=== PATIENT | female | born 1970 | race Caucasian/White ===

== ENCOUNTER 2017-09-30 16:45 | Inpatient (IN) | payer MEDICARE, OTHER ==
[2017-09-30 16:25] VITALS: BP 152/82; PULSE 98; RESP 20; O2SAT 94
[~2017-09-30 16:45] MED LIST: CALC250 PO; DIPH12.5S PO; ENOX120P SQ; FAMO20TA2 PO; FERR300S PO; HYDR25TA5 PO; LEVS0.123 PO; LISI-515 PO; MAGN400T2 PO; PYRI50 PO; THEO PO; THERTAB15 PO; VALT500T PO; VITA10002 PO; VITA500012 PO; oxyCODONE LIQ PO
[2017-09-30] MEDS ORDERED: MORPHINE SULFATE 8 MG/ML INJ IV PUSH ONE ×2 (16:46→17:00)
[2017-09-30 16:55] VITALS: BP 154/79; PULSE 20; RESP 20; O2SAT 94
[2017-09-30] MEDS ORDERED: ceFAZolin 2 GM PREMIX 50 ML IV ONE (17:00)
[2017-09-30] MEDS ORDERED: NALOXONE HCL 0.4 MG/ML AMP IV PUSH PRN (17:45)
[2017-09-30] MEDS ORDERED: ENALAPRILAT 2.5 MG/2 ML VIAL IV PUSH PRN (17:45)
[2017-09-30] MEDS ORDERED: KETOROLAC TROMETHAMINE 60 MG/2 ML (IM) VIAL IM PRN (18:00)
[2017-09-30] MEDS: ENOXAPARIN SODIUM 120 MG/0.8 ML SYRINGE SQ SCH (18:00)
--- NOTE | 2017-09-30 18:07 | HHI.HP ---
HPI Service [facility] Hospitalists Primary Care Physician Unknown Admission Diagnosis Diagnoses: Travel History International Travel<30 Days: No Contact w/Intl Traveler <30 Da: No Traveled to Known Affected Are: No History of Present Illness 46-year-old female with an extensive past medical history including CVAs, recurrent DVTs, PE, MS, neurogenic bladder requiring self catheter, chronic pain , A. fib, diastolic CHF, MANI, GERD, Nunez's esophagus, COPD and obesity who is admitted to the [facility] for Bob-en-Y gastric bypass and G-tube placement on 09/19/17. Postoperatively, the patient complained of bilateral lower extremity paralysis and numbness. MRI lumbar spine was done showing stable bulging disks at L4-L5 and L5-S1 without any foraminal or spinal cord narrowing. The patient was admitted to [facility] for rehabilitation on . While at [place], the patient's PEG tube became clogged. She has severe dysphagia and refuses to take anything by mouth including her medications. The patient went for a G-tube exchange with interventional radiology. During the procedure, the PEG was unable to be replaced in the same location and a new small caliber tube was placed. At this time the patient is to remain nothing by mouth and her PEG tube cannot be used. PEG to remain draining to gravity. The patient complains of severe abdominal pain from the procedure. Review of Systems Denies fever or chills Denies blurry vision, otorrhea, rhinorrhea Denies sore throat and cough No chest pain, palpitations, shortness of breath Positive abdominal pain Denies constipation/diarrhea/nausea/vomiting Bilateral lower extremity weakness No rashes Past Family Social History Past Medical History Dysphagia Schatzki ring Hiatal hernia status post repair Nunez's esophagus MS History of colon cancer status post chemotherapy, radiation and colectomy CVA DVT PE Hypertension Past Surgical History Hiatal hernia repair Bob-en-Y G-tube placement Foot surgery Excisional lipoma Parotidectomy Tonsillectomy Port placement Reported Medications Reported Meds & Active Scripts Active Thera Tablet (Multivitamin with Folic Acid) 400 Mcg Tablet 1 Tab PO DAILY Ergocalciferol 50,000 Unit Cap 50,000 Units PO Q7D Vitamin B-12 (Cyanocobalamin) 1,000 Mcg Tab 1,000 Mcg PO DAILY Vitamin B-6 (Pyridoxine HCl) 50 Mg Tab 100 Mg PO DAILY Theophylline ER 12 HR (Theophylline) 450 Mg Tab 450 Mg PO Q12HR Famotidine 20 Mg Tab 20 Mg PO Q12HR Magnesium Oxide 400 Mg Tab 400 Mg PO DAILY@1200 Hydrochlorothiazide 25 Mg Tab 25 Mg PO BID@18 Oyster Shell 250 mg + Vit D Tb (Calcium/Vitamin D) 250 Mg Calcium (625 Mg)-125 Unit Tablet 250 Mg PO Q12HR [oxyCODONE LIQ] 20 MG/1 ML Conc 10 Mg PO Q4H PRN Lisinopril 20 Mg Tab 20 Mg PO Q12HR Lovenox Inj (Enoxaparin Sodium) 120 Mg/0.8 Ml Syr 120 Mg SQ Q12H Ferrous Sulfate Liq (Ferrous Sulfate) 300 Mg/5 Ml Soln 300 Mg PO DAILY 30 Days Levsin (Hyoscyamine Sulfate) 0.125 Mg Tab 0.125 Mg PO Q4H PRN Valtrex (Valacyclovir HCl) 500 Mg Tab 500 Mg PO Q12HR Diphenhydramine Liq (Diphenhydramine HCl) 12.5 Mg/5 Ml Elix 25 Mg PO Q8H PRN Allergies: Coded Allergies: adhesive (Verified Allergy, Severe, swell, 09/27/17) ALL ADHESIVES EVEN PAPER TAPE.. ONLY CAN use primapore surgical adhesive ONLY azithromycin (Verified Allergy, Severe, swell throat, 09/27/17) fluticasone (Verified Allergy, Severe, swell, 09/27/17) hydrocortisone (Verified Allergy, Severe, thrush, 09/27/17) levofloxacin (Verified Allergy, Severe, rash, 09/27/17) metoprolol (Verified Allergy, Severe, rash, 09/27/17) nalbuphine (Verified Allergy, Severe, swelling throat, 09/27/17) salmeterol (Verified Allergy, Severe, swell, 09/27/17) silver (Verified Allergy, Severe, swell, 09/27/17) sulfamethoxazole (Verified Allergy, Severe, rash, 09/27/17) trimethoprim (Verified Allergy, Severe, rash, 09/27/17) Iodinated Contrast- Oral and IV Dye (Verified Allergy, Intermediate, itching , 09/27/17) aspirin (Unverified Allergy, Unknown, 09/27/17) Uncoded Allergies: dermabond (Allergy, Severe, swelling / redness, 09/27/17) nsaids (Allergy, Severe, swelling, 09/27/17) can take tylenol though not ibuprofen Family History History of CAD and diabetes mellitus in both parents Social History Denies alcohol, tobacco and illicit drugs Physical Exam Vital Signs Vital Signs Date Time Temp Pulse Resp B/P (MAP) Pulse Ox O2 Delivery O2 Flow Rate FiO2 09/30/17 16:55 20 20 154/79 (104) 94 09/30/17 16:25 98 20 152/82 (105) 94 Physical Exam GENERAL: Obese, female lying in bed SKIN: No rashes, ecchymoses or lesions. Cool and dry. HEAD: Atraumatic. Normocephalic. No temporal or scalp tenderness. EYES: Pupils equal round and reactive. Extraocular motions intact. No scleral icterus. No injection or drainage. ENT: Nose without bleeding, purulent drainage or septal hematoma. Throat without erythema, tonsillar hypertrophy or exudate. Uvula midline. Airway patent. Mucous membranes dry. NECK: Trachea midline. No JVD or lymphadenopathy. Supple, nontender, no meningeal signs. CARDIOVASCULAR: Regular rate and rhythm without murmurs, gallops, or rubs. RESPIRATORY: Clear to auscultation. Breath sounds equal bilaterally. No wheezes , rales, or rhonchi. GASTROINTESTINAL: Abdomen soft, nondistended. Exquisitely tender to palpation in all 4 quadrants. Voluntary guarding. No peritoneal signs. MUSCULOSKELETAL: Extremities without clubbing, cyanosis, or edema. No joint tenderness, effusion, or edema noted. NEUROLOGICAL: Awake and alert. Cranial nerves II through XII intact. Motor and sensory grossly within normal limits. Normal speech. Caprini VTE Risk Assessment Caprini VTE Risk Assessment: Mod/High Risk (score >= 2) Caprini Risk Assessment Model Point Value = 1 Point Value = 2 Point Value = 3 Point Value = 5 Age 41-60 Minor surgery BMI > 25 kg/m2 Swollen legs Varicose veins or History of unexplained or recurrent spontaneous Oral contraceptives or hormone replacement Sepsis (< 1 month) Serious lung disease, including pneumonia (< 1 month) Abnormal pulmonary function Acute myocardial infarction Congestive heart failure (< 1 month) History of inflammatory bowel disease Medical patient at bed rest Age 61-74 Arthroscopic surgery Major open surgery (> 45 min) Laparoscopic surgery (> 45 min) Malignancy Confined to bed (> 72 hours) Immobilizing plaster cast Central venous access Age >= 75 History of VTE Family history of VTE Factor V Leiden Prothrombin [id number] Lupus anticoagulant Anticardiolipin antibodies Elevated serum homocysteine Heparin-induced thrombocytopenia Other congenital or acquired thrombophilia Stroke (< 1 month) Elective arthroplasty Hip, pelvis, or leg fracture Acute spinal cord injury (< 1 month) Prophylaxis Regimen Total Risk Factor Score Risk Level Prophylaxis Regimen 0-1 Low Early ambulation 2 Moderate Order ONE of the following: *Sequential Compression Device (SCD) *Heparin 5000 units SQ BID 3-4 Higher Order ONE of the following medications: *Heparin 5000 units SQ TID *Enoxaparin/Lovenox 40 mg SQ daily (WT < 150 kg, CrCl > 30 mL/min) *Enoxaparin/Lovenox 30 mg SQ daily (WT < 150 kg, CrCl > 10-29 mL/min) *Enoxaparin/Lovenox 30 mg SQ BID (WT < 150 kg, CrCl > 30 mL/min) AND/OR *Sequential Compression Device (SCD) 5 or more Highest Order ONE of the following medications: *Heparin 5000 units SQ TID (Preferred with Epidurals) *Enoxaparin/Lovenox 40 mg SQ daily (WT < 150 kg, CrCl > 30 mL/min) *Enoxaparin/Lovenox 30 mg SQ daily (WT < 150 kg, CrCl > 10-29 mL/min) *Enoxaparin/Lovenox 30 mg SQ BID (WT < 150 kg, CrCl > 30 mL/min) AND *Sequential Compression Device (SCD) Assessment and Plan Assessment and Plan 46-year-old female with multiple medical comorbidities presents from rehabilitation after failed G-tube exchange 1. Status post gastric bypass/G-tube placement Patient is status post Bob-en-Y gastric bypass with G-tube placement on 09/19 at [facility] Admitted to rehabilitation for physical deconditioning and bilateral lower extremity paralysis of G-tube clogged, was unable to be replaced in same location. A small G-tube was placed in the stomach, will need to remain to draining to gravity for approximately 2-3 days while previous G-tube site heals. CAN NOT USE G TUBE FOR NUTRITION OR MEDICATION AT THIS TIME. Consult general surgery, Dr. Miles is aware, appreciate recommendations. Interventional radiology following. 2. Paralysis of lower extremities MRI spine showed bulging disc at L4-L5 and L5-S1 without explanation of symptoms Neurology was consulted while the patient was in rehabilitation, recommend EMG Physical therapy 3. History of PE/DVT Continue therapeutic Lovenox Status post IVC filter placement 4. Hypertension Holding home medications as patient cannot take anything by mouth/by tube Vasotec every 6 hours when necessary Monitor and add additional IV medications as needed 5. GERD/Nunez's esophagus IV Protonix 6. Neurogenic bladder Insert Reeves 7. MS/history of CVA Patient has been evaluated by neurology during this visit Neurology has signed off Anticoagulation as above 8. Diastolic heart failure Vasotec until patient can resume home medications 9. Chronic pain/abdominal pain Morphine Toradol 3 days FEN NPO NS at 125 cc/hr Electrolytes: monitor and replete prn Lovenox Physician Certification 2 Midnight Certification Type: Admission for Inpatient Services Order for Inpatient Services The services are ordered in accordance with Medicare regulations or non- Medicare payer requirements, as applicable. In the case of services not specified as inpatient-only, they are appropriately provided as inpatient services in accordance with the 2-midnight benchmark. Estimated LOS (days): 2 2 days is the estimated time the patient will need to remain in the hospital, assuming treatment plan goals are met and no additional complications. Post-Hospital Plan: Not yet determined Alma Verma MD Sep 30, 2017 18:07
[2017-09-30] MEDS: SODIUM CHLOR 0.9% 1000 ML INJ 1,000 ML IV SCH (18:12)
[2017-09-30] MEDS: MORPHINE SULFATE 4 MG/ML INJ IV PUSH PRN ×2 (18:12→21:48)
[2017-09-30] MEDS: ONDANSETRON HCL 4 MG/2 ML VIAL IVP PRN (18:12)
[2017-09-30] MEDS: PANTOPRAZOLE SODIUM 40 MG VIAL IV PUSH SCH (18:49)
[2017-09-30 20:00] VITALS: BP 144/87; PULSE 106; RESP 22; TEMP 101.1; O2SAT 97
[2017-09-30] MEDS: SODIUM CHLORIDE 0.9% FLUSH 10 ML FLUSH IV FLUSH SCH (21:51)
--- NOTE | 2017-09-30 22:07 | MB ---
cc: DILIP JOHNSON MD DATE OF CONSULTATION 09/30/17 REASON FOR CONSULTATION Clogged G tube, history of gastric bypass. HISTORY OF PRESENT ILLNESS The patient is a 46-year-old female who presents with recent surgical intervention including Bob-en-Y gastric bypass. Patient with clogged gastrostomy tube. The patient with significant medical and surgical history. The patient was noted to be admitted at [facility] for a Bob-en-Y gastric bypass, gastrostomy tube placement and hiatal hernia repair robotically on 09/19/2017. Postoperatively, the patient did say she developed paralysis and numbness bilateral lower extremities. She had evaluation with an MRI showed bulging disks without any cord compromise. The patient did have a history of MS. She was also noted to undergo hiatal hernia repair and gastrostomy tube placement at her request due to decreased p.o. intake and esophagitis. However, further discussion with patient who is a questionable historian notes that she did not prefer to get gastric bypass, but this was recommended to her as her BMI is 43 with morbid obesity. She underwent the procedure and states she has not been able to taking p.o. intake since procedure. She has been dependent on her gastrostomy tube. However, this morning is noted to be completely clogged. The patient is also requesting up size of gastrostomy tube and a possible endoscopic evaluation. The patient denies any recent fevers or chills. She does note a history of nausea and vomiting and irregular bowel movements. PAST MEDICAL HISTORY 1. Dysphasia 2. Schatzki's ring 3. Hiatal hernia. 4. Nunez's esophagus 5. Multiple sclerosis 6. History of colon cancer status post chemo radiation and partial colectomy 7. Cerebrovascular accident 8. Deep venous thrombosis and PE, 9. Hypertension, 10. Questionable stomach cancer. PAST SURGICAL HISTORY 1. Hiatal hernia 2. Bob-en-Y gastric bypass, 3. Gastrostomy tube placement 09/19/2017 at [place] 4. Foot surgery 5. Excision of lipoma 6. Parotidectomy 7. Tonsillectomy, 8. 9. Port placement. MEDICATIONS See EMR. ALLERGIES ADHESIVES ERYTHROMYCIN FLUTICASONE. HYDROCORTISONE LEVOFLOXACIN METOPROLOL SOLU-MEDROL SILVER SULFA METHISOL TRIMETHOPRIM CONTRAST ASPIRIN FAMILY HISTORY 1. Coronary artery disease, 2. Diabetes in both parents. SOCIAL HISTORY Denies smoking, ETOH or IVDA. REVIEW OF SYSTEMS GENERAL: Denies fevers, chills HEENT: Denies eye pain, ear pain. NECK: Denies swelling or pain. LUNGS: Denies cough or wheeze. HEART: Denies palpitations or chest pain. ABDOMEN: Complains of nausea, vomiting, abdominal pain : Denies dysuria, hematuria. ENDOCRINE: Denies polyuria, polydipsia. MUSCULOSKELETAL: Positive numbness, paralysis. PHYSICAL EXAMINATION GENERAL: No acute distress. HEENT: Normocephalic, atraumatic. NECK: Supple. Trachea midline. LUNGS: Bilateral expansion. HEART: S1, S2 regular. ABDOMEN: Soft, mild tenderness to palpation epigastric, incisions with Steri-Strips in place. NG tube in place. No signs of infection, clogged G-tube. EXTREMITIES: Moving upper extremities NEUROLOGIC: 5/5 motor upper extremities. Lower extremities: No movement, no sensation. LABORATORY AND DIAGNOSTIC DATA 09/28. White count 8.3, hemoglobin 9, hematocrit 27.8, platelets 351. Sodium 136, potassium 2.6, chloride 102, BUN 10, creatinine 0.5, calcium 8.4, AST 19, ALT 58, albumin 2.7. IMAGING STUDIES X-ray abdomen - Benign abdomen. No obstructive process. ASSESSMENT Patient multiple medical issues morbid obesity 46 years old, recent gastric bypass, gastrostomy and hiatal hernia repair at [facility] now with a clogged G tube. PLAN After full clinical, radiologic and laboratory workup the patient with above-named issues. At this point, discussed with the patient that I do not recommend upsizing gastrostomy tube as gastrostomy tube has only been there for approximately 2 weeks and it would not be advised to remove tube in replace at this time because the stomach us unlikely to be healed against the anterior abdominal wall. Further, we will attempt at declogging with pancreatic enzymes, possible introducer wire. We will discuss with interventional radiology for assistance in declogging tube. Again, the patient is in desire to upsize her gastrostomy tube. I do not recommend this at this time. Further we will hold off on EGD given again the patient's recent anastomosis. I do not recommend EGD evaluation at this time. The patient would be better warranted with an upper GI to evaluate her pouch. However, she is currently refusing this, states that she has too much nausea and would not be able to tolerate. Again, would recommend declogging tube only and we will plan to leave tube in place and we will attempt upper GI if the patient permits. MD ROSE MARIE Cheatham/ /8:12 PM /9:33 PM
[2017-09-30 23:30] VITALS: O2SAT 95
[2017-10-01] VITALS (7 sets, daily range): BP systolic 123–161; BP diastolic 63–80; PULSE 104–108; RESP 16–20; TEMP 96.7–101.6; O2SAT 96–98
[2017-10-01] MEDS: MORPHINE SULFATE 4 MG/ML INJ IV PUSH PRN ×6 (01:56→18:18)
[2017-10-01] MEDS: ceFAZolin 1,000 MG/NS 100 ML IV SCH ×6 (01:56→16:55)
[2017-10-01] MEDS: SODIUM CHLOR 0.9% 1000 ML INJ 1,000 ML IV SCH ×3 (03:39→18:25)
[2017-10-01] MEDS: ENOXAPARIN SODIUM 120 MG/0.8 ML SYRINGE SQ SCH ×2 (05:02→18:21)
[2017-10-01 05:49] LABS: ALBUMIN 2.6 GM/DL (3.4-5.0); ALT (GPT) 47 U/L (10-53); AST (GOT) 9 U/L (15-37); BLOOD UREA NITROGEN 13 MG/DL (7-18); CALCIUM 8.1 MG/DL (8.5-10.1); CHLORIDE 107 MEQ/L (98-107); CREATININE 0.51 MG/DL (0.50-1.00); GLOMERULAR FILTRATION RATE 129 ML/MIN (>89); GLUCOSE,RANDOM 132 MG/DL (74-106); SODIUM (NA) 141 MEQ/L (136-145)
[2017-10-01 05:52] LABS: ALKALINE PHOSPHATASE 37 U/L (45-117); TOTAL BILIRUBIN ADULT 0.3 MG/DL (0.2-1.0); TOTAL PROTEIN 6.6 GM/DL (6.4-8.2)
[2017-10-01] MEDS: SODIUM CHLORIDE 0.9% FLUSH 10 ML FLUSH IV FLUSH SCH ×2 (08:17→20:08)
[2017-10-01] MEDS: ONDANSETRON HCL 4 MG/2 ML VIAL IVP PRN ×3 (08:25→18:23)
[2017-10-01] MEDS: SODIUM CHLORIDE 0.9% FLUSH 10 ML FLUSH IV FLUSH PRN ×3 (08:25→18:18)
[2017-10-01 10:05] LABS: AMORPHOUS SEDIMENT, URINE OCC; BACTERIA, URINE OCC /hpf; BILIRUBIN, URINE NEG (NEG); BLOOD, URINE MOD (NEG); GLUCOSE,URINE NEG (NEG); KETONE, URINE 40 mg/dL (NEG); MUCUS URINE MANY /lpf (OCC); NITRITE,URINE NEG (NEG); PH, URINE 5.5 (5.0-8.5); SQUAMOUS EPITHELIAL CELL URINE <1 /hpf (0-5); URINE COLOR YELLOW (YELLW/STRAW); URINE LEUKOCYTE ESTERASE LARGE (NEG)
[2017-10-01 11:04] LABS: AUTOMATED NEUTROPHIL # 10.5 TH/MM3 (1.8-7.7); BASOPHIL % 0.4 % (0.0-2.0); EOSINOPHIL # 0.2 TH/MM3 (0-0.4); EOSINOPHIL % 1.2 % (0.0-4.0); HEMATOCRIT 27.9 % (35.0-46.0); HEMOGLOBIN 9.3 GM/DL (11.6-15.3); LYMPH % 12.3 % (9.0-44.0); LYMPHOCYTE # 1.6 TH/MM3 (1.0-4.8); MEAN CELL VOLUME 82.6 FL (80.0-100.0); MEAN CORPUSCULAR HEMOGLOBIN 27.7 PG (27.0-34.0); MEAN CORPUSCULAR HGB CONC 33.5 % (32.0-36.0); MEAN PLATELET VOLUME 8.3 FL (7.0-11.0); MONOCYTE # 0.9 TH/MM3 (0-0.9); NEUT % 79.1 % (16.0-70.0); PLATELET COUNT 367 TH/MM3 (150-450); RED BLOOD COUNT 3.37 MIL/MM3 (4.00-5.30); RED CELL DISTRIBUTION WIDTH 15.6 % (11.6-17.2); WHITE BLOOD COUNT 13.3 TH/MM3 (4.0-11.0)
--- NOTE | 2017-10-01 11:42 | RADRPT ---
EXAM DATE/TIME: 10/01/2017 11:24 [place] COMPARISON: No previous studies available for comparison. INDICATIONS : Pain in lower left and shortness of breath. MEDICAL HISTORY : Carcinoma, colon. SURGICAL HISTORY : PEG tube, left. Port placement, left. ENCOUNTER: Initial ACUITY: 3 days PAIN SCORE: 7/10 LOCATION: Left lower chest. FINDINGS: PA and lateral views of the chest demonstrate the lungs to be symmetrically aerated without evidence of mass, infiltrate or effusion. The cardiomediastinal contours are unremarkable. Left sided port ca theter with tip in the right atrium. Osseous structures are intact. Pigtail catheter seen within the left upper abdomen. CONCLUSION: No acute disease. Deshawn Ventura MD on October 01, 2017 at 11:39 Board Certified Radiologist. This report was verified electronically.
--- NOTE | 2017-10-01 13:42 | HHI.PR ---
Subjective Remarks Follow-up visit abdominal pain, status post Bob-en-Y gastric bypass and G-tube placement on 09/19/17 in [facility], Clogged PEG with unsuccessful IR PEG replacement. Patient seen and examined today with Dr. Rivera. Laying in bed. Complaints of pain, sharp, exacerbated by taking deep breaths or movement, /10 , requesting for medication adjustment to manage pain. Patient states that pain started when they replaced the tube in IR, so she was in the same when she came out. She thought that the PEG tube is just going to be replaced. Patient appears upset, states it's very difficult for them since they don't live in this area and feels that there are more complications to her conditions. She is worried about the drain placement and that she reports she previously have drains place that always clogs up and more procedures are being done to her. Reports shortness of breath, requesting for nebulizer treatments. Denies chest pain, palpitations, headaches, dizziness. Denies chills. Objective Vitals Vital Signs Date Time Temp Pulse Resp B/P (MAP) Pulse Ox O2 Delivery O2 Flow Rate FiO2 10/01/17 12:00 99.6 104 16 130/64 (86) 97 10/01/17 08:22 18 10/01/17 08:00 99.6 104 16 130/64 (86) 97 10/01/17 04:00 100.4 106 20 161/80 (107) 97 10/01/17 00:00 101.0 107 20 137/77 (97) 96 09/30/17 23:30 95 Nasal Cannula 2.00 09/30/17 20:00 101.1 106 22 144/87 (106) 97 09/30/17 16:55 20 20 154/79 (104) 94 09/30/17 16:25 98 20 152/82 (105) 94 I/O 09/30/17 09/30/17 09/30/17 10/01/17 10/01/17 10/01/17 07:00 15:00 23:00 07:00 15:00 23:00 Intake Total 0 ml Output Total 350 ml Balance -350 ml Intake Oral 0 ml Output Urine Total 350 ml # Bowel Movements 0 Result Diagram: 10/01/17 1040 10/01/17 0505 Imaging Last Impressions Chest X-Ray 10/01/17 0000 Signed Impressions: Service Date/Time: Sunday, October 01, 2017 11:24 - CONCLUSION: No acute disease. Deshawn Ventura MD Objective Remarks GENERAL: This is an obese, well-developed patient, appears to be in pain. SKIN: Warm and dry. HEENT: Normocephalic. Pupils equal round and reactive. Nose without bleeding. Airway patent. NECK: Trachea midline. No JVD. Supple. CARDIOVASCULAR: Regular rate and rhythm without murmurs, gallops, or rubs. RESPIRATORY: Clear to auscultation. Breath sounds equal bilaterally. No wheezes , rales, or rhonchi. GASTROINTESTINAL: Abdomen soft, obese, nondistended. Hypoactive BS. Right upper quadrant drain scant amount bilious colored. MUSCULOSKELETAL: Extremities without clubbing, cyanosis, or edema. NEUROLOGICAL: Awake and alert. Oriented to time, place, person. No focal neuro deficit. Moves all extremities weakly. Normal speech. A/P Problem List: (1) PEG tube malfunction ICD Code: K94.23 - Gastrostomy malfunction (2) History of recurrent deep vein thrombosis (DVT) ICD Code: Z86.718 - Personal history of other venous thrombosis and embolism Status: Chronic (3) Impaired mobility and activities of daily living ICD Code: Z74.09 - Other reduced mobility Status: Acute (4) History of CVA (cerebrovascular accident) ICD Code: Z86.73 - Personal history of transient ischemic attack (TIA), and cerebral infarction without residual deficits Status: Chronic (5) History of pulmonary embolism ICD Code: Z86.711 - Personal history of pulmonary embolism Status: Chronic (6) Postoperative anemia due to acute blood loss ICD Code: D62 - Acute posthemorrhagic anemia Status: Acute (7) Diastolic heart failure ICD Code: I50.30 - Unspecified diastolic (congestive) heart failure Status: Chronic (8) MANI (obstructive sleep apnea) ICD Code: G47.33 - Obstructive sleep apnea (adult) (pediatric) Status: Chronic (9) S/P gastric bypass ICD Code: Z98.84 - Bariatric surgery status Status: Acute Assessment and Plan Patient is a 46-year-old female with an extensive past medical history including CVAs, recurrent DVTs, PE, MS, neurogenic bladder requiring self catheter, chronic pain, A. fib, diastolic CHF, MANI, GERD, Nunez's esophagus, COPD and obesity who is admitted to the [facility] for Bob-en-Y gastric bypass and G-tube placement on 09/19/17. Postoperatively, the patient complained of bilateral lower extremity paralysis and numbness. MRI lumbar spine was done showing stable bulging disks at L4-L5 and L5-S1 without any foraminal or spinal cord narrowing. The patient was admitted to [facility] for rehabilitation on 09/27/17. While at [place], the patient's PEG tube became clogged. Status post gastric bypass/G-tube placement G- tube malfunction, acute Abdominal pain - Interventional radiology procedure unable to replace in the same location. A small G-tube was placed in the stomach, will need to remain to draining to gravity for approximately 2-3 days while previous G-tube site heals. - CAN NOT USE G TUBE FOR NUTRITION OR MEDICATION AT THIS TIME. - Consult general surgery for further evaluation and recommendation - Interventional radiology so following - Pain management with IV morphine, IV Toradol for breakthrough pain. We'll wait for Gen. surgery recommendation before proceeding with pain medication adjustment. - IV fluids for hydration. Monitor for fluid overload Leukocytosis, acute - Check chest x-ray, UA - Follow-up labs in a.m. Paralysis of lower extremities - MRI spine showed bulging disc at L4-L5 and L5-S1 without explanation of symptoms - Neurology was consulted while the patient was in rehabilitation, recommend EMG. - Physical therapy eval and treat History of PE/DVT - Continue therapeutic Lovenox - Status post IVC filter placement Hypertension - Holding home medications as patient cannot take anything by mouth/by tube - Vasotec every 6 hours when necessary - Monitor BP Trend and add additional IV medications as needed GERD/Nunez's esophagus - IV Protonix Neurogenic bladder - Continue Reeves MS/history of CVA - Patient has been evaluated by neurology during this visit - Neurology has signed off - Anticoagulation as above Diastolic heart failure - Vasotec until patient can resume home medications - Monitor for fluid overload DVT prop Lovenox GI prop pantoprazole IV Discuss condition with patient, nursing, Dr. Rivera Discharge Planning Plan to DC back to [place] for continued rehabilitation once clinically improved and cleared by IR in general surgery. Attending Statement The exam, history, and the medical decision-making described in the above note were completed with the assistance of the mid-level provider. I reviewed and agree with the findings presented. I attest that I had a nspa-ce-alto encounter with the patient on the same day, and personally performed and documented my assessment and findings in the medical record. Patient complaining of abdominal pain after being seen by IR yesterday when drain was placed. Patient's she stated that she feels nauseous but this is her baseline. Gen in NAD CV RRR. no r/m/g Abd soft TTP around PEG site. no peritoneal signs. Resp CTA B/L A/P Status post gastric bypass/G-tube placement G- tube malfunction, acute Abdominal pain, acute on chronic Fever postop Management per IR in general surgeon. In terms of fever chest x-ray and UA obtained. UA suggest possible UTI. Currently on Ancef by IR. Continue with Ancef pending urine cultures. Chest x- ray is negative. Will continue to monitor fevers. Continue to monitor clinically. Nidia Landis Oct 01, 2017 13:41 Lisa Rivera MD Oct 01, 2017 14:12
--- NOTE | 2017-10-01 14:19 | HHI.PR ---
Subjective Subjective Notes Discouraged about the tube; still inquired about upsizing the tube Objective Vitals/I&O Vital Signs Date Time Temp Pulse Resp B/P (MAP) Pulse Ox O2 Delivery O2 Flow Rate FiO2 10/01/17 12:00 99.6 104 16 130/64 (86) 97 09/30/17 23:30 Nasal Cannula 2.00 Labs Laboratory Tests Test 10/01/17 05:05 10/01/17 09:20 10/01/17 10:40 Blood Urea Nitrogen 13 Creatinine 0.51 Random Glucose 132 Total Protein 6.6 Albumin 2.6 Calcium Level 8.1 Alkaline Phosphatase 37 Aspartate Amino Transf (AST/SGOT) 9 Alanine Aminotransferase (ALT/SGPT) 47 Total Bilirubin 0.3 Sodium Level 141 Potassium Level 3.8 Chloride Level 107 Carbon Dioxide Level 23.0 Anion Gap 11 Estimat Glomerular Filtration Rate 129 Urine Color YELLOW Urine Turbidity HAZY Urine pH 5.5 Urine Specific [place] 1.035 Urine Protein 30 Urine Glucose (UA) NEG Urine Ketones 40 Urine Occult Blood MOD Urine Nitrite NEG Urine Bilirubin NEG Urine Urobilinogen LESS THAN 2.0 Urine Leukocyte Esterase LARGE Urine RBC 6 Urine WBC 39 Urine Squamous Epithelial Cells <1 Urine Amorphous Sediment OCC Urine Bacteria OCC Urine Mucus MANY Microscopic Urinalysis Comment CULTURE INDICATED White Blood Count 13.3 Red Blood Count 3.37 Hemoglobin 9.3 Hematocrit 27.9 Mean Corpuscular Volume 82.6 Mean Corpuscular Hemoglobin 27.7 Mean Corpuscular Hemoglobin Concent 33.5 Red Cell Distribution Width 15.6 Platelet Count 367 Mean Platelet Volume 8.3 Neutrophils (%) (Auto) 79.1 Lymphocytes (%) (Auto) 12.3 Monocytes (%) (Auto) 7.0 Eosinophils (%) (Auto) 1.2 Basophils (%) (Auto) 0.4 Neutrophils # (Auto) 10.5 Lymphocytes # (Auto) 1.6 Monocytes # (Auto) 0.9 Eosinophils # (Auto) 0.2 Basophils # (Auto) 0.0 CBC Comment DIFF FINAL Differential Comment Date/Time Source Procedure Growth Status 10/01/17 09:20 Urine Clean Catch Urine Culture Pending Received Abdomen: Non-distended, Post-op tenderness A/P Assessment and Plan Clogged G-tube after bariatric surgery at [facility]; now with IR substituted drain in the site, as they were not able to unclog the G-tube Plan: Per Dr. Miles; may get new G-tube via IR next week to replace drain Loi Purvis MD Oct 01, 2017 14:19
--- NOTE | 2017-10-01 15:07 | PD.RAD ---
Radiology Note Pt resting. C/o moderate LUQ pain at tube site and with deep breaths. AF. VSS. Minimal tube output. Tube site looks OK. Tube flushed and found to be patent. Burney drain changed for accordion. Normal gastric fluids aspirated. A/P: G-tube to accordion drain. Will do contrast study early this week to verify closure of prior gastrostomy defect. Need the opinion of Dr. Miles and GI consultants to determine if replacement of standard G-Tube or conversion to J-tube would be preferable in this complex pt. August Darden MD Oct 01, 2017 15:07
[2017-10-01] MEDS ORDERED: ACETAMINOPHEN 1000 MG/100 ML 50 ML IV PRN (16:00)
[2017-10-01] MEDS: PANTOPRAZOLE SODIUM 40 MG VIAL IV PUSH SCH (18:18)
[2017-10-01] MEDS: RESP: ALBUTEROL 2.5 MG/IPRATROPIUM 0.5 MG NEB (SCH) NEB (21:15)
[2017-10-02] VITALS (7 sets, daily range): BP systolic 98–127; BP diastolic 52–63; PULSE 86–107; RESP 16–18; TEMP 98.3–99.6; O2SAT 95–98
[2017-10-02] MEDS: ceFAZolin 1,000 MG/NS 100 ML IV SCH ×6 (00:40→17:00)
[2017-10-02] MEDS: MORPHINE SULFATE 4 MG/ML INJ IV PUSH PRN ×5 (00:40→15:15)
[2017-10-02] MEDS: ONDANSETRON HCL 4 MG/2 ML VIAL IVP PRN ×3 (00:40→13:22)
[2017-10-02] MEDS: SODIUM CHLOR 0.9% 1000 ML INJ 1,000 ML IV SCH ×3 (06:03→14:41)
[2017-10-02] MEDS: ENOXAPARIN SODIUM 120 MG/0.8 ML SYRINGE SQ SCH ×2 (06:03→19:00)
[2017-10-02 06:23] LABS: HEMATOCRIT 26.3 % (35.0-46.0); HEMOGLOBIN 8.3 GM/DL (11.6-15.3); MEAN CELL VOLUME 83.2 FL (80.0-100.0); MEAN CORPUSCULAR HEMOGLOBIN 26.3 PG (27.0-34.0); MEAN CORPUSCULAR HGB CONC 31.6 % (32.0-36.0); MEAN PLATELET VOLUME 8.2 FL (7.0-11.0); PLATELET COUNT 375 TH/MM3 (150-450); RED BLOOD COUNT 3.16 MIL/MM3 (4.00-5.30); RED CELL DISTRIBUTION WIDTH 15.8 % (11.6-17.2)
[2017-10-02 06:59] LABS: BICARBONATE 23.4 MEQ/L (21.0-32.0); CALCIUM 7.9 MG/DL (8.5-10.1); CREATININE 0.36 MG/DL (0.50-1.00)
[2017-10-02] MEDS: RESP: ALBUTEROL 2.5 MG/IPRATROPIUM 0.5 MG NEB (SCH) NEB ×3 (07:34→19:18)
--- NOTE | 2017-10-02 08:47 | HHI.PR ---
cc: Patrick Miles MD Subjective Subjective Notes no fevers wbc 12, c/o pain at LUQ Objective Vitals/I&O Vital Signs Date Time Temp Pulse Resp B/P (MAP) Pulse Ox O2 Delivery O2 Flow Rate FiO2 10/02/17 08:00 98.8 98 16 107/62 (77) 95 10/02/17 07:36 Nasal Cannula 2.00 Labs Laboratory Tests Test 10/01/17 09:20 10/01/17 10:40 10/02/17 06:11 Urine Color YELLOW Urine Turbidity HAZY Urine pH 5.5 Urine Specific [place] 1.035 Urine Protein 30 Urine Glucose (UA) NEG Urine Ketones 40 Urine Occult Blood MOD Urine Nitrite NEG Urine Bilirubin NEG Urine Urobilinogen LESS THAN 2.0 Urine Leukocyte Esterase LARGE Urine RBC 6 Urine WBC 39 Urine Squamous Epithelial Cells <1 Urine Amorphous Sediment OCC Urine Bacteria OCC Urine Mucus MANY Microscopic Urinalysis Comment CULTURE INDICATED White Blood Count 13.3 12.0 Red Blood Count 3.37 3.16 Hemoglobin 9.3 8.3 Hematocrit 27.9 26.3 Mean Corpuscular Volume 82.6 83.2 Mean Corpuscular Hemoglobin 27.7 26.3 Mean Corpuscular Hemoglobin Concent 33.5 31.6 Red Cell Distribution Width 15.6 15.8 Platelet Count 367 375 Mean Platelet Volume 8.3 8.2 Neutrophils (%) (Auto) 79.1 Lymphocytes (%) (Auto) 12.3 Monocytes (%) (Auto) 7.0 Eosinophils (%) (Auto) 1.2 Basophils (%) (Auto) 0.4 Neutrophils # (Auto) 10.5 Lymphocytes # (Auto) 1.6 Monocytes # (Auto) 0.9 Eosinophils # (Auto) 0.2 Basophils # (Auto) 0.0 CBC Comment DIFF FINAL Differential Comment Blood Urea Nitrogen 9 Creatinine 0.36 Random Glucose 102 Calcium Level 7.9 Sodium Level 142 Potassium Level 3.9 Chloride Level 109 Carbon Dioxide Level 23.4 Anion Gap 10 Estimat Glomerular Filtration Rate 193 Date/Time Source Procedure Growth Status 10/01/17 17:49 Blood Peripheral Aerobic Blood Culture Pending Received 10/01/17 17:49 Blood Peripheral Anaerobic Blood Culture Pending Received 10/01/17 09:20 Urine Clean Catch Urine Culture Pending Received Abdomen: Other (+ttp at drain site, otherwise soft incions well healing) A/P Assessment and Plan hx rygb, hh repair, gastrostomy tube, clogged g tube, now with pigtail PLAN will continue to follow, pigtail to gravity according abx pain control if g tube site not healed may need tpn pending tube exchange Patrick Miles MD Oct 02, 2017 08:47
[2017-10-02] MEDS: SODIUM CHLORIDE 0.9% FLUSH 10 ML FLUSH IV FLUSH SCH (09:11)
[2017-10-02] MEDS: SODIUM CHLORIDE 0.9% FLUSH 10 ML FLUSH IV FLUSH PRN ×3 (12:11→19:01)
--- NOTE | 2017-10-02 13:17 | HHI.PR ---
Subjective Remarks Follow-up visit abdominal pain, status post Bob-en-Y gastric bypass and G-tube placement on 09/19/17 in [facility], Clogged PEG with unsuccessful IR PEG replacement. Patient seen and examined today lying in bed. Reports her pain has improved, from 15/10 to now 9/10, aggravated by movement and deep breathing.. Complaints of nausea, no vomiting. States that she is thankful for everything we're doing for her. States she doesn't want to go back to [facility] as she has a whole lot of complications there to begin with. Reports relief with feeling bloated, stating her abdomen appears to have decreased in size and improved. Denies SOB/ dyspnea. Denies chest pain, palpitations, headaches, dizziness. Denies fevers, chills, vomiting, diarrhea. Denies dysuria. Objective Vitals Vital Signs Date Time Temp Pulse Resp B/P (MAP) Pulse Ox O2 Delivery O2 Flow Rate FiO2 10/02/17 12:16 18 10/02/17 12:00 98.3 101 16 127/63 (84) 95 10/02/17 08:20 95 Nasal Cannula 2.00 10/02/17 08:00 98.8 98 16 107/62 (77) 95 10/02/17 07:36 98 Nasal Cannula 2.00 10/02/17 00:00 99.6 107 18 120/57 (78) 97 10/01/17 21:18 96 Nasal Cannula 2.00 10/01/17 20:03 98 Nasal Cannula 2.00 10/01/17 20:00 96.7 104 18 123/63 (83) 98 10/01/17 16:44 18 10/01/17 16:00 101.6 108 17 136/76 (96) 97 I/O 10/01/17 10/01/17 10/01/17 10/02/17 10/02/17 10/02/17 07:00 15:00 23:00 07:00 15:00 23:00 Intake Total 0 ml 2008 ml 1000 ml Output Total 350 ml 870 ml 450 ml 350 ml Balance -350 ml 1138 ml 550 ml -350 ml Intake Oral 0 ml 0 ml IV Total 2008 ml 1000 ml Output Urine Total 350 ml 800 ml 450 ml Drainage Total 70 ml 350 ml # Bowel Movements 0 0 Result Diagram: 10/02/1711 10/02/1711 Imaging Last Impressions Chest X-Ray 10/01/17 0000 Signed Impressions: Service Date/Time: Sunday, October 01, 2017 11:24 - CONCLUSION: No acute disease. Deshawn Ventura MD Objective Remarks GENERAL: This is an obese, well-developed patient, appears to be in pain. SKIN: Warm and dry. Multiple incision sites with Steri-Strips clean dry and intact HEENT: Normocephalic. Pupils equal round and reactive. Nose without bleeding. Airway patent. NECK: Trachea midline. No JVD. Supple. CARDIOVASCULAR: Regular rate and rhythm without murmurs, gallops, or rubs. RESPIRATORY: Diminished bases. No wheezes, rales, or rhonchi. GASTROINTESTINAL: Abdomen soft, obese, nondistended. Hypoactive BS. Right upper quadrant drain moderate amount bilious colored. MUSCULOSKELETAL: Extremities without clubbing, cyanosis, or edema. NEUROLOGICAL: Awake and alert. Oriented to time, place, person. No focal neuro deficit. Moves all extremities weakly. Normal speech. A/P Problem List: (1) PEG tube malfunction ICD Code: K94.23 - Gastrostomy malfunction (2) History of recurrent deep vein thrombosis (DVT) ICD Code: Z86.718 - Personal history of other venous thrombosis and embolism Status: Chronic (3) Impaired mobility and activities of daily living ICD Code: Z74.09 - Other reduced mobility Status: Acute (4) History of CVA (cerebrovascular accident) ICD Code: Z86.73 - Personal history of transient ischemic attack (TIA), and cerebral infarction without residual deficits Status: Chronic (5) History of pulmonary embolism ICD Code: Z86.711 - Personal history of pulmonary embolism Status: Chronic (6) Postoperative anemia due to acute blood loss ICD Code: D62 - Acute posthemorrhagic anemia Status: Acute (7) Diastolic heart failure ICD Code: I50.30 - Unspecified diastolic (congestive) heart failure Status: Chronic (8) MANI (obstructive sleep apnea) ICD Code: G47.33 - Obstructive sleep apnea (adult) (pediatric) Status: Chronic (9) S/P gastric bypass ICD Code: Z98.84 - Bariatric surgery status Status: Acute Assessment and Plan Patient is a 46-year-old female with an extensive past medical history including CVAs, recurrent DVTs, PE, MS, neurogenic bladder requiring self catheter, chronic pain, A. fib, diastolic CHF, MANI, GERD, Nunez's esophagus, COPD and obesity who is admitted to the [facility] for Bob-en-Y gastric bypass and G-tube placement on 09/19/17. Postoperatively, the patient complained of bilateral lower extremity paralysis and numbness. MRI lumbar spine was done showing stable bulging disks at L4-L5 and L5-S1 without any foraminal or spinal cord narrowing. The patient was admitted to [facility] for rehabilitation on 09/27/17. While at [place], the patient's PEG tube became clogged. Status post gastric bypass/G-tube placement G- tube malfunction, acute Abdominal pain - Interventional radiology procedure unable to replace in the same location. A small G-tube was placed in the stomach, will need to remain to draining to gravity for approximately 2-3 days while previous G-tube site heals. - CAN NOT USE G TUBE FOR NUTRITION OR MEDICATION AT THIS TIME. - Consult general surgery for further evaluation and recommendation. Recommends to continue with the pigtail to gravity for now, if G-tube site doesn 't heal may need TPN pending tube exchange - Interventional radiology following - Pain management with IV morphine. Zofran IVP for nausea, vomiting - IV fluids for hydration. Monitor for fluid overload Leukocytosis, acute - Check chest x-ray, UA - Follow-up labs in a.m. Generalized weakness Paralysis of lower extremities - MRI spine showed bulging disc at L4-L5 and L5-S1 without explanation of symptoms - Neurology was consulted while the patient was in rehabilitation, recommend EMG. - Physical therapy eval and treat - Specialty bed air mattress requested History of PE/DVT - Continue therapeutic Lovenox - Status post IVC filter placement Hypertension - Holding home medications as patient cannot take anything by mouth/by tube - Vasotec every 6 hours when necessary - Monitor BP Trend. Controlled GERD/Nunez's esophagus - IV Protonix Neurogenic bladder - Continue Reeves MS/history of CVA - Patient has been evaluated by neurology during this visit - Neurology has signed off - Anticoagulation as above Diastolic heart failure - Vasotec until patient can resume home medications - Monitor for fluid overload DVT prop Lovenox GI prop pantoprazole IV Discuss condition with patient, nursing, Dr. Rivera Discharge Planning Plan to DC back to [place] for continued rehabilitation once clinically improved and cleared by IR in general surgery. Nidia Landis Oct 02, 2017 13:17
[2017-10-02] MEDS: ACETAMINOPHEN 1000 MG/100 ML 50 ML IV PRN (16:46)
[2017-10-02] MEDS: PANTOPRAZOLE SODIUM 40 MG VIAL IV PUSH SCH (19:00)
[2017-10-02] MEDS ORDERED: LACTATED RINGER'S 1000 ML INJ 1,000 ML IV ONE (21:00)
[2017-10-02] MEDS ORDERED: DEXTROSE 50% IN WATER 50 ML VIAL(D50) IV PUSH PRN (21:00)
[2017-10-02] MEDS ORDERED: GLUCAGON 1 MG/ML VIAL OTHER PRN (21:00)
[2017-10-02] MEDS: DEXT 5%-NACL 0.9% 1000 ML INJ 1,000 ML IV SCH (21:14)
[2017-10-02 21:47] LABS: AUTOMATED NEUTROPHIL # 6.7 TH/MM3 (1.8-7.7); BASOPHIL % 0.3 % (0.0-2.0); EOSINOPHIL # 0.5 TH/MM3 (0-0.4); EOSINOPHIL % 4.8 % (0.0-4.0); HEMATOCRIT 22.2 % (35.0-46.0); HEMOGLOBIN 7.4 GM/DL (11.6-15.3); LYMPH % 17.6 % (9.0-44.0); LYMPHOCYTE # 1.6 TH/MM3 (1.0-4.8); MEAN CELL VOLUME 82.9 FL (80.0-100.0); MEAN CORPUSCULAR HEMOGLOBIN 27.7 PG (27.0-34.0); MEAN CORPUSCULAR HGB CONC 33.4 % (32.0-36.0); MEAN PLATELET VOLUME 8.4 FL (7.0-11.0); MONO % 6.2 % (0.0-8.0); MONOCYTE # 0.6 TH/MM3 (0-0.9); NEUT % 71.1 % (16.0-70.0); PLATELET COUNT 326 TH/MM3 (150-450); RED BLOOD COUNT 2.68 MIL/MM3 (4.00-5.30); RED CELL DISTRIBUTION WIDTH 15.8 % (11.6-17.2); WHITE BLOOD COUNT 9.4 TH/MM3 (4.0-11.0)
[2017-10-02 22:01] LABS: BICARBONATE 22.5 MEQ/L (21.0-32.0); CALCIUM 7.6 MG/DL (8.5-10.1); CREATININE 0.35 MG/DL (0.50-1.00)
[2017-10-03] VITALS (7 sets, daily range): BP systolic 106–142; BP diastolic 55–66; PULSE 62–99; RESP 16–18; TEMP 98.3–100.7; O2SAT 94–99
[2017-10-03] MEDS: SODIUM CHLORIDE 0.9% FLUSH 10 ML FLUSH IV FLUSH SCH ×3 (00:22→22:23)
[2017-10-03] MEDS: SODIUM CHLOR 0.9% 1000 ML INJ 1,000 ML IV SCH ×4 (01:36→22:25)
[2017-10-03] MEDS: ceFAZolin 1,000 MG/NS 100 ML IV SCH ×6 (02:02→17:35)
[2017-10-03] MEDS: DEXT 5%-NACL 0.9% 1000 ML INJ 1,000 ML IV SCH ×3 (05:00→22:25)
[2017-10-03] MEDS: ONDANSETRON HCL 4 MG/2 ML VIAL IVP PRN ×3 (05:21→22:36)
[2017-10-03] MEDS: MORPHINE SULFATE 4 MG/ML INJ IV PUSH PRN ×6 (05:21→22:30)
[2017-10-03] MEDS: ENOXAPARIN SODIUM 120 MG/0.8 ML SYRINGE SQ SCH ×2 (06:00→17:36)
[2017-10-03] MEDS: ACETAMINOPHEN 1000 MG/100 ML 50 ML IV PRN (06:24)
[2017-10-03 06:57] LABS: HEMATOCRIT 29.2 % (35.0-46.0); HEMOGLOBIN 9.5 GM/DL (11.6-15.3); MEAN CELL VOLUME 82.7 FL (80.0-100.0); MEAN CORPUSCULAR HEMOGLOBIN 26.8 PG (27.0-34.0); MEAN CORPUSCULAR HGB CONC 32.4 % (32.0-36.0); MEAN PLATELET VOLUME 8.9 FL (7.0-11.0); PLATELET COUNT 315 TH/MM3 (150-450); RED BLOOD COUNT 3.53 MIL/MM3 (4.00-5.30); RED CELL DISTRIBUTION WIDTH 15.6 % (11.6-17.2); WHITE BLOOD COUNT 7.4 TH/MM3 (4.0-11.0)
[2017-10-03 07:15] LABS: BICARBONATE 24.3 MEQ/L (21.0-32.0); CALCIUM 7.5 MG/DL (8.5-10.1); CREATININE 0.28 MG/DL (0.50-1.00)
[2017-10-03] MEDS: RESP: ALBUTEROL 2.5 MG/IPRATROPIUM 0.5 MG NEB (SCH) NEB ×3 (09:09→20:00)
--- NOTE | 2017-10-03 11:00 | HHI.PR ---
Subjective Remarks Follow-up visit abdominal pain, status post Bob-en-Y gastric bypass and G-tube placement on 09/19/[address] [facility], Clogged PEG with unsuccessful IR PEG replacement. Patient seen and examined today lying in bed. Reports she has some abdominal pain last night and states that she thinks her drain is not draining well. Slight increase in her temperature and states that her blood pressure was on the low side that they have to give her more IV fluids. Otherwise today, she reports she continues to have 9/10 pain but feeling a lot better, pain is continued to be aggravated by breathing and movement, concentrated on the left lateral side next to the incision site of the drain. Drain was manipulated during exam and gave her some relief. Continues to have some nausea no vomiting. Denies shortness of breath or dyspnea. Denies chest pain or palpitations. Denies headaches or dizziness. Objective Vitals Vital Signs Date Time Temp Pulse Resp B/P (MAP) Pulse Ox O2 Delivery O2 Flow Rate FiO2 10/03/17 09:10 97 Nasal Cannula 2.00 10/03/17 08:00 98.4 84 16 106/65 (79) 95 10/03/17 04:00 100.2 97 16 122/66 (84) 98 10/03/17 00:37 98.3 93 16 112/55 (74) 97 10/02/17 20:08 98 Nasal Cannula 2.00 10/02/17 20:00 98.9 86 16 98/52 (67) 98 10/02/17 19:18 97 Nasal Cannula 2.00 10/02/17 17:16 18 10/02/17 16:00 99.4 104 16 122/62 (82) 97 10/02/17 15:20 18 10/02/17 12:00 98.3 101 16 127/63 (84) 95 I/O 10/02/17 10/02/17 10/02/17 10/03/17 10/03/17 10/03/17 07:00 15:00 23:00 07:00 15:00 23:00 Intake Total 1000 ml 0 ml 1500 ml Output Total 450 ml 350 ml 1050 ml 1050 ml Balance 550 ml -350 ml -1050 ml 450 ml Intake Oral 0 ml IV Total 1000 ml 1500 ml Output Urine Total 450 ml 900 ml 1000 ml Drainage Total 350 ml 150 ml 50 ml # Bowel Movements 0 Result Diagram: 10/03/17 0600 10/03/17 0600 Imaging Last Impressions Chest X-Ray 10/01/17 0000 Signed Impressions: Service Date/Time: Sunday, October 01, 2017 11:24 - CONCLUSION: No acute disease. Deshawn Ventura MD Objective Remarks GENERAL: This is an obese, well-developed patient, appears to be in pain. SKIN: Warm and dry. Multiple incision sites with Steri-Strips clean dry and intact HEENT: Normocephalic. Pupils equal round and reactive. Nose without bleeding. Airway patent. NECK: Trachea midline. No JVD. Supple. CARDIOVASCULAR: Regular rate and rhythm without murmurs, gallops, or rubs. RESPIRATORY: Diminished bases. No wheezes, rales, or rhonchi. GASTROINTESTINAL: Abdomen soft, obese, nondistended. Hypoactive BS. Right upper quadrant drain moderate amount bilious colored. MUSCULOSKELETAL: Extremities without clubbing, cyanosis, or edema. NEUROLOGICAL: Awake and alert. Oriented to time, place, person. No focal neuro deficit. Moves all extremities weakly. Normal speech. A/P Problem List: (1) PEG tube malfunction ICD Code: K94.23 - Gastrostomy malfunction (2) History of recurrent deep vein thrombosis (DVT) ICD Code: Z86.718 - Personal history of other venous thrombosis and embolism Status: Chronic (3) Impaired mobility and activities of daily living ICD Code: Z74.09 - Other reduced mobility Status: Acute (4) History of CVA (cerebrovascular accident) ICD Code: Z86.73 - Personal history of transient ischemic attack (TIA), and cerebral infarction without residual deficits Status: Chronic (5) History of pulmonary embolism ICD Code: Z86.711 - Personal history of pulmonary embolism Status: Chronic (6) Postoperative anemia due to acute blood loss ICD Code: D62 - Acute posthemorrhagic anemia Status: Acute (7) Diastolic heart failure ICD Code: I50.30 - Unspecified diastolic (congestive) heart failure Status: Chronic (8) MANI (obstructive sleep apnea) ICD Code: G47.33 - Obstructive sleep apnea (adult) (pediatric) Status: Chronic (9) S/P gastric bypass ICD Code: Z98.84 - Bariatric surgery status Status: Acute Assessment and Plan Patient is a 46-year-old female with an extensive past medical history including CVAs, recurrent DVTs, PE, MS, neurogenic bladder requiring self catheter, chronic pain, A. fib, diastolic CHF, MANI, GERD, Nunez's esophagus, COPD and obesity who is admitted to the [facility] for Bob-en-Y gastric bypass and G-tube placement on 09/19/17. Postoperatively, the patient complained of bilateral lower extremity paralysis and numbness. MRI lumbar spine was done showing stable bulging disks at L4-L5 and L5-S1 without any foraminal or spinal cord narrowing. The patient was admitted to [facility] for rehabilitation on 09/27/17. While at [place], the patient's PEG tube became clogged. Status post gastric bypass/G-tube placement G- tube malfunction, acute Abdominal pain - Interventional radiology procedure unable to replace in the same location. A small G-tube was placed in the stomach, will need to remain to draining to gravity for approximately 2-3 days while previous G-tube site heals. - CAN NOT USE G TUBE FOR NUTRITION OR MEDICATION AT THIS TIME. - Consult general surgery for further evaluation and recommendation. Recommends to continue with the pigtail to gravity for now, if G-tube site doesn 't heal may need TPN pending tube exchange - Interventional radiology following - Pain management with IV morphine. Zofran IVP for nausea, vomiting - IV fluids for hydration. Monitor for fluid overload - Change IV to D5 NS decrease 100ml/hr Leukocytosis, acute - chest x-ray negative, UA negative. - Resolved Generalized weakness Paralysis of lower extremities - MRI spine showed bulging disc at L4-L5 and L5-S1 without explanation of symptoms - Neurology was consulted while the patient was in rehabilitation, recommend EMG. - Physical therapy eval and treat - Specialty bed air mattress requested - Prolonged hospitalization - cyril IS History of PE/DVT - Continue therapeutic Lovenox - Status post IVC filter placement Hypertension, episode hypotension - Holding home medications. IV fluid bolus was given. Monitor BP trend - Vasotec every 6 hours when necessary - Monitor BP Trend. GERD/Nunez's esophagus - IV Protonix Neurogenic bladder - Continue Reeves MS/history of CVA - Patient has been evaluated by neurology during this visit - Neurology has signed off - Anticoagulation as above Diastolic heart failure - Vasotec until patient can resume home medications - Monitor for fluid overload - Decrease IVF DVT prop Lovenox GI prop pantoprazole IV Discuss condition with patient, nursing, Dr. Rivera Discharge Planning Plan to DC back to [place] for continued rehabilitation once clinically improved and cleared by IR in general surgery. Nidia Landis Oct 03, 2017 11:00
--- NOTE | 2017-10-03 12:27 | HHI.PR ---
cc: JdPatrick Subjective Subjective Notes no acute issues, tm 100.2, wbc normal, still with pain unchanged Objective Vitals/I&O Vital Signs Date Time Temp Pulse Resp B/P (MAP) Pulse Ox O2 Delivery O2 Flow Rate FiO2 10/03/17 09:10 97 Nasal Cannula 2.00 10/03/17 08:00 98.4 84 16 106/65 (79) Labs Laboratory Tests Test 10/02/17 20:46 10/02/17 21:10 10/03/17 06:00 White Blood Count 9.4 7.4 Red Blood Count 2.68 3.53 Hemoglobin 7.4 9.5 Hematocrit 22.2 29.2 Mean Corpuscular Volume 82.9 82.7 Mean Corpuscular Hemoglobin 27.7 26.8 Mean Corpuscular Hemoglobin Concent 33.4 32.4 Red Cell Distribution Width 15.8 15.6 Platelet Count 326 315 Mean Platelet Volume 8.4 8.9 Neutrophils (%) (Auto) 71.1 Lymphocytes (%) (Auto) 17.6 Monocytes (%) (Auto) 6.2 Eosinophils (%) (Auto) 4.8 Basophils (%) (Auto) 0.3 Neutrophils # (Auto) 6.7 Lymphocytes # (Auto) 1.6 Monocytes # (Auto) 0.6 Eosinophils # (Auto) 0.5 Basophils # (Auto) 0.0 CBC Comment DIFF FINAL Differential Comment Blood Urea Nitrogen 8 6 Creatinine 0.35 0.28 Random Glucose 83 111 Calcium Level 7.6 7.5 Sodium Level 141 143 Potassium Level 3.6 3.7 Chloride Level 110 111 Carbon Dioxide Level 22.5 24.3 Anion Gap 9 8 Estimat Glomerular Filtration Rate 200 258 Lactic Acid Level 0.3 Date/Time Source Procedure Growth Status 10/01/17 17:49 Blood Peripheral Aerobic Blood Culture - Preliminary NO GROWTH IN 2 DAYS Resulted 10/01/17 17:49 Blood Peripheral Anaerobic Blood Culture - Preliminary NO GROWTH IN 2 DAYS Resulted 10/01/17 09:20 Urine Clean Catch Urine Culture - Final NO GROWTH IN 48 HOURS. Complete Abdomen: Other (soft drain c/d/i) A/P Assessment and Plan hx rygb, hh repair, gastrostomy tube, clogged g tube, now with pigtail PLAN will continue to follow, pigtail to gravity according abx pain control pending g tube exchange consider tpn soon Patrick Miles MD Oct 03, 2017 12:27
[2017-10-03] MEDS: INSULIN ASPART SUPPLEMENTAL SCALE SQ SCH ×2 (17:00→21:00)
[2017-10-03] MEDS: PANTOPRAZOLE SODIUM 40 MG VIAL IV PUSH SCH (17:37)
[2017-10-03] MEDS: CLINIMIX E 4.25/25 2000 mL- >42 mls/hr IV-CENTRAL SCH ×3 (20:00)
[2017-10-03] MEDS: FAT EMULSION 20% INJ 250 ML (Daily over 8 hours) IV-CENTRAL SCH (22:03)
[2017-10-04] VITALS (8 sets, daily range): BP systolic 103–125; BP diastolic 58–77; PULSE 88–102; RESP 17–20; TEMP 98.5–100.5; O2SAT 93–99
[2017-10-04] MEDS: ceFAZolin 1,000 MG/NS 100 ML IV SCH ×6 (02:51→18:00)
[2017-10-04] MEDS: MORPHINE SULFATE 4 MG/ML INJ IV PUSH PRN ×6 (02:51→22:36)
[2017-10-04] MEDS: ENOXAPARIN SODIUM 120 MG/0.8 ML SYRINGE SQ SCH ×2 (06:10→18:01)
[2017-10-04] MEDS: ONDANSETRON HCL 4 MG/2 ML VIAL IVP PRN ×3 (06:11→18:00)
[2017-10-04] MEDS: INSULIN ASPART SUPPLEMENTAL SCALE SQ SCH ×4 (08:00→19:58)
[2017-10-04] MEDS: RESP: ALBUTEROL 2.5 MG/IPRATROPIUM 0.5 MG NEB (SCH) NEB ×3 (09:00→21:40)
[2017-10-04] MEDS: SODIUM CHLORIDE 0.9% FLUSH 10 ML FLUSH IV FLUSH SCH ×2 (09:25→19:33)
[2017-10-04] MEDS: DEXT 5%-NACL 0.9% 1000 ML INJ 1,000 ML IV SCH (09:25)
[2017-10-04] MEDS: SODIUM CHLOR 0.9% 1000 ML INJ 1,000 ML IV SCH (10:00)
--- NOTE | 2017-10-04 10:17 | HHI.PR ---
cc: Patrick Miles MD Subjective Subjective Notes Resting in bed "I feel short of breath." Objective Vitals/I&O Vital Signs Date Time Temp Pulse Resp B/P (MAP) Pulse Ox O2 Delivery O2 Flow Rate FiO2 10/04/17 09:01 94 Nasal Cannula 2.00 10/04/17 08:00 98.6 94 17 113/72 (86) Labs Date/Time Source Procedure Growth Status 10/01/17 17:49 Blood Peripheral Aerobic Blood Culture - Preliminary NO GROWTH IN 2 DAYS Resulted 10/01/17 17:49 Blood Peripheral Anaerobic Blood Culture - Preliminary NO GROWTH IN 2 DAYS Resulted 10/01/17 09:20 Urine Clean Catch Urine Culture - Final NO GROWTH IN 48 HOURS. Complete Cardiovascular: Regular Lungs: Clear Abdomen: Other (prior lap sites with steri strips in place; obese abdomen; minimal tenderness ) Extremities: No edema A/P Assessment and Plan 46 year old female post form OSH for rygb, HH repair, gastrostomy tube, clogged G tube---now with pigtail drain -will continue to follow, pigtail to gravity according -Antibiotics -Pain control -IR to place G tube later in the week vs next week -PICC ad TPN -Labs today Attending Statement patient seen at bedside doing better ir drain to gravity leg bag abx ir to upsize g tube when safe Attestation The exam, history, and the medical decision-making described in the above note were completed with the assistance of the mid-level provider. I reviewed and agree with the findings presented. I attest that I had a [id number] encounter with the patient on the same day, and personally performed and documented my assessment and findings in the medical record. Brigette Irene Oct 04, 2017 10:17 Patrick Miles MD Oct 09, 2017 22:46
--- NOTE | 2017-10-04 13:16 | HHI.PR ---
Subjective Remarks Follow-up visit abdominal pain, status post Bob-en-Y gastric bypass and G-tube placement on 09/19/17 in [facility], Clogged PEG with unsuccessful IR PEG replacement. Patient seen and examined today lying in bed. Reports he continues to have abdominal pain, but it is not worsening, aggravated by movement and taking deep breaths. States that it was the tube that has been bothering her. Patient is asking when the procedures being done. Discussed with patient procedure possibly will not happen today it will be tomorrow. Nurse was also bedside. Continues to have nausea, no vomiting. Denies any shortness of breath or dyspnea. Patient was glad to her bed was changed. Denies any fevers or chills. Objective Vitals Vital Signs Date Time Temp Pulse Resp B/P (MAP) Pulse Ox O2 Delivery O2 Flow Rate FiO2 10/04/17 12:00 99.7 102 18 125/77 (93) 94 10/04/17 09:01 94 Nasal Cannula 2.00 10/04/17 08:00 98.6 94 17 113/72 (86) 93 10/04/17 04:52 98.5 88 20 103/58 (73) 98 10/04/17 04:40 Nasal Cannula 2.00 10/04/17 00:00 99.9 90 20 117/65 (82) 99 10/03/17 20:00 100.7 62 18 121/58 (79) 94 10/03/17 16:00 99.1 99 18 121/64 (83) 97 I/O 10/03/17 10/03/17 10/03/17 10/04/17 10/04/17 10/04/17 07:00 15:00 23:00 07:00 15:00 23:00 Intake Total 1500 ml 537 ml 500 ml 0 ml Output Total 1050 ml 920 ml 1340 ml Balance 450 ml 537 ml -420 ml -1340 ml Intake Oral 0 ml 0 ml IV Total 1500 ml 537 ml 500 ml Output Urine Total 1000 ml 700 ml 1200 ml Drainage Total 50 ml 220 ml 140 ml # Bowel Movements 0 0 Result Diagram: 10/03/17 0600 10/03/17 0600 Imaging Last Impressions Chest X-Ray 10/01/17 0000 Signed Impressions: Service Date/Time: Sunday, October 01, 2017 11:24 - CONCLUSION: No acute disease. Deshawn Ventura MD Objective Remarks GENERAL: This is an obese, well-developed patient, appears to be in pain. SKIN: Warm and dry. Multiple incision sites with Steri-Strips clean dry and intact HEENT: Normocephalic. Pupils equal round and reactive. Nose without bleeding. Airway patent. NECK: Trachea midline. No JVD. Supple. CARDIOVASCULAR: Regular rate and rhythm without murmurs, gallops, or rubs. RESPIRATORY: Diminished bases. No wheezes, rales, or rhonchi. GASTROINTESTINAL: Abdomen soft, obese, nondistended. Hypoactive BS. Right upper quadrant drain moderate amount bilious colored. MUSCULOSKELETAL: Extremities without clubbing, cyanosis, or edema. NEUROLOGICAL: Awake and alert. Oriented to time, place, person. Normal speech. Moves Bilat Upper extremities. A/P Problem List: (1) PEG tube malfunction ICD Code: K94.23 - Gastrostomy malfunction (2) History of recurrent deep vein thrombosis (DVT) ICD Code: Z86.718 - Personal history of other venous thrombosis and embolism Status: Chronic (3) Impaired mobility and activities of daily living ICD Code: Z74.09 - Other reduced mobility Status: Acute (4) History of CVA (cerebrovascular accident) ICD Code: Z86.73 - Personal history of transient ischemic attack (TIA), and cerebral infarction without residual deficits Status: Chronic (5) History of pulmonary embolism ICD Code: Z86.711 - Personal history of pulmonary embolism Status: Chronic (6) Postoperative anemia due to acute blood loss ICD Code: D62 - Acute posthemorrhagic anemia Status: Acute (7) Diastolic heart failure ICD Code: I50.30 - Unspecified diastolic (congestive) heart failure Status: Chronic (8) MANI (obstructive sleep apnea) ICD Code: G47.33 - Obstructive sleep apnea (adult) (pediatric) Status: Chronic (9) S/P gastric bypass ICD Code: Z98.84 - Bariatric surgery status Status: Acute Assessment and Plan Patient is a 46-year-old female with an extensive past medical history including CVAs, recurrent DVTs, PE, MS, neurogenic bladder requiring self catheter, chronic pain, A. fib, diastolic CHF, MANI, GERD, Nunez's esophagus, COPD and obesity who is admitted to the [facility] for Bob-en-Y gastric bypass and G-tube placement on 09/19/17. Postoperatively, the patient complained of bilateral lower extremity paralysis and numbness. MRI lumbar spine was done showing stable bulging disks at L4-L5 and L5-S1 without any foraminal or spinal cord narrowing. The patient was admitted to [facility] for rehabilitation on 09/27/17. While at [place], the patient's PEG tube became clogged. Status post gastric bypass/G-tube placement G- tube malfunction, acute Abdominal pain - Interventional radiology procedure unable to replace in the same location. A small G-tube was placed in the stomach, will need to remain to draining to gravity for approximately 2-3 days while previous G-tube site heals. - CAN NOT USE G TUBE FOR NUTRITION OR MEDICATION AT THIS TIME. - Consult general surgery for further evaluation and recommendation. Recommends to continue with the pigtail to gravity for now, TPN pending tube exchange. Plan is for tube exchange either same site or lower. - Interventional radiology following plan to exchange tube within the week - Pain management with IV morphine. Zofran IVP for nausea, vomiting - IV fluids for hydration. Monitor for fluid overload - On TPN dc IVF - Discuss extensively with patient about tube exchange plan. She has the impression of a tube replacement for a GJ tube and positioned on her right abdominal area. Spoke with Surgical POND WORKER and GJ tube may not be possible due to the anastomosis site and the pouch that she has. The plan is to exchange the tube or lower the position for comfort. Patient is adamant for a GJ tube. Patient reassured that we will speak with surgery for clarification regarding this. Leukocytosis, acute - chest x-ray negative, UA negative. - Resolved Generalized weakness Paralysis of lower extremities - MRI spine showed bulging disc at L4-L5 and L5-S1 without explanation of symptoms - Neurology was consulted while the patient was in rehabilitation, recommend EMG. - Physical therapy eval and treat - Specialty bed air mattress - Prolonged hospitalization - cyril IS History of PE/DVT - Continue therapeutic Lovenox - Status post IVC filter placement Hypertension, episode hypotension - Holding home medications. IV fluid bolus was given. Monitor BP trend - Vasotec every 6 hours when necessary - Monitor BP Trend. Improved, no hypotension today GERD/Nunez's esophagus - IV Protonix Neurogenic bladder - Continue Reeves MS/history of CVA - Patient has been evaluated by neurology - Neurology has signed off - Anticoagulation as above Diastolic heart failure - Vasotec until patient can resume home medications - Monitor for fluid overload - DC IVF as pt is on TPN DVT prop Lovenox GI prop pantoprazole IV Discuss condition with patient, nursing, Dr. Rivera Discharge Planning Plan to DC back to [place] for continued rehabilitation once clinically improved and cleared by IR in general surgery. Nidia Landis Oct 04, 2017 13:16
[2017-10-04 13:52] LABS: AUTOMATED NEUTROPHIL # 4.8 TH/MM3 (1.8-7.7); BASOPHIL % 0.5 % (0.0-2.0); EOSINOPHIL # 0.4 TH/MM3 (0-0.4); EOSINOPHIL % 5.9 % (0.0-4.0); HEMATOCRIT 26.7 % (35.0-46.0); HEMOGLOBIN 8.5 GM/DL (11.6-15.3); LYMPHOCYTE # 1.3 TH/MM3 (1.0-4.8); MEAN CELL VOLUME 82.4 FL (80.0-100.0); MEAN CORPUSCULAR HEMOGLOBIN 26.4 PG (27.0-34.0); MEAN PLATELET VOLUME 8.5 FL (7.0-11.0); MONO % 4.6 % (0.0-8.0); MONOCYTE # 0.3 TH/MM3 (0-0.9); PLATELET COUNT 408 TH/MM3 (150-450); RED BLOOD COUNT 3.24 MIL/MM3 (4.00-5.30); RED CELL DISTRIBUTION WIDTH 15.7 % (11.6-17.2); WHITE BLOOD COUNT 6.9 TH/MM3 (4.0-11.0)
[2017-10-04 14:13] LABS: BICARBONATE 23.7 MEQ/L (21.0-32.0); CALCIUM 8.2 MG/DL (8.5-10.1); CREATININE 0.45 MG/DL (0.50-1.00)
[2017-10-04] MEDS: POTASSIUM CHLOR 20 MEQ PREMIX 100 ML IV SCH ×2 (15:38→22:37)
[2017-10-04] MEDS: RESP: ALBUTEROL 2.5 MG/IPRATROPIUM 0.5 MG NEB (PRN) NEB (16:25)
[2017-10-04] MEDS: PANTOPRAZOLE SODIUM 40 MG VIAL IV PUSH SCH (18:01)
[2017-10-04] MEDS: FAT EMULSION 20% INJ 250 ML (Daily over 8 hours) IV-CENTRAL SCH (19:58)
[2017-10-04] MEDS: CLINIMIX E 4.25/25 2000 mL- >42 mls/hr IV-CENTRAL SCH ×3 (19:58)
[2017-10-05] VITALS (9 sets, daily range): BP systolic 98–133; BP diastolic 53–82; PULSE 89–103; RESP 17–21; TEMP 97.2–100.6; O2SAT 94–99
[2017-10-05] MEDS: ONDANSETRON HCL 4 MG/2 ML VIAL IVP PRN ×3 (00:58→20:41)
[2017-10-05] MEDS: ceFAZolin 1,000 MG/NS 100 ML IV SCH ×6 (00:59→17:41)
[2017-10-05] MEDS: MORPHINE SULFATE 4 MG/ML INJ IV PUSH PRN ×4 (03:47→20:42)
[2017-10-05] MEDS: ENOXAPARIN SODIUM 120 MG/0.8 ML SYRINGE SQ SCH ×2 (04:19→17:18)
[2017-10-05] MEDS: METOCLOPRAMIDE HCL 10 MG/2 ML VIAL IV PUSH PRN (04:20)
[2017-10-05] MEDS: INSULIN ASPART SUPPLEMENTAL SCALE SQ SCH ×4 (07:45→21:00)
[2017-10-05] MEDS: RESP: ALBUTEROL 2.5 MG/IPRATROPIUM 0.5 MG NEB (SCH) NEB ×3 (08:00→14:58)
[2017-10-05] MEDS: SODIUM CHLORIDE 0.9% FLUSH 10 ML FLUSH IV FLUSH SCH ×2 (09:27→20:42)
--- NOTE | 2017-10-05 13:28 | RADRPT ---
EXAM DATE/TIME: 10/05/2017 08:38 [place] COMPARISON: No previous studies available for comparison. INDICATIONS : Abdominal pain ORAL CONTRAST: No oral contrast ingested. RADIATION DOSE: 31.37 CTDIvol (mGy) ; Patient body habitus MEDICAL HISTORY : None SURGICAL HISTORY : None. ENCOUNTER: Initial ACUITY: 1 day PAIN SCALE: 4/10 LOCATION: abdomen TECHNIQUE: Volumetric scanning of the abdomen was performed. Using automated exposure control and adjustment of the mA and/or kV according to patient size, radiation dose was kept as low as reasonably achievable to obtain optimal diagnostic quality images. DICOM format image data is available electronically for review and comparison. FINDINGS: The patient was scanned before and after injection of the gastrostomy tube with approximately 200 mL' s of room air. Following air injection, there is no evidence of pneumoperitoneum to indicate persiste nt leak from prior gastrostomy site. There is atelectasis and pleural fluid in both lung bases, considerably worse on the left than the ri ght. Within the abdomen, staple lines consistent with known history of prior Bob-en-Y gastrojejunostomy a nd gastric body and antrum exclusion. Pigtail gastrostomy tube is in good position with retention loo p in the body of the stomach. At and adjacent to the tube site, there is contiguous soft tissue densi ty extending from the undersurface of the anterior abdominal wall to the anterior gastric wall consis tent with forming tract/fixation point. The liver is focally unremarkable. Gallbladder surgically absent. The spleen, pancreas, adrenals and kidneys are benign in appearance. The aorta is normal in caliber. An IVC filter is present in the infrarenal IVC there is no evidence o f mesenteric mass or collection. CONCLUSION: No signs of persistent peritoneal leak from prior gastrostomy site. New gastrostomy tube in satisfact ory position. August Darden MD on October 05, 2017 at 13:12 Board Certified Radiologist. This report was verified electronically.
--- NOTE | 2017-10-05 14:50 | HHI.PR ---
Subjective Remarks Follow-up visit abdominal pain, status post Bob-en-Y gastric bypass and G-tube placement on 09/19/17 in [facility], Clogged PEG with unsuccessful IR PEG replacement. Patient seen and examined today lying in bed. For a scan and they put some air on her stomach. Patient has several questions pertaining to gastric tube placement. Discussed with patient extensively that the plan is for an exchange most possibly within the same. The location because previous surgery is fairly new. She is adamant that she doesn't want to be on the same location as it hurts her when she takes deep breaths. Explained to her that patient discuss with interventional radiologist and surgeon, that I will keep in touch with him regarding this request. Continues to complain of pain and discomfort left side of her abdomen. Reports continues to have some drainage. Otherwise denies shortness of breath and denies any chest pain, palpitations, headaches, dizziness. Denies any fevers or chills. Denies dysuria. Patient reports that the radiologist told that she has pneumonia. She wanted to find out if her x-ray can be compared to when she had from [place]. Objective Vitals Vital Signs Date Time Temp Pulse Resp B/P (MAP) Pulse Ox O2 Delivery O2 Flow Rate FiO2 10/05/17 12:00 98.9 95 19 123/65 (84) 96 10/05/17 09:31 97 Nasal Cannula 3.00 10/05/17 09:05 Room Air 10/05/17 08:00 97.2 100 21 120/59 (79) 96 10/05/17 05:11 98.8 89 20 133/72 (92) 94 10/05/17 03:52 18 10/05/17 00:02 99.6 95 18 130/69 (89) 96 10/04/17 20:15 100.5 99 18 122/66 (84) 96 10/04/17 20:00 Nasal Cannula 2.00 10/04/17 16:25 94 Nasal Cannula 2.00 10/04/17 16:00 99.3 100 18 115/69 (84) 97 I/O 10/04/17 10/04/17 10/04/17 10/05/17 10/05/17 10/05/17 07:00 15:00 23:00 07:00 15:00 23:00 Intake Total 0 ml 100 ml 1294 ml 450 ml 120 ml Output Total 1340 ml 750 ml 1375 ml Balance -1340 ml 100 ml 544 ml -925 ml 120 ml Intake Oral 0 ml 0 ml 120 ml IV Total 100 ml 1294 ml 450 ml Output Urine Total 1200 ml 750 ml 1200 ml Drainage Total 140 ml 175 ml # Bowel Movements 0 0 Result Diagram: 10/04/17 1300 10/04/17 1300 Imaging Last Impressions Abdomen CT 10/05/17 0000 Signed Impressions: Service Date/Time: Thursday, October 05, 2017 08:38 - CONCLUSION: No signs of persistent peritoneal leak from prior gastrostomy site. New gastrostomy tube in satisfactory position. August Darden MD Chest X-Ray 10/01/17 0000 Signed Impressions: Service Date/Time: Sunday, October 01, 2017 11:24 - CONCLUSION: No acute disease. Deshawn Ventura MD Objective Remarks GENERAL: This is an obese, well-developed patient, appears to be in pain. SKIN: Warm and dry. Multiple incision sites with Steri-Strips clean dry and intact HEENT: Normocephalic. Pupils equal round and reactive. Nose without bleeding. Airway patent. NECK: Trachea midline. No JVD. Supple. CARDIOVASCULAR: Regular rate and rhythm without murmurs, gallops, or rubs. RESPIRATORY: Diminished bases. No wheezes, rales, or rhonchi. GASTROINTESTINAL: Abdomen soft, obese, nondistended. Hypoactive BS. Right upper quadrant drain moderate amount bilious colored. MUSCULOSKELETAL: Extremities without clubbing, cyanosis, or edema. NEUROLOGICAL: Awake and alert. Oriented to time, place, person. Normal speech. Moves Bilat Upper extremities. A/P Problem List: (1) PEG tube malfunction ICD Code: K94.23 - Gastrostomy malfunction (2) History of recurrent deep vein thrombosis (DVT) ICD Code: Z86.718 - Personal history of other venous thrombosis and embolism Status: Chronic (3) Impaired mobility and activities of daily living ICD Code: Z74.09 - Other reduced mobility Status: Acute (4) History of CVA (cerebrovascular accident) ICD Code: Z86.73 - Personal history of transient ischemic attack (TIA), and cerebral infarction without residual deficits Status: Chronic (5) History of pulmonary embolism ICD Code: Z86.711 - Personal history of pulmonary embolism Status: Chronic (6) Postoperative anemia due to acute blood loss ICD Code: D62 - Acute posthemorrhagic anemia Status: Acute (7) Diastolic heart failure ICD Code: I50.30 - Unspecified diastolic (congestive) heart failure Status: Chronic (8) MANI (obstructive sleep apnea) ICD Code: G47.33 - Obstructive sleep apnea (adult) (pediatric) Status: Chronic (9) S/P gastric bypass ICD Code: Z98.84 - Bariatric surgery status Status: Acute Assessment and Plan Patient is a 46-year-old female with an extensive past medical history including CVAs, recurrent DVTs, PE, MS, neurogenic bladder requiring self catheter, chronic pain, A. fib, diastolic CHF, MANI, GERD, Nunez's esophagus, COPD and obesity who is admitted to the [facility] for Bob-en-Y gastric bypass and G-tube placement on 09/19/17. Postoperatively, the patient complained of bilateral lower extremity paralysis and numbness. MRI lumbar spine was done showing stable bulging disks at L4-L5 and L5-S1 without any foraminal or spinal cord narrowing. The patient was admitted to [facility] for rehabilitation on 09/27/17. While at [place], the patient's PEG tube became clogged. Status post gastric bypass/G-tube placement G- tube malfunction, acute Abdominal pain - Interventional radiology procedure unable to replace in the same location. A small G-tube was placed in the stomach, will need to remain to draining to gravity for approximately 2-3 days while previous G-tube site heals. - CAN NOT USE G TUBE FOR NUTRITION OR MEDICATION AT THIS TIME. - Consult general surgery for further evaluation and recommendation. Recommends to continue with the pigtail to gravity for now, TPN pending tube exchange. Plan is for tube exchange either same site or lower. - Interventional radiology following plan to exchange tube within the week - Pain management with IV morphine. Zofran IVP for nausea, vomiting - IV fluids for hydration. Monitor for fluid overload - On TPN dc IVF - Discuss extensively with patient about tube exchange plan. She has the impression of a tube replacement for a GJ tube and positioned on her right abdominal area. Spoke with Surgical VOICER and GJ tube may not be possible due to the anastomosis site and the pouch that she has. The plan is to exchange the tube or lower the position for comfort. Patient is adamant for a GJ tube. Patient reassured that we will speak with surgery for clarification regarding this. - Discussed with patient extensively that the plan is for an exchange most possibly within the same. The location because previous surgery is fairly new. She is adamant that she doesn't want to be on the same location as it hurts her when she takes deep breaths. Explained to her that patient discuss with interventional radiologist and surgeon, that I will keep in touch with him regarding this request. Discuss extensively with patient that the TPN will hopefully be temporary and that with tube exchange she can start to have some tube feeds to increase her nutritional status. - Spoke with Dr. Miles this a.m. and the plan is for tube exchange, possible grade of the size however they're not going to be able to change the location or movement of her right side because of the recent surgery and it might have complications with anastomosis since she is not even 6 weeks out from her original surgical procedure. Plan is to do diagnostic IR procedure with introduction of air to see if there is any leak before even doing any exchange. Patient will continue on TPN for now. She is malnourished as her pre -albumin is 7. - Continue on cefazolin IV antibiotics. Patient states that she has been told she has left-sided pneumonia and she thought it was more of an atelectasis than pneumonia. Requesting to review the images. Continue duo nebs continue incentive spirometer use. Leukocytosis, acute - chest x-ray negative, UA negative. - Resolved Generalized weakness Paralysis of lower extremities - MRI spine showed bulging disc at L4-L5 and L5-S1 without explanation of symptoms - Neurology was consulted while the patient was in rehabilitation, recommend EMG. - Physical therapy eval and treat - Specialty bed air mattress - Prolonged hospitalization - duchelo, IS History of PE/DVT - Continue therapeutic Lovenox - Status post IVC filter placement Hypertension, episode hypotension - Holding home medications. IV fluid bolus was given. Monitor BP trend - Vasotec every 6 hours when necessary - Monitor BP Trend. Improved, no hypotension today GERD/Nunez's esophagus - IV Protonix Neurogenic bladder - Continue Reeves MS/history of CVA - Patient has been evaluated by neurology - Neurology has signed off - Anticoagulation as above Diastolic heart failure - Vasotec until patient can resume home medications - Monitor for fluid overload - DC IVF as pt is on TPN DVT prop Lovenox GI prop pantoprazole IV Discuss condition with patient, nursing, Dr. Rivera Discharge Planning Plan to DC back to [place] for continued rehabilitation once clinically improved and cleared by IR in general surgery. Nidia Landis Oct 05, 2017 14:50
--- NOTE | 2017-10-05 16:55 | PD.WCN.NOT ---
Wound Consult Description: Received consult from Nidia Landis for wound management of abdomen Communicated with: NINI Raymond and RIC Landis Recommendation: Please cleanse buttock with soap and water and pat dry. Apply thick layer of Calazime barrier cream BID and PRN and leave open to air. Leave dry steri strip covered abdominal incisions open to air. Please use ultra sorb pad under patient instead of thick cloth pad for moisture management. Additional Information: Patient seen on 7 for evaluation of abdominal wound around 1600. Patient noted laying on Marcelo bed . Patient assessed with Rach [facility] and keno writer/runner.Abdomen noted with dry intact surgical incisions approximated with steri strips. Wounds are dry and non draining. Patient is complaining of discomfort in buttock area and bed discomfort. Patient was turned to L side to reveal moisture related breakdown on bilateral buttocks, with surrounding denuded skin. Cleansed patient with soap and water and pat dry applied thick layer of Calazime barrier cream and left buttocks open to air. Applied Ultra sorb pad under patient for moisture management.After speaking with patient at length, will ask for different support surface for patient. Tiana Montoya [facility] Oct 05, 2017 16:55
[2017-10-05] MEDS: PANTOPRAZOLE SODIUM 40 MG VIAL IV PUSH SCH (17:18)
[2017-10-05] MEDS: CLINIMIX E 4.25/25 2000 mL- >42 mls/hr IV-CENTRAL SCH ×3 (20:48)
[2017-10-05] MEDS: FAT EMULSION 20% INJ 250 ML (Daily over 8 hours) IV-CENTRAL SCH (20:52)
[2017-10-05] MEDS: RESP: ALBUTEROL 2.5 MG/IPRATROPIUM 0.5 MG NEB (PRN) NEB (20:52)
[2017-10-05] MEDS: ACETAMINOPHEN 1000 MG/100 ML 50 ML IV PRN (20:54)
[2017-10-06] VITALS (8 sets, daily range): BP systolic 105–125; BP diastolic 56–75; PULSE 82–102; RESP 17–20; TEMP 97.1–98.6; O2SAT 95–100
[2017-10-06] MEDS: METOCLOPRAMIDE HCL 10 MG/2 ML VIAL IV PUSH PRN (01:34)
[2017-10-06] MEDS: ceFAZolin 1,000 MG/NS 100 ML IV SCH ×6 (01:34→16:50)
[2017-10-06] MEDS: MORPHINE SULFATE 4 MG/ML INJ IV PUSH PRN ×5 (01:35→20:58)
[2017-10-06] MEDS: ENOXAPARIN SODIUM 120 MG/0.8 ML SYRINGE SQ SCH ×2 (05:37→16:53)
[2017-10-06] MEDS: ONDANSETRON HCL 4 MG/2 ML VIAL IVP PRN ×3 (05:50→20:58)
[2017-10-06 06:10] LABS: MEAN CELL VOLUME 82.2 FL (80.0-100.0); MEAN CORPUSCULAR HEMOGLOBIN 26.4 PG (27.0-34.0); MEAN CORPUSCULAR HGB CONC 32.1 % (32.0-36.0); MEAN PLATELET VOLUME 8.1 FL (7.0-11.0); PLATELET COUNT 424 TH/MM3 (150-450); RED BLOOD COUNT 3.41 MIL/MM3 (4.00-5.30); RED CELL DISTRIBUTION WIDTH 15.7 % (11.6-17.2); WHITE BLOOD COUNT 7.7 TH/MM3 (4.0-11.0)
[2017-10-06] MEDS: RESP: ALBUTEROL 2.5 MG/IPRATROPIUM 0.5 MG NEB (PRN) NEB ×2 (06:13→13:36)
[2017-10-06 06:28] LABS: ALBUMIN 2.2 GM/DL (3.4-5.0); ALT (GPT) 18 U/L (10-53); AST (GOT) 15 U/L (15-37); BLOOD UREA NITROGEN 8 MG/DL (7-18); CALCIUM 7.7 MG/DL (8.5-10.1); CHLORIDE 104 MEQ/L (98-107); CREATININE 0.38 MG/DL (0.50-1.00); GLOMERULAR FILTRATION RATE 182 ML/MIN (>89); GLUCOSE,RANDOM 118 MG/DL (74-106); SODIUM (NA) 139 MEQ/L (136-145)
[2017-10-06 06:31] LABS: ALKALINE PHOSPHATASE 33 U/L (45-117); TOTAL BILIRUBIN ADULT 0.2 MG/DL (0.2-1.0); TOTAL PROTEIN 6.7 GM/DL (6.4-8.2)
[2017-10-06] MEDS: INSULIN ASPART SUPPLEMENTAL SCALE SQ SCH ×4 (08:00→20:48)
[2017-10-06] MEDS: SODIUM CHLORIDE 0.9% FLUSH 10 ML FLUSH IV FLUSH SCH ×2 (08:38→21:08)
[2017-10-06] MEDS ORDERED: POTASSIUM CHLOR 20 MEQ PREMIX 100 ML IV ONE (09:00)
[2017-10-06] MEDS: ACETAMINOPHEN 1000 MG/100 ML 50 ML IV PRN (10:00)
--- NOTE | 2017-10-06 13:22 | HHI.PR ---
cc: Patrick Miles MD Subjective Subjective Notes Resting in bed No issues Objective Vitals/I&O Vital Signs Date Time Temp Pulse Resp B/P (MAP) Pulse Ox O2 Delivery O2 Flow Rate FiO2 10/06/17 08:27 96 Nasal Cannula 2.00 10/06/17 08:00 97.1 93 20 105/57 (73) Labs Laboratory Tests Test 10/06/17 05:45 White Blood Count 7.7 Red Blood Count 3.41 Hemoglobin 9.0 Hematocrit 28.0 Mean Corpuscular Volume 82.2 Mean Corpuscular Hemoglobin 26.4 Mean Corpuscular Hemoglobin Concent 32.1 Red Cell Distribution Width 15.7 Platelet Count 424 Mean Platelet Volume 8.1 Blood Urea Nitrogen 8 Creatinine 0.38 Random Glucose 118 Total Protein 6.7 Albumin 2.2 Calcium Level 7.7 Alkaline Phosphatase 33 Aspartate Amino Transf (AST/SGOT) 15 Alanine Aminotransferase (ALT/SGPT) 18 Total Bilirubin 0.2 Sodium Level 139 Potassium Level 3.4 Chloride Level 104 Carbon Dioxide Level 30.0 Anion Gap 5 Estimat Glomerular Filtration Rate 182 Date/Time Source Procedure Growth Status 10/01/17 17:49 Blood Peripheral Aerobic Blood Culture - Final NO GROWTH IN 5 DAYS Complete 10/01/17 17:49 Blood Peripheral Anaerobic Blood Culture - Final NO GROWTH IN 5 DAYS Complete 10/01/17 09:20 Urine Clean Catch Urine Culture - Final NO GROWTH IN 48 HOURS. Complete Cardiovascular: Regular Lungs: Clear Abdomen: Other (obese abdomen; lap sites from prior surgery intake; prior G tube site with drain to drainage bag ) Extremities: No edema A/P Assessment and Plan 46 year old female post form OSH for rygb, HH repair, gastrostomy tube, clogged G tube---now with pigtail drain -will continue to follow, drain to gravity according -Antibiotics -Pain control -IR to place G tube later in the week vs next week -Continue TPN -Replace K Attending Statement patient seen at bedside still with pain appears better I discussed with Dr. Darden possible upsize g tube likely next week Attestation The exam, history, and the medical decision-making described in the above note were completed with the assistance of the mid-level provider. I reviewed and agree with the findings presented. I attest that I had a [id number] encounter with the patient on the same day, and personally performed and documented my assessment and findings in the medical record. Brigette Irene Oct 06, 2017 13:22 Patrick Miles MD Oct 11, 2017 04:57
--- NOTE | 2017-10-06 13:34 | HHI.PR ---
Subjective Remarks Follow-up visit abdominal pain, status post Bob-en-Y gastric bypass and G-tube placement on 09/19/17 in [facility], Clogged Gtube with unsuccessful IR gtube replacement. Patient seen and examined today. Reports she is doing the same continues to have some pain on the left upper quadrant, aggravated by taking deep breaths and movement. Complaints of shortness of breath on and off. Requesting nebulization treatment to be scheduled. Denies chest pain, palpitations, headaches, dizziness. Denies fevers, chills, n/v/d. Denies hematuria. Objective Vitals Vital Signs Date Time Temp Pulse Resp B/P (MAP) Pulse Ox O2 Delivery O2 Flow Rate FiO2 10/06/17 08:27 96 Nasal Cannula 2.00 10/06/17 08:00 97.1 93 20 105/57 (73) 97 10/06/17 04:00 97.1 82 17 105/56 (72) 100 10/06/17 00:00 98.1 91 17 121/59 (79) 97 10/05/17 21:30 121/63 (82) 10/05/17 20:54 98 Nasal Cannula 2.00 10/05/17 20:00 100.6 103 17 119/82 (94) 99 10/05/17 16:00 98.0 98 20 98/53 (68) 99 I/O 10/05/17 10/05/17 10/05/17 10/06/17 10/06/17 10/06/17 07:00 15:00 23:00 07:00 15:00 23:00 Intake Total 450 ml 120 ml 200 ml 200 ml Output Total 1375 ml 1850 ml 850 ml 110 ml Balance -925 ml 120 ml -1650 ml -850 ml 90 ml Intake Oral 120 ml 0 ml 0 ml IV Total 450 ml 200 ml 200 ml Output Urine Total 1200 ml 1700 ml 850 ml Drainage Total 175 ml 150 ml 110 ml Result Diagram: 10/06/17 0545 10/06/17 0545 Imaging Last Impressions Abdomen CT 10/05/17 0000 Signed Impressions: Service Date/Time: Thursday, October 05, 2017 08:38 - CONCLUSION: No signs of persistent peritoneal leak from prior gastrostomy site. New gastrostomy tube in satisfactory position. August Darden MD Chest X-Ray 10/01/17 0000 Signed Impressions: Service Date/Time: Sunday, October 01, 2017 11:24 - CONCLUSION: No acute disease. Deshawn Ventura MD Objective Remarks GENERAL: This is an obese, well-developed patient, appears to be in pain. SKIN: Warm and dry. Multiple incision sites with Steri-Strips clean dry and intact HEENT: Normocephalic. Pupils equal round and reactive. Nose without bleeding. Airway patent. NECK: Trachea midline. No JVD. Supple. CARDIOVASCULAR: Regular rate and rhythm without murmurs, gallops, or rubs. RESPIRATORY: Diminished bases. No wheezes, rales, or rhonchi. GASTROINTESTINAL: Abdomen soft, obese, nondistended. Hypoactive BS. Right upper quadrant drain moderate amount bilious colored. MUSCULOSKELETAL: Extremities without clubbing, cyanosis, or edema. NEUROLOGICAL: Awake and alert. Oriented to time, place, person. Normal speech. Moves Bilat Upper extremities. A/P Problem List: (1) PEG tube malfunction ICD Code: K94.23 - Gastrostomy malfunction (2) History of recurrent deep vein thrombosis (DVT) ICD Code: Z86.718 - Personal history of other venous thrombosis and embolism Status: Chronic (3) Impaired mobility and activities of daily living ICD Code: Z74.09 - Other reduced mobility Status: Acute (4) History of CVA (cerebrovascular accident) ICD Code: Z86.73 - Personal history of transient ischemic attack (TIA), and cerebral infarction without residual deficits Status: Chronic (5) History of pulmonary embolism ICD Code: Z86.711 - Personal history of pulmonary embolism Status: Chronic (6) Postoperative anemia due to acute blood loss ICD Code: D62 - Acute posthemorrhagic anemia Status: Acute (7) Diastolic heart failure ICD Code: I50.30 - Unspecified diastolic (congestive) heart failure Status: Chronic (8) MANI (obstructive sleep apnea) ICD Code: G47.33 - Obstructive sleep apnea (adult) (pediatric) Status: Chronic (9) S/P gastric bypass ICD Code: Z98.84 - Bariatric surgery status Status: Acute Assessment and Plan Patient is a 46-year-old female with an extensive past medical history including CVAs, recurrent DVTs, PE, MS, neurogenic bladder requiring self catheter, chronic pain, A. fib, diastolic CHF, MANI, GERD, Nunez's esophagus, COPD and obesity who is admitted to the [facility] for Bob-en-Y gastric bypass and G-tube placement on 09/19/17. Postoperatively, the patient complained of bilateral lower extremity paralysis and numbness. MRI lumbar spine was done showing stable bulging disks at L4-L5 and L5-S1 without any foraminal or spinal cord narrowing. The patient was admitted to [facility] for rehabilitation on 09/27/17. While at [place], the patient's PEG tube became clogged. Status post gastric bypass/G-tube placement G- tube malfunction, acute Abdominal pain - Review of rehab notes states that patient is supposedly able to do puree diet as per [place] surgeon but patient was adamant that due to severe dysphagia, she is unable to swallow even puree. - Interventional radiology procedure unable to replace in the same location. A small G-tube was placed in the stomach, will need to remain to draining to gravity for approximately 2-3 days while previous G-tube site heals. - CAN NOT USE G TUBE FOR NUTRITION OR MEDICATION AT THIS TIME. - Consult general surgery for further evaluation and recommendation. Recommends to continue with the pigtail to gravity for now, TPN pending tube exchange. Plan is for tube exchange either same site or lower. - Interventional radiology following plan to exchange tube within the week or early next week. - Pain management with IV morphine. Zofran IVP for nausea, vomiting - IV fluids for hydration. Monitor for fluid overload - On TPN dc IVF - Discuss extensively with patient about tube exchange plan. She has the impression of a tube replacement for a GJ tube and positioned on her right abdominal area. Spoke with Surgical [employer] SUPER[employer]OR and GJ tube may not be possible due to the anastomosis site and the pouch that she has. The plan is to exchange the tube or lower the position for comfort. Patient is adamant for a GJ tube. - Discussed with patient extensively that the plan is for an exchange most possibly within the same. The location because previous surgery is fairly new. She is adamant that she doesn't want to be on the same location as it hurts her when she takes deep breaths. Explained to her that patient discuss with interventional radiologist and surgeon, that I will keep in touch with him regarding this request. Discuss extensively with patient that the TPN will hopefully be temporary and that with tube exchange she can start to have some tube feeds to increase her nutritional status. - Spoke with Dr. Miles this a.m. and the plan is for tube exchange, possible upgrade of the size however they're not going to be able to change the location or movement of her right side because of the recent surgery and it might have complications with anastomosis since she is not even 6 weeks out from her original surgical procedure. Plan is to do diagnostic IR procedure with introduction of air to see if there is any leak before even doing any exchange. Patient will continue on TPN for now. She is malnourished as her pre -albumin is 7. - Extensively discussed tube exchange patient wants to have option of replacing tube in different location, or if possible to go to [facility] with TPN and come back 6 weeks post op, for tube replacement. Will ask CM if [facility] accepts TPN if this option is viable. COPD, chronic MANI - Continue on cefazolin IV antibiotics. Patient states that she has been told she has left-sided pneumonia and she thought it was more of an atelectasis than pneumonia. Requesting to review the images. Continue duo nebs continue incentive spirometer use. - Reports increase SOB, unable to tell if it is caused by pain from taking deep breaths. - Previous CXR showed no acute disease, MRI thoracic showed small effusions previously - Afebrile, no leukocytosis. On TPN fluids - Repeat CXR - DuoNeb's scheduled every 4 hours, and when necessary Leukocytosis, acute - chest x-ray negative, UA negative. - Resolved Generalized weakness ?Paralysis of lower extremities Hx MS not on any medications - MRI spine showed bulging disc at L4-L5 and L5-S1 without explanation of symptoms - Neurology was consulted while the patient was in rehabilitation, recommend EMG. - Physical therapy eval and treat - Specialty bed air mattress - Prolonged hospitalization - duonebs, IS History of PE/DVT - Continue therapeutic Lovenox - Status post IVC filter placement Hypertension, episode hypotension - Holding home medications. IV fluid bolus was given. Monitor BP trend - Vasotec every 6 hours when necessary - Monitor BP Trend. Improved, no hypotension noted GERD/Nunez's esophagus - IV Protonix Neurogenic bladder - Continue Reeves MS/history of CVA - Patient has been evaluated by neurology - Neurology has signed off - Anticoagulation as above Diastolic heart failure - Vasotec until patient can resume home medications - Monitor for fluid overload - DC IVF as pt is on TPN DVT prop Lovenox GI prop pantoprazole IV Discuss condition with patient, nursing, Dr. Rivera Discharge Planning Plan to DC back to [place] for continued rehabilitation once clinically improved and cleared by IR in general surgery. Nidia Landis Oct 06, 2017 13:34
--- NOTE | 2017-10-06 15:29 | RADRPT ---
EXAM DATE/TIME: 10/06/2017 14:54 [place] COMPARISON: CT ABDOMEN W/O CONTRAST, October 05, 2017, 8:38. CHEST PA & LAT, October 01, 2017, 11:24. INDICATIONS : Congestion. MEDICAL HISTORY : Chronic obstructive pulmonary disease. Carcinoma, esophageal. Carcinoma, colon. Cerebrovascular d isease. Hypertension. Diabetes. Asthma. SURGICAL HISTORY : Gastric bypass. Colectomy. Infusa port. Hernia repair. RMY surgery. IVC. ENCOUNTER: Initial ACUITY: 1 day PAIN SCORE: 8/10 LOCATION: Left chest inferior. FINDINGS: Portable AP view of the chest demonstrates a normal-sized cardiac silhouette. Left chest wall Infuse- a-Port remains present. There is a left basilar pleural-parenchymal opacity. No pneumothorax is ident ified. Bones and soft tissues demonstrate no acute finding. CONCLUSION: Moderate left basilar opacity representing pleural effusion with associated volume loss and/or airspa ce consolidation. August Elliott MD on October 06, 2017 at 15:27 Board Certified Radiologist. This report was verified electronically.
[2017-10-06] MEDS: RESP: ALBUTEROL 2.5 MG/IPRATROPIUM 0.5 MG NEB (SCH) NEB ×2 (16:08→19:46)
[2017-10-06] MEDS: PANTOPRAZOLE SODIUM 40 MG VIAL IV PUSH SCH (18:27)
[2017-10-06] MEDS: CLINIMIX E 4.25/25 2000 mL- >42 mls/hr IV-CENTRAL SCH ×3 (20:57)
[2017-10-06] MEDS: FAT EMULSION 20% INJ 250 ML (Daily over 8 hours) IV-CENTRAL SCH (20:57)
[2017-10-07] VITALS (7 sets, daily range): BP systolic 97–130; BP diastolic 53–64; PULSE 98–115; RESP 18–20; TEMP 97.6–99.9; O2SAT 96–100
[2017-10-07] MEDS: METOCLOPRAMIDE HCL 10 MG/2 ML VIAL IV PUSH PRN ×2 (01:15→14:56)
[2017-10-07] MEDS: ceFAZolin 1,000 MG/NS 100 ML IV SCH ×6 (01:15→18:28)
[2017-10-07] MEDS: MORPHINE SULFATE 4 MG/ML INJ IV PUSH PRN ×7 (01:15→21:04)
[2017-10-07] MEDS: ENOXAPARIN SODIUM 120 MG/0.8 ML SYRINGE SQ SCH ×2 (05:36→18:50)
[2017-10-07] MEDS: ONDANSETRON HCL 4 MG/2 ML VIAL IVP PRN ×3 (05:37→18:09)
[2017-10-07] MEDS: INSULIN ASPART SUPPLEMENTAL SCALE SQ SCH ×4 (08:00→21:00)
[2017-10-07] MEDS: RESP: ALBUTEROL 2.5 MG/IPRATROPIUM 0.5 MG NEB (SCH) NEB ×4 (08:31→20:00)
[2017-10-07] MEDS: SODIUM CHLORIDE 0.9% FLUSH 10 ML FLUSH IV FLUSH SCH ×2 (08:54→21:00)
--- NOTE | 2017-10-07 11:32 | HHI.PR ---
Subjective Remarks Follow up G TUBE malfunctioning 10/07/17-patient seen and examined; +abdominal pain. No nausea or emesis.Afebrile Objective Vitals Vital Signs Date Time Temp Pulse Resp B/P (MAP) Pulse Ox O2 Delivery O2 Flow Rate FiO2 10/07/17 08:00 98.5 115 19 127/58 (81) 98 10/07/17 00:00 97.6 98 18 130/64 (86) 96 10/06/17 20:00 98.6 90 18 110/58 (75) 99 10/06/17 19:49 99 Nasal Cannula 2.00 10/06/17 16:00 97.9 102 20 125/75 (92) 100 10/06/17 12:00 98.3 101 20 119/64 (82) 95 I/O 10/06/17 10/06/17 10/06/17 10/07/17 10/07/17 10/07/17 07:00 15:00 23:00 07:00 15:00 23:00 Intake Total 400 ml 300 ml 2110.2 ml 350 ml 0 ml Output Total 850 ml 110 ml 1350 ml 580 ml Balance -450 ml 190 ml 760.2 ml -230 ml 0 ml Intake Oral 0 ml 0 ml 0 ml 0 ml IV Total 400 ml 300 ml 2110.2 ml 350 ml Output Urine Total 850 ml 1200 ml 450 ml Gastric Drainage Total 150 ml Drainage Total 110 ml 130 ml Result Diagram: 10/06/17 0545 10/06/17 0545 Imaging Last Impressions Chest X-Ray 10/06/17 0000 Signed Impressions: Service Date/Time: September 14:54 - CONCLUSION: Moderate left basilar opacity representing pleural effusion with associated volume loss and/or airspace consolidation. August Elliott MD Abdomen CT 10/05/17 0000 Signed Impressions: Service Date/Time: Thursday, October 05, 2017 08:38 - CONCLUSION: No signs of persistent peritoneal leak from prior gastrostomy site. New gastrostomy tube in satisfactory position. August Darden MD Objective Remarks GENERAL: NAD SKIN: Warm and dry. HEAD: Normocephalic. EYES: No scleral icterus. No injection or drainage. NECK: Supple, trachea midline. No JVD or lymphadenopathy. CARDIOVASCULAR: Regular rate and rhythm without murmurs, gallops, or rubs. RESPIRATORY: Breath sounds equal bilaterally. No accessory muscle use. GASTROINTESTINAL: Abdomen soft, non-tender, nondistended. G tube in place MUSCULOSKELETAL: No cyanosis, or edema. BACK: Nontender without obvious deformity. No CVA tenderness. A/P Problem List: (1) PEG tube malfunction ICD Code: K94.23 - Gastrostomy malfunction (2) History of recurrent deep vein thrombosis (DVT) ICD Code: Z86.718 - Personal history of other venous thrombosis and embolism Status: Chronic (3) Impaired mobility and activities of daily living ICD Code: Z74.09 - Other reduced mobility Status: Acute (4) History of CVA (cerebrovascular accident) ICD Code: Z86.73 - Personal history of transient ischemic attack (TIA), and cerebral infarction without residual deficits Status: Chronic (5) History of pulmonary embolism ICD Code: Z86.711 - Personal history of pulmonary embolism Status: Chronic (6) Postoperative anemia due to acute blood loss ICD Code: D62 - Acute posthemorrhagic anemia Status: Acute (7) Diastolic heart failure ICD Code: I50.30 - Unspecified diastolic (congestive) heart failure Status: Chronic (8) MANI (obstructive sleep apnea) ICD Code: G47.33 - Obstructive sleep apnea (adult) (pediatric) Status: Chronic (9) S/P gastric bypass ICD Code: Z98.84 - Bariatric surgery status Status: Acute Assessment and Plan 47 yrs old female with Status post gastric bypass/G-tube placement G- tube malfunction, acute Abdominal pain - CAN NOT USE G TUBE FOR NUTRITION OR MEDICATION AT THIS TIME. -Appreciate input from general surgery for further evaluation and recommendation. Recommends to continue with the pigtail to gravity for now, TPN pending tube exchange. - Pain management with IV morphine. Zofran IVP for nausea, vomiting - IV fluids for hydration. Monitor for fluid overload - On TPN COPD, chronic MANI - Continue on cefazolin IV antibiotics. Continue duo nebs continue incentive spirometer use. - DuoNeb's scheduled every 4 hours, and when necessary Leukocytosis, acute - Resolved Generalized weakness ?Paralysis of lower extremities Hx MS not on any medications - MRI spine showed bulging disc at L4-L5 and L5-S1 without explanation of symptoms - Neurology was consulted while the patient was in rehabilitation, recommend EMG. - Physical therapy eval and treat History of PE/DVT - Continue therapeutic Lovenox - Status post IVC filter placement Hypertension, episode hypotension - Vasotec every 6 hours when necessary - Improved, no hypotension noted GERD/Nunez's esophagus - IV Protonix Neurogenic bladder - Continue Reeves MS/history of CVA - Patient has been evaluated by neurology - Neurology has signed off - Anticoagulation as above Diastolic heart failure - Vasotec until patient can resume home medications - Monitor for fluid overload DVT prop Lovenox GI prop pantoprazole IV Deshawn Stein MD Oct 07, 2017 11:32
--- NOTE | 2017-10-07 11:45 | HHI.PR ---
cc: Patrick Miles MD Subjective Subjective Notes Resting in bed No issues Pain tolerable Objective Vitals/I&O Vital Signs Date Time Temp Pulse Resp B/P (MAP) Pulse Ox O2 Delivery O2 Flow Rate FiO2 10/07/17 08:00 98.5 115 19 127/58 (81) 98 10/06/17 19:49 Nasal Cannula 2.00 Labs Date/Time Source Procedure Growth Status 10/01/17 17:49 Blood Peripheral Aerobic Blood Culture - Final NO GROWTH IN 5 DAYS Complete 10/01/17 17:49 Blood Peripheral Anaerobic Blood Culture - Final NO GROWTH IN 5 DAYS Complete 10/01/17 09:20 Urine Clean Catch Urine Culture - Final NO GROWTH IN 48 HOURS. Complete Cardiovascular: Regular Lungs: Clear Abdomen: Non-distended, Other (prior lap sites from surgery at [place] are c/d/i; drain at prior G tube site with gravity bag ) Extremities: No edema A/P Assessment and Plan 46 year old female post form OSH for rygb, HH repair, gastrostomy tube, clogged G tube---now with pigtail drain -will continue to follow, drain to gravity according -Antibiotics -Pain control -IR to place G tube likely next week -Continue TPN -Replace electrolytes as needed Attending Statement patient seen at bedside I had a long discussion with patient. She would like g tube moved I told her that may be possible pending IR ability but discussed with her there is increased risk moving g tube this early after surgery she understands this. I will re address this with IR. I did discuss putting g tube in same location if unable to move it Attestation The exam, history, and the medical decision-making described in the above note were completed with the assistance of the mid-level provider. I reviewed and agree with the findings presented. I attest that I had a [id number] encounter with the patient on the same day, and personally performed and documented my assessment and findings in the medical record. Brigette Irene Oct 07, 2017 11:45 Patrick Miles MD Oct 11, 2017 05:04
[2017-10-07] MEDS: PANTOPRAZOLE SODIUM 40 MG VIAL IV PUSH SCH (18:50)
[2017-10-07] MEDS: ACETAMINOPHEN 1000 MG/100 ML 50 ML IV PRN (20:49)
[2017-10-07] MEDS: CLINIMIX E 4.25/25 2000 mL- >42 mls/hr IV-CENTRAL SCH ×3 (20:52)
[2017-10-07] MEDS: FAT EMULSION 20% INJ 250 ML (Daily over 8 hours) IV-CENTRAL SCH (20:52)
[2017-10-08] VITALS (7 sets, daily range): BP systolic 101–126; BP diastolic 55–69; PULSE 85–104; RESP 16–20; TEMP 97.6–99.7; O2SAT 98–100
[2017-10-08] MEDS: ONDANSETRON HCL 4 MG/2 ML VIAL IVP PRN ×2 (01:49→17:39)
[2017-10-08] MEDS: MORPHINE SULFATE 4 MG/ML INJ IV PUSH PRN ×5 (01:49→21:30)
[2017-10-08] MEDS: ceFAZolin 1,000 MG/NS 100 ML IV SCH ×6 (01:50→17:23)
[2017-10-08] MEDS: ENOXAPARIN SODIUM 120 MG/0.8 ML SYRINGE SQ SCH ×2 (06:17→18:00)
[2017-10-08] MEDS: INSULIN ASPART SUPPLEMENTAL SCALE SQ SCH ×4 (08:00→21:00)
[2017-10-08] MEDS: RESP: ALBUTEROL 2.5 MG/IPRATROPIUM 0.5 MG NEB (SCH) NEB ×4 (08:47→21:09)
[2017-10-08] MEDS: SODIUM CHLORIDE 0.9% FLUSH 10 ML FLUSH IV FLUSH SCH ×2 (10:42→21:00)
--- NOTE | 2017-10-08 11:24 | HHI.PR ---
Subjective Remarks Follow up G TUBE malfunctioning 10/07/17-patient seen and examined; +abdominal pain. No nausea or emesis.Afebrile 10/08/17-patient seen and examined, no acute event overnight. Afebrile. Objective Vitals Vital Signs Date Time Temp Pulse Resp B/P (MAP) Pulse Ox O2 Delivery O2 Flow Rate FiO2 10/08/17 08:49 99 Nasal Cannula 2.00 10/08/17 08:00 98.2 104 17 108/66 (80) 99 10/08/17 06:36 18 10/08/17 00:00 97.6 85 20 126/58 (80) 98 10/07/17 20:20 98 Nasal Cannula 2.00 10/07/17 20:00 99.5 104 20 128/64 (85) 99 10/07/17 17:49 Room Air 10/07/17 16:00 99.2 99 20 97/53 (68) 100 10/07/17 15:45 99 Nasal Cannula 2.00 10/07/17 12:00 99.9 101 20 101/59 (73) 97 I/O 10/07/17 10/07/17 10/07/17 10/08/17 10/08/17 10/08/17 06:59 14:59 22:59 06:59 14:59 22:59 Intake Total 350 ml 0 ml 100 ml 0 ml Output Total 580 ml 850 ml 540 ml Balance -230 ml 0 ml -750 ml -540 ml Intake Oral 0 ml 0 ml 0 ml IV Total 350 ml 100 ml Output Urine Total 450 ml 800 ml 500 ml Drainage Total 130 ml 50 ml 40 ml Result Diagram: 10/06/17 0545 10/06/17 0545 Objective Remarks GENERAL: NAD SKIN: Warm and dry. HEAD: Normocephalic. EYES: No scleral icterus. No injection or drainage. NECK: Supple, trachea midline. No JVD or lymphadenopathy. CARDIOVASCULAR: Regular rate and rhythm without murmurs, gallops, or rubs. RESPIRATORY: Breath sounds equal bilaterally. No accessory muscle use. GASTROINTESTINAL: Abdomen soft, non-tender, nondistended. G tube in place MUSCULOSKELETAL: No cyanosis, or edema. BACK: Nontender without obvious deformity. No CVA tenderness. A/P Problem List: (1) PEG tube malfunction ICD Code: K94.23 - Gastrostomy malfunction (2) History of recurrent deep vein thrombosis (DVT) ICD Code: Z86.718 - Personal history of other venous thrombosis and embolism Status: Chronic (3) Impaired mobility and activities of daily living ICD Code: Z74.09 - Other reduced mobility Status: Acute (4) History of CVA (cerebrovascular accident) ICD Code: Z86.73 - Personal history of transient ischemic attack (TIA), and cerebral infarction without residual deficits Status: Chronic (5) History of pulmonary embolism ICD Code: Z86.711 - Personal history of pulmonary embolism Status: Chronic (6) Postoperative anemia due to acute blood loss ICD Code: D62 - Acute posthemorrhagic anemia Status: Acute (7) Diastolic heart failure ICD Code: I50.30 - Unspecified diastolic (congestive) heart failure Status: Chronic (8) MANI (obstructive sleep apnea) ICD Code: G47.33 - Obstructive sleep apnea (adult) (pediatric) Status: Chronic (9) S/P gastric bypass ICD Code: Z98.84 - Bariatric surgery status Status: Acute Assessment and Plan 47 yrs old female with Status post gastric bypass/G-tube placement G- tube malfunction, acute Abdominal pain - CAN NOT USE G TUBE FOR NUTRITION OR MEDICATION AT THIS TIME. -Appreciate input from general surgery for further evaluation and recommendation. Recommends to continue with the pigtail to gravity for now, TPN pending tube exchange. - Pain management with IV morphine. Zofran IVP for nausea, vomiting - IV fluids for hydration. Monitor for fluid overload - On TPN -Likely IR to place G-tube next week COPD, chronic MANI - Continue on cefazolin IV antibiotics. Continue duo nebs continue incentive spirometer use. - DuoNeb's scheduled every 4 hours, and when necessary Leukocytosis, acute - Resolved Generalized weakness ?Paralysis of lower extremities Hx MS not on any medications - MRI spine showed bulging disc at L4-L5 and L5-S1 without explanation of symptoms - Neurology was consulted while the patient was in rehabilitation, recommend EMG. - Physical therapy eval and treat History of PE/DVT - Continue therapeutic Lovenox - Status post IVC filter placement Hypertension, episode hypotension - Vasotec every 6 hours when necessary - Improved, no hypotension noted GERD/Nunez's esophagus - IV Protonix Neurogenic bladder - Continue Reeves MS/history of CVA - Patient has been evaluated by neurology - Neurology has signed off - Anticoagulation as above Diastolic heart failure - Vasotec until patient can resume home medications - Monitor for fluid overload DVT prop Lovenox GI prop pantoprazole IV Deshawn Stein MD Oct 08, 2017 11:23
[2017-10-08] MEDS: PANTOPRAZOLE SODIUM 40 MG VIAL IV PUSH SCH (19:00)
[2017-10-08] MEDS: METOCLOPRAMIDE HCL 10 MG/2 ML VIAL IV PUSH PRN (21:32)
[2017-10-08] MEDS: CLINIMIX E 4.25/25 2000 mL- >42 mls/hr IV-CENTRAL SCH ×3 (21:36)
[2017-10-08] MEDS: FAT EMULSION 20% INJ 250 ML (Daily over 8 hours) IV-CENTRAL SCH (21:36)
[2017-10-09] VITALS: BP 99/57; PULSE 88; RESP 17; TEMP 96.8; O2SAT 99
[2017-10-09] MEDS: ceFAZolin 1,000 MG/NS 100 ML IV SCH ×6 (01:36→18:11)
[2017-10-09] MEDS: ONDANSETRON HCL 4 MG/2 ML VIAL IVP PRN ×2 (01:37→22:26)
[2017-10-09] MEDS: MORPHINE SULFATE 4 MG/ML INJ IV PUSH PRN ×6 (01:37→22:26)
[2017-10-09] MEDS: ENOXAPARIN SODIUM 120 MG/0.8 ML SYRINGE SQ SCH ×2 (05:54→18:12)
[2017-10-09] MEDS: RESP: ALBUTEROL 2.5 MG/IPRATROPIUM 0.5 MG NEB (SCH) NEB ×4 (07:56→20:47)
[2017-10-09 07:57] VITALS: O2SAT 98
[2017-10-09 08:00] VITALS: BP 103/66; PULSE 85; RESP 16; TEMP 97.3; O2SAT 100
[2017-10-09] MEDS: INSULIN ASPART SUPPLEMENTAL SCALE SQ SCH ×4 (08:00→21:00)
--- NOTE | 2017-10-09 10:20 | HHI.PR ---
Subjective Remarks Follow up G TUBE malfunctioning 10/07/17-patient seen and examined; +abdominal pain. No nausea or emesis.Afebrile 10/08/17-patient seen and examined, no acute event overnight. Afebrile. 10/09/17-patient seen and examined , complains of bloating and states she's had no bowel movement since 09/30/17 Objective Vitals Vital Signs Date Time Temp Pulse Resp B/P (MAP) Pulse Ox O2 Delivery O2 Flow Rate FiO2 10/09/17 08:00 97.3 85 16 103/66 (78) 100 10/09/17 07:57 98 Nasal Cannula 2.00 10/09/17 06:02 18 10/09/17 00:00 96.8 88 17 99/57 (71) 99 10/08/17 21:11 98 Nasal Cannula 2.00 10/08/17 20:00 99.7 92 16 101/55 (70) 100 10/08/17 19:30 98 Nasal Cannula 2.00 10/08/17 16:00 98.9 93 20 110/57 (74) 100 10/08/17 12:00 97.9 98 17 111/69 (83) 100 I/O 10/08/17 10/08/17 10/08/17 10/09/17 10/09/17 10/09/17 07:00 15:00 23:00 07:00 15:00 23:00 Intake Total 0 ml 100 ml 100 ml 240 ml Output Total 540 ml 1050 ml Balance -540 ml 100 ml 100 ml -810 ml Intake Oral 0 ml 240 ml IV Total 100 ml 100 ml Output Urine Total 500 ml 1050 ml Drainage Total 40 ml Result Diagram: 10/06/17 0545 10/06/17 0545 Imaging Last Impressions Chest X-Ray 10/06/17 0000 Signed Impressions: Service Date/Time: September 14:54 - CONCLUSION: Moderate left basilar opacity representing pleural effusion with associated volume loss and/or airspace consolidation. August Elliott MD Abdomen CT 10/05/17 0000 Signed Impressions: Service Date/Time: Thursday, October 05, 2017 08:38 - CONCLUSION: No signs of persistent peritoneal leak from prior gastrostomy site. New gastrostomy tube in satisfactory position. August Darden MD Objective Remarks GENERAL: NAD SKIN: Warm and dry. HEAD: Normocephalic. EYES: No scleral icterus. No injection or drainage. NECK: Supple, trachea midline. No JVD or lymphadenopathy. CARDIOVASCULAR: Regular rate and rhythm without murmurs, gallops, or rubs. RESPIRATORY: Breath sounds equal bilaterally. No accessory muscle use. GASTROINTESTINAL: Abdomen soft, non-tender, nondistended. G tube in place MUSCULOSKELETAL: No cyanosis, or edema. BACK: Nontender without obvious deformity. No CVA tenderness. A/P Problem List: (1) PEG tube malfunction ICD Code: K94.23 - Gastrostomy malfunction (2) History of recurrent deep vein thrombosis (DVT) ICD Code: Z86.718 - Personal history of other venous thrombosis and embolism Status: Chronic (3) Impaired mobility and activities of daily living ICD Code: Z74.09 - Other reduced mobility Status: Acute (4) History of CVA (cerebrovascular accident) ICD Code: Z86.73 - Personal history of transient ischemic attack (TIA), and cerebral infarction without residual deficits Status: Chronic (5) History of pulmonary embolism ICD Code: Z86.711 - Personal history of pulmonary embolism Status: Chronic (6) Postoperative anemia due to acute blood loss ICD Code: D62 - Acute posthemorrhagic anemia Status: Acute (7) Diastolic heart failure ICD Code: I50.30 - Unspecified diastolic (congestive) heart failure Status: Chronic (8) MANI (obstructive sleep apnea) ICD Code: G47.33 - Obstructive sleep apnea (adult) (pediatric) Status: Chronic (9) S/P gastric bypass ICD Code: Z98.84 - Bariatric surgery status Status: Acute Assessment and Plan 47 yrs old female with Status post gastric bypass/G-tube placement G- tube malfunction, acute Abdominal pain , bloating - CAN NOT USE G TUBE FOR NUTRITION OR MEDICATION AT THIS TIME. -Appreciate input from general surgery for further evaluation and recommendation. Recommends to continue with the pigtail to gravity for now, TPN pending tube exchange, likely next week. - Pain management with IV morphine. Zofran - IV fluids for hydration. Monitor for fluid overload - On TPN -Likely IR to place G-tube next week COPD, chronic MANI - Continue on cefazolin IV antibiotics. Continue duo nebs continue incentive spirometer use. - DuoNeb's scheduled every 4 hours, and when necessary Leukocytosis, acute - Resolved Generalized weakness ?Paralysis of lower extremities Hx MS not on any medications - MRI spine showed bulging disc at L4-L5 and L5-S1 without explanation of symptoms - Neurology was consulted while the patient was in rehabilitation, recommend EMG. - Physical therapy eval and treat History of PE/DVT - Continue therapeutic Lovenox - Status post IVC filter placement Hypertension, episode hypotension - Vasotec every 6 hours when necessary - Improved, no hypotension noted GERD/Nunez's esophagus - IV Protonix Neurogenic bladder - Continue Reeves MS/history of CVA - Patient has been evaluated by neurology - Neurology has signed off - Anticoagulation as above Diastolic heart failure - Vasotec until patient can resume home medications - Monitor for fluid overload DVT prop Lovenox GI prop pantoprazole IV Deshawn Stein MD Oct 09, 2017 10:20
[2017-10-09 16:00] VITALS: BP 98/41; PULSE 88; RESP 18; TEMP 99; O2SAT 99
[2017-10-09] MEDS: PANTOPRAZOLE SODIUM 40 MG VIAL IV PUSH SCH (18:11)
[2017-10-09] MEDS: SODIUM CHLORIDE 0.9% FLUSH 10 ML FLUSH IV FLUSH SCH ×2 (18:12→21:00)
[2017-10-09 20:00] VITALS: BP 112/58; PULSE 98; RESP 16; TEMP 98.5; O2SAT 99
[2017-10-09] MEDS: FAT EMULSION 20% INJ 250 ML (Daily over 8 hours) IV-CENTRAL SCH (20:43)
[2017-10-09] MEDS: CLINIMIX E 4.25/25 2000 mL- >42 mls/hr IV-CENTRAL SCH ×3 (20:46)
[2017-10-09 21:47] VITALS: O2SAT 98
[2017-10-10] VITALS (7 sets, daily range): BP systolic 111–136; BP diastolic 60–68; PULSE 93–105; RESP 16–20; TEMP 95.6–99.4; O2SAT 97–99
[2017-10-10] MEDS: ceFAZolin 1,000 MG/NS 100 ML IV SCH ×4 (01:00→09:29)
[2017-10-10] MEDS: MORPHINE SULFATE 4 MG/ML INJ IV PUSH PRN ×6 (01:14→21:09)
[2017-10-10] MEDS: METOCLOPRAMIDE HCL 10 MG/2 ML VIAL IV PUSH PRN ×2 (01:25→10:12)
[2017-10-10] MEDS: ENOXAPARIN SODIUM 120 MG/0.8 ML SYRINGE SQ SCH ×2 (05:31→17:21)
[2017-10-10] MEDS: ONDANSETRON HCL 4 MG/2 ML VIAL IVP PRN ×3 (05:42→18:24)
[2017-10-10] MEDS: INSULIN ASPART SUPPLEMENTAL SCALE SQ SCH ×4 (08:00→21:00)
[2017-10-10] MEDS: RESP: ALBUTEROL 2.5 MG/IPRATROPIUM 0.5 MG NEB (SCH) NEB ×5 (08:16→20:00)
[2017-10-10] MEDS: SODIUM CHLORIDE 0.9% FLUSH 10 ML FLUSH IV FLUSH SCH ×2 (09:30→21:35)
--- NOTE | 2017-10-10 11:47 | HHI.PR ---
Subjective Remarks Follow up G TUBE malfunctioning 10/07/17-patient seen and examined; +abdominal pain. No nausea or emesis.Afebrile 10/08/17-patient seen and examined, no acute event overnight. Afebrile. 10/09/17-patient seen and examined , complains of bloating and states she's had no bowel movement since 09/30/17 10/10/17-patient seen and examined, still complains of abdominal pain. Objective Vitals Vital Signs Date Time Temp Pulse Resp B/P (MAP) Pulse Ox O2 Delivery O2 Flow Rate FiO2 10/10/17 08:17 99 Nasal Cannula 2.00 10/10/17 08:00 Nasal Cannula 2.00 10/10/17 08:00 95.6 105 16 136/68 (90) 98 10/10/17 03:15 18 10/10/17 00:00 98.0 97 17 111/62 (78) 97 10/09/17 21:47 98 Nasal Cannula 2.00 10/09/17 20:00 2.00 10/09/17 20:00 98.5 98 16 112/58 (76) 99 10/09/17 17:00 2.00 10/09/17 16:00 99.0 88 18 98/41 (60) 99 I/O 10/09/17 10/09/17 10/09/17 10/10/17 10/10/17 10/10/17 06:59 14:59 22:59 06:59 14:59 22:59 Intake Total 240 ml 0 ml 240 ml Output Total 1180 ml 2100 ml 500 ml 110 ml Balance -940 ml -2100 ml -260 ml -110 ml Intake Oral 240 ml 0 ml 240 ml Output Urine Total 1050 ml 2100 ml 500 ml Drainage Total 130 ml 110 ml # Bowel Movements 0 Result Diagram: 10/06/17 0545 10/06/1745 Objective Remarks GENERAL: NAD SKIN: Warm and dry. HEAD: Normocephalic. EYES: No scleral icterus. No injection or drainage. NECK: Supple, trachea midline. No JVD or lymphadenopathy. CARDIOVASCULAR: Regular rate and rhythm without murmurs, gallops, or rubs. RESPIRATORY: Breath sounds equal bilaterally. No accessory muscle use. GASTROINTESTINAL: Abdomen soft, non-tender, nondistended. G tube in place MUSCULOSKELETAL: No cyanosis, or edema. BACK: Nontender without obvious deformity. No CVA tenderness. A/P Problem List: (1) PEG tube malfunction ICD Code: K94.23 - Gastrostomy malfunction (2) History of recurrent deep vein thrombosis (DVT) ICD Code: Z86.718 - Personal history of other venous thrombosis and embolism Status: Chronic (3) Impaired mobility and activities of daily living ICD Code: Z74.09 - Other reduced mobility Status: Acute (4) History of CVA (cerebrovascular accident) ICD Code: Z86.73 - Personal history of transient ischemic attack (TIA), and cerebral infarction without residual deficits Status: Chronic (5) History of pulmonary embolism ICD Code: Z86.711 - Personal history of pulmonary embolism Status: Chronic (6) Postoperative anemia due to acute blood loss ICD Code: D62 - Acute posthemorrhagic anemia Status: Acute (7) Diastolic heart failure ICD Code: I50.30 - Unspecified diastolic (congestive) heart failure Status: Chronic (8) MANI (obstructive sleep apnea) ICD Code: G47.33 - Obstructive sleep apnea (adult) (pediatric) Status: Chronic (9) S/P gastric bypass ICD Code: Z98.84 - Bariatric surgery status Status: Acute Assessment and Plan 47 yrs old female with Status post gastric bypass/G-tube placement G- tube malfunction, acute Abdominal pain , bloating - CAN NOT USE G TUBE FOR NUTRITION OR MEDICATION AT THIS TIME. -Appreciate input from general surgery for further evaluation and recommendation. Recommends to continue with the pigtail to gravity for now, TPN pending tube exchange, likely this week. - Pain management with IV morphine. Zofran - IV fluids for hydration. Monitor for fluid overload - On TPN - Discontinue Ancef -Likely IR to place G-tube this week COPD, chronic MANI - Continue on cefazolin IV antibiotics. Continue duo nebs continue incentive spirometer use. - DuoNeb's scheduled every 4 hours, and when necessary Leukocytosis, acute - Resolved Generalized weakness ?Paralysis of lower extremities Hx MS not on any medications - MRI spine showed bulging disc at L4-L5 and L5-S1 without explanation of symptoms - Neurology was consulted while the patient was in rehabilitation, recommend EMG. - Physical therapy eval and treat History of PE/DVT - Continue therapeutic Lovenox - Status post IVC filter placement Hypertension, episode hypotension - Vasotec every 6 hours when necessary - Improved, no hypotension noted GERD/Nunez's esophagus - IV Protonix Neurogenic bladder - Continue Reeves MS/history of CVA - Patient has been evaluated by neurology - Neurology has signed off - Anticoagulation as above Diastolic heart failure - Vasotec until patient can resume home medications - Monitor for fluid overload DVT prop Lovenox GI prop pantoprazole IV Deshawn Stein MD Oct 10, 2017 11:47
--- NOTE | 2017-10-10 15:36 | HHI.PR ---
Subjective Subjective Notes persistent abd pain, no fevers, on tpn Objective Vitals/I&O Vital Signs Date Time Temp Pulse Resp B/P (MAP) Pulse Ox O2 Delivery O2 Flow Rate FiO2 10/10/17 12:00 98.6 100 16 118/60 (79) 97 10/10/17 08:17 Nasal Cannula 2.00 Labs Date/Time Source Procedure Growth Status 10/01/17 17:49 Blood Peripheral Aerobic Blood Culture - Final NO GROWTH IN 5 DAYS Complete 10/01/17 17:49 Blood Peripheral Anaerobic Blood Culture - Final NO GROWTH IN 5 DAYS Complete 10/01/17 09:20 Urine Clean Catch Urine Culture - Final NO GROWTH IN 48 HOURS. Complete Abdomen: Other (soft incisional tenderness) A/P Assessment and Plan hx rygb, hh repair, gastrostomy tube, clogged g tube, now with pigtail PLAN will continue to follow, pigtail to gravity according abx pain control pending g tube exchange tpn discuss with IR for G tube upsize early/mid week discuss with patient that IR may be able to locate tube distally but would likley need to go in the same spot as the pig tail. The patient is agreeable. Patrick Miles MD Oct 10, 2017 15:36
[2017-10-10] MEDS: PANTOPRAZOLE SODIUM 40 MG VIAL IV PUSH SCH ×2 (18:23→20:45)
[2017-10-10] MEDS: ACETAMINOPHEN 1000 MG/100 ML 50 ML IV PRN (18:28)
[2017-10-10 18:31] LABS: AUTOMATED NEUTROPHIL # 6.7 TH/MM3 (1.8-7.7); BASOPHIL # 0.1 TH/MM3 (0-0.2); BASOPHIL % 0.8 % (0.0-2.0); EOSINOPHIL # 0.6 TH/MM3 (0-0.4); EOSINOPHIL % 6.2 % (0.0-4.0); HEMATOCRIT 26.4 % (35.0-46.0); HEMOGLOBIN 9.1 GM/DL (11.6-15.3); LYMPH % 19.4 % (9.0-44.0); MEAN CELL VOLUME 80.9 FL (80.0-100.0); MEAN CORPUSCULAR HEMOGLOBIN 27.8 PG (27.0-34.0); MEAN CORPUSCULAR HGB CONC 34.4 % (32.0-36.0); MEAN PLATELET VOLUME 9.7 FL (7.0-11.0); MONOCYTE # 0.7 TH/MM3 (0-0.9); NEUT % 66.6 % (16.0-70.0); PLATELET COUNT 314 TH/MM3 (150-450); RED BLOOD COUNT 3.26 MIL/MM3 (4.00-5.30); RED CELL DISTRIBUTION WIDTH 15.9 % (11.6-17.2); WHITE BLOOD COUNT 10.1 TH/MM3 (4.0-11.0)
[2017-10-10 18:49] LABS: BICARBONATE 30.2 MEQ/L (21.0-32.0); CALCIUM 8.4 MG/DL (8.5-10.1); CREATININE 0.52 MG/DL (0.50-1.00)
[2017-10-10] MEDS: FAT EMULSION 20% INJ 250 ML (Daily over 8 hours) IV-CENTRAL SCH (20:45)
[2017-10-10] MEDS: CLINIMIX E 4.25/25 2000 mL- >42 mls/hr IV-CENTRAL SCH ×3 (20:45)
[2017-10-11] VITALS (7 sets, daily range): BP systolic 115–133; BP diastolic 24–83; PULSE 93–105; RESP 16–20; TEMP 97.7–99.1; O2SAT 95–99
[2017-10-11] MEDS: MORPHINE SULFATE 4 MG/ML INJ IV PUSH PRN ×6 (03:16→21:23)
[2017-10-11] MEDS: ONDANSETRON HCL 4 MG/2 ML VIAL IVP PRN ×3 (03:27→17:09)
[2017-10-11] MEDS: ENOXAPARIN SODIUM 120 MG/0.8 ML SYRINGE SQ SCH ×2 (06:20→19:00)
[2017-10-11] MEDS: INSULIN ASPART SUPPLEMENTAL SCALE SQ SCH ×4 (08:00→21:00)
[2017-10-11] MEDS: RESP: ALBUTEROL 2.5 MG/IPRATROPIUM 0.5 MG NEB (SCH) NEB ×4 (08:17→19:46)
[2017-10-11] MEDS: SODIUM CHLORIDE 0.9% FLUSH 10 ML FLUSH IV FLUSH SCH ×2 (09:42→21:00)
--- NOTE | 2017-10-11 10:19 | HHI.PR ---
Subjective Remarks Follow up G TUBE malfunctioning 10/07/17-patient seen and examined; +abdominal pain. No nausea or emesis.Afebrile 10/08/17-patient seen and examined, no acute event overnight. Afebrile. 10/09/17-patient seen and examined , complains of bloating and states she's had no bowel movement since 09/30/17 10/10/17-patient seen and examined, still complains of abdominal pain. 10/11/17-patient seen and examined, states she is passing out gas. Complains of rashes. States she would not go back to [place]. Case discussed with Brigette Irene today Objective Vitals Vital Signs Date Time Temp Pulse Resp B/P (MAP) Pulse Ox O2 Delivery O2 Flow Rate FiO2 10/11/17 08: 99 Nasal Cannula 2.00 10/11/17 08:00 97.7 93 16 123/59 (80) 95 10/11/17 04:00 99.1 105 20 133/83 (100) 99 10/10/17 21:10 99 Nasal Cannula 2.00 10/10/17 20:00 99.4 96 20 112/66 (81) 98 10/10/17 19:00 Nasal Cannula 2.00 10/10/17 16:00 98.3 93 16 126/61 (82) 99 10/10/17 12:00 98.6 100 16 118/60 (79) 97 I/O 10/10/17 10/10/17 10/10/17 10/11/17 10/11/17 10/11/17 06:59 14:59 22:59 06:59 14:59 22:59 Intake Total 240 ml 100 ml 0 ml Output Total 500 ml 110 ml 1000 ml 975 ml Balance -260 ml -10 ml -1000 ml -975 ml Intake Oral 240 ml 0 ml IV Total 100 ml Output Urine Total 500 ml 1000 ml 800 ml Drainage Total 110 ml 175 ml # Bowel Movements 0 Result Diagram: 10/10/17173910/10/171739 Objective Remarks GENERAL: NAD SKIN: Warm and dry. HEAD: Normocephalic. EYES: No scleral icterus. No injection or drainage. NECK: Supple, trachea midline. No JVD or lymphadenopathy. CARDIOVASCULAR: Regular rate and rhythm without murmurs, gallops, or rubs. RESPIRATORY: Breath sounds equal bilaterally. No accessory muscle use. GASTROINTESTINAL: Abdomen soft, non-tender, nondistended. G tube in place MUSCULOSKELETAL: No cyanosis, or edema. BACK: Nontender without obvious deformity. No CVA tenderness. A/P Problem List: (1) PEG tube malfunction ICD Code: K94.23 - Gastrostomy malfunction (2) History of recurrent deep vein thrombosis (DVT) ICD Code: Z86.718 - Personal history of other venous thrombosis and embolism Status: Chronic (3) Impaired mobility and activities of daily living ICD Code: Z74.09 - Other reduced mobility Status: Acute (4) History of CVA (cerebrovascular accident) ICD Code: Z86.73 - Personal history of transient ischemic attack (TIA), and cerebral infarction without residual deficits Status: Chronic (5) History of pulmonary embolism ICD Code: Z86.711 - Personal history of pulmonary embolism Status: Chronic (6) Postoperative anemia due to acute blood loss ICD Code: D62 - Acute posthemorrhagic anemia Status: Acute (7) Diastolic heart failure ICD Code: I50.30 - Unspecified diastolic (congestive) heart failure Status: Chronic (8) MANI (obstructive sleep apnea) ICD Code: G47.33 - Obstructive sleep apnea (adult) (pediatric) Status: Chronic (9) S/P gastric bypass ICD Code: Z98.84 - Bariatric surgery status Status: Acute Assessment and Plan 47 yrs old female with Status post gastric bypass/G-tube placement G- tube malfunction, acute Abdominal pain , bloating - CAN NOT USE G TUBE FOR NUTRITION OR MEDICATION AT THIS TIME. -Appreciate input from general surgery for further evaluation and recommendation. Recommends to continue with the pigtail to gravity for now, TPN pending tube exchange, likely this week. - Pain management with IV morphine. Zofran - IV fluids for hydration. Monitor for fluid overload - On TPN - s/p Ancef -Likely IR vs surgery to place G-tube this week COPD, chronic MAIN - Continue on cefazolin IV antibiotics. Continue duo nebs continue incentive spirometer use. - DuoNeb's scheduled every 4 hours, and when necessary Leukocytosis, acute - Resolved Generalized weakness ?Paralysis of lower extremities Hx MS not on any medications - MRI spine showed bulging disc at L4-L5 and L5-S1 without explanation of symptoms - Neurology was consulted while the patient was in rehabilitation, recommend EMG. - Physical therapy eval and treat History of PE/DVT - Continue therapeutic Lovenox - Status post IVC filter placement Hypertension, episode hypotension - Vasotec every 6 hours when necessary - Improved, no hypotension noted GERD/Nunez's esophagus - IV Protonix Neurogenic bladder - Continue Reeves MS/history of CVA - Patient has been evaluated by neurology - Neurology has signed off - Anticoagulation as above Diastolic heart failure - Vasotec until patient can resume home medications - Monitor for fluid overload Pruritus Benadryl PRN DVT prop Lovenox GI prop pantoprazole IV Deshawn Stein MD Oct 11, 2017 10:19
--- NOTE | 2017-10-11 12:16 | HHI.PR ---
cc: JdPatrick Galloawy Subjective Subjective Notes Resting in bed Voices that she would like to wait the 6-7 weeks for J tube rather than replace G tube Objective Vitals/I&O Vital Signs Date Time Temp Pulse Resp B/P (MAP) Pulse Ox O2 Delivery O2 Flow Rate FiO2 10/11/17 08:17 99 Nasal Cannula 2.00 10/11/17 08:00 97.7 93 16 123/59 (80) Labs Laboratory Tests Test 10/10/17 17:40 White Blood Count 10.1 Red Blood Count 3.26 Hemoglobin 9.1 Hematocrit 26.4 Mean Corpuscular Volume 80.9 Mean Corpuscular Hemoglobin 27.8 Mean Corpuscular Hemoglobin Concent 34.4 Red Cell Distribution Width 15.9 Platelet Count 314 Mean Platelet Volume 9.7 Neutrophils (%) (Auto) 66.6 Lymphocytes (%) (Auto) 19.4 Monocytes (%) (Auto) 7.0 Eosinophils (%) (Auto) 6.2 Basophils (%) (Auto) 0.8 Neutrophils # (Auto) 6.7 Lymphocytes # (Auto) 2.0 Monocytes # (Auto) 0.7 Eosinophils # (Auto) 0.6 Basophils # (Auto) 0.1 CBC Comment DIFF FINAL Differential Comment Blood Urea Nitrogen 13 Creatinine 0.52 Random Glucose 120 Calcium Level 8.4 Sodium Level 136 Potassium Level 3.8 Chloride Level 100 Carbon Dioxide Level 30.2 Anion Gap 6 Estimat Glomerular Filtration Rate 126 Date/Time Source Procedure Growth Status 10/01/17 17:49 Blood Peripheral Aerobic Blood Culture - Final NO GROWTH IN 5 DAYS Complete 10/01/17 17:49 Blood Peripheral Anaerobic Blood Culture - Final NO GROWTH IN 5 DAYS Complete 10/01/17 09:20 Urine Clean Catch Urine Culture - Final NO GROWTH IN 48 HOURS. Complete Cardiovascular: Regular Lungs: Clear Abdomen: Other (drain to gravity drainage bag; abd soft; prior surgery lap sites c/d/i ) Extremities: No edema A/P Assessment and Plan 46 year old female post form OSH for rygb, HH repair, gastrostomy tube, clogged G tube---now with pigtail drain -Patient to discuss options with Dr. Darden -Patient would prefer to have J tube placed in 6-7 weeks; if this is the case -- patient would need to stay on TPN that duration -Explained risks of staying on TPN for that extending period of time (infection , blood clots, liver failure) -Will continue drain to gravity according -Pain control -Continue TPN -Replace electrolytes as needed -Breathing treatments PRN -Spoke with Dr. Stein and Lucie JACINTO---- patient will not be able to return to [place] with the TPN; other options include SNF that takes TPN vs [facility] (if she meets requirements) -If patient decides to have J tube placed and remain on TPN ---patient does not need to remain inpatient if arrangements can be made for rehab Attending Statement patient seen at bedside wanting j tube no g tube discussed the safest course was to replace g tube to allow tract to heal j tube can be considered when safe in 6-8 weeks Attestation The exam, history, and the medical decision-making described in the above note were completed with the assistance of the mid-level provider. I reviewed and agree with the findings presented. I attest that I had a [id number] encounter with the patient on the same day, and personally performed and documented my assessment and findings in the medical record. Brigette Irene Oct 11, 2017 12:16 Patrick Miles MD Oct 21, 2017 22:47
[2017-10-11] MEDS: diphenhydrAMINE HCL 50 MG/ML VIAL IV PUSH PRN ×2 (13:29→21:24)
[2017-10-11] MEDS: METOCLOPRAMIDE HCL 10 MG/2 ML VIAL IV PUSH PRN ×2 (13:38→21:23)
[2017-10-11] MEDS: FAT EMULSION 20% INJ 250 ML (Daily over 8 hours) IV-CENTRAL SCH (21:14)
[2017-10-11] MEDS: CLINIMIX E 4.25/25 2000 mL- >42 mls/hr IV SCH ×3 (21:15)
[2017-10-12] VITALS (7 sets, daily range): BP systolic 103–122; BP diastolic 53–65; PULSE 87–101; RESP 16–20; TEMP 97.6–98.7; O2SAT 96–100
[2017-10-12] MEDS: MORPHINE SULFATE 4 MG/ML INJ IV PUSH PRN (04:44)
[2017-10-12] MEDS: ONDANSETRON HCL 4 MG/2 ML VIAL IVP PRN ×3 (04:44→21:39)
[2017-10-12] MEDS: ENOXAPARIN SODIUM 120 MG/0.8 ML SYRINGE SQ SCH ×2 (06:11→17:29)
[2017-10-12] MEDS: diphenhydrAMINE HCL 50 MG/ML VIAL IV PUSH PRN ×3 (06:22→23:30)
[2017-10-12] MEDS: METOCLOPRAMIDE HCL 10 MG/2 ML VIAL IV PUSH PRN ×2 (06:27→14:30)
[2017-10-12] MEDS: INSULIN ASPART SUPPLEMENTAL SCALE SQ SCH ×4 (08:00→21:00)
[2017-10-12] MEDS ORDERED: IOHEXOL 350 MG/ML 50 ML BTL (for RAD DIAG) G-TUBE ONE (08:00)
--- NOTE | 2017-10-12 08:47 | PD.RAD ---
Radiology Note Saw pt yesterday afternoon and she c/o new onset of increased upper abdominal pain with onset just prior to my visit, possibly attributed to repositioning herself in bed. This morning, she continues to c/o this same increased pain (06/09). She does not appear to be in significant distress. AF, VSS. Abdomen remains soft and mildly tender in the LUQ near G-tube. Dressing clean and intact. I have had multiple discussions with the patient about her nutritional support going forward. She is adamant that she will not eat by mouth because of prior problems with food allergy, dysphagia and aspiration. She would prefer a feeding tube that does not reside in the left upper quadrant because she feels the proximity to her rib cage and diaphragm is causing pain. She is concerned about a jejunal tube because of the smaller caliber and having had her G-tube clogged while she was in rehab. I have offered her an attempt at percutaneous J-tube (which may not be possible depending upon anatomic procedural challenges related to position of the colon, location of the sid anastamoses and body habitus) vs revision and upsize of the gastrostomy. She is far enough out from her prior surgeries that these procedures are safely feasible, however I want to verify that there is no new unexpected pathology in light of her pain exacerbation, and she will need to be on board with the planned intervention. I have ordered a CT abdomen for today and will have labs drawn as well. Hope to proceed later this week barring unexpected setbacks and if Dr. Miles concurs. August Darden MD Oct 12, 2017 08:47
[2017-10-12] MEDS: RESP: ALBUTEROL 2.5 MG/IPRATROPIUM 0.5 MG NEB (SCH) NEB ×4 (08:51→19:09)
[2017-10-12] MEDS: SODIUM CHLORIDE 0.9% FLUSH 10 ML FLUSH IV FLUSH SCH ×2 (09:00→21:40)
--- NOTE | 2017-10-12 10:28 | HHI.PR ---
Subjective Remarks Follow up G TUBE malfunctioning 10/07/17-patient seen and examined; +abdominal pain. No nausea or emesis.Afebrile 10/08/17-patient seen and examined, no acute event overnight. Afebrile. 10/09/17-patient seen and examined , complains of bloating and states she's had no bowel movement since 09/30/17 10/10/17-patient seen and examined, still complains of abdominal pain. 10/11/17-patient seen and examined, states she is passing out gas. Complains of rashes. States she would not go back to [place]. Case discussed with Brigette Irene today 10/12/17-patient seen and examined, she is quite upset of her care. Plan for abdomen CT today. case discussed with Dr Miles. Possible G exchange today by IR Objective Vitals Vital Signs Date Time Temp Pulse Resp B/P (MAP) Pulse Ox O2 Delivery O2 Flow Rate FiO2 10/12/17 08:54 99 Nasal Cannula 2.00 10/12/17 08:00 98.6 100 17 119/56 (77) 97 10/12/17 04:04 96 Nasal Cannula 2.00 10/12/17 00:00 97.6 91 20 120/56 (77) 97 10/11/17 21:45 Nasal Cannula 2.00 10/11/17 20:00 98.2 102 20 115/59 (77) 99 10/11/17 19:48 97 Nasal Cannula 2.00 10/11/17 16:00 97.7 102 16 132/66 (88) 98 10/11/17 12:00 98.8 103 16 124/24 (57) 99 I/O 10/11/17 10/11/17 10/11/17 10/12/17 10/12/17 10/12/17 07:00 15:00 23:00 07:00 15:00 23:00 Intake Total 2260.2 ml 958 ml Output Total 975 ml 1150 ml 990 ml Balance -975 ml 1110.2 ml -32 ml Intake Oral 0 ml IV Total 2260.2 ml 958 ml Output Urine Total 800 ml 900 ml 900 ml Drainage Total 175 ml 250 ml 90 ml # Bowel Movements 0 0 Result Diagram: 10/10/17 17410/10/17 174 Imaging Last Impressions Chest X-Ray 10/06/17 0000 Signed Impressions: Service Date/Time: September 14:54 - CONCLUSION: Moderate left basilar opacity representing pleural effusion with associated volume loss and/or airspace consolidation. August Elliott MD Abdomen CT 10/05/17 0000 Signed Impressions: Service Date/Time: Thursday, October 05, 2017 08:38 - CONCLUSION: No signs of persistent peritoneal leak from prior gastrostomy site. New gastrostomy tube in satisfactory position. August Darden MD Objective Remarks GENERAL: NAD SKIN: Warm and dry. HEAD: Normocephalic. EYES: No scleral icterus. No injection or drainage. NECK: Supple, trachea midline. No JVD or lymphadenopathy. CARDIOVASCULAR: Regular rate and rhythm without murmurs, gallops, or rubs. RESPIRATORY: Breath sounds equal bilaterally. No accessory muscle use. GASTROINTESTINAL: Abdomen soft, non-tender, nondistended. G tube in place and clamped MUSCULOSKELETAL: No cyanosis, or edema. BACK: Nontender without obvious deformity. No CVA tenderness. A/P Problem List: (1) PEG tube malfunction ICD Code: K94.23 - Gastrostomy malfunction (2) History of recurrent deep vein thrombosis (DVT) ICD Code: Z86.718 - Personal history of other venous thrombosis and embolism Status: Chronic (3) Impaired mobility and activities of daily living ICD Code: Z74.09 - Other reduced mobility Status: Acute (4) History of CVA (cerebrovascular accident) ICD Code: Z86.73 - Personal history of transient ischemic attack (TIA), and cerebral infarction without residual deficits Status: Chronic (5) History of pulmonary embolism ICD Code: Z86.711 - Personal history of pulmonary embolism Status: Chronic (6) Postoperative anemia due to acute blood loss ICD Code: D62 - Acute posthemorrhagic anemia Status: Acute (7) Diastolic heart failure ICD Code: I50.30 - Unspecified diastolic (congestive) heart failure Status: Chronic (8) MANI (obstructive sleep apnea) ICD Code: G47.33 - Obstructive sleep apnea (adult) (pediatric) Status: Chronic (9) S/P gastric bypass ICD Code: Z98.84 - Bariatric surgery status Status: Acute Assessment and Plan 47 yrs old female with Status post gastric bypass/G-tube placement G- tube malfunction, acute Abdominal pain , bloating - CAN NOT USE G TUBE FOR NUTRITION OR MEDICATION AT THIS TIME. -Appreciate input from general surgery for further evaluation and recommendation. Recommends to continue with the pigtail to gravity for now, TPN pending tube exchange, likely this week. - Pain management with IV morphine. Zofran - IV fluids for hydration. Monitor for fluid overload - On TPN - s/p Ancef - Plan for possible G exchange this week - CT abdomen/pelvis pending COPD, chronic MANI - C/p cefazolin IV antibiotics. Continue duo nebs continue incentive spirometer use. - DuoNeb's scheduled every 4 hours, and when necessary Leukocytosis, acute - Resolved Generalized weakness ?Paralysis of lower extremities Hx MS not on any medications - MRI spine showed bulging disc at L4-L5 and L5-S1 without explanation of symptoms - Neurology was consulted while the patient was in rehabilitation, recommend EMG. - Physical therapy eval and treat History of PE/DVT - Continue therapeutic Lovenox - Status post IVC filter placement Hypertension, episode hypotension - Vasotec every 6 hours when necessary - Improved, no hypotension noted GERD/Nunez's esophagus - IV Protonix Neurogenic bladder - Continue Reeves MS/history of CVA - Patient has been evaluated by neurology - Neurology has signed off - Anticoagulation as above Diastolic heart failure - Vasotec until patient can resume home medications - Monitor for fluid overload Pruritus Benadryl PRN DVT prop Lovenox GI prop pantoprazole IV Deshawn Stein MD Oct 12, 2017 10:28
[2017-10-12] MEDS: CLINIMIX E 4.25/25 2000 mL- >42 mls/hr IV SCH ×6 (12:05→23:40)
[2017-10-12] MEDS: MORPHINE SULFATE 8 MG/ML INJ IV PUSH PRN ×3 (12:38→21:38)
--- NOTE | 2017-10-12 13:02 | HHI.PR ---
cc: Patrick Miles MD Subjective Subjective Notes Resting in bed C/o pain in LUQ Dr. Darden has been to see her today--- drain currently clamped Objective Vitals/I&O Vital Signs Date Time Temp Pulse Resp B/P (MAP) Pulse Ox O2 Delivery O2 Flow Rate FiO2 10/12/17 12:00 98.7 101 17 122/65 (84) 100 10/12/17 08:54 Nasal Cannula 2.00 Labs Date/Time Source Procedure Growth Status 10/01/17 17:49 Blood Peripheral Aerobic Blood Culture - Final NO GROWTH IN 5 DAYS Complete 10/01/17 17:49 Blood Peripheral Anaerobic Blood Culture - Final NO GROWTH IN 5 DAYS Complete 10/01/17 09:20 Urine Clean Catch Urine Culture - Final NO GROWTH IN 48 HOURS. Complete Cardiovascular: Regular Lungs: Clear Abdomen: Other (prior lap sites c/d/i from surgery at [place]; drain in place --- currently clamped ) Extremities: No edema A/P Assessment and Plan 46 year old female post form OSH for rygb, HH repair, gastrostomy tube, clogged G tube---now with pigtail drain -Drain currently clamped--- CT abd/pelvis planned for this afternoon -Patient would prefer to have J tube placed in 6-7 weeks; if this is the case -- patient would need to stay on TPN that duration -Explained risks of staying on TPN for that extending period of time (infection , blood clots, liver failure) -Pain control -Continue TPN -Replace electrolytes as needed -Breathing treatments PRN Attending Statement patient seen at bedside pig tail clamped await ir for further exchange discussed with patient Collaborating MD Comments The exam, history, and the medical decision-making described in the above note were completed with the assistance of the mid-level provider. I reviewed and agree with the findings presented. I attest that I had a [id number] encounter with the patient on the same day, and personally performed and documented my assessment and findings in the medical record. Brigette Irene Oct 12, 2017 13:02 Patrick Miles MD Oct 15, 2017 21:57
--- NOTE | 2017-10-12 15:44 | RADRPT ---
EXAM DATE/TIME: 10/12/2017 15:04 [facility] COMPARISON: CT ABDOMEN W/O CONTRAST, October 05, 2017, 8:38. INDICATIONS : Abdominal pain ORAL CONTRAST: No oral contrast ingested. RADIATION DOSE: 16.40 CTDIvol (mGy) MEDICAL HISTORY : None SURGICAL HISTORY : None. ENCOUNTER: Subsequent ACUITY: 1 month PAIN SCALE: 5/10 LOCATION: abdomen TECHNIQUE: Volumetric scanning of the abdomen was performed. Using automated exposure control and adjustment of the mA and/or kV according to patient size, radiation dose was kept as low as reasonably achievable to obtain optimal diagnostic quality images. DICOM format image data is available electronically for review and comparison. FINDINGS: LOWER LUNGS: Mild bibasilar airspace disease and small left pleural effusion unchanged from prior exam. LIVER: Homogeneous density without lesion. There is no dilation of the biliary tree. Gallbladder is surgica lly absent. SPLEEN: Normal size without lesion. PANCREAS: Within normal limits. KIDNEYS: Normal in size and shape. There is no mass, stone, or hydronephrosis. ADRENAL GLANDS: Within normal limits. AORTA/RETROPERITONEAL: There is no aneurysm or lymphadenopathy. There is a stable IVC filter in place. BOWEL/MESENTERY: Redemonstration of postsurgical features of prior Bob-en-Y gastrojejunostomy with gastric antrum/bod y exclusion. There is a stable pigtail gastrostomy catheter in the body of the stomach. Contrast inje cted through the gastrostomy catheter opacifies the excluded gastric pouch. There is no extravasation of contrast. Contrast is seen in the colon likely from prior contrast administration. No contrast is noted in the proximal small bowel. MUSCULOSKELETAL: Within normal limits for patient age. CONCLUSION: 1. Stable postsurgical features of Bob-en-Y gastrojejunostomy with exclusion of the gastric antrum/b rusty. Stable pigtail gastrostomy catheter in the excluded portion of the stomach. Injected contrast th rough the catheter is confined to the excluded gastric pouch without evidence for leak. No ascites or drainable fluid collections. 2. Stable mild bibasilar airspace disease and small left pleural effusion. Doug Wells MD on October 12, 2017 at 15:21 Board Certified Radiologist. This report was verified electronically.
[2017-10-12] MEDS: ACETAMINOPHEN 1000 MG/100 ML 50 ML IV PRN (17:25)
[2017-10-12] MEDS: PANTOPRAZOLE SODIUM 40 MG VIAL IV PUSH SCH (17:29)
[2017-10-12] MEDS: FAT EMULSION 20% INJ 250 ML (Daily over 8 hours) IV-CENTRAL SCH (23:40)
[2017-10-13] VITALS (7 sets, daily range): BP systolic 88–121; BP diastolic 52–72; PULSE 85–103; RESP 16–18; TEMP 97.7–98.6; O2SAT 97–100
[2017-10-13] MEDS: MORPHINE SULFATE 8 MG/ML INJ IV PUSH PRN ×5 (00:39→22:02)
[2017-10-13] MEDS: ONDANSETRON HCL 4 MG/2 ML VIAL IVP PRN ×4 (04:22→22:04)
[2017-10-13 05:19] LABS: AUTOMATED NEUTROPHIL # 4.7 TH/MM3 (1.8-7.7); BASOPHIL # 0.1 TH/MM3 (0-0.2); BASOPHIL % 0.7 % (0.0-2.0); EOSINOPHIL # 0.6 TH/MM3 (0-0.4); EOSINOPHIL % 8.4 % (0.0-4.0); LYMPH % 19.7 % (9.0-44.0); LYMPHOCYTE # 1.5 TH/MM3 (1.0-4.8); MEAN CELL VOLUME 83.3 FL (80.0-100.0); MEAN CORPUSCULAR HEMOGLOBIN 26.8 PG (27.0-34.0); MEAN CORPUSCULAR HGB CONC 32.1 % (32.0-36.0); MEAN PLATELET VOLUME 9.5 FL (7.0-11.0); MONOCYTE # 0.7 TH/MM3 (0-0.9); NEUT % 62.2 % (16.0-70.0); PLATELET COUNT 216 TH/MM3 (150-450); RED BLOOD COUNT 2.45 MIL/MM3 (4.00-5.30); RED CELL DISTRIBUTION WIDTH 15.8 % (11.6-17.2); WHITE BLOOD COUNT 7.6 TH/MM3 (4.0-11.0)
[2017-10-13 05:27] LABS: HEMOGLOBIN 6.6 GM/DL (11.6-15.3)
[2017-10-13 05:28] LABS: HEMATOCRIT 20.4 % (35.0-46.0)
[2017-10-13 05:45] LABS: ALBUMIN 1.9 GM/DL (3.4-5.0); BICARBONATE 24.2 MEQ/L (21.0-32.0); CALCIUM 6.7 MG/DL (8.5-10.1); CALCIUM-PROTEIN CORRECTED 7.5 MG/DL (8.5-10.1); CREATININE 0.34 MG/DL (0.50-1.00); TOTAL BILIRUBIN ADULT 0.2 MG/DL (0.2-1.0); TOTAL PROTEIN 5.4 GM/DL (6.4-8.2)
[2017-10-13] MEDS ORDERED: SODIUM CHLOR 0.9% 250 ML INJ 250 ML IV ONE (05:45)
[2017-10-13] MEDS ORDERED: diphenhydrAMINE HCL 25 MG CAP PO PRN (05:45)
[2017-10-13] MEDS ORDERED: ACETAMINOPHEN 325 MG TAB PO PRN (05:45)
[2017-10-13] MEDS: ENOXAPARIN SODIUM 120 MG/0.8 ML SYRINGE SQ SCH ×2 (06:00→17:52)
[2017-10-13] MEDS ORDERED: SODIUM CHLORIDE 0.9% FLUSH 10 ML FLUSH IVF PRN (06:30)
[2017-10-13] MEDS: INSULIN ASPART SUPPLEMENTAL SCALE SQ SCH ×4 (08:00→21:00)
[2017-10-13] MEDS: RESP: ALBUTEROL 2.5 MG/IPRATROPIUM 0.5 MG NEB (SCH) NEB ×4 (08:10→19:13)
[2017-10-13] MEDS: SODIUM CHLORIDE 0.9% FLUSH 10 ML FLUSH IV FLUSH SCH ×2 (09:00→22:11)
--- NOTE | 2017-10-13 11:17 | HHI.PR ---
Subjective Remarks Follow up G TUBE malfunctioning 10/07/17-patient seen and examined; +abdominal pain. No nausea or emesis.Afebrile 10/08/17-patient seen and examined, no acute event overnight. Afebrile. 10/09/17-patient seen and examined , complains of bloating and states she's had no bowel movement since 09/30/17 10/10/17-patient seen and examined, still complains of abdominal pain. 10/11/17-patient seen and examined, states she is passing out gas. Complains of rashes. States she would not go back to [place]. Case discussed with Brigette Irene today 10/12/17-patient seen and examined, she is quite upset of her care. Plan for abdomen CT today. case discussed with Dr Miles. Possible G exchange today by IR Objective Vitals Vital Signs Date Time Temp Pulse Resp B/P (MAP) Pulse Ox O2 Delivery O2 Flow Rate FiO2 10/13/17 08:10 100 Nasal Cannula 2.00 10/13/17 08:00 98.3 101 17 88/56 (67) 98 10/13/17 00:00 98.0 85 16 102/52 (69) 98 10/12/17 20:00 98.6 87 16 103/53 (70) 98 10/12/17 19:00 Nasal Cannula 2.00 10/12/17 15:42 98 Nasal Cannula 2.00 10/12/17 12:05 Nasal Cannula 2.00 10/12/17 12:00 98.7 101 17 122/65 (84) 100 I/O 10/12/17 10/12/17 10/12/17 10/13/17 10/13/17 10/13/17 07:00 15:00 23:00 07:00 15:00 23:00 Intake Total 958 ml Output Total 990 ml 50 ml Balance -32 ml -50 ml IV Total 958 ml Output Urine Total 900 ml Drainage Total 90 ml 50 ml # Bowel Movements 0 Result Diagram: 10/13/17 0450 10/13/17 0450 Imaging Last Impressions Abdomen CT 10/12/17 0000 Signed Impressions: Service Date/Time: Thursday, October 12, 2017 15:04 - CONCLUSION: 1. Stable postsurgical features of Bob-en-Y gastrojejunostomy with exclusion of the gastric antrum/body. Stable pigtail gastrostomy catheter in the excluded portion of the stomach. Injected contrast through the catheter is confined to the excluded gastric pouch without evidence for leak. No ascites or drainable fluid collections. 2. Stable mild bibasilar airspace disease and small left pleural effusion. Doug Wells MD Chest X-Ray 10/06/17 0000 Signed Impressions: Service Date/Time: September 14:54 - CONCLUSION: Moderate left basilar opacity representing pleural effusion with associated volume loss and/or airspace consolidation. August Elliott MD Objective Remarks GENERAL: NAD SKIN: Warm and dry. HEAD: Normocephalic. EYES: No scleral icterus. No injection or drainage. NECK: Supple, trachea midline. No JVD or lymphadenopathy. CARDIOVASCULAR: Regular rate and rhythm without murmurs, gallops, or rubs. RESPIRATORY: Breath sounds equal bilaterally. No accessory muscle use. GASTROINTESTINAL: Abdomen soft, non-tender, nondistended. G tube in place and clamped MUSCULOSKELETAL: No cyanosis, or edema. BACK: Nontender without obvious deformity. No CVA tenderness. A/P Problem List: (1) PEG tube malfunction ICD Code: K94.23 - Gastrostomy malfunction (2) History of recurrent deep vein thrombosis (DVT) ICD Code: Z86.718 - Personal history of other venous thrombosis and embolism Status: Chronic (3) Impaired mobility and activities of daily living ICD Code: Z74.09 - Other reduced mobility Status: Acute (4) History of CVA (cerebrovascular accident) ICD Code: Z86.73 - Personal history of transient ischemic attack (TIA), and cerebral infarction without residual deficits Status: Chronic (5) History of pulmonary embolism ICD Code: Z86.711 - Personal history of pulmonary embolism Status: Chronic (6) Postoperative anemia due to acute blood loss ICD Code: D62 - Acute posthemorrhagic anemia Status: Acute (7) Diastolic heart failure ICD Code: I50.30 - Unspecified diastolic (congestive) heart failure Status: Chronic (8) MANI (obstructive sleep apnea) ICD Code: G47.33 - Obstructive sleep apnea (adult) (pediatric) Status: Chronic (9) S/P gastric bypass ICD Code: Z98.84 - Bariatric surgery status Status: Acute Assessment and Plan 47 yrs old female with Status post gastric bypass/G-tube placement G- tube malfunction, acute Abdominal pain , bloating - CAN NOT USE G TUBE FOR NUTRITION OR MEDICATION AT THIS TIME. -Appreciate input from general surgery for further evaluation and recommendation. Recommends to continue with the pigtail to gravity for now, TPN pending tube exchange, likely this week. - Pain management with IV morphine. Zofran - IV fluids for hydration. Monitor for fluid overload - On TPN - s/p Ancef - Plan for possible G exchange this week - CT abdomen/pelvis pending COPD, chronic MANI - C/p cefazolin IV antibiotics. Continue duo nebs continue incentive spirometer use. - DuoNeb's scheduled every 4 hours, and when necessary Leukocytosis, acute - Resolved Generalized weakness ?Paralysis of lower extremities Hx MS not on any medications - MRI spine showed bulging disc at L4-L5 and L5-S1 without explanation of symptoms - Neurology was consulted while the patient was in rehabilitation, recommend EMG. - Physical therapy eval and treat History of PE/DVT - Continue therapeutic Lovenox - Status post IVC filter placement Hypertension, episode hypotension - Vasotec every 6 hours when necessary - Improved, no hypotension noted GERD/Nunez's esophagus - IV Protonix Neurogenic bladder - Continue Reeves MS/history of CVA - Patient has been evaluated by neurology - Neurology has signed off - Anticoagulation as above Diastolic heart failure - Vasotec until patient can resume home medications - Monitor for fluid overload Pruritus Benadryl PRN DVT prop Lovenox GI prop pantoprazole IV Deshawn Stein MD Oct 13, 2017 11:17
[2017-10-13] MEDS: diphenhydrAMINE HCL 50 MG/ML VIAL IV PUSH PRN ×2 (11:50→22:02)
--- NOTE | 2017-10-13 12:17 | HHI.PR ---
Subjective Remarks Follow up G TUBE malfunctioning 10/07/17-patient seen and examined; +abdominal pain. No nausea or emesis.Afebrile 10/08/17-patient seen and examined, no acute event overnight. Afebrile. 10/09/17-patient seen and examined , complains of bloating and states she's had no bowel movement since 09/30/17 10/10/17-patient seen and examined, still complains of abdominal pain. 10/11/17-patient seen and examined, states she is passing out gas. Complains of rashes. States she would not go back to [place]. Case discussed with Brigette Irene today 10/12/17-patient seen and examined, she is quite upset of her care. Plan for abdomen CT today. case discussed with Dr Miles. Possible G exchange today by IR 10/13/17-patient seen and examined; H/H dropped however patient denies any GI bleeding. TPN currently off and she is currently on D10W. Objective Vitals Vital Signs Date Time Temp Pulse Resp B/P (MAP) Pulse Ox O2 Delivery O2 Flow Rate FiO2 10/13/17 08:10 100 Nasal Cannula 2.00 10/13/17 08:00 98.3 101 17 88/56 (67) 98 10/13/17 00:00 98.0 85 16 102/52 (69) 98 10/12/17 20:00 98.6 87 16 103/53 (70) 98 10/12/17 19:00 Nasal Cannula 2.00 10/12/17 15:42 98 Nasal Cannula 2.00 I/O 10/12/17 10/12/17 10/12/17 10/13/17 10/13/17 10/13/17 07:00 15:00 23:00 07:00 15:00 23:00 Intake Total 958 ml Output Total 990 ml 50 ml Balance -32 ml -50 ml IV Total 958 ml Output Urine Total 900 ml Drainage Total 90 ml 50 ml # Bowel Movements 0 Result Diagram: 10/13/17 0450 10/13/17 0450 Objective Remarks GENERAL: NAD SKIN: Warm and dry. HEAD: Normocephalic. EYES: No scleral icterus. No injection or drainage. NECK: Supple, trachea midline. No JVD or lymphadenopathy. CARDIOVASCULAR: Regular rate and rhythm without murmurs, gallops, or rubs. RESPIRATORY: Breath sounds equal bilaterally. No accessory muscle use. GASTROINTESTINAL: Abdomen soft, non-tender, nondistended. G tube in place and clamped MUSCULOSKELETAL: No cyanosis, or edema. BACK: Nontender without obvious deformity. No CVA tenderness. A/P Problem List: (1) PEG tube malfunction ICD Code: K94.23 - Gastrostomy malfunction (2) History of recurrent deep vein thrombosis (DVT) ICD Code: Z86.718 - Personal history of other venous thrombosis and embolism Status: Chronic (3) Impaired mobility and activities of daily living ICD Code: Z74.09 - Other reduced mobility Status: Acute (4) History of CVA (cerebrovascular accident) ICD Code: Z86.73 - Personal history of transient ischemic attack (TIA), and cerebral infarction without residual deficits Status: Chronic (5) History of pulmonary embolism ICD Code: Z86.711 - Personal history of pulmonary embolism Status: Chronic (6) Postoperative anemia due to acute blood loss ICD Code: D62 - Acute posthemorrhagic anemia Status: Acute (7) Diastolic heart failure ICD Code: I50.30 - Unspecified diastolic (congestive) heart failure Status: Chronic (8) MANI (obstructive sleep apnea) ICD Code: G47.33 - Obstructive sleep apnea (adult) (pediatric) Status: Chronic (9) S/P gastric bypass ICD Code: Z98.84 - Bariatric surgery status Status: Acute Assessment and Plan 47 yrs old female with Status post gastric bypass/G-tube placement G- tube malfunction, acute Abdominal pain , bloating - CAN NOT USE G TUBE FOR NUTRITION OR MEDICATION AT THIS TIME. -Appreciate input from general surgery for further evaluation and recommendation. Recommends to continue with the pigtail to gravity for now, TPN pending tube exchange, likely this week. - Pain management with IV morphine. Zofran - IV fluids for hydration. Monitor for fluid overload - On TPN however currently off - s/p Ancef - Plan for possible G exchange this week - CT abdomen/pelvis pending Anemia of Acute blood loss? Drop in H/H---->rule out lab error Will repeat H/H prior to any blood transfuse COPD, chronic MANI - C/p cefazolin IV antibiotics. Continue duo nebs continue incentive spirometer use. - DuoNeb's scheduled every 4 hours, and when necessary Leukocytosis, acute - Resolved Generalized weakness ?Paralysis of lower extremities Hx MS not on any medications - MRI spine showed bulging disc at L4-L5 and L5-S1 without explanation of symptoms - Neurology was consulted while the patient was in rehabilitation, recommend EMG. - Physical therapy eval and treat History of PE/DVT - Continue therapeutic Lovenox - Status post IVC filter placement Hypertension, episode hypotension - Vasotec every 6 hours when necessary - Improved, no hypotension noted GERD/Nunez's esophagus - IV Protonix Neurogenic bladder - Continue Reeves MS/history of CVA - Patient has been evaluated by neurology - Neurology has signed off - Anticoagulation as above Diastolic heart failure - Vasotec until patient can resume home medications - Monitor for fluid overload Pruritus Benadryl PRN DVT prop Lovenox GI prop pantoprazole IV Deshawn Stein MD Oct 13, 2017 12:17
[2017-10-13] MEDS ORDERED: ALTEPLASE RECOMBINANT 2 MG VIAL INTRACATH ONE (13:00)
[2017-10-13 16:16] LABS: HEMATOCRIT 27.9 % (35.0-46.0); HEMOGLOBIN 8.9 GM/DL (11.6-15.3)
[2017-10-13] MEDS: ACETAMINOPHEN 1000 MG/100 ML 50 ML IV PRN (16:16)
[2017-10-13 17:52] LABS: INTERNATIONAL NORMALIZED RATIO 1.5 RATIO; PROTHROMBIN TIME - PATIENT 15.4 SEC (9.8-11.6)
[2017-10-13] MEDS: PANTOPRAZOLE SODIUM 40 MG VIAL IV PUSH SCH (17:52)
[2017-10-13] MEDS: CLINIMIX E 4.25/25 2000 mL- >42 mls/hr IV SCH ×6 (20:28→21:47)
[2017-10-13] MEDS: FAT EMULSION 20% INJ 250 ML (Daily over 8 hours) IV-CENTRAL SCH (21:47)
[2017-10-14] VITALS: BP 123/72; PULSE 88; RESP 17; TEMP 98.6; O2SAT 97
[2017-10-14] MEDS: MORPHINE SULFATE 8 MG/ML INJ IV PUSH PRN ×4 (04:30→20:50)
[2017-10-14] MEDS: ONDANSETRON HCL 4 MG/2 ML VIAL IVP PRN ×2 (04:30→17:29)
[2017-10-14] MEDS: diphenhydrAMINE HCL 50 MG/ML VIAL IV PUSH PRN ×2 (07:50→17:28)
[2017-10-14] MEDS: INSULIN ASPART SUPPLEMENTAL SCALE SQ SCH ×4 (07:54→21:00)
[2017-10-14 08:00] VITALS: BP 125/68; PULSE 106; RESP 19; TEMP 98.2; O2SAT 98
[2017-10-14] MEDS: CLINIMIX E 4.25/25 2000 mL- >42 mls/hr IV SCH ×6 (08:02→20:57)
[2017-10-14] MEDS: SODIUM CHLORIDE 0.9% FLUSH 10 ML FLUSH IV FLUSH SCH ×2 (09:00→20:51)
[2017-10-14] MEDS: RESP: ALBUTEROL 2.5 MG/IPRATROPIUM 0.5 MG NEB (SCH) NEB (09:00)
[2017-10-14] MEDS ORDERED: ceFAZolin 2 GM PREMIX 50 ML ONE (09:31)
[2017-10-14] MEDS ORDERED: GLUCAGON 1 MG/ML VIAL ONE ×2 (09:44→09:56)
--- NOTE | 2017-10-14 11:22 | PD.RAD ---
Post Procedure Progress Note Pre Procedure Diagnosis: (1) Nunez esophagus (2) GERD (gastroesophageal reflux disease) (3) PEG tube malfunction (4) S/P gastric bypass Post Procedure Diagnosis: (1) PEG tube malfunction (2) Nunez esophagus (3) GERD (gastroesophageal reflux disease) (4) S/P gastric bypass Procedure Date: Oct 14, 2017 Supervising Radiologist: August Darden Proceduralist/Assist: Matthew Marquez RT(R) Estimated blood loss: none Anesthesia: General Plan of Activity Patient to Unit: PACU Patient Condition: Good See PACS Report for procedural detail/treatment Feeding Tube Gastrostomy Placement Tamazight: 20 August Darden MD Oct 14, 2017 11:22
[2017-10-14] MEDS ORDERED: DO NOT ADM ANY ANTICOAGULANT DRUGS PRN (11:29)
[2017-10-14] MEDS ORDERED: IOHEXOL 350 MG/ML 50 ML BTL (for RAD DIAG) G-TUBE ONE (11:33)
--- NOTE | 2017-10-14 11:55 | RADRPT ---
EXAM DATE/TIME: 10/14/2017 09:07 [facility] COMPARISON: No previous studies available for comparison. INDICATIONS : Patient presents with gastroparesis in need of gastrostomy tube placement for nutrition and drainage. MEDICAL HISTORY : Dysphagia Schatzki ring Hiatal hernia status post repair Nunez's esophagus MS History of colon cancer status post chemotherapy, radiation and colectomy CVA DVT PE Hypertension SURGICAL HISTORY : Hiatal hernia repair Bob-en-Y G-tube placement Foot surgery Excisional lipoma Parotidectomy Tonsillectomy Port placement ENCOUNTER: Subsequent ACUITY: 2 weeks PAIN SCORE: 8/10 LOCATION: [facility] FLUORO TIME: 15.2 minutes IMAGE SERIES: 3 CONTRAST: 65 cc Omnipaque (iohexol) 350 MEDICATION(S): 1.) 2 g ANCEF IV 2.) 2 mg glucagon (Gluca-Gen) IV 3.) 50 mg BENADRYL IV DEVICE(S): 1.) 20 Fr gastrostomy tube 2.) 035 9.0MM X 80MM 75CM BALLOON Anesthesia and pain control was provided by the Anesthesia department. Patient was premedicated per protocol for underlying contrast media allergy. PROCEDURE : 1. Fluoroscopically guided gastrostomy tube placement. 2. Conscious sedation with continuous EKG and oximetry monitoring. The risks, benefits and alternatives to the procedure were explained and verbal and written consent w as obtained. The site was prepped in sterile fashion. Full sterile technique was used, including ca p, mask, sterile gloves and gown and a large sterile sheet. Hand hygiene and 2% chlorhexidine and/or betadine/alcohol prep was utilized per protocol for cutaneous antisepsis. The skin and subcutaneous tissues were infiltrated with local anesthetic solution. Fluoroscopy was used to edmundo the position of the liver.. The stomach was insufflated with room air v ia the patient's existing pigtail gastrostomy. Three percutaneous fasteners were placed to secure the anterior gastric wall. A small incision was made between the fasteners. The stomach was accessed with an 18 gauge needle. A n 0.035 wire was advanced into the gastric fundus. The tract was dilated using serial dilators in ad dition to a 9 mm x 8 cm angioplasty balloon. The gastrostomy tube was introduced through a peel-away sheath. The position was confirmed with an injection of contrast. The patient was sent to post anesthesia recovery in stable condition. CONCLUSION: Uncomplicated gastrostomy tube placement as above. August Darden MD on October 14, 2017 at 11:51 Board Certified Radiologist. This report was verified electronically.
[2017-10-14] MEDS ORDERED: *ONDANSETRON 4 MG VIAL PERIprocedural Use ONLY ONE (12:06)
[2017-10-14] MEDS ORDERED: *PROMETHAZINE 25 MG/ML VIAL PERIprocedural use ONLY ONE (12:13)
[2017-10-14] MEDS ORDERED: *morphine SULFATE 8 MG/ML PERIprocedure ONLY ONE (12:29)
[2017-10-14 13:30] VITALS: BP 121/59; PULSE 105; RESP 16; TEMP 98.3; O2SAT 92
[2017-10-14 16:00] VITALS: BP 119/60; PULSE 98; RESP 17; TEMP 99.2; O2SAT 92
--- NOTE | 2017-10-14 16:07 | HHI.PR ---
Subjective Remarks Follow up G TUBE malfunctioning 10/07/17-patient seen and examined; +abdominal pain. No nausea or emesis.Afebrile 10/08/17-patient seen and examined, no acute event overnight. Afebrile. 10/09/17-patient seen and examined , complains of bloating and states she's had no bowel movement since 09/30/17 10/10/17-patient seen and examined, still complains of abdominal pain. 10/11/17-patient seen and examined, states she is passing out gas. Complains of rashes. States she would not go back to [place]. Case discussed with Brigette Irene today 10/12/17-patient seen and examined, she is quite upset of her care. Plan for abdomen CT today. case discussed with Dr Miles. Possible G exchange today by IR 10/13/17-patient seen and examined; H/H dropped however patient denies any GI bleeding. TPN currently off and she is currently on D10W. 10/14/17-patient seen and examined, she is status post G-tube exchange and complains of site pain. Objective Vitals Vital Signs Date Time Temp Pulse Resp B/P (MAP) Pulse Ox O2 Delivery O2 Flow Rate FiO2 10/14/17 13:30 98.3 105 16 121/59 (79) 92 10/14/17 13:00 97.6 92 16 138/76 (96) 98 Nasal Cannula 2 10/14/17 12:45 93 16 140/75 (96) 97 Nasal Cannula 2 10/14/17 12:34 15 10/14/17 12:30 95 15 142/75 (97) 97 Nasal Cannula 2 10/14/17 12:15 96 15 149/77 (101) 96 Nasal Cannula 2 10/14/17 12:00 98 15 152/75 (100) 96 Nasal Cannula 2 10/14/17 11:45 99 15 157/79 (105) 95 Nasal Cannula 2 10/14/17 11:30 101 14 159/85 (109) 100 Nasal Cannula 3 10/14/17 11:25 98.7 103 14 163/86 (111) 99 Nasal Cannula 3 10/14/17 08:00 98.2 106 19 125/68 (87) 98 10/14/17 00:00 98.6 88 17 123/72 (89) 97 10/13/17 20:00 98.6 88 17 121/72 (88) 97 10/13/17 19:00 Nasal Cannula 2.00 I/O 10/13/17 10/13/17 10/13/17 10/14/17 10/14/17 10/14/17 07:00 15:00 23:00 07:00 15:00 23:00 Intake Total 1355.1 ml 50 ml Output Total 1375 ml 850 ml 320 ml Balance -19.9 ml -850 ml -320 ml 50 ml Intake Oral 0 ml IV Total 1355.1 ml 50 ml Output Urine Total 1200 ml 850 ml 250 ml Gastric Drainage Total 70 ml Drainage Total 175 ml # Bowel Movements 0 Result Diagram: 10/13/17 1550 10/13/17 0450 Objective Remarks GENERAL: NAD SKIN: Warm and dry. HEAD: Normocephalic. EYES: No scleral icterus. No injection or drainage. NECK: Supple, trachea midline. No JVD or lymphadenopathy. CARDIOVASCULAR: Regular rate and rhythm without murmurs, gallops, or rubs. RESPIRATORY: Breath sounds equal bilaterally. No accessory muscle use. GASTROINTESTINAL: Abdomen soft, non-tender, nondistended. G tube in place and clamped MUSCULOSKELETAL: No cyanosis, or edema. BACK: Nontender without obvious deformity. No CVA tenderness. A/P Problem List: (1) PEG tube malfunction ICD Code: K94.23 - Gastrostomy malfunction (2) History of recurrent deep vein thrombosis (DVT) ICD Code: Z86.718 - Personal history of other venous thrombosis and embolism Status: Chronic (3) Impaired mobility and activities of daily living ICD Code: Z74.09 - Other reduced mobility Status: Acute (4) History of CVA (cerebrovascular accident) ICD Code: Z86.73 - Personal history of transient ischemic attack (TIA), and cerebral infarction without residual deficits Status: Chronic (5) History of pulmonary embolism ICD Code: Z86.711 - Personal history of pulmonary embolism Status: Chronic (6) Postoperative anemia due to acute blood loss ICD Code: D62 - Acute posthemorrhagic anemia Status: Acute (7) Diastolic heart failure ICD Code: I50.30 - Unspecified diastolic (congestive) heart failure Status: Chronic (8) MANI (obstructive sleep apnea) ICD Code: G47.33 - Obstructive sleep apnea (adult) (pediatric) Status: Chronic (9) S/P gastric bypass ICD Code: Z98.84 - Bariatric surgery status Status: Acute Assessment and Plan 47 yrs old female with Status post gastric bypass/G-tube placement G- tube malfunction, acute Abdominal pain , bloating - CAN NOT USE G TUBE FOR NUTRITION OR MEDICATION AT THIS TIME. -Appreciate input from general surgery for further evaluation and recommendation. Recommends to continue with the pigtail to gravity for now, TPN - Pain management with IV morphine. Zofran - IV fluids for hydration. Monitor for fluid overload - On TPN however currently off - s/p Ancef - s/p G exchange today 10/14/17 - Plan to start Tube feed tomorrow Anemia of Acute blood loss? Drop in H/H---->rule out lab error Will repeat H/H prior to any blood transfuse COPD, chronic MANI - C/p cefazolin IV antibiotics. Continue duo nebs continue incentive spirometer use. - DuoNeb's scheduled every 4 hours, and when necessary Leukocytosis, acute - Resolved Generalized weakness ?Paralysis of lower extremities Hx MS not on any medications - MRI spine showed bulging disc at L4-L5 and L5-S1 without explanation of symptoms - Neurology was consulted while the patient was in rehabilitation, recommend EMG. - Physical therapy eval and treat History of PE/DVT - Continue therapeutic Lovenox - Status post IVC filter placement Hypertension, episode hypotension - Vasotec every 6 hours when necessary - Improved, no hypotension noted GERD/Nunez's esophagus - IV Protonix Neurogenic bladder - Continue Reeves MS/history of CVA - Patient has been evaluated by neurology - Neurology has signed off - Anticoagulation as above Diastolic heart failure - Vasotec until patient can resume home medications - Monitor for fluid overload Pruritus Benadryl PRN DVT prop Lovenox GI prop pantoprazole IV Deshawn Stein MD Oct 14, 2017 16:07
--- NOTE | 2017-10-14 17:15 | HHI.PR ---
Subjective Subjective Notes Resting in bed Had G tube replaced today in IR; c/o pain at site at bedside Objective Vitals/I&O Vital Signs Date Time Temp Pulse Resp B/P (MAP) Pulse Ox O2 Delivery O2 Flow Rate FiO2 10/14/17 13:30 98.3 105 16 121/59 (79) 92 10/14/17 13:00 Nasal Cannula 2 Labs Date/Time Source Procedure Growth Status 10/01/17 17:49 Blood Peripheral Aerobic Blood Culture - Final NO GROWTH IN 5 DAYS Complete 10/01/17 17:49 Blood Peripheral Anaerobic Blood Culture - Final NO GROWTH IN 5 DAYS Complete 10/01/17 09:20 Urine Clean Catch Urine Culture - Final NO GROWTH IN 48 HOURS. Complete Cardiovascular: Regular Lungs: Clear Abdomen: Other (lap sites from prior surgery c/d/i; G tube in place ) Extremities: No edema A/P Assessment and Plan 46 year old female post form OSH for rygb, HH repair, gastrostomy tube, clogged G tube -G tube replaced in IR today -Per GS can start trickle feed and advance as tolerated -GS will sign off Attending Statement patient seen at bedside g tube placed by ir will s/o start TF pain control Attestation The exam, history, and the medical decision-making described in the above note were completed with the assistance of the mid-level provider. I reviewed and agree with the findings presented. I attest that I had a [id number] encounter with the patient on the same day, and personally performed and documented my assessment and findings in the medical record. Brigette Irene Oct 14, 2017 17:15 Patrick Miles MD Oct 23, 2017 22:38
[2017-10-14] MEDS: PANTOPRAZOLE SODIUM 40 MG VIAL IV PUSH SCH (17:28)
[2017-10-14 20:00] VITALS: BP 131/77; PULSE 100; RESP 23; TEMP 100.2; O2SAT 96
[2017-10-14] MEDS: FAT EMULSION 20% INJ 250 ML (Daily over 8 hours) IV-CENTRAL SCH (20:57)
[2017-10-15] VITALS (8 sets, daily range): BP systolic 117–141; BP diastolic 58–70; PULSE 92–102; RESP 16–23; TEMP 97.8–100.7; O2SAT 93–97
[2017-10-15] MEDS: MORPHINE SULFATE 8 MG/ML INJ IV PUSH PRN ×6 (00:03→23:29)
[2017-10-15] MEDS: ONDANSETRON HCL 4 MG/2 ML VIAL IVP PRN ×2 (06:23→20:18)
[2017-10-15 06:33] LABS: AUTOMATED NEUTROPHIL # 11.3 TH/MM3 (1.8-7.7); BASOPHIL % 0.2 % (0.0-2.0); EOSINOPHIL # 0.7 TH/MM3 (0-0.4); EOSINOPHIL % 5.3 % (0.0-4.0); HEMATOCRIT 28.7 % (35.0-46.0); HEMOGLOBIN 9.2 GM/DL (11.6-15.3); LYMPH % 8.5 % (9.0-44.0); LYMPHOCYTE # 1.2 TH/MM3 (1.0-4.8); MEAN CELL VOLUME 80.8 FL (80.0-100.0); MEAN CORPUSCULAR HEMOGLOBIN 25.8 PG (27.0-34.0); MEAN CORPUSCULAR HGB CONC 31.9 % (32.0-36.0); MONO % 6.1 % (0.0-8.0); MONOCYTE # 0.9 TH/MM3 (0-0.9); NEUT % 79.9 % (16.0-70.0); PLATELET COUNT 328 TH/MM3 (150-450); RED BLOOD COUNT 3.55 MIL/MM3 (4.00-5.30); RED CELL DISTRIBUTION WIDTH 16.6 % (11.6-17.2); WHITE BLOOD COUNT 14.2 TH/MM3 (4.0-11.0)
[2017-10-15] MEDS: INSULIN ASPART SUPPLEMENTAL SCALE SQ SCH ×4 (08:00→20:45)
[2017-10-15] MEDS: CLINIMIX E 4.25/25 2000 mL- >42 mls/hr IV SCH ×6 (08:49→20:24)
[2017-10-15] MEDS: SODIUM CHLORIDE 0.9% FLUSH 10 ML FLUSH IV FLUSH SCH ×2 (09:00→20:25)
[2017-10-15] MEDS: diphenhydrAMINE HCL 50 MG/ML VIAL IV PUSH PRN ×2 (09:41→17:38)
[2017-10-15] MEDS: RESP: ALBUTEROL 2.5 MG/IPRATROPIUM 0.5 MG NEB (PRN) NEB ×3 (10:43→20:58)
--- NOTE | 2017-10-15 11:04 | HHI.PR ---
Subjective Remarks Follow up G TUBE malfunctioning 10/07/17-patient seen and examined; +abdominal pain. No nausea or emesis.Afebrile 10/08/17-patient seen and examined, no acute event overnight. Afebrile. 10/09/17-patient seen and examined , complains of bloating and states she's had no bowel movement since 09/30/17 10/10/17-patient seen and examined, still complains of abdominal pain. 10/11/17-patient seen and examined, states she is passing out gas. Complains of rashes. States she would not go back to [place]. Case discussed with Brigette Irene today 10/12/17-patient seen and examined, she is quite upset of her care. Plan for abdomen CT today. case discussed with Dr Miles. Possible G exchange today by IR 10/13/17-patient seen and examined; H/H dropped however patient denies any GI bleeding. TPN currently off and she is currently on D10W. 10/14/17-patient seen and examined, she is status post G-tube exchange and complains of site pain. 10/15/17-patient seen and examined. she complains of abdominal pain and states it is burning from outside in 10/16/17-patient seen and examined, spiking fevers, complains of pain suggests site. States she's been having green sputum. Objective Vitals Vital Signs Date Time Temp Pulse Resp B/P (MAP) Pulse Ox O2 Delivery O2 Flow Rate FiO2 10/15/17 10:16 97 Nasal Cannula 2.00 10/15/17 08:00 97.8 92 16 117/60 (79) 97 10/15/17 04:00 100.2 100 23 136/70 (92) 93 10/15/17 00:00 100.2 102 23 141/65 (90) 95 10/14/17 20:00 100.2 100 23 131/77 (95) 96 10/14/17 16:00 99.2 98 17 119/60 (79) 92 10/14/17 13:30 98.3 105 16 121/59 (79) 92 10/14/17 13:00 97.6 92 16 138/76 (96) 98 Nasal Cannula 2 10/14/17 12:45 93 16 140/75 (96) 97 Nasal Cannula 2 10/14/17 12:34 15 10/14/17 12:30 95 15 142/75 (97) 97 Nasal Cannula 2 10/14/17 12:15 96 15 149/77 (101) 96 Nasal Cannula 2 10/14/17 12:00 98 15 152/75 (100) 96 Nasal Cannula 2 10/14/17 11:45 99 15 157/79 (105) 95 Nasal Cannula 2 10/14/17 11:30 101 14 159/85 (109) 100 Nasal Cannula 3 10/14/17 11:25 98.7 103 14 163/86 (111) 99 Nasal Cannula 3 I/O 10/14/17 10/14/17 10/14/17 10/15/17 10/15/17 10/15/17 07:00 15:00 23:00 07:00 15:00 23:00 Intake Total 330 ml 0 ml Output Total 850 ml 320 ml 1475 ml 425 ml Balance -850 ml -320 ml -1145 ml -425 ml Intake Oral 280 ml 0 ml IV Total 50 ml Output Urine Total 850 ml 250 ml 1425 ml 300 ml Gastric Drainage Total 70 ml Drainage Total 50 ml 125 ml # Bowel Movements 0 Result Diagram: 10/15/17 0600 10/13/17 0450 Objective Remarks GENERAL: NAD SKIN: Warm and dry. HEAD: Normocephalic. EYES: No scleral icterus. No injection or drainage. NECK: Supple, trachea midline. No JVD or lymphadenopathy. CARDIOVASCULAR: Regular rate and rhythm without murmurs, gallops, or rubs. RESPIRATORY: Breath sounds equal bilaterally. No accessory muscle use. GASTROINTESTINAL: Abdomen soft, non-tender, nondistended. G tube in place and clamped MUSCULOSKELETAL: No cyanosis, or edema. BACK: Nontender without obvious deformity. No CVA tenderness. A/P Problem List: (1) PEG tube malfunction ICD Code: K94.23 - Gastrostomy malfunction (2) History of recurrent deep vein thrombosis (DVT) ICD Code: Z86.718 - Personal history of other venous thrombosis and embolism Status: Chronic (3) Impaired mobility and activities of daily living ICD Code: Z74.09 - Other reduced mobility Status: Acute (4) History of CVA (cerebrovascular accident) ICD Code: Z86.73 - Personal history of transient ischemic attack (TIA), and cerebral infarction without residual deficits Status: Chronic (5) History of pulmonary embolism ICD Code: Z86.711 - Personal history of pulmonary embolism Status: Chronic (6) Postoperative anemia due to acute blood loss ICD Code: D62 - Acute posthemorrhagic anemia Status: Acute (7) Diastolic heart failure ICD Code: I50.30 - Unspecified diastolic (congestive) heart failure Status: Chronic (8) MANI (obstructive sleep apnea) ICD Code: G47.33 - Obstructive sleep apnea (adult) (pediatric) Status: Chronic (9) S/P gastric bypass ICD Code: Z98.84 - Bariatric surgery status Status: Acute Assessment and Plan 47 yrs old female with Status post gastric bypass/G-tube placement G- tube malfunction, acute Abdominal pain , bloating - CAN NOT USE G TUBE FOR NUTRITION OR MEDICATION AT THIS TIME. -Appreciate input from general surgery for further evaluation and recommendation. Recommends to continue with the pigtail to gravity for now, TPN - Pain management with IV morphine. Zofran - IV fluids for hydration. Monitor for fluid overload - s/p Ancef - s/p G exchange 10/14/17 - Plan to start Tube feed today Anemia of Acute blood loss? H/H stable COPD, chronic MANI - C/p cefazolin IV antibiotics. Continue duo nebs continue incentive spirometer use. - DuoNeb's scheduled every 4 hours, and when necessary Febrile episode Check CXR, UA today 10/16/17 and treat accordingly Generalized weakness ?Paralysis of lower extremities Hx MS not on any medications - MRI spine showed bulging disc at L4-L5 and L5-S1 without explanation of symptoms - Neurology was consulted while the patient was in rehabilitation, recommend EMG. - Physical therapy eval and treat History of PE/DVT - Continue therapeutic Lovenox - Status post IVC filter placement Hypertension, episode hypotension - Vasotec every 6 hours when necessary - Improved, no hypotension noted GERD/Nunez's esophagus - IV Protonix Neurogenic bladder - Continue Reeves MS/history of CVA - Patient has been evaluated by neurology - Neurology has signed off - Anticoagulation as above Diastolic heart failure - Vasotec until patient can resume home medications - Monitor for fluid overload Pruritus Benadryl PRN DVT prop Lovenox GI prop pantoprazole IV Deshawn Stein MD Oct 15, 2017 11:04
--- NOTE | 2017-10-15 12:15 | PD.RAD ---
Radiology Note Pt. c/o burning abdominal pain and nausea. Tmax 100.2 Laboratory Tests Test 10/13/17 04:50 10/13/17 15:35 10/13/17 15:50 10/15/17 06:00 Red Blood Count 2.45 MIL/MM3 (4.00-5.30) 3.55 MIL/MM3 (4.00-5.30) Hemoglobin 6.6 GM/DL (11.6-15.3) 8.9 GM/DL (11.6-15.3) 9.2 GM/DL (11.6-15.3) Hematocrit 20.4 % (35.0-46.0) 27.9 % (35.0-46.0) 28.7 % (35.0-46.0) Mean Corpuscular Hemoglobin 26.8 PG (27.0-34.0) 25.8 PG (27.0-34.0) Monocytes (%) (Auto) 9.0 % (0.0-8.0) Eosinophils (%) (Auto) 8.4 % (0.0-4.0) 5.3 % (0.0-4.0) Eosinophils # (Auto) 0.6 TH/MM3 (0-0.4) 0.7 TH/MM3 (0-0.4) Creatinine 0.34 MG/DL (0.50-1.00) Total Protein 5.4 GM/DL (6.4-8.2) Albumin 1.9 GM/DL (3.4-5.0) Calcium Level 6.7 MG/DL (8.5-10.1) Alkaline Phosphatase 41 U/L (45-117) Chloride Level 110 MEQ/L (98-107) Protein Corrected Calcium 7.5 MG/DL (8.5-10.1) Prothrombin Time 15.4 SEC (9.8-11.6) Activated Partial Thromboplast Time 34.9 SEC (24.3-30.1) White Blood Count 14.2 TH/MM3 (4.0-11.0) Mean Corpuscular Hemoglobin Concent 31.9 % (32.0-36.0) Neutrophils (%) (Auto) 79.9 % (16.0-70.0) Lymphocytes (%) (Auto) 8.5 % (9.0-44.0) Neutrophils # (Auto) 11.3 TH/MM3 (1.8-7.7) G tube site looks good. prior site is dry. Abd soft with mild tenderness to palpation throughout upper abd.. No rebound. CT abd today to document satisfactory tube position without complication or other acute process. F/U lung base changes. Start tube feedings today if clinically appropriate. August Darden MD Oct 15, 2017 12:15
[2017-10-15] MEDS: ENOXAPARIN SODIUM 120 MG/0.8 ML SYRINGE SQ SCH (17:53)
[2017-10-15] MEDS: PANTOPRAZOLE SODIUM 40 MG VIAL IV PUSH SCH (20:18)
[2017-10-15] MEDS: FAT EMULSION 20% INJ 250 ML (Daily over 8 hours) IV-CENTRAL SCH (20:38)
--- NOTE | 2017-10-15 23:31 | RADRPT ---
EXAM DATE/TIME: 10/15/2017 22:54 This report includes an Addendum and supersedes previous reports for this exam. [facility] COMPARISON: CT ABDOMEN W/O CONTRAST, October 12, 2017, 15:04. INDICATIONS : Abdomen pain. Evaluate G tube placement. ORAL CONTRAST: No oral contrast ingested. RADIATION DOSE: 16.13 CTDIvol (mGy) MEDICAL HISTORY : Cardiovascular disease. Hypertension. Carcinoma, colon.COPD SURGICAL HISTORY : Cholecystectomy. Colon resection.IVC Filter placement. ENCOUNTER: Subsequent ACUITY: 4 - 6 days PAIN SCALE: 8/10 LOCATION: Bilateral abdomen TECHNIQUE: Volumetric scanning of the abdomen was performed. Using automated exposure control and adjustment of the mA and/or kV according to patient size, radiation dose was kept as low as reasonably achievable to obtain optimal diagnostic quality images. DICOM format image data is available electronically for review and comparison. FINDINGS: Gastric bypass changes are again noted. The previously seen pigtail gastrostomy catheter has been rep laced with a gastric feeding tube. I believe the same entry site was utilized. The button and tip of the gastric feeding tube are in the body of the bypassed portion of the stomach. No enteric contrast was administered but some of the contrast from the previous study is in the colon. There is mild shukri a in the fat around the stomach, especially near the gastrojejunostomy, not new but has increased sli ghtly in the interim. A few subcentimeter mesenteric lymph nodes are seen in the same region. No orga nized or drainable fluid demonstrated. Noncontrast appearance of the liver, spleen, pancreas, adrenal glands and kidneys within normal limit s. Tiny right and small left pleural effusions are present with atelectasis, slightly improved in the interim. CONCLUSION: Pigtail gastrostomy catheter replaced in the interim with a PEG tube which has its tip in the bypasse d portion of the body of the stomach. There is mild perigastric edema but no organized or drainable f luid. August Luna MD on October 15, 2017 at 23:20 Board Certified Radiologist. This report was verified electronically. ADDENDUM: The patient's new gastrostomy tube is in good position with entry site approximately 4 cm below the p rior G-tube site. The new position is well below the costal margin. There is no evidence of disruptio n of the previous operative sites. There has been interval decrease in lung base fluid and atelectasi s. August Darden MD on October 15, 2017 at 23:51 Board Certified Radiologist. This report was verified electronically.
[2017-10-16] VITALS (7 sets, daily range): BP systolic 110–123; BP diastolic 56–62; PULSE 89–107; RESP 16–22; TEMP 96.3–100.3; O2SAT 93–99
--- NOTE | 2017-10-16 00:02 | PD.RAD ---
Radiology Note CT reveals good position and appearance of new G-Tube and no unexpected findings in abdomen. Mild perigastric induration is consistent with procedural trauma. Would only consider antibiotics if leukocytosis persists. Tube feeding can commence. Tube should not be manipulated other than routine care and use for a minimum of 4 weeks. Please notify me promptly if malfunction occurs. August Darden MD Oct 16, 2017 00:02
[2017-10-16] MEDS: ONDANSETRON HCL 4 MG/2 ML VIAL IVP PRN ×2 (05:01→20:03)
[2017-10-16] MEDS: diphenhydrAMINE HCL 50 MG/ML VIAL IV PUSH PRN ×3 (05:01→20:03)
[2017-10-16] MEDS: MORPHINE SULFATE 8 MG/ML INJ IV PUSH PRN ×5 (05:03→20:04)
[2017-10-16] MEDS: ENOXAPARIN SODIUM 120 MG/0.8 ML SYRINGE SQ SCH ×2 (06:15→18:04)
[2017-10-16 06:48] LABS: AUTOMATED NEUTROPHIL # 8.5 TH/MM3 (1.8-7.7); BASOPHIL # 0.1 TH/MM3 (0-0.2); BASOPHIL % 0.7 % (0.0-2.0); EOSINOPHIL # 1.3 TH/MM3 (0-0.4); EOSINOPHIL % 10.3 % (0.0-4.0); HEMATOCRIT 27.3 % (35.0-46.0); HEMOGLOBIN 8.6 GM/DL (11.6-15.3); LYMPH % 15.1 % (9.0-44.0); MEAN CELL VOLUME 81.2 FL (80.0-100.0); MEAN CORPUSCULAR HEMOGLOBIN 25.5 PG (27.0-34.0); MEAN CORPUSCULAR HGB CONC 31.4 % (32.0-36.0); MEAN PLATELET VOLUME 9.1 FL (7.0-11.0); MONO % 7.7 % (0.0-8.0); NEUT % 66.2 % (16.0-70.0); PLATELET COUNT 332 TH/MM3 (150-450); RED BLOOD COUNT 3.37 MIL/MM3 (4.00-5.30); RED CELL DISTRIBUTION WIDTH 16.3 % (11.6-17.2); WHITE BLOOD COUNT 12.9 TH/MM3 (4.0-11.0)
[2017-10-16] MEDS: INSULIN ASPART SUPPLEMENTAL SCALE SQ SCH ×4 (08:00→21:00)
[2017-10-16] MEDS: RESP: ALBUTEROL 2.5 MG/IPRATROPIUM 0.5 MG NEB (PRN) NEB ×4 (08:54→21:21)
[2017-10-16] MEDS: SODIUM CHLORIDE 0.9% FLUSH 10 ML FLUSH IV FLUSH SCH ×2 (09:00→20:22)
[2017-10-16] MEDS: CLINIMIX E 4.25/25 2000 mL- >42 mls/hr IV SCH ×3 (09:03)
[2017-10-16] MEDS: METOCLOPRAMIDE HCL 10 MG/2 ML VIAL IV PUSH PRN (12:46)
--- NOTE | 2017-10-16 13:12 | RADRPT ---
EXAM DATE/TIME: 10/16/2017 12:44 [facility] COMPARISON: CHEST SINGLE AP, October 06, 2017, 14:54. INDICATIONS : Fever. Shortness of breath for 2 days. MEDICAL HISTORY : Cardiovascular disease. Hypertension Carcinoma, colon. COPD. SURGICAL HISTORY : Cholecystectomy. Colon resection. IVC Filter placement. Port. ENCOUNTER: Subsequent ACUITY: 4 - 6 days PAIN SCORE: 10/10 LOCATION: Bilateral chest FINDINGS: A single view of the chest demonstrates the lungs to be symmetrically aerated without evidence of mas s, infiltrate or effusion. The cardiomediastinal contours are unremarkable. Osseous structures are intact. CONCLUSION: Normal examination. Left subclavian [id number] catheter in good position Gagan Rose MD on October 16, 2017 at 13:09 Board Certified Radiologist. This report was verified electronically.
[2017-10-16] MEDS: FAT EMULSION 20% INJ 250 ML (Daily over 8 hours) IV-CENTRAL SCH (20:00)
[2017-10-16] MEDS: PANTOPRAZOLE SODIUM 40 MG VIAL IV PUSH SCH (20:03)
[2017-10-17] VITALS (9 sets, daily range): BP systolic 88–118; BP diastolic 47–57; PULSE 89–113; RESP 16–19; TEMP 97.8–100.5; O2SAT 92–96
[2017-10-17 01:11] LABS: BACTERIA, URINE MANY /hpf; BILIRUBIN, URINE NEG (NEG); BLOOD, URINE LARGE (NEG); GLUCOSE,URINE NEG (NEG); KETONE, URINE NEG (NEG); MUCUS URINE MANY /lpf (OCC); NITRITE,URINE POS (NEG); PH, URINE 5.5 (5.0-8.5); SQUAMOUS EPITHELIAL CELL URINE 1 /hpf (0-5); URINE COLOR YELLOW (YELLW/STRAW); URINE LEUKOCYTE ESTERASE LARGE (NEG)
[2017-10-17] MEDS: METOCLOPRAMIDE HCL 10 MG/2 ML VIAL IV PUSH PRN ×3 (01:20→21:43)
[2017-10-17] MEDS: MORPHINE SULFATE 8 MG/ML INJ IV PUSH PRN ×7 (01:21→21:44)
[2017-10-17] MEDS: ONDANSETRON HCL 4 MG/2 ML VIAL IVP PRN ×3 (05:05→18:10)
[2017-10-17] MEDS: diphenhydrAMINE HCL 50 MG/ML VIAL IV PUSH PRN ×2 (05:05→15:21)
[2017-10-17 06:30] LABS: AUTOMATED NEUTROPHIL # 7.2 TH/MM3 (1.8-7.7); BASOPHIL # 0.1 TH/MM3 (0-0.2); BASOPHIL % 0.7 % (0.0-2.0); EOSINOPHIL # 1.5 TH/MM3 (0-0.4); EOSINOPHIL % 13.4 % (0.0-4.0); HEMATOCRIT 27.5 % (35.0-46.0); HEMOGLOBIN 8.8 GM/DL (11.6-15.3); LYMPH % 17.6 % (9.0-44.0); MEAN CELL VOLUME 80.4 FL (80.0-100.0); MEAN CORPUSCULAR HEMOGLOBIN 25.6 PG (27.0-34.0); MEAN CORPUSCULAR HGB CONC 31.8 % (32.0-36.0); MEAN PLATELET VOLUME 8.8 FL (7.0-11.0); MONO % 5.9 % (0.0-8.0); MONOCYTE # 0.7 TH/MM3 (0-0.9); NEUT % 62.4 % (16.0-70.0); PLATELET COUNT 323 TH/MM3 (150-450); RED BLOOD COUNT 3.42 MIL/MM3 (4.00-5.30); RED CELL DISTRIBUTION WIDTH 16.6 % (11.6-17.2); WHITE BLOOD COUNT 11.5 TH/MM3 (4.0-11.0)
[2017-10-17] MEDS: ENOXAPARIN SODIUM 120 MG/0.8 ML SYRINGE SQ SCH ×2 (06:44→18:10)
[2017-10-17 06:50] LABS: BICARBONATE 29.8 MEQ/L (21.0-32.0); CALCIUM 8.7 MG/DL (8.5-10.1); CREATININE 0.58 MG/DL (0.50-1.00)
[2017-10-17] MEDS: INSULIN ASPART SUPPLEMENTAL SCALE SQ SCH ×2 (08:00→12:00)
[2017-10-17] MEDS: SODIUM CHLORIDE 0.9% FLUSH 10 ML FLUSH IV FLUSH SCH ×2 (09:05→21:00)
[2017-10-17] MEDS: RESP: ALBUTEROL 2.5 MG/IPRATROPIUM 0.5 MG NEB (PRN) NEB (10:16)
[2017-10-17] MEDS ORDERED: SODIUM CHLORID 0.9% 500 ML INJ 500 ML IV ONE (11:15)
--- NOTE | 2017-10-17 13:15 | HHI.PR ---
Subjective Remarks The patient says that her blood pressure has been low and her temperature has been high and that is unusual for her. The patient also mentions she hasn't been out of bed in a while. She says she has not had a bowel movement since September 30. She says that she is tolerating tube feeds. Discussed with nursing at the bedside. Objective Vitals Vital Signs Date Time Temp Pulse Resp B/P (MAP) Pulse Ox O2 Delivery O2 Flow Rate FiO2 10/17/17 11:18 97.8 101 17 93/47 (62) 96 10/17/17 10:19 93 Nasal Cannula 2.00 10/17/17 09:23 Nasal Cannula 3.00 10/17/17 08:00 98.4 92 17 88/50 (63) 95 10/17/17 04:50 91 18 106/55 (72) 94 10/17/17 04:31 89 93/57 (69) 10/17/17 00:00 99.8 100 16 110/52 (71) 92 10/16/17 21:47 100.1 97 20 112/62 (79) 95 10/16/17 21:23 93 Nasal Cannula 2.00 10/16/17 20:05 Nasal Cannula 2.00 10/16/17 18:54 2.00 10/16/17 16:00 98.3 107 16 122/59 (80) 98 I/O 10/16/17 10/16/17 10/16/17 10/17/17 10/17/17 10/17/17 07:00 15:00 23:00 07:00 15:00 23:00 Intake Total 250 ml 0 ml 141 ml 500 ml Output Total 880 ml 700 ml 1130 ml 75.0 ml Balance -630 ml -700 ml -989 ml 425.0 ml Intake Oral 0 ml 0 ml IV Total 250 ml 500 ml Tube Feeding 141 ml Output Urine Total 700 ml 700 ml 850 ml Gastric Drainage Total 180 ml Tube Feeding Residual Discard 75.0 ml Drainage Total 280 ml # Bowel Movements 0 0 Result Diagram: 10/17/1751610/17/17516 Imaging Last Impressions Chest X-Ray 10/16/17 0000 Signed Impressions: Service Date/Time: Monday, October 16, 2017 12:44 - CONCLUSION: Normal examination. Left subclavian Hsuykg-c-Mzjp catheter in good position Gagan Rose MD Abdomen CT 10/15/17 0000 Signed Impressions: Service Date/Time: Sunday, October 15, 2017 22:54 - CONCLUSION: Pigtail gastrostomy catheter replaced in the interim with a PEG tube which has its tip in the bypassed portion of the body of the stomach. There is mild perigastric edema but no organized or drainable fluid. August Luna MD ADDENDUM: The patient's new gastrostomy tube is in good position with entry site approximately 4 cm below the prior G-tube site. The new position is well below the costal margin. There is no evidence of disruption of the previous operative sites. There has been interval decrease in lung base fluid and atelectasis. August Darden MD Gastrostomy Tube Placement 10/14/17 0000 Signed Impressions: Service Date/Time: Saturday, October 14, 2017 09:07 - CONCLUSION: Uncomplicated gastrostomy tube placement as above. August Darden MD Objective Remarks GENERAL: NAD SKIN: Warm and dry. HEAD: Normocephalic. EYES: No scleral icterus. No injection or drainage. NECK: Supple, trachea midline. No JVD or lymphadenopathy. CARDIOVASCULAR: Regular rate and rhythm without murmurs, gallops, or rubs. RESPIRATORY: Breath sounds equal bilaterally. No accessory muscle use. GASTROINTESTINAL: Abdomen soft, general tenderness to palpation, nondistended. G tube in place. MUSCULOSKELETAL: No cyanosis, or edema. BACK: Nontender without obvious deformity. No CVA tenderness. Medications and IVs Current Medications Medications (Trade) Dose Ordered Sig/Ricco Route Start Time Stop Time Status Last Admin (NS Flush) 2 ml UNSCH PRN IV FLUSH 09/30/17 17:45 10/02/17 19:01 (NS Flush) 2 ml BID IV FLUSH 09/30/17 21:00 10/17/17 09:05 (Zofran Inj) 4 mg Q6H PRN IVP 09/30/17 17:45 10/17/17 12:04 (Narcan Inj) 0.4 mg UNSCH PRN IV PUSH 09/30/17 17:45 (Lovenox Inj) 120 mg Q12H SQ 09/30/17 18:00 Future hold 10/17/17 06:44 (Duoneb Neb) 1 ampule Q4HR NEB PRN NEB 09/30/17 17:45 10/17/17 10:16 (Vasotec Inj) 2.5 mg Q6H PRN IV PUSH 09/30/17 17:45 (Protonix Inj) 40 mg Q24H IV PUSH 09/30/17 19:00 10/16/17 20:03 Acetaminophen 50 ml @ 400 mls/hr Q6H PRN IV 10/02/17 16:45 10/13/17 16:16 (D50w (Vial) Inj) 50 ml UNSCH PRN IV PUSH 10/02/17 21:00 (Glucagon Inj) 1 mg UNSCH PRN OTHER 10/02/17 21:00 Fat Emulsion Intravenous 250 ml @ 31.25 mls/ hr Q24H IV-CENTRAL 10/03/17 20:00 10/15/17 20:38 (NovoLOG SUPPLEMENTAL SCALE) 1 ACHS SLIDING SCALE SQ 10/03/17 17:00 10/14/17 12:21 (Reglan Inj) 10 mg Q8H PRN IV PUSH 10/05/17 04:15 10/17/17 09:09 (Benadryl Inj) 25 mg Q8H PRN IV PUSH 10/11/17 10:30 10/17/17 05:05 Multivitamins 5 ml/Folic Acid 0.5 mg/Amino Acids/ Electrolytes/ Dextrose 1,005.1 ml @ 83 mls/hr Q12H7M IV 10/11/17 20:00 Future Hold 10/16/17 09:03 (Morphine Inj) 4 mg Q3H PRN IV PUSH 10/12/17 09:00 10/17/17 12:04 (Tylenol) 650 mg Q4H PRN PO 10/13/17 05:45 (Benadryl) 25 mg Q4H PRN PO 10/13/17 05:45 (Heparin Central Flush) 500 units UNSCH IV FLUSH 10/13/17 06:30 (NS Flush) 5 ml UNSCH PRN IVF 10/13/17 06:30 (Heparin Central Flush) 250 units UNSCH PRN IV FLUSH 10/13/17 06:30 (Duoneb Neb) 1 ampule Q6HR WHILE AWAKE NEB NEB 10/17/17 14:00 A/P Problem List: (1) PEG tube malfunction ICD Code: K94.23 - Gastrostomy malfunction (2) History of recurrent deep vein thrombosis (DVT) ICD Code: Z86.718 - Personal history of other venous thrombosis and embolism Status: Chronic (3) Impaired mobility and activities of daily living ICD Code: Z74.09 - Other reduced mobility Status: Acute (4) History of CVA (cerebrovascular accident) ICD Code: Z86.73 - Personal history of transient ischemic attack (TIA), and cerebral infarction without residual deficits Status: Chronic (5) History of pulmonary embolism ICD Code: Z86.711 - Personal history of pulmonary embolism Status: Chronic (6) Postoperative anemia due to acute blood loss ICD Code: D62 - Acute posthemorrhagic anemia Status: Acute (7) Diastolic heart failure ICD Code: I50.30 - Unspecified diastolic (congestive) heart failure Status: Chronic (8) MANI (obstructive sleep apnea) ICD Code: G47.33 - Obstructive sleep apnea (adult) (pediatric) Status: Chronic (9) S/P gastric bypass ICD Code: Z98.84 - Bariatric surgery status Status: Acute Assessment and Plan Status post gastric bypass/G-tube placement G- tube malfunction, acute Abdominal pain , bloating. -Appreciate input from general surgery for further evaluation and recommendation. Recommends to continue with the pigtail to gravity for now, TPN - Pain management with IV morphine. Zofran - IV fluids for hydration. Monitor for fluid overload. - s/p Ancef. - s/p G exchange 10/14/17 - continue tube feeds. - surgery signed off. Reconsult as needed. Anemia H/H stable - follow CBC and transfuse as needed. COPD, chronic MANI - C/p cefazolin IV antibiotics. Continue duo nebs continue incentive spirometer use. - DuoNeb's scheduled every 4 hours, and when necessary Febrile episode/ hypotension CXR unremarkable. UA indicative of infection. - ceftriaxone IV started. - IVFs. Generalized weakness ?Paralysis of lower extremities Hx MS not on any medications - MRI spine showed bulging disc at L4-L5 and L5-S1 without explanation of symptoms - Neurology was consulted while the patient was in rehabilitation, recommend EMG. - Physical therapy eval and treat. Add OT. History of PE/DVT - Continue therapeutic Lovenox - Status post IVC filter placement GERD/Nunez's esophagus - IV Protonix Neurogenic bladder - Continue Reeves MS/history of CVA - Patient has been evaluated by neurology - Neurology has signed off - Anticoagulation as above Diastolic heart failure - Vasotec until patient can resume home medications - Monitor for fluid overload DVT prop Lovenox GI prop pantoprazole IV Loi Bucio DO Oct 17, 2017 13:15
[2017-10-17] MEDS: RESP: ALBUTEROL 2.5 MG/IPRATROPIUM 0.5 MG NEB (SCH) NEB ×2 (14:06→19:15)
[2017-10-17] MEDS: cefTRIAXone INJ 1,000 MG in SODIUM CHLORIDE 0.9% INJ 100 ML IV SCH (15:08)
[2017-10-17] MEDS: PANTOPRAZOLE SODIUM 40 MG VIAL IV PUSH SCH (18:10)
[2017-10-17] MEDS: FAT EMULSION 20% INJ 250 ML (Daily over 8 hours) IV-CENTRAL SCH (20:00)
[2017-10-18] VITALS (7 sets, daily range): BP systolic 10–195; BP diastolic 56–85; PULSE 78–104; RESP 17–19; TEMP 96.4–99.5; O2SAT 92–99
[2017-10-18] MEDS: MORPHINE SULFATE 8 MG/ML INJ IV PUSH PRN ×7 (01:08→22:33)
[2017-10-18] MEDS: diphenhydrAMINE HCL 50 MG/ML VIAL IV PUSH PRN ×3 (01:09→16:41)
[2017-10-18] MEDS: ONDANSETRON HCL 4 MG/2 ML VIAL IVP PRN ×3 (01:09→18:34)
[2017-10-18] MEDS: ENOXAPARIN SODIUM 120 MG/0.8 ML SYRINGE SQ SCH ×2 (06:06→18:38)
[2017-10-18] MEDS: METOCLOPRAMIDE HCL 10 MG/2 ML VIAL IV PUSH PRN ×2 (06:09→15:20)
[2017-10-18 07:08] LABS: AUTOMATED NEUTROPHIL # 6.6 TH/MM3 (1.8-7.7); BASOPHIL % 0.5 % (0.0-2.0); EOSINOPHIL # 1.4 TH/MM3 (0-0.4); EOSINOPHIL % 14.2 % (0.0-4.0); HEMATOCRIT 27.2 % (35.0-46.0); HEMOGLOBIN 8.9 GM/DL (11.6-15.3); LYMPH % 11.9 % (9.0-44.0); LYMPHOCYTE # 1.2 TH/MM3 (1.0-4.8); MEAN CELL VOLUME 80.3 FL (80.0-100.0); MEAN CORPUSCULAR HEMOGLOBIN 26.2 PG (27.0-34.0); MEAN CORPUSCULAR HGB CONC 32.6 % (32.0-36.0); MONO % 7.1 % (0.0-8.0); MONOCYTE # 0.7 TH/MM3 (0-0.9); NEUT % 66.3 % (16.0-70.0); PLATELET COUNT 352 TH/MM3 (150-450); RED BLOOD COUNT 3.39 MIL/MM3 (4.00-5.30); RED CELL DISTRIBUTION WIDTH 16.2 % (11.6-17.2); WHITE BLOOD COUNT 9.9 TH/MM3 (4.0-11.0)
[2017-10-18] MEDS: RESP: ALBUTEROL 2.5 MG/IPRATROPIUM 0.5 MG NEB (SCH) NEB ×3 (07:56→20:18)
[2017-10-18] MEDS: SODIUM CHLORIDE 0.9% FLUSH 10 ML FLUSH IV FLUSH SCH ×2 (09:12→22:32)
[2017-10-18] MEDS ORDERED: SODIUM CHLOR 0.9% 1000 ML INJ 1,000 ML IV SCH (14:30)
[2017-10-18] MEDS ORDERED: BISACODYL 10 MG SUPP RECTAL ONE (14:30)
--- NOTE | 2017-10-18 14:33 | HHI.PR ---
Subjective Remarks The patient said she vomited 3 times today. She said she feels her abdomen is distended. She would like IV fluids. She was working with occupational therapy. Discussed with nursing. Objective Vitals Vital Signs Date Time Temp Pulse Resp B/P (MAP) Pulse Ox O2 Delivery O2 Flow Rate FiO2 10/18/17 12:00 99.4 88 17 110/56 (74) 99 10/18/17 08:00 99.5 104 17 106/57 (73) 97 10/18/17 07:58 92 Nasal Cannula 3.00 10/18/17 00:00 96.6 103 19 10/57 (41) 93 10/17/17 21:30 Nasal Cannula 2.00 10/17/17 20:00 100.5 104 19 118/55 (76) 93 10/17/17 19:15 93 Nasal Cannula 2.00 10/17/17 16:00 98.8 113 17 94/51 (65) 93 I/O 10/17/17 10/17/17 10/17/17 10/18/17 10/18/17 10/18/17 07:00 15:00 23:00 07:00 15:00 23:00 Intake Total 141 ml 500 ml 540 ml 240 ml Output Total 1130 ml 175.0 ml 1225.0 ml 725 ml Balance -989 ml 325.0 ml -685.0 ml -485 ml Intake Oral 0 ml 240 ml IV Total 500 ml Tube Feeding 141 ml 480 ml Tube Irrigant 60 ml Output Urine Total 850 ml 1125 ml 725 ml Tube Feeding Residual Discard 175.0 ml 100.0 ml Drainage Total 280 ml # Bowel Movements 0 0 Result Diagram: 10/18/17 0545 10/17/17 0517 Imaging Last Impressions Chest X-Ray 10/16/17 0000 Signed Impressions: Service Date/Time: Monday, October 16, 2017 12:44 - CONCLUSION: Normal examination. Left subclavian Ygstht-h-Tfrd catheter in good position Gagan Rose MD Abdomen CT 10/15/17 0000 Signed Impressions: Service Date/Time: Sunday, October 15, 2017 22:54 - CONCLUSION: Pigtail gastrostomy catheter replaced in the interim with a PEG tube which has its tip in the bypassed portion of the body of the stomach. There is mild perigastric edema but no organized or drainable fluid. August Luna MD ADDENDUM: The patient's new gastrostomy tube is in good position with entry site approximately 4 cm below the prior G-tube site. The new position is well below the costal margin. There is no evidence of disruption of the previous operative sites. There has been interval decrease in lung base fluid and atelectasis. August Darden MD Gastrostomy Tube Placement 10/14/17 0000 Signed Impressions: Service Date/Time: Saturday, October 14, 2017 09:07 - CONCLUSION: Uncomplicated gastrostomy tube placement as above. August Darden MD Objective Remarks GENERAL: NAD SKIN: Warm and dry. HEAD: Normocephalic. EYES: No scleral icterus. No injection or drainage. NECK: Supple, trachea midline. No JVD or lymphadenopathy. CARDIOVASCULAR: Regular rate and rhythm without murmurs, gallops, or rubs. RESPIRATORY: Breath sounds equal bilaterally. No accessory muscle use. GASTROINTESTINAL: Abdomen soft, general tenderness to palpation, distended. G tube in place. MUSCULOSKELETAL: No cyanosis, or edema. BACK: Nontender without obvious deformity. No CVA tenderness. PSYCH: Slightly flattened affect. Medications and IVs Current Medications Medications (Trade) Dose Ordered Sig/Ricco Route Start Time Stop Time Status Last Admin (NS Flush) 2 ml UNSCH PRN IV FLUSH 09/30/17 17:45 10/02/17 19:01 (NS Flush) 2 ml BID IV FLUSH 09/30/17 21:00 10/18/17 09:12 (Zofran Inj) 4 mg Q6H PRN IVP 09/30/17 17:45 10/18/17 09:09 (Narcan Inj) 0.4 mg UNSCH PRN IV PUSH 09/30/17 17:45 (Lovenox Inj) 120 mg Q12H SQ 09/30/17 18:00 Future hold 10/18/17 06:06 (Duoneb Neb) 1 ampule Q4HR NEB PRN NEB 09/30/17 17:45 10/17/17 10:16 (Vasotec Inj) 2.5 mg Q6H PRN IV PUSH 09/30/17 17:45 (Protonix Inj) 40 mg Q24H IV PUSH 09/30/17 19:00 10/17/17 18:10 Acetaminophen 50 ml @ 400 mls/hr Q6H PRN IV 10/02/17 16:45 10/13/17 16:16 (D50w (Vial) Inj) 50 ml UNSCH PRN IV PUSH 10/02/17 21:00 (Glucagon Inj) 1 mg UNSCH PRN OTHER 10/02/17 21:00 Fat Emulsion Intravenous 250 ml @ 31.25 mls/ hr Q24H IV-CENTRAL 10/03/17 20:00 10/15/17 20:38 (Reglan Inj) 10 mg Q8H PRN IV PUSH 10/05/17 04:15 10/18/17 06:09 (Benadryl Inj) 25 mg Q8H PRN IV PUSH 10/11/17 10:30 10/18/17 09:10 Multivitamins 5 ml/Folic Acid 0.5 mg/Amino Acids/ Electrolytes/ Dextrose 1,005.1 ml @ 83 mls/hr Q12H7M IV 10/11/17 20:00 Future Hold 10/16/17 09:03 (Morphine Inj) 4 mg Q3H PRN IV PUSH 10/12/17 09:00 10/18/17 12:29 (Tylenol) 650 mg Q4H PRN PO 10/13/17 05:45 (Benadryl) 25 mg Q4H PRN PO 10/13/17 05:45 (Heparin Central Flush) 500 units UNSCH IV FLUSH 10/13/17 06:30 (NS Flush) 5 ml UNSCH PRN IVF 10/13/17 06:30 (Heparin Central Flush) 250 units UNSCH PRN IV FLUSH 10/13/17 06:30 (Duoneb Neb) 1 ampule Q6HR WHILE AWAKE NEB NEB 10/17/17 14:00 10/18/17 13:06 Ceftriaxone Sodium 1000 mg/ Sodium Chloride 100 ml @ 200 mls/hr Q24H IV 10/17/17 15:00 10/17/17 15:08 A/P Problem List: (1) PEG tube malfunction ICD Code: K94.23 - Gastrostomy malfunction (2) History of recurrent deep vein thrombosis (DVT) ICD Code: Z86.718 - Personal history of other venous thrombosis and embolism Status: Chronic (3) Impaired mobility and activities of daily living ICD Code: Z74.09 - Other reduced mobility Status: Acute (4) History of CVA (cerebrovascular accident) ICD Code: Z86.73 - Personal history of transient ischemic attack (TIA), and cerebral infarction without residual deficits Status: Chronic (5) History of pulmonary embolism ICD Code: Z86.711 - Personal history of pulmonary embolism Status: Chronic (6) Postoperative anemia due to acute blood loss ICD Code: D62 - Acute posthemorrhagic anemia Status: Acute (7) Diastolic heart failure ICD Code: I50.30 - Unspecified diastolic (congestive) heart failure Status: Chronic (8) MANI (obstructive sleep apnea) ICD Code: G47.33 - Obstructive sleep apnea (adult) (pediatric) Status: Chronic (9) S/P gastric bypass ICD Code: Z98.84 - Bariatric surgery status Status: Acute Assessment and Plan Status post gastric bypass/G-tube placement/ G- tube malfunction/ Abdominal pain / Constipation -Appreciate input from general surgery for further evaluation and recommendation. Recommends to continue with the pigtail to gravity for now, TPN - Pain management with IV morphine. Zofran - IV fluids for hydration. Monitor for fluid overload. - s/p Ancef. - s/p G exchange 10/14/17 - continue tube feeds. - surgery signed off. Reconsult as needed. - KUB pending. - Dulcolax supp ordered. - NG tube placement if nausea continues. Anemia H/H stable - follow CBC and transfuse as needed. COPD, chronic MANI - Continue duo nebs continue incentive spirometer use. - DuoNeb's scheduled every 4 hours, and when necessary Febrile episode/ hypotension/ UTI CXR unremarkable. UA indicative of infection. - ceftriaxone IV started. Follow urine culture. - IVFs. Generalized weakness ?Paralysis of lower extremities Hx MS not on any medications - MRI spine showed bulging disc at L4-L5 and L5-S1 without explanation of symptoms - Neurology was consulted while the patient was in rehabilitation, recommend EMG. - Physical therapy eval and treat. Add OT. History of PE/DVT - Continue therapeutic Lovenox - Status post IVC filter placement GERD/Nunez's esophagus - IV Protonix Neurogenic bladder - Continue Reeves MS/history of CVA - Patient has been evaluated by neurology - Neurology has signed off - Anticoagulation as above Diastolic heart failure - Vasotec until patient can resume home medications - Monitor for fluid overload DVT prop Lovenox GI prop pantoprazole IV Discharge Planning Awaiting improvement in GI symptoms Loi Bucio DO Oct 18, 2017 14:33
[2017-10-18] MEDS: cefTRIAXone INJ 1,000 MG in SODIUM CHLORIDE 0.9% INJ 100 ML IV SCH (15:20)
--- NOTE | 2017-10-18 16:09 | RADRPT ---
EXAM DATE/TIME: 10/18/2017 15:01 [facility] COMPARISON: CT ABDOMEN W/O CONTRAST, October 15, 2017, 22:54. ABDOMEN KUB ONLY, September 28, 2017, 18:32. INDICATIONS : Distention. MEDICAL HISTORY : Cardiovascular disease. Hypertension Carcinoma, colon. COPD SURGICAL HISTORY : Cholecystectomy. colon resection, IVC filter placement.., gastric bypass ENCOUNTER: Initial ACUITY: 2 weeks PAIN SCORE: 10/10 LOCATION: Bilateral abdomen FINDINGS: 2 supine frontal views of the abdomen show oral contrast within the ascending colon. Mild gaseous dis tention of the remaining portion of the colon. Gas and stool seen to the level of the rectal vault. N o focal transition point. No dilatation of small bowel. Gastrostomy tube is seen involving the left u pper quadrant. Lung bases are clear. No organomegaly observed. CONCLUSION: 1. Mild gaseous distention of the colon. Hong Yarbrough Jr., MD on October 18, 2017 at 16:03 Board Certified Radiologist. This report was verified electronically.
[2017-10-18] MEDS: PANTOPRAZOLE SODIUM 40 MG VIAL IV PUSH SCH (18:35)
[2017-10-18] MEDS: SODIUM CHLORIDE 0.9% FLUSH 10 ML FLUSH IV FLUSH PRN (18:36)
[2017-10-18] MEDS: FAT EMULSION 20% INJ 250 ML (Daily over 8 hours) IV-CENTRAL SCH (20:00)
[2017-10-19] VITALS (7 sets, daily range): BP systolic 104–143; BP diastolic 58–72; PULSE 88–105; RESP 17–20; TEMP 97.8–98.9; O2SAT 96–100
[2017-10-19] MEDS: MORPHINE SULFATE 8 MG/ML INJ IV PUSH PRN ×5 (01:04→15:54)
[2017-10-19] MEDS: diphenhydrAMINE HCL 50 MG/ML VIAL IV PUSH PRN ×3 (01:04→17:33)
[2017-10-19] MEDS: METOCLOPRAMIDE HCL 10 MG/2 ML VIAL IV PUSH PRN ×3 (01:05→17:32)
[2017-10-19] MEDS: ONDANSETRON HCL 4 MG/2 ML VIAL IVP PRN ×3 (05:50→18:47)
[2017-10-19] MEDS: ENOXAPARIN SODIUM 120 MG/0.8 ML SYRINGE SQ SCH ×2 (06:02→17:37)
[2017-10-19 06:48] LABS: ALBUMIN 2.4 GM/DL (3.4-5.0); ALT (GPT) 94 U/L (10-53); AST (GOT) 39 U/L (15-37); BICARBONATE 30.1 MEQ/L (21.0-32.0); BLOOD UREA NITROGEN 16 MG/DL (7-18); CALCIUM 8.2 MG/DL (8.5-10.1); CHLORIDE 103 MEQ/L (98-107); CREATININE 0.57 MG/DL (0.50-1.00); GLOMERULAR FILTRATION RATE 113 ML/MIN (>89); GLUCOSE,RANDOM 110 MG/DL (74-106); LIPASE 296 U/L (73-393); SODIUM (NA) 138 MEQ/L (136-145)
[2017-10-19 06:50] LABS: ALKALINE PHOSPHATASE 104 U/L (45-117); TOTAL BILIRUBIN ADULT 0.5 MG/DL (0.2-1.0); TOTAL PROTEIN 6.9 GM/DL (6.4-8.2)
[2017-10-19] MEDS: SODIUM CHLORIDE 0.9% FLUSH 10 ML FLUSH IV FLUSH SCH ×2 (09:09→20:18)
[2017-10-19] MEDS: RESP: ALBUTEROL 2.5 MG/IPRATROPIUM 0.5 MG NEB (SCH) NEB ×3 (09:20→20:33)
--- NOTE | 2017-10-19 11:56 | HHI.PR ---
Subjective Remarks The patient was resting comfortably in bed. She continued to complain of abdominal distention and nausea and vomiting. Family at the bedside. Discussed with nursing. Objective Vitals Vital Signs Date Time Temp Pulse Resp B/P (MAP) Pulse Ox O2 Delivery O2 Flow Rate FiO2 10/19/17 09:23 99 Nasal Cannula 3.00 10/19/17 08:00 Nasal Cannula 2.00 10/19/17 07:54 98.3 88 20 113/59 (77) 100 10/19/17 00:00 98.7 99 18 104/72 (83) 96 10/18/17 20:30 Nasal Cannula 2.00 10/18/17 20:20 99 Nasal Cannula 3.00 10/18/17 20:00 96.4 100 18 127/60 (82) 95 10/18/17 18:39 18 10/18/17 16:00 99.2 104 17 113/57 (75) 99 10/18/17 12:00 99.4 88 17 110/56 (74) 99 I/O 10/18/17 10/18/17 10/18/17 10/19/17 10/19/17 10/19/17 06:59 14:59 22:59 06:59 14:59 22:59 Intake Total 240 ml 0 ml 0 ml 0 ml Output Total 725 ml 55.0 ml 400 ml 760.0 ml Balance -485 ml -55.0 ml -400 ml -760.0 ml 0 ml Intake Oral 240 ml 0 ml 0 ml 0 ml Output Urine Total 725 ml 400 ml 650 ml Tube Feeding Residual Discard 55.0 ml 110.0 ml # Bowel Movements 0 0 Result Diagram: 10/18/17 0545 10/19/17 0545 Imaging Last Impressions Abdomen X-Ray 10/18/17 0000 Signed Impressions: Service Date/Time: Wednesday, October 18, 2017 15:01 - CONCLUSION: 1. Mild gaseous distention of the colon. Hong Yarbrough Jr., MD Chest X-Ray 10/16/17 0000 Signed Impressions: Service Date/Time: Monday, October 16, 2017 12:44 - CONCLUSION: Normal examination. Left subclavian Iqolum-w-Yekz catheter in good position Gagan Rose MD Abdomen CT 10/15/17 0000 Signed Impressions: Service Date/Time: Sunday, October 15, 2017 22:54 - CONCLUSION: Pigtail gastrostomy catheter replaced in the interim with a PEG tube which has its tip in the bypassed portion of the body of the stomach. There is mild perigastric edema but no organized or drainable fluid. August Luna MD ADDENDUM: The patient's new gastrostomy tube is in good position with entry site approximately 4 cm below the prior G-tube site. The new position is well below the costal margin. There is no evidence of disruption of the previous operative sites. There has been interval decrease in lung base fluid and atelectasis. August Darden MD Gastrostomy Tube Placement 10/14/17 0000 Signed Impressions: Service Date/Time: Saturday, October 14, 2017 09:07 - CONCLUSION: Uncomplicated gastrostomy tube placement as above. August Darden MD Objective Remarks GENERAL: NAD SKIN: Warm and dry. HEAD: Normocephalic. EYES: No scleral icterus. No injection or drainage. NECK: Supple, trachea midline. No JVD or lymphadenopathy. CARDIOVASCULAR: Regular rate and rhythm without murmurs, gallops, or rubs. RESPIRATORY: Breath sounds equal bilaterally. No accessory muscle use. GASTROINTESTINAL: Abdomen soft, general tenderness to palpation, distended. G tube in place. MUSCULOSKELETAL: No cyanosis, or edema. BACK: Nontender without obvious deformity. No CVA tenderness. PSYCH: Slightly flattened affect. Medications and IVs Current Medications Medications (Trade) Dose Ordered Sig/Ricco Route Start Time Stop Time Status Last Admin (NS Flush) 2 ml UNSCH PRN IV FLUSH 09/30/17 17:45 10/18/17 18:36 (NS Flush) 2 ml BID IV FLUSH 09/30/17 21:00 10/19/17 09:09 (Zofran Inj) 4 mg Q6H PRN IVP 09/30/17 17:45 10/19/17 05:50 (Narcan Inj) 0.4 mg UNSCH PRN IV PUSH 09/30/17 17:45 (Lovenox Inj) 120 mg Q12H SQ 09/30/17 18:00 Future hold 10/19/17 06:02 (Duoneb Neb) 1 ampule Q4HR NEB PRN NEB 09/30/17 17:45 10/17/17 10:16 (Vasotec Inj) 2.5 mg Q6H PRN IV PUSH 09/30/17 17:45 (Protonix Inj) 40 mg Q24H IV PUSH 09/30/17 19:00 10/18/17 18:35 Acetaminophen 50 ml @ 400 mls/hr Q6H PRN IV 10/02/17 16:45 10/13/17 16:16 (D50w (Vial) Inj) 50 ml UNSCH PRN IV PUSH 10/02/17 21:00 (Glucagon Inj) 1 mg UNSCH PRN OTHER 10/02/17 21:00 Fat Emulsion Intravenous 250 ml @ 31.25 mls/ hr Q24H IV-CENTRAL 10/03/17 20:00 10/15/17 20:38 (Reglan Inj) 10 mg Q8H PRN IV PUSH 10/05/17 04:15 10/19/17 09:12 (Benadryl Inj) 25 mg Q8H PRN IV PUSH 10/11/17 10:30 10/19/17 09:11 Multivitamins 5 ml/Folic Acid 0.5 mg/Amino Acids/ Electrolytes/ Dextrose 1,005.1 ml @ 83 mls/hr Q12H7M IV 10/11/17 20:00 Future Hold 10/16/17 09:03 (Morphine Inj) 4 mg Q3H PRN IV PUSH 10/12/17 09:00 10/19/17 09:12 (Tylenol) 650 mg Q4H PRN PO 10/13/17 05:45 (Benadryl) 25 mg Q4H PRN PO 10/13/17 05:45 (Heparin Central Flush) 500 units UNSCH IV FLUSH 10/13/17 06:30 (NS Flush) 5 ml UNSCH PRN IVF 10/13/17 06:30 (Heparin Central Flush) 250 units UNSCH PRN IV FLUSH 10/13/17 06:30 (Duoneb Neb) 1 ampule Q6HR WHILE AWAKE NEB NEB 10/17/17 14:00 10/19/17 09:20 Ceftriaxone Sodium 1000 mg/ Sodium Chloride 100 ml @ 200 mls/hr Q24H IV 10/17/17 15:00 10/18/17 15:20 (Fleet Mineral Oil Enema) 118 ml ONCE ONCE RECTAL 10/19/17 11:45 10/19/17 11:46 UNV A/P Problem List: (1) PEG tube malfunction ICD Code: K94.23 - Gastrostomy malfunction (2) History of recurrent deep vein thrombosis (DVT) ICD Code: Z86.718 - Personal history of other venous thrombosis and embolism Status: Chronic (3) Impaired mobility and activities of daily living ICD Code: Z74.09 - Other reduced mobility Status: Acute (4) History of CVA (cerebrovascular accident) ICD Code: Z86.73 - Personal history of transient ischemic attack (TIA), and cerebral infarction without residual deficits Status: Chronic (5) History of pulmonary embolism ICD Code: Z86.711 - Personal history of pulmonary embolism Status: Chronic (6) Postoperative anemia due to acute blood loss ICD Code: D62 - Acute posthemorrhagic anemia Status: Acute (7) Diastolic heart failure ICD Code: I50.30 - Unspecified diastolic (congestive) heart failure Status: Chronic (8) MANI (obstructive sleep apnea) ICD Code: G47.33 - Obstructive sleep apnea (adult) (pediatric) Status: Chronic (9) S/P gastric bypass ICD Code: Z98.84 - Bariatric surgery status Status: Acute Assessment and Plan Status post gastric bypass/G-tube placement/ G- tube malfunction/ Abdominal pain / Constipation - Appreciate input from general surgery for further evaluation and recommendation. Recommends to continue with the pigtail to gravity for now, TPN - Pain management with IV morphine. Zofran - IV fluids for hydration. Monitor for fluid overload. - s/p Ancef. - s/p G exchange 10/14/17 - continue tube feeds. - surgery signed off. Reconsult as needed. - KUB with mild abdominal distention. - Enema ordered. - GI consult requested. Anemia H/H stable - follow CBC and transfuse as needed. COPD, chronic MANI - Continue duo nebs continue incentive spirometer use. - DuoNeb's scheduled every 4 hours, and when necessary Febrile episode/ hypotension/ UTI CXR unremarkable. UA indicative of infection. - ceftriaxone IV started. Follow urine culture. - IVFs. Generalized weakness ?Paralysis of lower extremities Hx MS not on any medications - MRI spine showed bulging disc at L4-L5 and L5-S1 without explanation of symptoms - Neurology was consulted while the patient was in rehabilitation, recommend EMG. - Physical therapy eval and treat. Add OT. - rehab medicine consult. History of PE/DVT - Continue therapeutic Lovenox - Status post IVC filter placement GERD/Nunez's esophagus - IV Protonix Neurogenic bladder - Continue Reeves MS/history of CVA - Patient has been evaluated by neurology - Neurology has signed off - Anticoagulation as above Diastolic heart failure - Vasotec until patient can resume home medications - Monitor for fluid overload DVT prop Lovenox GI prop pantoprazole IV Discharge Planning Awaiting improvement in GI symptoms,GI Loi Pelletier DO Oct 19, 2017 11:56
[2017-10-19] MEDS ORDERED: MINERAL OIL ENEMA 118 ML BTL RECTAL ONE (12:30)
--- NOTE | 2017-10-19 14:22 | PD.CONS ---
HPI History of Present Illness This is a 47 year old yo female with hx colon ca s/p colectomy and radiation, diverticulitis, CVA, TIA, PE, DVT, MS, Finch's who presented with PEG tube site pain after having a tube exchange by IR and experienced abd pain after procedure. Subsequently a 20 fr g tube was placed by IR on 10/14/17 and TF started. GI consulted for bloating, abd distention, n/v. She has been having n /v for the last 2-3 weeks that is worse since TF started. Today she is also c/ o diffuse abd pain that is new and abd distention. She denies having BM since 09/30/17. She is recently s/p repair hiatal hernia, sid en y bypass, and placement G tube 09/19/17 at [facility]. She has not taken food PO in a year. She had endoscopy during surgery when tube was placed, 09/19/17 at [facility]. She previously had EGD and unremarkable colonoscopy by Dr Al at [facility] in 2016. On EGD findings were schatzki's ring, hiatal hernia, finch's. (Veena Castro) PFSH Past Medical History Dysphagia Schatzki ring Hiatal hernia status post repair Finch's esophagus MS History of colon cancer status post chemotherapy, radiation and colectomy CVA DVT PE Hypertension Past Surgical History Hiatal hernia repair Sid-en-Y G-tube placement Foot surgery Excisional lipoma Parotidectomy Tonsillectomy Port placement (Veena Castro) Coded Allergies: adhesive (Verified Allergy, Severe, swell, 09/27/17) ALL ADHESIVES EVEN PAPER TAPE.. ONLY CAN use primapore surgical adhesive ONLY azithromycin (Verified Allergy, Severe, swell throat, 09/27/17) fluticasone (Verified Allergy, Severe, swell, 09/27/17) hydrocortisone (Verified Allergy, Severe, thrush, 09/27/17) levofloxacin (Verified Allergy, Severe, rash, 09/27/17) metoprolol (Verified Allergy, Severe, rash, 09/27/17) nalbuphine (Verified Allergy, Severe, swelling throat, 09/27/17) salmeterol (Verified Allergy, Severe, swell, 09/27/17) silver (Verified Allergy, Severe, swell, 09/27/17) sulfamethoxazole (Verified Allergy, Severe, rash, 09/27/17) trimethoprim (Verified Allergy, Severe, rash, 09/27/17) Iodinated Contrast- Oral and IV Dye (Verified Allergy, Intermediate, itching , 09/27/17) aspirin (Unverified Allergy, Unknown, 09/27/17) Uncoded Allergies: dermabond (Allergy, Severe, swelling / redness, 09/27/17) nsaids (Allergy, Severe, swelling, 09/27/17) can take tylenol though not ibuprofen Family History History of CAD and diabetes mellitus in both parents Social History Denies alcohol, tobacco and illicit drugs (Veena Castro) Review of Systems Constitutional: COMPLAINS OF: Fatigue Eyes: DENIES: Blurred vision Ears, nose, mouth, throat: DENIES: Hearing loss Cardiovascular: DENIES: Chest pain Gastrointestinal: COMPLAINS OF: Abdominal pain, Nausea, Vomiting, DENIES: Black stools, Bloody stools, Hematemesis Genitourinary: DENIES: Hematuria Musculoskeletal: DENIES: Joint Swelling Hematologic/lymphatic: DENIES: Lymphadenopathy Immunologic/allergic: DENIES: Eczema Neurologic: COMPLAINS OF: Abnormal gait Psychiatric: DENIES: Confusion (Veena Castro) GI Exam Vitals I&O Vital Signs Date Time Temp Pulse Resp B/P (MAP) Pulse Ox O2 Delivery O2 Flow Rate FiO2 10/19/17 12:00 98.3 105 19 123/70 (87) 100 10/19/17 09:23 99 Nasal Cannula 3.00 10/19/17 08:00 Nasal Cannula 2.00 10/19/17 07:54 98.3 88 20 113/59 (77) 100 10/19/17 00:00 98.7 99 18 104/72 (83) 96 10/18/17 20:30 Nasal Cannula 2.00 10/18/17 20:20 99 Nasal Cannula 3.00 10/18/17 20:00 96.4 100 18 127/60 (82) 95 10/18/17 18:39 18 10/18/17 16:00 99.2 104 17 113/57 (75) 99 I/O 10/18/17 10/18/17 10/18/17 10/19/17 10/19/17 10/19/17 07:00 15:00 23:00 07:00 15:00 23:00 Intake Total 240 ml 0 ml 0 ml 0 ml Output Total 725 ml 55.0 ml 400 ml 760.0 ml Balance -485 ml -55.0 ml -400 ml -760.0 ml 0 ml Intake Oral 240 ml 0 ml 0 ml 0 ml Output Urine Total 725 ml 400 ml 650 ml Tube Feeding Residual Discard 55.0 ml 110.0 ml # Bowel Movements 0 0 Imaging Last Impressions Abdomen X-Ray 10/18/17 0000 Signed Impressions: Service Date/Time: Wednesday, October 18, 2017 15:01 - CONCLUSION: 1. Mild gaseous distention of the colon. Hong Yarbrough Jr., MD Chest X-Ray 10/16/17 0000 Signed Impressions: Service Date/Time: Monday, October 16, 2017 12:44 - CONCLUSION: Normal examination. Left subclavian Vlyrjr-x-Ctrf catheter in good position Gagan Rose MD Abdomen CT 10/15/17 0000 Signed Impressions: Service Date/Time: Sunday, October 15, 2017 22:54 - CONCLUSION: Pigtail gastrostomy catheter replaced in the interim with a PEG tube which has its tip in the bypassed portion of the body of the stomach. There is mild perigastric edema but no organized or drainable fluid. August Luna MD ADDENDUM: The patient's new gastrostomy tube is in good position with entry site approximately 4 cm below the prior G-tube site. The new position is well below the costal margin. There is no evidence of disruption of the previous operative sites. There has been interval decrease in lung base fluid and atelectasis. August Darden MD Gastrostomy Tube Placement 10/14/17 0000 Signed Impressions: Service Date/Time: Saturday, October 14, 2017 09:07 - CONCLUSION: Uncomplicated gastrostomy tube placement as above. August Darden MD Laboratory Test 10/19/17 05:45 Blood Urea Nitrogen 16 MG/DL Creatinine 0.57 MG/DL Random Glucose 110 MG/DL Total Protein 6.9 GM/DL Albumin 2.4 GM/DL Calcium Level 8.2 MG/DL Alkaline Phosphatase 104 U/L Aspartate Amino Transf (AST/SGOT) 39 U/L Alanine Aminotransferase (ALT/SGPT) 94 U/L Total Bilirubin 0.5 MG/DL Sodium Level 138 MEQ/L Potassium Level 3.8 MEQ/L Chloride Level 103 MEQ/L Carbon Dioxide Level 30.1 MEQ/L Anion Gap 5 MEQ/L Estimat Glomerular Filtration Rate 113 ML/MIN Lipase 296 U/L Date/Time Source Procedure Growth Status 10/01/17 17:49 Blood Peripheral Aerobic Blood Culture - Final NO GROWTH IN 5 DAYS Complete 10/01/17 17:49 Blood Peripheral Anaerobic Blood Culture - Final NO GROWTH IN 5 DAYS Complete 10/17/17 00:35 Urine Clean Catch Urine Culture - Final Enterobacter Cloacae Complete Physical Examination HEENT: PERRL; normocephalic; atraumatic; no jaundice. CHEST: diminished CARDIAC: RRR + murmur ABDOMEN: Soft, obese, nontender; no hepatosplenomegaly; bowel sounds are present in all four quadrants. EXTREMITIES: No clubbing, cyanosis, or edema. SKIN: Normal; no rash; no jaundice. TERRAZZO HELPER: No focal deficits; alert and oriented times three. (Veena Castro) Assessment and Plan Plan ASSESSMENT - abd pain, distention, n/v - could be d/t constipation. no BM in nearly 3 weeks. was on TPN, now has G tube. worsening n/v and onset diffuse pain and distention after TF started few days ago. enema pending - dysphagia - MS, no PO intake in 1yr. G tube placed 10/14/17 by IR - MS, S/P sid en y 09/19/17 PLAN - await mineral oil enema - consider trickle feeds - no EGD unless emergent - f/u with [facility] after d/c - supportive care This pt seen by myself and Dr Parada and this note is written on his behalf (Veena Castro) Physician Comments Seen and examined, plan as above, will follow up with you . (Estrada Parada MD) Veena Castro Oct 19, 2017 14:22 Estrada Parada MD Oct 20, 2017 06:18
[2017-10-19] MEDS: cefTRIAXone INJ 1,000 MG in SODIUM CHLORIDE 0.9% INJ 100 ML IV SCH (15:07)
[2017-10-19] MEDS: PANTOPRAZOLE SODIUM 40 MG VIAL IV PUSH SCH (17:59)
[2017-10-19] MEDS: FAT EMULSION 20% INJ 250 ML (Daily over 8 hours) IV-CENTRAL SCH (20:00)
[2017-10-19] MEDS: MORPHINE SULFATE 2 MG/ML INJ IV PUSH PRN ×2 (20:13→23:52)
[2017-10-20] VITALS (7 sets, daily range): BP systolic 105–125; BP diastolic 53–59; PULSE 89–94; RESP 18–21; TEMP 97.5–98.5; O2SAT 97–100
[2017-10-20] MEDS: ENOXAPARIN SODIUM 120 MG/0.8 ML SYRINGE SQ SCH ×2 (05:49→17:57)
[2017-10-20] MEDS: MORPHINE SULFATE 2 MG/ML INJ IV PUSH PRN ×6 (05:49→21:03)
[2017-10-20] MEDS: ONDANSETRON HCL 4 MG/2 ML VIAL IVP PRN ×3 (05:54→21:03)
[2017-10-20] MEDS: diphenhydrAMINE HCL 50 MG/ML VIAL IV PUSH PRN ×2 (05:55→14:53)
--- NOTE | 2017-10-20 06:34 | RADRPT ---
EXAM DATE/TIME: 10/20/2017 05:36 [facility] COMPARISON: CT ABDOMEN W/O CONTRAST, October 15, 2017, 22:54. ABDOMEN KUB ONLY, October 18, 2017, 15:01. INDICATIONS : Abdominal distension MEDICAL HISTORY : Cardiovascular disease. Hypertension Carcinoma, colon. COPD SURGICAL HISTORY : Cholecystectomy. colon resection, IVC filter placement.., gastric bypass ENCOUNTER: Subsequent ACUITY: 2 weeks PAIN SCORE: 5/10 LOCATION: Bilateral abdomen FINDINGS: Supine view of the abdomen was performed. Contrast is seen within the colon. Significantly dilated b owel is not seen. 3 is not seen. There is a G-tube in the left upper quadrant. The abdominal bowel ga s pattern is normal. No abnormal masses, calcifications, or organomegaly is seen. The osseous struc tures are unremarkable. CONCLUSION: No acute disease. August Arnold MD on October 20, 2017 at 6:31 Board Certified Radiologist. This report was verified electronically.
[2017-10-20] MEDS: RESP: ALBUTEROL 2.5 MG/IPRATROPIUM 0.5 MG NEB (SCH) NEB ×3 (07:13→19:24)
[2017-10-20 07:26] LABS: ALBUMIN 2.4 GM/DL (3.4-5.0); AST (GOT) 14 U/L (15-37); BICARBONATE 26.7 MEQ/L (21.0-32.0); BLOOD UREA NITROGEN 15 MG/DL (7-18); CALCIUM 8.4 MG/DL (8.5-10.1); CHLORIDE 104 MEQ/L (98-107); CREATININE 0.55 MG/DL (0.50-1.00); GLOMERULAR FILTRATION RATE 118 ML/MIN (>89); GLUCOSE,RANDOM 90 MG/DL (74-106); SODIUM (NA) 139 MEQ/L (136-145)
[2017-10-20 07:29] LABS: ALKALINE PHOSPHATASE 82 U/L (45-117); ALT (GPT) 71 U/L (10-53); TOTAL BILIRUBIN ADULT 0.4 MG/DL (0.2-1.0); TOTAL PROTEIN 6.8 GM/DL (6.4-8.2)
[2017-10-20] MEDS: SODIUM CHLORIDE 0.9% FLUSH 10 ML FLUSH IV FLUSH SCH ×2 (08:45→21:00)
[2017-10-20] MEDS: METOCLOPRAMIDE HCL 10 MG/2 ML VIAL IV PUSH PRN ×2 (08:46→17:53)
--- NOTE | 2017-10-20 14:18 | HHI.PR ---
Subjective Remarks The patient was working with occupational therapy. She said that the enema didn 't work. She wanted IV fluids so she wouldn't get dehydrated. She says she is still nauseous. She says she still can't move her lower extremities. Discussed with nursing. Objective Vitals Vital Signs Date Time Temp Pulse Resp B/P (MAP) Pulse Ox O2 Delivery O2 Flow Rate FiO2 10/20/17 12:00 97.7 94 19 125/58 (80) 100 10/20/17 08:00 Nasal Cannula 2.00 10/20/17 08:00 98.0 91 21 105/53 (70) 99 10/20/17 07:13 99 Nasal Cannula 3.00 10/20/17 00:00 98.5 89 20 123/59 (80) 97 10/19/17 20:33 98 Nasal Cannula 3.00 10/19/17 20:00 97.8 101 17 143/64 (90) 98 10/19/17 19:30 Nasal Cannula 2.00 10/19/17 16:56 98.9 104 19 128/58 (81) 96 I/O 10/19/17 10/19/17 10/19/17 10/20/17 10/20/17 10/20/17 07:00 15:00 23:00 07:00 15:00 23:00 Intake Total 0 ml 0 ml 100 ml 0 ml 0 ml Output Total 760.0 ml 1250 ml 225 ml 600 ml Balance -760.0 ml 0 ml -1150 ml -225 ml -600 ml Intake Oral 0 ml 0 ml 0 ml 0 ml 0 ml IV Total 100 ml Output Urine Total 650 ml 1125 ml 100 ml 600 ml Tube Feeding Residual Discard 110.0 ml Drainage Total 125 ml 125 ml # Bowel Movements 0 0 Result Diagram: 10/18/17 0545 10/20/17 0545 Imaging Last Impressions Abdomen X-Ray 10/20/17 0600 Signed Impressions: Service Date/Time: September 05:36 - CONCLUSION: No acute disease. August Arnold MD Chest X-Ray 10/16/17 0000 Signed Impressions: Service Date/Time: Monday, October 16, 2017 12:44 - CONCLUSION: Normal examination. Left subclavian Jzdncp-a-Lqdt catheter in good position Gagan Rose MD Abdomen CT 10/15/17 0000 Signed Impressions: Service Date/Time: Sunday, October 15, 2017 22:54 - CONCLUSION: Pigtail gastrostomy catheter replaced in the interim with a PEG tube which has its tip in the bypassed portion of the body of the stomach. There is mild perigastric edema but no organized or drainable fluid. August Luna MD ADDENDUM: The patient's new gastrostomy tube is in good position with entry site approximately 4 cm below the prior G-tube site. The new position is well below the costal margin. There is no evidence of disruption of the previous operative sites. There has been interval decrease in lung base fluid and atelectasis. August Darden MD Gastrostomy Tube Placement 10/14/17 0000 Signed Impressions: Service Date/Time: Saturday, October 14, 2017 09:07 - CONCLUSION: Uncomplicated gastrostomy tube placement as above. August Darden MD Objective Remarks GENERAL: NAD SKIN: Warm and dry. HEAD: Normocephalic. EYES: No scleral icterus. No injection or drainage. NECK: Supple, trachea midline. No JVD or lymphadenopathy. CARDIOVASCULAR: Regular rate and rhythm without murmurs, gallops, or rubs. RESPIRATORY: Breath sounds equal bilaterally. No accessory muscle use. GASTROINTESTINAL: Abdomen soft, general tenderness to palpation, distended. G tube in place. Hyperactive bowel sounds. MUSCULOSKELETAL: No cyanosis, or edema. BACK: Nontender without obvious deformity. No CVA tenderness. NEURO: Unable to move lower extremities. She has no sensation in the lower extremities. PSYCH: Slightly flattened affect. Medications and IVs Current Medications Medications (Trade) Dose Ordered Sig/Ricco Route Start Time Stop Time Status Last Admin (NS Flush) 2 ml UNSCH PRN IV FLUSH 09/30/17 17:45 10/18/17 18:36 (NS Flush) 2 ml BID IV FLUSH 09/30/17 21:00 10/20/17 08:45 (Zofran Inj) 4 mg Q6H PRN IVP 09/30/17 17:45 10/20/17 11:31 (Narcan Inj) 0.4 mg UNSCH PRN IV PUSH 09/30/17 17:45 (Lovenox Inj) 120 mg Q12H SQ 09/30/17 18:00 Future hold 10/20/17 05:49 (Duoneb Neb) 1 ampule Q4HR NEB PRN NEB 09/30/17 17:45 10/17/17 10:16 (Vasotec Inj) 2.5 mg Q6H PRN IV PUSH 09/30/17 17:45 (Protonix Inj) 40 mg Q24H IV PUSH 09/30/17 19:00 10/19/17 17:59 Acetaminophen 50 ml @ 400 mls/hr Q6H PRN IV 10/02/17 16:45 10/13/17 16:16 (D50w (Vial) Inj) 50 ml UNSCH PRN IV PUSH 10/02/17 21:00 (Glucagon Inj) 1 mg UNSCH PRN OTHER 10/02/17 21:00 Fat Emulsion Intravenous 250 ml @ 31.25 mls/ hr Q24H IV-CENTRAL 10/03/17 20:00 10/15/17 20:38 (Reglan Inj) 10 mg Q8H PRN IV PUSH 10/05/17 04:15 10/20/17 08:46 (Benadryl Inj) 25 mg Q8H PRN IV PUSH 10/11/17 10:30 10/20/17 05:55 Multivitamins 5 ml/Folic Acid 0.5 mg/Amino Acids/ Electrolytes/ Dextrose 1,005.1 ml @ 83 mls/hr Q12H7M IV 10/11/17 20:00 Future Hold 10/16/17 09:03 (Tylenol) 650 mg Q4H PRN PO 10/13/17 05:45 (Benadryl) 25 mg Q4H PRN PO 10/13/17 05:45 (Heparin Central Flush) 500 units UNSCH IV FLUSH 10/13/17 06:30 (NS Flush) 5 ml UNSCH PRN IVF 10/13/17 06:30 (Heparin Central Flush) 250 units UNSCH PRN IV FLUSH 10/13/17 06:30 (Duoneb Neb) 1 ampule Q6HR WHILE AWAKE NEB NEB 10/17/17 14:00 10/20/17 11:46 Ceftriaxone Sodium 1000 mg/ Sodium Chloride 100 ml @ 200 mls/hr Q24H IV 10/17/17 15:00 10/19/17 15:07 (Morphine Inj) 4 mg Q3H PRN IV PUSH 10/19/17 19:00 10/20/17 11:31 A/P Problem List: (1) PEG tube malfunction ICD Code: K94.23 - Gastrostomy malfunction (2) History of recurrent deep vein thrombosis (DVT) ICD Code: Z86.718 - Personal history of other venous thrombosis and embolism Status: Chronic (3) Impaired mobility and activities of daily living ICD Code: Z74.09 - Other reduced mobility Status: Acute (4) History of CVA (cerebrovascular accident) ICD Code: Z86.73 - Personal history of transient ischemic attack (TIA), and cerebral infarction without residual deficits Status: Chronic (5) History of pulmonary embolism ICD Code: Z86.711 - Personal history of pulmonary embolism Status: Chronic (6) Postoperative anemia due to acute blood loss ICD Code: D62 - Acute posthemorrhagic anemia Status: Acute (7) Diastolic heart failure ICD Code: I50.30 - Unspecified diastolic (congestive) heart failure Status: Chronic (8) MANI (obstructive sleep apnea) ICD Code: G47.33 - Obstructive sleep apnea (adult) (pediatric) Status: Chronic (9) S/P gastric bypass ICD Code: Z98.84 - Bariatric surgery status Status: Acute Assessment and Plan Status post gastric bypass/G-tube placement/ G- tube malfunction/ Abdominal pain / Constipation - Appreciate input from general surgery for further evaluation and recommendation. Recommends to continue with the pigtail to gravity for now, TPN - Pain management with IV morphine. Zofran - IV fluids for hydration. Monitor for fluid overload. - s/p Ancef. - s/p G exchange 10/14/17 - continue tube feeds. - surgery signed off. Reconsult as needed. - KUB with mild abdominal distention. - Enema did not work. - GI consult noted. Follow recommendations. Anemia H/H stable - follow CBC and transfuse as needed. COPD, chronic MANI - Continue duo nebs continue incentive spirometer use. - DuoNeb's scheduled every 4 hours, and when necessary Febrile episode/ hypotension/ UTI CXR unremarkable. UA indicative of infection. - ceftriaxone IV started. Follow urine culture. Growing Enterobacter cloacae. Change antibiotics to doxycycline per sensitivities. - IVFs. Generalized weakness ?Paralysis of lower extremities Hx MS not on any medications - MRI spine showed bulging disc at L4-L5 and L5-S1 without explanation of symptoms - Neurology was consulted while the patient was in rehabilitation, recommend EMG. - Physical therapy eval and treat. Add OT. - rehab medicine consult. - EMG ordered. Consult neurology. History of PE/DVT - Continue therapeutic Lovenox - Status post IVC filter placement GERD/Nunez's esophagus - IV Protonix Neurogenic bladder - Continue Reeves MS/history of CVA - Patient has been evaluated by neurology - Neurology has signed off - Anticoagulation as above Diastolic heart failure - Vasotec until patient can resume home medications - Monitor for fluid overload DVT prop Lovenox GI prop pantoprazole IV Discharge Planning Awaiting improvement in GI symptoms, neuro Loi Pelletier DO Oct 20, 2017 14:18
--- NOTE | 2017-10-20 15:16 | HHI.GIFU ---
Subjective Remarks Pt says enema didn't work, still no BM (> 21 days per pt.) c/o n/v this morning. (Veena Castro) Objective Vitals I&O Vital Signs Date Time Temp Pulse Resp B/P (MAP) Pulse Ox O2 Delivery O2 Flow Rate FiO2 10/20/17 12:00 97.7 94 19 125/58 (80) 100 10/20/17 08:00 Nasal Cannula 2.00 10/20/17 08:00 98.0 91 21 105/53 (70) 99 10/20/17 07:13 99 Nasal Cannula 3.00 10/20/17 00:00 98.5 89 20 123/59 (80) 97 10/19/17 20:33 98 Nasal Cannula 3.00 10/19/17 20:00 97.8 101 17 143/64 (90) 98 10/19/17 19:30 Nasal Cannula 2.00 10/19/17 16:56 98.9 104 19 128/58 (81) 96 I/O 10/19/17 10/19/17 10/19/17 10/20/17 10/20/17 10/20/17 07:00 15:00 23:00 07:00 15:00 23:00 Intake Total 0 ml 0 ml 100 ml 0 ml 0 ml Output Total 760.0 ml 1250 ml 225 ml 600 ml Balance -760.0 ml 0 ml -1150 ml -225 ml -600 ml Intake Oral 0 ml 0 ml 0 ml 0 ml 0 ml IV Total 100 ml Output Urine Total 650 ml 1125 ml 100 ml 600 ml Tube Feeding Residual Discard 110.0 ml Drainage Total 125 ml 125 ml # Bowel Movements 0 0 Laboratory Laboratory Tests Test 10/20/17 05:45 Blood Urea Nitrogen 15 Creatinine 0.55 Random Glucose 90 Total Protein 6.8 Albumin 2.4 Calcium Level 8.4 Alkaline Phosphatase 82 Aspartate Amino Transf (AST/SGOT) 14 Alanine Aminotransferase (ALT/SGPT) 71 Total Bilirubin 0.4 Sodium Level 139 Potassium Level 3.7 Chloride Level 104 Carbon Dioxide Level 26.7 Anion Gap 8 Estimat Glomerular Filtration Rate 118 Date/Time Source Procedure Growth Status 10/01/17 17:49 Blood Peripheral Aerobic Blood Culture - Final NO GROWTH IN 5 DAYS Complete 10/01/17 17:49 Blood Peripheral Anaerobic Blood Culture - Final NO GROWTH IN 5 DAYS Complete 10/17/17 00:35 Urine Clean Catch Urine Culture - Final Enterobacter Cloacae Complete Imaging Last Impressions Abdomen X-Ray 10/20/17 0600 Signed Impressions: Service Date/Time: September 05:36 - CONCLUSION: No acute disease. August Arnold MD Chest X-Ray 10/16/17 0000 Signed Impressions: Service Date/Time: Monday, October 16, 2017 12:44 - CONCLUSION: Normal examination. Left subclavian Ixquwh-u-Royj catheter in good position Gagan Rose MD Abdomen CT 10/15/17 0000 Signed Impressions: Service Date/Time: Sunday, October 15, 2017 22:54 - CONCLUSION: Pigtail gastrostomy catheter replaced in the interim with a PEG tube which has its tip in the bypassed portion of the body of the stomach. There is mild perigastric edema but no organized or drainable fluid. August Luna MD ADDENDUM: The patient's new gastrostomy tube is in good position with entry site approximately 4 cm below the prior G-tube site. The new position is well below the costal margin. There is no evidence of disruption of the previous operative sites. There has been interval decrease in lung base fluid and atelectasis. August Darden MD Gastrostomy Tube Placement 10/14/17 0000 Signed Impressions: Service Date/Time: Saturday, October 14, 2017 09:07 - CONCLUSION: Uncomplicated gastrostomy tube placement as above. August Darden MD Physical Exam HEENT: PERRL normocephalic; atraumatic; no jaundice. CHEST: diminished CARDIAC: RRR ABDOMEN: Soft, mildly distended, nontender; no hepatosplenomegaly; BS present x 4 EXTREMITIES: No clubbing, cyanosis, or edema. SKIN: Normal; no rash; no jaundice. RECTIFIER OPERATOR: No focal deficits; alert and oriented times three. (Veena Castro AGRICULTURAL EQUIPMENT SALES MANAGER) Assessment and Plan Plan ASSESSMENT - abd pain, distention, n/v - could be d/t constipation. no BM in nearly 3 weeks per pt, but abd soft and BS active. was on TPN, now has G tube. worsening n/v and onset diffuse pain and distention after TF started few days ago. enema yielded no stool. c/o n/v, continued bloating, denies flatus. KUB neg. GS has signed off - dysphagia - MS, no PO intake in 1yr. G tube placed 10/14/17 by IR - MS, S/P sid en y 09/19/17 PLAN - consider psych consult - consider low dose reglan - consider starting trickle feeds - no EGD unless emergent - recommend f/u with [facility] after d/c - supportive care This pt seen by myself and Dr Parada and this note is written on his behalf (Veena Castro) Physician Comments Seen and examined with silvina Benitez above, non specific symptoms at the current time, will need medical records from previous admissions. (Estrada Parada MD) Veena Castro Oct 20, 2017 15:16 Estrada Parada MD Oct 20, 2017 15:46
[2017-10-20] MEDS ORDERED: DOXYCYCLINE HYCLATE 100 MG TAB PO SCH (16:00)
[2017-10-20] MEDS: ACETAMINOPHEN 1000 MG/100 ML 50 ML IV PRN (17:48)
[2017-10-20] MEDS: PANTOPRAZOLE SODIUM 40 MG VIAL IV PUSH SCH (17:54)
[2017-10-20] MEDS: DOXYCYCLINE INJ 100 MG in SODIUM CHLORIDE 0.9% INJ 100 ML IV SCH (17:57)
[2017-10-20] MEDS: FAT EMULSION 20% INJ 250 ML (Daily over 8 hours) IV-CENTRAL SCH (19:57)
[2017-10-21] VITALS (7 sets, daily range): BP systolic 97–113; BP diastolic 54–62; PULSE 82–95; RESP 18–21; TEMP 96.9–98.6; O2SAT 97–100
[2017-10-21] MEDS: diphenhydrAMINE HCL 50 MG/ML VIAL IV PUSH PRN ×2 (00:12→09:39)
[2017-10-21] MEDS: MORPHINE SULFATE 2 MG/ML INJ IV PUSH PRN ×7 (00:13→22:30)
[2017-10-21] MEDS: DOXYCYCLINE INJ 100 MG in SODIUM CHLORIDE 0.9% INJ 100 ML IV SCH ×2 (04:55→17:00)
[2017-10-21] MEDS: ONDANSETRON HCL 4 MG/2 ML VIAL IVP PRN ×2 (04:56→22:41)
[2017-10-21] MEDS: ENOXAPARIN SODIUM 120 MG/0.8 ML SYRINGE SQ SCH ×2 (06:08→17:39)
[2017-10-21] MEDS: RESP: ALBUTEROL 2.5 MG/IPRATROPIUM 0.5 MG NEB (SCH) NEB ×3 (07:42→21:06)
[2017-10-21] MEDS: SODIUM CHLORIDE 0.9% FLUSH 10 ML FLUSH IV FLUSH SCH ×2 (09:00→20:44)
[2017-10-21] MEDS: METOCLOPRAMIDE HCL 10 MG/2 ML VIAL IV PUSH PRN ×2 (09:52→17:40)
[2017-10-21] MEDS ORDERED: MINERAL OIL ENEMA 118 ML BTL RECTAL ONE (10:30)
[2017-10-21] MEDS: POLYETHYLENE GLYCOL 17 GM PKG PO SCH (10:30)
--- NOTE | 2017-10-21 10:32 | HHI.GIFU ---
Subjective Remarks Patient states no BM since 12-3, Abdomen taut left mid and lower quadrants, bowel sounds active predominantly on right side and umbilicus area, epigastric Still has nausea and vomiting last vomiting episode was this a.m., tube feeds trickle placed on hold for now. Afebrile (Julita Verde) Objective Vitals I&O Vital Signs Date Time Temp Pulse Resp B/P (MAP) Pulse Ox O2 Delivery O2 Flow Rate FiO2 10/21/17 08:00 96.9 83 21 97/58 (71) 97 10/21/17 07:44 99 Nasal Cannula 3.00 10/21/17 00:00 98.1 84 18 104/62 (76) 100 10/20/17 20:00 97.5 90 18 121/59 (79) 100 10/20/17 19:26 97 Nasal Cannula 3.00 10/20/17 19:00 Nasal Cannula 2.00 10/20/17 16:00 98.1 91 20 118/59 (78) 100 10/20/17 12:00 97.7 94 19 125/58 (80) 100 I/O 10/20/17 10/20/17 10/20/17 10/21/17 10/21/17 10/21/17 07:00 15:00 23:00 07:00 15:00 23:00 Intake Total 0 ml 0 ml 200 ml 0 ml Output Total 225 ml 600 ml 900 ml 850 ml Balance -225 ml -600 ml -700 ml -850 ml 0 ml Intake Oral 0 ml 0 ml 0 ml 0 ml IV Total 200 ml Output Urine Total 100 ml 600 ml 900 ml 850 ml Drainage Total 125 ml # Bowel Movements 0 Laboratory Date/Time Source Procedure Growth Status 10/01/17 17:49 Blood Peripheral Aerobic Blood Culture - Final NO GROWTH IN 5 DAYS Complete 10/01/17 17:49 Blood Peripheral Anaerobic Blood Culture - Final NO GROWTH IN 5 DAYS Complete 10/17/17 00:35 Urine Clean Catch Urine Culture - Final Enterobacter Cloacae Complete Imaging Last Impressions Abdomen X-Ray 10/20/17 0600 Signed Impressions: Service Date/Time: September 05:36 - CONCLUSION: No acute disease. August Arnold MD Chest X-Ray 10/16/17 0000 Signed Impressions: Service Date/Time: Monday, October 16, 2017 12:44 - CONCLUSION: Normal examination. Left subclavian Dtoxhw-n-Bmds catheter in good position Gagan Rose MD Abdomen CT 10/15/17 0000 Signed Impressions: Service Date/Time: Sunday, October 15, 2017 22:54 - CONCLUSION: Pigtail gastrostomy catheter replaced in the interim with a PEG tube which has its tip in the bypassed portion of the body of the stomach. There is mild perigastric edema but no organized or drainable fluid. August Luna MD ADDENDUM: The patient's new gastrostomy tube is in good position with entry site approximately 4 cm below the prior G-tube site. The new position is well below the costal margin. There is no evidence of disruption of the previous operative sites. There has been interval decrease in lung base fluid and atelectasis. August Darden MD Gastrostomy Tube Placement 10/14/17 0000 Signed Impressions: Service Date/Time: Saturday, October 14, 2017 09:07 - CONCLUSION: Uncomplicated gastrostomy tube placement as above. August Darden MD Physical Exam HEENT: PERRL normocephalic; atraumatic; no jaundice. CHEST: diminished CARDIAC: RRR ABDOMEN: Soft, mildly distended especially on the left mid and lower quadrant, tender; BS present x 2 EXTREMITIES: No clubbing, cyanosis, or edema. Morbidly obese, specialty bed SKIN: Normal; no rash; no jaundice. 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 (Julita Verde) Assessment and Plan Plan ASSESSMENT - abd pain, distention, n/v - could be d/t constipation. no BM in nearly 3 weeks per pt, 10/02??? and BS active. now has G tube with tube feeds now. nausea/vomiting continues. diffuse pain and distention after TF started few days ago. enema yielded no stool. c/o n/v, continued bloating, denies flatus. KUB picture showed large full colon on Left mid to lower colon. Nausea and vomiting -dysphagia - MS, no PO intake in 1yr. G tube placed 10/14/17 by IR - MS, S/P sid en y 09/19/17 PLAN -Mag Citrate, may repeat X 1 check for impaction. Oil retention enema today - consider low dose reglan - TF hold for now - no EGD unless emergent - recommend f/u with [facility] after d/c - supportive care This pt seen by myself and Dr Parada and this note is written on his behalf (Julita Verde) Physician Comments Constipation/ Fecal impaction, will start bowel cleansing and discharge afterward. (Estrada Parada MD) Julita Verde Oct 21, 2017 10:32 Estrada Parada MD Oct 21, 2017 15:18
[2017-10-21] MEDS ORDERED: MAGNESIUM CITRATE SOLN 300 ML BTL PO SCH (10:45)
--- NOTE | 2017-10-21 10:45 | HHI.PR ---
Subjective Remarks The patient said that she was very uncomfortable. She said she has been nauseous and vomiting. Discussed with nursing and GI. Objective Vitals Vital Signs Date Time Temp Pulse Resp B/P (MAP) Pulse Ox O2 Delivery O2 Flow Rate FiO2 10/21/17 08:00 Nasal Cannula 2.00 10/21/17 08:00 96.9 83 21 97/58 (71) 97 10/21/17 07:44 99 Nasal Cannula 3.00 10/21/17 00:00 98.1 84 18 104/62 (76) 100 10/20/17 20:00 97.5 90 18 121/59 (79) 100 10/20/17 19:26 97 Nasal Cannula 3.00 10/20/17 19:00 Nasal Cannula 2.00 10/20/17 16:00 98.1 91 20 118/59 (78) 100 10/20/17 12:00 97.7 94 19 125/58 (80) 100 I/O 10/20/17 10/20/17 10/20/17 10/21/17 10/21/17 10/21/17 07:00 15:00 23:00 07:00 15:00 23:00 Intake Total 0 ml 0 ml 200 ml 0 ml Output Total 225 ml 600 ml 900 ml 850 ml Balance -225 ml -600 ml -700 ml -850 ml 0 ml Intake Oral 0 ml 0 ml 0 ml 0 ml IV Total 200 ml Output Urine Total 100 ml 600 ml 900 ml 850 ml Drainage Total 125 ml # Bowel Movements 0 Result Diagram: 10/18/17 0545 10/20/17 0545 Imaging Last Impressions Abdomen X-Ray 10/20/17 0600 Signed Impressions: Service Date/Time: September 05:36 - CONCLUSION: No acute disease. August Arnold MD Chest X-Ray 10/16/17 0000 Signed Impressions: Service Date/Time: Monday, October 16, 2017 12:44 - CONCLUSION: Normal examination. Left subclavian Pyftkt-h-Glvp catheter in good position Gagan Rose MD Abdomen CT 10/15/17 0000 Signed Impressions: Service Date/Time: Sunday, October 15, 2017 22:54 - CONCLUSION: Pigtail gastrostomy catheter replaced in the interim with a PEG tube which has its tip in the bypassed portion of the body of the stomach. There is mild perigastric edema but no organized or drainable fluid. August Luna MD ADDENDUM: The patient's new gastrostomy tube is in good position with entry site approximately 4 cm below the prior G-tube site. The new position is well below the costal margin. There is no evidence of disruption of the previous operative sites. There has been interval decrease in lung base fluid and atelectasis. August Darden MD Gastrostomy Tube Placement 10/14/17 0000 Signed Impressions: Service Date/Time: Saturday, October 14, 2017 09:07 - CONCLUSION: Uncomplicated gastrostomy tube placement as above. August Darden MD Objective Remarks GENERAL: NAD SKIN: Warm and dry. HEAD: Normocephalic. EYES: No scleral icterus. No injection or drainage. NECK: Supple, trachea midline. No JVD or lymphadenopathy. CARDIOVASCULAR: Regular rate and rhythm without murmurs, gallops, or rubs. RESPIRATORY: Breath sounds equal bilaterally. No accessory muscle use. GASTROINTESTINAL: Abdomen soft, general tenderness to palpation, distended. G tube in place. Hyperactive bowel sounds. MUSCULOSKELETAL: No cyanosis, or edema. BACK: Nontender without obvious deformity. No CVA tenderness. NEURO: Unable to move lower extremities. She has no sensation in the lower extremities. PSYCH: Slightly flattened affect. Medications and IVs Current Medications Medications (Trade) Dose Ordered Sig/Ricco Route Start Time Stop Time Status Last Admin (NS Flush) 2 ml UNSCH PRN IV FLUSH 09/30/17 17:45 10/18/17 18:36 (NS Flush) 2 ml BID IV FLUSH 09/30/17 21:00 10/20/17 08:45 (Zofran Inj) 4 mg Q6H PRN IVP 09/30/17 17:45 10/21/17 04:56 (Narcan Inj) 0.4 mg UNSCH PRN IV PUSH 09/30/17 17:45 (Lovenox Inj) 120 mg Q12H SQ 09/30/17 18:00 Future hold 10/21/17 06:08 (Duoneb Neb) 1 ampule Q4HR NEB PRN NEB 09/30/17 17:45 10/17/17 10:16 (Vasotec Inj) 2.5 mg Q6H PRN IV PUSH 09/30/17 17:45 (Protonix Inj) 40 mg Q24H IV PUSH 09/30/17 19:00 10/20/17 17:54 Acetaminophen 50 ml @ 400 mls/hr Q6H PRN IV 10/02/17 16:45 10/20/17 17:48 (D50w (Vial) Inj) 50 ml UNSCH PRN IV PUSH 10/02/17 21:00 (Glucagon Inj) 1 mg UNSCH PRN OTHER 10/02/17 21:00 Fat Emulsion Intravenous 250 ml @ 31.25 mls/ hr Q24H IV-CENTRAL 10/03/17 20:00 Future Hold 10/15/17 20:38 (Reglan Inj) 10 mg Q8H PRN IV PUSH 10/05/17 04:15 10/21/17 09:52 (Benadryl Inj) 25 mg Q8H PRN IV PUSH 10/11/17 10:30 10/21/17 09:39 Multivitamins 5 ml/Folic Acid 0.5 mg/Amino Acids/ Electrolytes/ Dextrose 1,005.1 ml @ 83 mls/hr Q12H7M IV 10/11/17 20:00 Future Hold 10/16/17 09:03 (Tylenol) 650 mg Q4H PRN PO 10/13/17 05:45 (Benadryl) 25 mg Q4H PRN PO 10/13/17 05:45 (Heparin Central Flush) 500 units UNSCH IV FLUSH 10/13/17 06:30 (NS Flush) 5 ml UNSCH PRN IVF 10/13/17 06:30 (Heparin Central Flush) 250 units UNSCH PRN IV FLUSH 10/13/17 06:30 (Duoneb Neb) 1 ampule Q6HR WHILE AWAKE NEB NEB 10/17/17 14:00 10/21/17 07:42 (Morphine Inj) 4 mg Q3H PRN IV PUSH 10/19/17 19:00 10/21/17 09:36 Doxycycline Hyclate 100 mg/ Sodium Chloride 100 ml @ 100 mls/hr Q12H IV 10/20/17 17:00 10/21/17 04:55 (Miralax) 17 gm DAILY PO 10/21/17 10:30 (Citroma Liq) 300 ml ONCE PO 10/21/17 10:45 10/21/17 16:00 A/P Problem List: (1) PEG tube malfunction ICD Code: K94.23 - Gastrostomy malfunction (2) History of recurrent deep vein thrombosis (DVT) ICD Code: Z86.718 - Personal history of other venous thrombosis and embolism Status: Chronic (3) Impaired mobility and activities of daily living ICD Code: Z74.09 - Other reduced mobility Status: Acute (4) History of CVA (cerebrovascular accident) ICD Code: Z86.73 - Personal history of transient ischemic attack (TIA), and cerebral infarction without residual deficits Status: Chronic (5) History of pulmonary embolism ICD Code: Z86.711 - Personal history of pulmonary embolism Status: Chronic (6) Postoperative anemia due to acute blood loss ICD Code: D62 - Acute posthemorrhagic anemia Status: Acute (7) Diastolic heart failure ICD Code: I50.30 - Unspecified diastolic (congestive) heart failure Status: Chronic (8) MANI (obstructive sleep apnea) ICD Code: G47.33 - Obstructive sleep apnea (adult) (pediatric) Status: Chronic (9) S/P gastric bypass ICD Code: Z98.84 - Bariatric surgery status Status: Acute Assessment and Plan Status post gastric bypass/G-tube placement/ G- tube malfunction/ Abdominal pain / Constipation - Appreciate input from general surgery for further evaluation and recommendation. Recommends to continue with the pigtail to gravity for now, TPN - Pain management with IV morphine. Zofran - IV fluids for hydration. Monitor for fluid overload. - s/p Ancef. - s/p G exchange 10/14/17 - continue tube feeds. - surgery signed off. Reconsult as needed. - Enema did not work. - GI consult noted, appreciate recommendations. - consider repeat CT scan abdomen. Anemia H/H stable - follow CBC and transfuse as needed. COPD, chronic MANI - Continue duo nebs continue incentive spirometer use. - DuoNeb's scheduled every 4 hours, and when necessary Febrile episode/ hypotension/ UTI CXR unremarkable. UA indicative of infection. - ceftriaxone IV started. Follow urine culture. Growing Enterobacter cloacae. Change antibiotics to doxycycline per sensitivities. - IVFs. Generalized weakness ?Paralysis of lower extremities Hx MS not on any medications - MRI spine showed bulging disc at L4-L5 and L5-S1 without explanation of symptoms - Neurology was consulted while the patient was in rehabilitation, recommend EMG. - Physical therapy eval and treat. Add OT. - rehab medicine consult. - EMG ordered. Consult neurology. History of PE/DVT - Continue therapeutic Lovenox - Status post IVC filter placement GERD/Nunez's esophagus - IV Protonix Neurogenic bladder - Continue Reeves MS/history of CVA - Patient has been evaluated by neurology - Neurology has signed off - Anticoagulation as above Diastolic heart failure - Vasotec until patient can resume home medications - Monitor for fluid overload DVT prop Lovenox GI prop pantoprazole IV Discharge Planning Awaiting improvement in GI symptoms, neuro Loi Pelletier DO Oct 21, 2017 10:45
[2017-10-21] MEDS: DEXT 5%-NACL 0.9% 1000 ML INJ 1,000 ML IV SCH ×2 (11:00→20:44)
[2017-10-21] MEDS ORDERED: PEG (High)/E-LYTE SOLN 4000 ML BTL PO ONE (12:00)
[2017-10-21] MEDS: PANTOPRAZOLE SODIUM 40 MG VIAL IV PUSH SCH (20:43)
[2017-10-22] VITALS (7 sets, daily range): BP systolic 91–130; BP diastolic 49–91; PULSE 78–94; RESP 16–19; TEMP 97.8–99.4; O2SAT 95–100
[2017-10-22] MEDS: MORPHINE SULFATE 2 MG/ML INJ IV PUSH PRN ×5 (03:10→20:03)
[2017-10-22] MEDS: METOCLOPRAMIDE HCL 10 MG/2 ML VIAL IV PUSH PRN ×2 (03:22→14:10)
[2017-10-22] MEDS: diphenhydrAMINE HCL 50 MG/ML VIAL IV PUSH PRN ×3 (03:24→19:58)
[2017-10-22] MEDS: DOXYCYCLINE INJ 100 MG in SODIUM CHLORIDE 0.9% INJ 100 ML IV SCH ×2 (03:34→16:59)
[2017-10-22] MEDS: DEXT 5%-NACL 0.9% 1000 ML INJ 1,000 ML IV SCH ×3 (03:35→21:31)
[2017-10-22] MEDS: ENOXAPARIN SODIUM 120 MG/0.8 ML SYRINGE SQ SCH ×2 (05:57→18:15)
[2017-10-22 06:55] LABS: ALBUMIN 2.3 GM/DL (3.4-5.0); BICARBONATE 25.2 MEQ/L (21.0-32.0); CALCIUM 7.8 MG/DL (8.5-10.1); CREATININE 0.42 MG/DL (0.50-1.00); DIRECT BILIRUBIN ADULT 0.1 MG/DL (0.0-0.2); INDIRECT BILIRUBIN 0.2 MG/DL (0.0-0.8); MAGNESIUM 1.7 MG/DL (1.5-2.5); TOTAL BILIRUBIN ADULT 0.3 MG/DL (0.2-1.0)
[2017-10-22] MEDS: RESP: ALBUTEROL 2.5 MG/IPRATROPIUM 0.5 MG NEB (SCH) NEB ×3 (08:28→20:33)
[2017-10-22 08:35] LABS: HEMATOCRIT 28.7 % (35.0-46.0); HEMOGLOBIN 9.3 GM/DL (11.6-15.3); MEAN CELL VOLUME 80.4 FL (80.0-100.0); MEAN CORPUSCULAR HGB CONC 32.4 % (32.0-36.0); MEAN PLATELET VOLUME 9.1 FL (7.0-11.0); PLATELET COUNT 333 TH/MM3 (150-450); RED BLOOD COUNT 3.57 MIL/MM3 (4.00-5.30); RED CELL DISTRIBUTION WIDTH 16.2 % (11.6-17.2); WHITE BLOOD COUNT 7.4 TH/MM3 (4.0-11.0)
[2017-10-22] MEDS: SODIUM CHLORIDE 0.9% FLUSH 10 ML FLUSH IV FLUSH SCH ×2 (09:00→19:59)
[2017-10-22] MEDS: POLYETHYLENE GLYCOL 17 GM PKG PO SCH ×2 (09:00→19:59)
--- NOTE | 2017-10-22 09:43 | PD.PSY.CON ---
Provisional Diagnosis Admission Date Sep 30, 2017 at 17:50 Clifford I. Adjustment disorderfr 43.20 History of Present Illness Service Psychiatry Consult Requested By Attending MOly. Reason for Consult Assessment Primary Care Physician Unknown HPI Patient is a 39-year-old obese white female asked to see because of behaviors related to the longevity, complications of, and confusion with various medical/ surgical procedures that were initially started at another facility, transferred locally to percussion rehabilitation and then transferred to the inpatient [facility] floor. Patient seen in her room with RN present throughout session along with the present throughout session. 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 She is alert oriented calm and cooperative. She does denies suicidality homicidality voices or visions. She denies any prior psychiatric contact hospitalizations his psychotropic medications. She is somewhat confused over the sequence of events leading to her being in the situation she isn't. Being a registered nurse she does have questions related to her treatment and diagnostic impressions. She denies any significant depression with this. We did discuss possible medication management. She declined at this time. In any event at this time I feel the patient does have capacity to make issues concerning her care. I did pastoral counselor her to ask appropriate questions concerning her treatment. At this time I will sign off on this lady please reconsult psychiatry as needed Review of Systems ROS Limitations: Other (please see [facility] assessment) Past Family Social History Coded Allergies: adhesive (Verified Allergy, Severe, swell, 09/27/17) ALL ADHESIVES EVEN PAPER TAPE.. ONLY CAN use primapore surgical adhesive ONLY azithromycin (Verified Allergy, Severe, swell throat, 09/27/17) fluticasone (Verified Allergy, Severe, swell, 09/27/17) hydrocortisone (Verified Allergy, Severe, thrush, 09/27/17) levofloxacin (Verified Allergy, Severe, rash, 09/27/17) metoprolol (Verified Allergy, Severe, rash, 09/27/17) nalbuphine (Verified Allergy, Severe, swelling throat, 09/27/17) salmeterol (Verified Allergy, Severe, swell, 09/27/17) silver (Verified Allergy, Severe, swell, 09/27/17) sulfamethoxazole (Verified Allergy, Severe, rash, 09/27/17) trimethoprim (Verified Allergy, Severe, rash, 09/27/17) Iodinated Contrast- Oral and IV Dye (Verified Allergy, Intermediate, itching , 09/27/17) aspirin (Unverified Allergy, Unknown, 09/27/17) Uncoded Allergies: dermabond (Allergy, Severe, swelling / redness, 09/27/17) nsaids (Allergy, Severe, swelling, 09/27/17) can take tylenol though not ibuprofen Active Scripts Multivitamin with Folic Acid (Thera Tablet) 400 Mcg Tablet, 1 TAB PO DAILY, #30 Prov:Paramjit Elizabeth MD 09/30/17 Ergocalciferol (Ergocalciferol) 50,000 Unit Cap, 27935 UNITS PO Q7D, #10 CAP Prov:Paramjit Elizabeth MD 09/30/17 Cyanocobalamin (Vitamin B-12) 1,000 Mcg Tab, 1000 MCG PO DAILY, #30 TAB Prov:Paramjit Elizabeth MD 09/30/17 Pyridoxine (Vitamin B-6) 50 Mg Tab, 100 MG PO DAILY, #30 TAB Prov:Paramjit Elizabeth MD 09/30/17 Theophylline ER 12 HR (Theophylline ER 12 HR) 450 Mg Tab, 450 MG PO Q12HR, #60 TAB Prov:Paramjit Elizabeth MD 09/30/17 Famotidine (Famotidine) 20 Mg Tab, 20 MG PO Q12HR, #30 TAB Prov:Paramjit Elizabeth MD 09/30/17 Magnesium Oxide (Magnesium Oxide) 400 Mg Tab, 400 MG PO DAILY@1200, #30 TAB Prov:Paramjit Elizabeth MD 09/30/17 Hydrochlorothiazide (Hydrochlorothiazide) 25 Mg Tab, 25 MG PO BID@09,18, #60 TAB Prov:Paramjit Elizabeth MD 09/30/17 Calcium/Vitamin D (Oyster Shell 250 mg + Vit D Tb) 250 Mg Calcium (625 Mg)-125 Unit Tablet, 250 MG PO Q12HR, #60 Prov:Paramjit Elizabeth MD 09/30/17 [oxyCODONE LIQ] 20 MG/1 ML CONC No Conflict Check, 10 MG PO Q4H Y for Pain 4-10 , #30 Prov:Paramjit Elizabeth MD 09/30/17 Lisinopril (Lisinopril) 20 Mg Tab, 20 MG PO Q12HR, #60 TAB Prov:Paramjit Elizabeth MD 09/30/17 Enoxaparin Inj (Lovenox Inj) 120 Mg/0.8 Ml Syr, 120 MG SQ Q12H, #30 INJECTION Prov:Paramjit Elizabeth MD 09/30/17 Ferrous Sulfate Liq (Ferrous Sulfate Liq) 300 Mg/5 Ml Soln, 300 MG PO DAILY for 30 Days Prov:Paramjit Elizabeth MD 09/30/17 Hyoscyamine (Levsin) 0.125 Mg Tab, 0.125 MG PO Q4H Y for SECRETIONS, #10 TAB Prov:Paramjit Elizabeth MD 09/30/17 Valacyclovir (Valtrex) 500 Mg Tab, 500 MG PO Q12HR, #60 TAB Prov:Paramjit Elizabeth MD 09/30/17 Diphenhydramine Liq (Diphenhydramine Liq) 12.5 Mg/5 Ml Elix, 25 MG PO Q8H Y for itching, #30 Prov:Paramjit Elizabeth MD 09/30/17 Current Medications Medications (Trade) Dose Ordered Sig/Ricco Route Start Time Stop Time Status Last Admin (NS Flush) 2 ml UNSCH PRN IV FLUSH 09/30/17 17:45 10/18/17 18:36 (NS Flush) 2 ml BID IV FLUSH 09/30/17 21:00 10/20/17 08:45 (Zofran Inj) 4 mg Q6H PRN IVP 09/30/17 17:45 10/21/17 22:41 (Narcan Inj) 0.4 mg UNSCH PRN IV PUSH 09/30/17 17:45 (Lovenox Inj) 120 mg Q12H SQ 09/30/17 18:00 Future hold 10/22/17 05:57 (Duoneb Neb) 1 ampule Q4HR NEB PRN NEB 09/30/17 17:45 10/17/17 10:16 (Vasotec Inj) 2.5 mg Q6H PRN IV PUSH 09/30/17 17:45 (Protonix Inj) 40 mg Q24H IV PUSH 09/30/17 19:00 10/21/17 20:43 Acetaminophen 50 ml @ 400 mls/hr Q6H PRN IV 10/02/17 16:45 10/20/17 17:48 (D50w (Vial) Inj) 50 ml UNSCH PRN IV PUSH 10/02/17 21:00 (Glucagon Inj) 1 mg UNSCH PRN OTHER 10/02/17 21:00 Fat Emulsion Intravenous 250 ml @ 31.25 mls/ hr Q24H IV-CENTRAL 10/03/17 20:00 Future Hold 10/15/17 20:38 (Reglan Inj) 10 mg Q8H PRN IV PUSH 10/05/17 04:15 10/22/17 03:22 (Benadryl Inj) 25 mg Q8H PRN IV PUSH 10/11/17 10:30 10/22/17 03:24 Multivitamins 5 ml/Folic Acid 0.5 mg/Amino Acids/ Electrolytes/ Dextrose 1,005.1 ml @ 83 mls/hr Q12H7M IV 10/11/17 20:00 Future Hold 10/16/17 09:03 (Tylenol) 650 mg Q4H PRN PO 10/13/17 05:45 (Benadryl) 25 mg Q4H PRN PO 10/13/17 05:45 (Heparin Central Flush) 500 units UNSCH IV FLUSH 10/13/17 06:30 (NS Flush) 5 ml UNSCH PRN IVF 10/13/17 06:30 (Heparin Central Flush) 250 units UNSCH PRN IV FLUSH 10/13/17 06:30 Doxycycline Hyclate 100 mg/ Sodium Chloride 100 ml @ 100 mls/hr Q12H IV 10/20/17 17:00 10/22/17 03:34 (Miralax) 17 gm DAILY PO 10/21/17 10:30 10/21/17 10:30 (Duoneb Neb) 1 ampule Q6HR WHILE AWAKE NEB NEB 10/21/17 14:00 10/22/17 08:28 Dextrose/Sodium Chloride 1,000 ml @ 100 mls/hr Q10H IV 10/21/17 11:00 10/22/17 03:35 (Morphine Inj) 4 mg Q4H PRN IV PUSH 10/21/17 12:30 10/22/17 07:12 Family Psych History Patient denies Social History Patient lived with of 2 years Patient's Strengths (min. 2) Patient verbal label access healthcare cooperative Physical Exam Please see [facility] Vital Signs Vital Signs Date Time Temp Pulse Resp B/P (MAP) Pulse Ox O2 Delivery O2 Flow Rate FiO2 10/22/17 08:29 99 Nasal Cannula 3.00 10/22/17 08:00 97.8 90 19 130/91 (104) I/O 10/22/17 10/22/17 10/23/17 08:00 16:00 00:00 Output Total 200 ml Balance -200 ml Lab Results Test 10/22/17 06:11 10/22/17 07:00 Blood Urea Nitrogen 11 MG/DL Creatinine 0.42 MG/DL Random Glucose 120 MG/DL Total Protein 6.0 GM/DL Albumin 2.3 GM/DL Calcium Level 7.8 MG/DL Magnesium Level 1.7 MG/DL Alkaline Phosphatase 66 U/L Aspartate Amino Transf (AST/SGOT) 29 U/L Alanine Aminotransferase (ALT/SGPT) 61 U/L Total Bilirubin 0.3 MG/DL Direct Bilirubin 0.1 MG/DL Sodium Level 139 MEQ/L Potassium Level 3.4 MEQ/L Chloride Level 105 MEQ/L Carbon Dioxide Level 25.2 MEQ/L Anion Gap 9 MEQ/L Estimat Glomerular Filtration Rate 161 ML/MIN Indirect Bilirubin 0.2 MG/DL White Blood Count 7.4 TH/MM3 Red Blood Count 3.57 MIL/MM3 Hemoglobin 9.3 GM/DL Hematocrit 28.7 % Mean Corpuscular Volume 80.4 FL Mean Corpuscular Hemoglobin 26.0 PG Mean Corpuscular Hemoglobin Concent 32.4 % Red Cell Distribution Width 16.2 % Platelet Count 333 TH/MM3 Mean Platelet Volume 9.1 FL Date/Time Source Procedure Growth Status 10/01/17 17:49 Blood Peripheral Aerobic Blood Culture - Final NO GROWTH IN 5 DAYS Complete 10/01/17 17:49 Blood Peripheral Anaerobic Blood Culture - Final NO GROWTH IN 5 DAYS Complete 10/17/17 00:35 Urine Clean Catch Urine Culture - Final Enterobacter Cloacae Complete Mental Status Examination Appearance: Appropriate Consciousness: Alert Orientation: x4 Motor Activity: Other (patient bilateral paralysis) Speech: Unremarkable Language: Adequate Fund of Knowledge: Adequate Attention and Concentration: Adequate Memory: Unremarkable Mood: Other (euthymic to mildly dysphoric) Affect: Other (slight decrease range of motion intensity) Thought Process & Associations: Intact, Logical Thought Content: Appropriate Hallucination Type: None Delusion Type: None Suicidal Ideation: No Suicidal Plan: No Suicidal Intention: No Homicidal Ideation: No Homicidal Plan: No Homicidal Intention: No Insight: Adequate Judgment: Adequate Assessment & Plan Problem List: (1) Adjustment disorder ICD Codes: F43.20 - Adjustment disorder, unspecified Status: Acute Assessment & Plan Estimated LOS: days this coming feel patient does have capacity to guide her treatment. I see no need for any specific psychotropic medication. We did discuss this with the patient she too feels that way. I did pastoral counselor patient to continue her communication with her attending physicians again the understanding that she desires of her treatment. Thanks for consult I will sign off the present time please reconsult as necessary Discharge Planning Per treatment team Request HC Surrog/Guard Advoc?: No Problem Qualifiers (1) Adjustment disorder: Qualified Codes: F43.20 - Adjustment disorder, unspecified August Lopez MD Oct 22, 2017 09:43
[2017-10-22] MEDS: NYSTATIN 100,000 U/GM PWD 15 GM BTL TOPICAL SCH ×2 (10:30→19:59)
[2017-10-22] MEDS ORDERED: PHENAZOPYRIDINE HCL 100 MG TAB PO PRN (10:30)
[2017-10-22 11:04] LABS: BACTERIA, URINE OCC /hpf; BILIRUBIN, URINE NEG (NEG); BLOOD, URINE NEG (NEG); GLUCOSE,URINE NEG (NEG); KETONE, URINE 10 mg/dL (NEG); MUCUS URINE FEW /lpf (OCC); NITRITE,URINE NEG (NEG); PH, URINE 5.5 (5.0-8.5); SQUAMOUS EPITHELIAL CELL URINE 1 /hpf (0-5); URINE COLOR YELLOW (YELLW/STRAW); URINE LEUKOCYTE ESTERASE TRACE (NEG)
[2017-10-22] MEDS: ONDANSETRON HCL 4 MG/2 ML VIAL IVP PRN ×2 (11:07→19:58)
[2017-10-22] MEDS ORDERED: POTASSIUM CHLOR 20 MEQ PREMIX 100 ML IV ONE (12:00)
--- NOTE | 2017-10-22 12:01 | HHI.PR ---
Subjective Remarks The patient says she did have a bowel movement but it was very painful and she strained very hard. She said she was concerned that her paralysis in the legs was secondary to multiple sclerosis. She said she has been on IVIG in the past and it worked quite well. She said her Reeves catheter was better now that it was exchanged. Discussed with nursing. Objective Vitals Vital Signs Date Time Temp Pulse Resp B/P (MAP) Pulse Ox O2 Delivery O2 Flow Rate FiO2 10/22/17 08:29 99 Nasal Cannula 3.00 10/22/17 08:00 97.8 90 19 130/91 (104) 99 10/22/17 08:00 2 10/22/17 00:00 98.3 78 18 91/49 (63) 98 10/21/17 21:07 99 Nasal Cannula 3.00 10/21/17 20:00 Nasal Cannula 2.00 10/21/17 20:00 98.6 82 18 113/54 (73) 100 10/21/17 16:00 97.6 86 20 105/57 (73) 98 10/21/17 12:00 97.8 95 19 102/58 (73) 100 I/O 10/21/17 10/21/17 10/21/17 10/22/17 10/22/17 10/22/17 07:00 15:00 23:00 07:00 15:00 23:00 Intake Total 0 ml 0 ml Output Total 850 ml 400 ml 200 ml Balance -850 ml 0 ml -400 ml -200 ml Intake Oral 0 ml 0 ml Output Urine Total 850 ml 400 ml 200 ml # Bowel Movements 0 Result Diagram: 10/22/17 0700 10/22/17 0611 Imaging Last Impressions Abdomen X-Ray 10/20/17 0600 Signed Impressions: Service Date/Time: September 05:36 - CONCLUSION: No acute disease. August Arnold MD Chest X-Ray 10/16/17 0000 Signed Impressions: Service Date/Time: Monday, October 16, 2017 12:44 - CONCLUSION: Normal examination. Left subclavian Ukymnr-t-Hlej catheter in good position Gagan Rose MD Abdomen CT 10/15/17 0000 Signed Impressions: Service Date/Time: Sunday, October 15, 2017 22:54 - CONCLUSION: Pigtail gastrostomy catheter replaced in the interim with a PEG tube which has its tip in the bypassed portion of the body of the stomach. There is mild perigastric edema but no organized or drainable fluid. August Luna MD ADDENDUM: The patient's new gastrostomy tube is in good position with entry site approximately 4 cm below the prior G-tube site. The new position is well below the costal margin. There is no evidence of disruption of the previous operative sites. There has been interval decrease in lung base fluid and atelectasis. August Darden MD Gastrostomy Tube Placement 10/14/17 0000 Signed Impressions: Service Date/Time: Saturday, October 14, 2017 09:07 - CONCLUSION: Uncomplicated gastrostomy tube placement as above. August Darden MD Objective Remarks GENERAL: NAD SKIN: Warm and dry. HEAD: Normocephalic. EYES: No scleral icterus. No injection or drainage. NECK: Supple, trachea midline. No JVD or lymphadenopathy. CARDIOVASCULAR: Regular rate and rhythm without murmurs, gallops, or rubs. RESPIRATORY: Breath sounds equal bilaterally. No accessory muscle use. GASTROINTESTINAL: Abdomen soft, general tenderness to palpation, distended. G tube in place. Hyperactive bowel sounds. : Reeves in place. MUSCULOSKELETAL: No cyanosis, or edema. BACK: Nontender without obvious deformity. No CVA tenderness. NEURO: Unable to move lower extremities. She has no sensation in the lower extremities. PSYCH: Slightly flattened affect. Medications and IVs Current Medications Medications (Trade) Dose Ordered Sig/Ricco Route Start Time Stop Time Status Last Admin (NS Flush) 2 ml UNSCH PRN IV FLUSH 09/30/17 17:45 10/18/17 18:36 (NS Flush) 2 ml BID IV FLUSH 09/30/17 21:00 10/20/17 08:45 (Zofran Inj) 4 mg Q6H PRN IVP 09/30/17 17:45 10/22/17 11:07 (Narcan Inj) 0.4 mg UNSCH PRN IV PUSH 09/30/17 17:45 (Lovenox Inj) 120 mg Q12H SQ 09/30/17 18:00 Future hold 10/22/17 05:57 (Duoneb Neb) 1 ampule Q4HR NEB PRN NEB 09/30/17 17:45 10/17/17 10:16 (Vasotec Inj) 2.5 mg Q6H PRN IV PUSH 09/30/17 17:45 (Protonix Inj) 40 mg Q24H IV PUSH 09/30/17 19:00 10/21/17 20:43 Acetaminophen 50 ml @ 400 mls/hr Q6H PRN IV 10/02/17 16:45 10/20/17 17:48 (D50w (Vial) Inj) 50 ml UNSCH PRN IV PUSH 10/02/17 21:00 (Glucagon Inj) 1 mg UNSCH PRN OTHER 10/02/17 21:00 Fat Emulsion Intravenous 250 ml @ 31.25 mls/ hr Q24H IV-CENTRAL 10/03/17 20:00 Future Hold 10/15/17 20:38 (Reglan Inj) 10 mg Q8H PRN IV PUSH 10/05/17 04:15 10/22/17 03:22 (Benadryl Inj) 25 mg Q8H PRN IV PUSH 10/11/17 10:30 10/22/17 11:25 Multivitamins 5 ml/Folic Acid 0.5 mg/Amino Acids/ Electrolytes/ Dextrose 1,005.1 ml @ 83 mls/hr Q12H7M IV 10/11/17 20:00 Future Hold 10/16/17 09:03 (Tylenol) 650 mg Q4H PRN PO 10/13/17 05:45 (Benadryl) 25 mg Q4H PRN PO 10/13/17 05:45 (Heparin Central Flush) 500 units UNSCH IV FLUSH 10/13/17 06:30 (NS Flush) 5 ml UNSCH PRN IVF 10/13/17 06:30 (Heparin Central Flush) 250 units UNSCH PRN IV FLUSH 10/13/17 06:30 Doxycycline Hyclate 100 mg/ Sodium Chloride 100 ml @ 100 mls/hr Q12H IV 10/20/17 17:00 10/22/17 03:34 (Miralax) 17 gm DAILY PO 10/21/17 10:30 10/22/17 09:00 (Duoneb Neb) 1 ampule Q6HR WHILE AWAKE NEB NEB 10/21/17 14:00 10/22/17 08:28 Dextrose/Sodium Chloride 1,000 ml @ 100 mls/hr Q10H IV 10/21/17 11:00 10/22/17 03:35 (Morphine Inj) 4 mg Q4H PRN IV PUSH 10/21/17 12:30 10/22/17 11:07 (Pyridium) 100 mg Q8H PRN PO 10/22/17 10:30 (Mycostatin Powder) 1 applic Q12HR TOPICAL 10/22/17 10:30 A/P Problem List: (1) PEG tube malfunction ICD Code: K94.23 - Gastrostomy malfunction (2) History of recurrent deep vein thrombosis (DVT) ICD Code: Z86.718 - Personal history of other venous thrombosis and embolism Status: Chronic (3) Impaired mobility and activities of daily living ICD Code: Z74.09 - Other reduced mobility Status: Acute (4) History of CVA (cerebrovascular accident) ICD Code: Z86.73 - Personal history of transient ischemic attack (TIA), and cerebral infarction without residual deficits Status: Chronic (5) History of pulmonary embolism ICD Code: Z86.711 - Personal history of pulmonary embolism Status: Chronic (6) Postoperative anemia due to acute blood loss ICD Code: D62 - Acute posthemorrhagic anemia Status: Acute (7) Diastolic heart failure ICD Code: I50.30 - Unspecified diastolic (congestive) heart failure Status: Chronic (8) MANI (obstructive sleep apnea) ICD Code: G47.33 - Obstructive sleep apnea (adult) (pediatric) Status: Chronic (9) S/P gastric bypass ICD Code: Z98.84 - Bariatric surgery status Status: Acute Assessment and Plan Status post gastric bypass/G-tube placement/ G- tube malfunction/ Abdominal pain / Constipation - Appreciate input from general surgery for further evaluation and recommendation. - Pain management with IV morphine. Zofran - IV fluids for hydration. Monitor for fluid overload. - s/p Ancef. - s/p G exchange 10/14/17 - continue tube feeds. - surgery signed off. Reconsult as needed. - GI consult noted, appreciate recommendations. - repeat KUB. - the pt had a small bowel movement 10/22. Anemia H/H stable - follow CBC and transfuse as needed. COPD, chronic MANI - Continue duo nebs continue incentive spirometer use. - DuoNeb's scheduled every 4 hours, and when necessary Febrile episode/ hypotension/ UTI CXR unremarkable. UA indicative of infection. - ceftriaxone IV started. Follow urine culture. Growing Enterobacter cloacae. Change antibiotics to doxycycline per sensitivities. - IVFs. Generalized weakness ?Paralysis of lower extremities Hx MS not on any medications - MRI spine showed bulging disc at L4-L5 and L5-S1 without explanation of symptoms - Neurology was consulted while the patient was in rehabilitation, recommend EMG. - Physical therapy eval and treat. Add OT. - rehab medicine consult. - EMG ordered. Consult neurology. History of PE/DVT - Continue therapeutic Lovenox - Status post IVC filter placement GERD/Nunez's esophagus - IV Protonix Neurogenic bladder - Continue Reeves MS/history of CVA - Patient has been evaluated by neurology - Neurology has signed off - Anticoagulation as above Diastolic heart failure - Vasotec until patient can resume home medications - Monitor for fluid overload DVT prop Lovenox GI prop pantoprazole IV Discharge Planning Awaiting improvement in GI symptoms, neuro Loi Pelletier DO Oct 22, 2017 12:00
--- NOTE | 2017-10-22 14:52 | RADRPT ---
EXAM DATE/TIME: 10/22/2017 14:38 [place] COMPARISON: ABDOMEN KUB ONLY, October 20, 2017, 5:36. INDICATIONS : Abdominal pain, distension MEDICAL HISTORY : Cardiovascular disease. Hypertension Carcinoma, colon. COPD SURGICAL HISTORY : Cholecystectomy. colon resection, IVC filter placement.., gastric bypass ENCOUNTER: Subsequent ACUITY: 2 weeks PAIN SCORE: 8/10 LOCATION: Bilateral abdomen FINDINGS: Radiographic contrast is seen scattered throughout the colon. Vena cava filter is in good position. Bowel gas pattern is normal. The skeleton is unremarkable. CONCLUSION: Negative. Vena cava filter good position. Vivek Guajardo MD FACR on October 22, 2017 at 14:49 Board Certified Radiologist. This report was verified electronically.
--- NOTE | 2017-10-22 15:45 | HHI.GIFU ---
Subjective Remarks Patient had BM today but was very painful, she is with abd discomfort and nausea. No hematochezia (Amawi,Khawla BLENDING OPERATOR) Objective Vitals I&O Vital Signs Date Time Temp Pulse Resp B/P (MAP) Pulse Ox O2 Delivery O2 Flow Rate FiO2 10/22/17 12:00 98.5 93 18 117/61 (79) 98 10/22/17 08:29 99 Nasal Cannula 3.00 10/22/17 08:00 97.8 90 19 130/91 (104) 99 10/22/17 08:00 2 10/22/17 00:00 98.3 78 18 91/49 (63) 98 10/21/17 21:07 99 Nasal Cannula 3.00 10/21/17 20:00 Nasal Cannula 2.00 10/21/17 20:00 98.6 82 18 113/54 (73) 100 10/21/17 16:00 97.6 86 20 105/57 (73) 98 I/O 10/21/17 10/21/17 10/21/17 10/22/17 10/22/17 10/22/17 06:59 14:59 22:59 06:59 14:59 22:59 Intake Total 0 ml 0 ml Output Total 850 ml 400 ml 200 ml Balance -850 ml 0 ml -400 ml -200 ml Intake Oral 0 ml 0 ml Output Urine Total 850 ml 400 ml 200 ml # Bowel Movements 0 Laboratory Laboratory Tests Test 10/22/17 06:11 10/22/17 07:00 10/22/17 10:40 Blood Urea Nitrogen 11 Creatinine 0.42 Random Glucose 120 Total Protein 6.0 Albumin 2.3 Calcium Level 7.8 Magnesium Level 1.7 Alkaline Phosphatase 66 Aspartate Amino Transf (AST/SGOT) 29 Alanine Aminotransferase (ALT/SGPT) 61 Total Bilirubin 0.3 Direct Bilirubin 0.1 Sodium Level 139 Potassium Level 3.4 Chloride Level 105 Carbon Dioxide Level 25.2 Anion Gap 9 Estimat Glomerular Filtration Rate 161 Indirect Bilirubin 0.2 White Blood Count 7.4 Red Blood Count 3.57 Hemoglobin 9.3 Hematocrit 28.7 Mean Corpuscular Volume 80.4 Mean Corpuscular Hemoglobin 26.0 Mean Corpuscular Hemoglobin Concent 32.4 Red Cell Distribution Width 16.2 Platelet Count 333 Mean Platelet Volume 9.1 Urine Color YELLOW Urine Turbidity CLEAR Urine pH 5.5 Urine Specific Glen 1.020 Urine Protein TRACE Urine Glucose (UA) NEG Urine Ketones 10 Urine Occult Blood NEG Urine Nitrite NEG Urine Bilirubin NEG Urine Urobilinogen 2.0 Urine Leukocyte Esterase TRACE Urine RBC 4 Urine WBC 5 Urine Squamous Epithelial Cells 1 Urine Bacteria OCC Urine Mucus FEW Microscopic Urinalysis Comment CATH-CULTURE IND Date/Time Source Procedure Growth Status 10/01/17 17:49 Blood Peripheral Aerobic Blood Culture - Final NO GROWTH IN 5 DAYS Complete 10/01/17 17:49 Blood Peripheral Anaerobic Blood Culture - Final NO GROWTH IN 5 DAYS Complete 10/22/17 10:40 Urine Catheterized Urine Urine Culture Pending Received Imaging Last Impressions Abdomen X-Ray 10/22/17 0000 Signed Impressions: Service Date/Time: Sunday, October 22, 2017 14:38 - CONCLUSION: Negative. Vena cava filter good position. Vivek Guajardo MD FACR Chest X-Ray 10/16/17 0000 Signed Impressions: Service Date/Time: Monday, October 16, 2017 12:44 - CONCLUSION: Normal examination. Left subclavian Ftrzqm-r-Eraj catheter in good position Gagan Rose MD Abdomen CT 10/15/17 0000 Signed Impressions: Service Date/Time: Sunday, October 15, 2017 22:54 - CONCLUSION: Pigtail gastrostomy catheter replaced in the interim with a PEG tube which has its tip in the bypassed portion of the body of the stomach. There is mild perigastric edema but no organized or drainable fluid. August Luna MD ADDENDUM: The patient's new gastrostomy tube is in good position with entry site approximately 4 cm below the prior G-tube site. The new position is well below the costal margin. There is no evidence of disruption of the previous operative sites. There has been interval decrease in lung base fluid and atelectasis. August Darden MD Gastrostomy Tube Placement 10/14/17 0000 Signed Impressions: Service Date/Time: Saturday, October 14, 2017 09:07 - CONCLUSION: Uncomplicated gastrostomy tube placement as above. August Darden MD Physical Exam HEENT: PERRL normocephalic; atraumatic; no jaundice. CHEST: diminished CARDIAC: RRR ABDOMEN: Soft, mildly distended especially on the left mid and lower quadrant, tender; BS present, PEG tube EXTREMITIES: No clubbing, cyanosis, or edema. Morbidly obese, specialty bed SKIN: Normal; no rash; no jaundice. CUSTOMS AND IMMIGRATION OFFICER: No focal deficits; alert and oriented times three. (Yaritza Rashid) Assessment and Plan Plan ASSESSMENT - abd pain, distention, n/v - could be d/t constipation. no BM in nearly 3 weeks per pt, 10/02??? and BS active. now has G tube with tube feeds now. nausea/vomiting continues. diffuse pain and distention after TF started few days ago. enema yielded no stool. c/o n/v, continued bloating, denies flatus. KUB picture showed large full colon on Left mid to lower colon. Nausea and vomiting -dysphagia - MS, no PO intake in 1yr. G tube placed 10/14/17 by IR - MS, S/P sid en y 09/19/17 10/22/17- pt had BM today but still painful, with abd discomfort and nausea abd X-ray today negative PLAN - cont. Reglan - Can start TF - Miralax BId - Dulcolax daily - no EGD unless emergent - recommend f/u with [facility] after d/c - supportive care This pt seen by myself and Dr Parada and this note is written on his behalf (Yaritza Rashid) Physician Comments As above, she will need to follow up at [facility] after discharge . (Estrada Parada MD) Yaritza Rashid Oct 22, 2017 15:45 Estrada Parada MD Oct 22, 2017 18:49
[2017-10-22] MEDS: PANTOPRAZOLE SODIUM 40 MG VIAL IV PUSH SCH (18:15)
[2017-10-22] MEDS: KETOCONAZOLE 2% CREAM 15 GM TOPICAL SCH (21:18)
[2017-10-23] VITALS (7 sets, daily range): BP systolic 101–127; BP diastolic 52–68; PULSE 78–92; RESP 17–21; TEMP 96.4–99; O2SAT 95–98
[2017-10-23] MEDS: MORPHINE SULFATE 2 MG/ML INJ IV PUSH PRN ×5 (00:41→20:31)
[2017-10-23] MEDS: ONDANSETRON HCL 4 MG/2 ML VIAL IVP PRN ×3 (05:18→20:31)
[2017-10-23] MEDS: DOXYCYCLINE INJ 100 MG in SODIUM CHLORIDE 0.9% INJ 100 ML IV SCH ×2 (05:18→18:10)
[2017-10-23] MEDS: diphenhydrAMINE HCL 50 MG/ML VIAL IV PUSH PRN ×2 (05:19→15:39)
[2017-10-23] MEDS: ENOXAPARIN SODIUM 120 MG/0.8 ML SYRINGE SQ SCH ×2 (06:11→18:10)
[2017-10-23] MEDS: RESP: ALBUTEROL 2.5 MG/IPRATROPIUM 0.5 MG NEB (SCH) NEB ×3 (07:49→19:17)
[2017-10-23] MEDS: KETOCONAZOLE 2% CREAM 15 GM TOPICAL SCH ×2 (09:00→22:58)
[2017-10-23] MEDS: SODIUM CHLORIDE 0.9% FLUSH 10 ML FLUSH IV FLUSH SCH ×2 (09:00→21:00)
[2017-10-23] MEDS: NYSTATIN 100,000 U/GM PWD 15 GM BTL TOPICAL SCH ×2 (09:00→22:58)
[2017-10-23] MEDS: BISACODYL EC 5 MG TABEC PO SCH (09:00)
[2017-10-23] MEDS: POLYETHYLENE GLYCOL 17 GM PKG PO SCH ×2 (09:00→20:35)
[2017-10-23] MEDS: DEXT 5%-NACL 0.9% 1000 ML INJ 1,000 ML IV SCH ×2 (12:28→23:00)
--- NOTE | 2017-10-23 13:06 | MB ---
cc: PATY MARTINEZ MD DATE OF CONSULTATION: 10/23/2017. REASON FOR CONSULTATION: "Initially seen at [facility], please continue following for lower extremity paralysis". HISTORY OF PRESENT ILLNESS: Ms. Marquez is a 47-year-old female who was initially seen by Dr. Jacobo at the [facility]. The patient has an extensive past medical history of multiple sclerosis diagnosed 25 years ago, and she states that she was for a while on Betaseron; however, on another medication recently and she does not recall where the lesions of the multiple sclerosis were; however, she was diagnosed with neurogenic bladder and weakness of her lower extremities but has recovered and she recalls an episode of multiple sclerosis flare-up where she received plasma exchange a few years ago and then she had good recovery at that time. She also has a history of stroke with no residual deficit, recurrent DVTs, PE for which IVC filter placement was done rather than catheter. She also has history of chronic pain, atrial fibrillation, congestive heart failure, obstructive sleep apnea, Nunez's esophagus, gastroesophageal reflux disease ( GERD), COPD and morbid obesity. The patient did a gastric bypass surgery at [facility] with G-tube placement on 09/21/2017. Postoperatively the patient complained of bilateral lower extremity paralysis and numbness. MRI of the lumbar spine was done that revealed stable bulging discs at L4-5 and L5-S1 without foraminal narrowing. The patient was admitted to [facility] on 09/27/2017. While at [place], the PEG-tube became clogged and she needed another procedure. The patient states that after the operation at [facility], she felt weak on both lower extremities and her upper extremities were affected but she regained movement in her upper extremities. She states that she cannot feel anything below her breasts down to her toes. She also states that her stroke was in 1995 and that possibly was due to control pills and she had another stroke in 1997 and a TIA in 2009. The patient was told after her surgery by the GI team at [place] that she cannot receive steroids. MRI brain and spinal axis was ordered by Dr. Jacobo, the primary neurologist who saw her. The patient declined doing a lumbar puncture during this admission. Dr. Jacobo also recommended doing EMG and nerve conduction studies. REVIEW OF SYSTEMS: A twelve-point review of systems was negative except as stated in the history of present illness. PAST MEDICAL HISTORY: 1. Stroke in 1995 due to possibly due to control pills. 2. A second stroke in 1997 with no residual deficit. 3. A TIA 2009. 4. Multiple DVTs 2007, 2011 and 2013. 5. Multiple PEs in 2008. 6. History of multiple sclerosis that was treated with Betaseron, currently on no treatment. 7. History of neurogenic bladder with self-catheterization. 8. Chronic neck and back pain. 9. 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 10. History of atrial fibrillation in 2008. 11. Hypertension. 12. Diabetes. 13. Hyperlipidemia. 14. Sleep apnea. 15. Nunez's esophagus. 16. Asthma. PAST SURGICAL HISTORY: 1. Hiatal hernia repair. 2. Gastric bypass. 3. G-tube placement with surgery. 4. Excision of lipoma. 5. Parotidectomy. 6. Tonsillectomy. 7. section. 8. Port placement. MEDICATIONS: 1. Lovenox. 2. Lidocaine. 3. Acyclovir. 4. Lisinopril. 6. Valium. 7. Benadryl. 8. Oxycodone. 9. Promethazine. 10. Simethicone. ALLERGIES: 1. IODINE CONTRAST. 2. ADHESIVES. 3. ASPIRIN. 4. AZITHROMYCIN. 5. DERMABOND. 6. FLUTICASONE. 7. HYDROCORTISONE. 8. LEVOFLOXACIN. 9. METOPROLOL. 10. NALBUPHINE. 11. NSAIDS. 12. SYMMETREL. 13. SILVER. FAMILY HISTORY: Family history significant for diabetes, hypertension, stroke and cancer. SOCIAL HISTORY: . Lives with her . Lives in [place]. Works as a nurse. Denies smoking cigarettes, drinking alcohol or using illicit drugs. PHYSICAL EXAMINATION: GENERAL: The patient is overweight, pleasant, good historian. HEAD, EYES, EARS, NOSE, THROAT: Normocephalic and atraumatic. Intact vision. NECK: The neck is supple. No carotid bruits. No signs of meningeal irritation. CARDIOVASCULAR: Regular rate and rhythm. RESPIRATORY: Clear to auscultation. No wheezes. GASTROINTESTINAL: The abdomen is soft, nontender, G-tube in place. NEUROLOGIC EXAMINATION: Awake, alert and oriented to time, person and place. No dysarthria. No dysphasia. Cranial nerves are grossly intact. No facial asymmetry. Intact facial sensation. Normal jaw jerk. Intact external ocular motility. Motor system - upper extremities 5/5, no abnormal movement, normal tone. Lower extremities - 0/5. Reflexes - upper extremities are 1 to 2+. Lower extremities - 2 to 3+. No clonus. Positive crossed adductor reflex. Plantars are mute. Sensation to light touch, temperature is diminished. Finger-nose is normal. Cannot perform heel-fernandes test. Gait cannot be assessed because of the lower extremity weakness. PSYCHOLOGICAL: Cooperative. Normal mood and behavior. DIAGNOSTIC IMAGING: - Brain MRI on 09/28/2017 without contrast was reported as negative. - MRI cervical spine without contrast was reported with degenerative disc disease, basically isolated C5-6 with small broad-based disk bulge; however, the spinal canal and neural foramina are adequate throughout without cord or nerve root compromise. - Thoracic spine MRI without contrast revealed a spinal canal that appears to be widely patent throughout. DIAGNOSTIC IMPRESSION: 1. Paraplegia. 2. Neurogenic bladder. 3. History of multiple sclerosis currently on no treatment. 4. History of stroke with no residual deficit. 5. History of multiple DVTs. ASSESSMENT AND PLAN: - I reviewed the medical records and discussed with the patient about the complexity of her neurologic symptoms. The patient declined doing lumbar puncture. Review of the MRI of the brain lumbar, cervical and thoracic spine were unremarkable; however, these tests were done without contrast at that time which makes it a low yield to find any demyelinating enhancing lesions. She was seen by Dr. Jacobo, the neurologist, who recommended EMG and nerve conduction study. - The patient states that she has had a plasma exchange treatment that helped her with a similar condition however, and this time there is no evidence of any MS exacerbation clinically and the review of medical records with her allergies to IV contrast limits the utilization of MRI with contrast studies. - May consider a work up for a possible vascular etiology of the myelopathy, given the h/o A fib. - Follow up with Dr. Jacobo, her primary neurologist, for further neurologic recommendation. - Continue physical therapy and occupational therapy. - DVT prophylaxis. Thank you for the opportunity to participate in the care of your patient. MD MATHEUS Cook/JCC /9:18 AM /12:23 PM [email or web address]
--- NOTE | 2017-10-23 14:42 | HHI.PR ---
Subjective Remarks The patient wanted to know why she couldn't have IVIG. She was concerned about resuming her tube feeds. She wanted a wound care nurse to help with her G- tube. Discussed with nursing. Objective Vitals Vital Signs Date Time Temp Pulse Resp B/P (MAP) Pulse Ox O2 Delivery O2 Flow Rate FiO2 10/23/17 12:00 98.3 92 19 109/61 (77) 96 10/23/17 08:00 96.4 78 21 101/53 (69) 95 10/23/17 07:50 98 Nasal Cannula 3.00 10/23/17 05:27 20 10/23/17 00:00 97.6 90 17 127/68 (87) 98 10/22/17 20:35 99 Nasal Cannula 3.00 10/22/17 20:00 99.4 94 17 127/58 (81) 100 10/22/17 19:45 Room Air 10/22/17 16:00 98.1 80 16 106/58 (74) 95 I/O 10/22/17 10/22/17 10/22/17 10/23/17 10/23/17 10/23/17 06:59 14:59 22:59 06:59 14:59 22:59 Intake Total 100 ml Output Total 200 ml 375 ml 300 ml Balance -200 ml -275 ml -300 ml Intake Oral 0 ml IV Total 100 ml Output Urine Total 200 ml 375 ml 300 ml # Bowel Movements 1 Result Diagram: 10/22/17 0700 10/22/17 0611 Imaging Last Impressions Abdomen X-Ray 10/22/17 0000 Signed Impressions: Service Date/Time: Sunday, October 22, 2017 14:38 - CONCLUSION: Negative. Vena cava filter good position. Vivek Guajardo MD FACR Chest X-Ray 10/16/17 0000 Signed Impressions: Service Date/Time: Monday, October 16, 2017 12:44 - CONCLUSION: Normal examination. Left subclavian Kjuyeh-c-Qcuh catheter in good position Gagan Rose MD Abdomen CT 10/15/17 0000 Signed Impressions: Service Date/Time: Sunday, October 15, 2017 22:54 - CONCLUSION: Pigtail gastrostomy catheter replaced in the interim with a PEG tube which has its tip in the bypassed portion of the body of the stomach. There is mild perigastric edema but no organized or drainable fluid. August Luna MD ADDENDUM: The patient's new gastrostomy tube is in good position with entry site approximately 4 cm below the prior G-tube site. The new position is well below the costal margin. There is no evidence of disruption of the previous operative sites. There has been interval decrease in lung base fluid and atelectasis. August Darden MD Gastrostomy Tube Placement 10/14/17 0000 Signed Impressions: Service Date/Time: Saturday, October 14, 2017 09:07 - CONCLUSION: Uncomplicated gastrostomy tube placement as above. August Darden MD Objective Remarks GENERAL: NAD SKIN: Warm and dry. HEAD: Normocephalic. EYES: No scleral icterus. No injection or drainage. NECK: Supple, trachea midline. No JVD or lymphadenopathy. CARDIOVASCULAR: Regular rate and rhythm without murmurs, gallops, or rubs. RESPIRATORY: Breath sounds equal bilaterally. No accessory muscle use. GASTROINTESTINAL: Abdomen soft, general tenderness to palpation, distended. G tube in place. Hyperactive bowel sounds. : Reeves in place. MUSCULOSKELETAL: No cyanosis, or edema. BACK: Nontender without obvious deformity. No CVA tenderness. NEURO: Unable to move lower extremities. She has no sensation in the lower extremities. PSYCH: Slightly flattened affect. Medications and IVs Current Medications Medications (Trade) Dose Ordered Sig/Ricco Route Start Time Stop Time Status Last Admin (NS Flush) 2 ml UNSCH PRN IV FLUSH 09/30/17 17:45 10/18/17 18:36 (NS Flush) 2 ml BID IV FLUSH 09/30/17 21:00 10/20/17 08:45 (Zofran Inj) 4 mg Q6H PRN IVP 09/30/17 17:45 10/23/17 11:33 (Narcan Inj) 0.4 mg UNSCH PRN IV PUSH 09/30/17 17:45 (Lovenox Inj) 120 mg Q12H SQ 09/30/17 18:00 Future hold 10/23/17 06:11 (Duoneb Neb) 1 ampule Q4HR NEB PRN NEB 09/30/17 17:45 10/17/17 10:16 (Vasotec Inj) 2.5 mg Q6H PRN IV PUSH 09/30/17 17:45 (Protonix Inj) 40 mg Q24H IV PUSH 09/30/17 19:00 10/22/17 18:15 Acetaminophen 50 ml @ 400 mls/hr Q6H PRN IV 10/02/17 16:45 10/20/17 17:48 (D50w (Vial) Inj) 50 ml UNSCH PRN IV PUSH 10/02/17 21:00 (Glucagon Inj) 1 mg UNSCH PRN OTHER 10/02/17 21:00 Fat Emulsion Intravenous 250 ml @ 31.25 mls/ hr Q24H IV-CENTRAL 10/03/17 20:00 Future Hold 10/15/17 20:38 (Reglan Inj) 10 mg Q8H PRN IV PUSH 10/05/17 04:15 10/22/17 14:10 (Benadryl Inj) 25 mg Q8H PRN IV PUSH 10/11/17 10:30 10/23/17 05:19 Multivitamins 5 ml/Folic Acid 0.5 mg/Amino Acids/ Electrolytes/ Dextrose 1,005.1 ml @ 83 mls/hr Q12H7M IV 10/11/17 20:00 Future Hold 10/16/17 09:03 (Tylenol) 650 mg Q4H PRN PO 10/13/17 05:45 (Benadryl) 25 mg Q4H PRN PO 10/13/17 05:45 (Heparin Central Flush) 500 units UNSCH IV FLUSH 10/13/17 06:30 (NS Flush) 5 ml UNSCH PRN IVF 10/13/17 06:30 (Heparin Central Flush) 250 units UNSCH PRN IV FLUSH 10/13/17 06:30 Doxycycline Hyclate 100 mg/ Sodium Chloride 100 ml @ 100 mls/hr Q12H IV 10/20/17 17:00 10/23/17 05:18 (Duoneb Neb) 1 ampule Q6HR WHILE AWAKE NEB NEB 10/21/17 14:00 10/23/17 13:06 Dextrose/Sodium Chloride 1,000 ml @ 100 mls/hr Q10H IV 10/21/17 11:00 10/23/17 12:28 (Morphine Inj) 4 mg Q4H PRN IV PUSH 10/21/17 12:30 10/23/17 11:34 (Pyridium) 100 mg Q8H PRN PO 10/22/17 10:30 10/22/17 14:03 (Mycostatin Powder) 1 applic Q12HR TOPICAL 10/22/17 10:30 10/22/17 19:59 (Miralax) 17 gm BID PO 10/22/17 21:00 10/22/17 19:59 (Dulcolax Ec) 10 mg DAILY PO 10/23/17 09:00 (Nizoral 2% Cream) 1 applic BID TOPICAL 10/22/17 21:00 10/23/17 09:00 A/P Problem List: (1) PEG tube malfunction ICD Code: K94.23 - Gastrostomy malfunction (2) History of recurrent deep vein thrombosis (DVT) ICD Code: Z86.718 - Personal history of other venous thrombosis and embolism Status: Chronic (3) Impaired mobility and activities of daily living ICD Code: Z74.09 - Other reduced mobility Status: Acute (4) History of CVA (cerebrovascular accident) ICD Code: Z86.73 - Personal history of transient ischemic attack (TIA), and cerebral infarction without residual deficits Status: Chronic (5) History of pulmonary embolism ICD Code: Z86.711 - Personal history of pulmonary embolism Status: Chronic (6) Postoperative anemia due to acute blood loss ICD Code: D62 - Acute posthemorrhagic anemia Status: Acute (7) Diastolic heart failure ICD Code: I50.30 - Unspecified diastolic (congestive) heart failure Status: Chronic (8) MANI (obstructive sleep apnea) ICD Code: G47.33 - Obstructive sleep apnea (adult) (pediatric) Status: Chronic (9) S/P gastric bypass ICD Code: Z98.84 - Bariatric surgery status Status: Acute Assessment and Plan Status post gastric bypass/G-tube placement/ G- tube malfunction/ Abdominal pain / Constipation - Appreciate input from general surgery for further evaluation and recommendation. - Pain management with IV morphine. Zofran - IV fluids for hydration. Monitor for fluid overload. - s/p Ancef. - s/p G exchange 10/14/17 - continue tube feeds. - surgery signed off. Reconsult as needed. - GI consult noted, appreciate recommendations. - repeat KUB normal 10/22. - the pt had a small bowel movement 10/22. Anemia H/H stable - follow CBC and transfuse as needed. COPD, chronic MANI - Continue duo nebs continue incentive spirometer use. - DuoNeb's scheduled every 4 hours, and when necessary Febrile episode/ hypotension/ UTI CXR unremarkable. UA indicative of infection. - ceftriaxone IV started. Follow urine culture. Growing Enterobacter cloacae. Change antibiotics to doxycycline per sensitivities. Anticipate d/c . - IVFs. Generalized weakness ?Paralysis of lower extremities Hx MS not on any medications - MRI spine showed bulging disc at L4-L5 and L5-S1 without explanation of symptoms - Neurology was consulted while the patient was in rehabilitation, recommend EMG. - Physical therapy eval and treat. Add OT. - rehab medicine consult. - EMG ordered. Follow up with neurology. History of PE/DVT - Continue therapeutic Lovenox - Status post IVC filter placement GERD/Nunez's esophagus - IV Protonix Neurogenic bladder - Continue Reeves MS/history of CVA - Patient has been evaluated by neurology - Neurology has signed off - Anticoagulation as above Diastolic heart failure - Vasotec until patient can resume home medications - Monitor for fluid overload DVT prop Lovenox GI prop pantoprazole IV Discharge Planning The pt will need to tolerate tube feeds prior to discharge. Being evaluated by Loi Powers DO Oct 23, 2017 14:42
[2017-10-23] MEDS: METOCLOPRAMIDE HCL 10 MG/2 ML VIAL IV PUSH PRN (15:39)
[2017-10-23] MEDS: PANTOPRAZOLE SODIUM 40 MG VIAL IV PUSH SCH (18:10)
[2017-10-24] VITALS (7 sets, daily range): BP systolic 96–116; BP diastolic 50–64; PULSE 80–88; RESP 17–20; TEMP 97.1–98.1; O2SAT 97–100
[2017-10-24] MEDS: diphenhydrAMINE HCL 50 MG/ML VIAL IV PUSH PRN ×3 (00:33→17:41)
[2017-10-24] MEDS: METOCLOPRAMIDE HCL 10 MG/2 ML VIAL IV PUSH PRN ×3 (00:33→17:41)
[2017-10-24] MEDS: MORPHINE SULFATE 2 MG/ML INJ IV PUSH PRN ×6 (00:33→23:00)
[2017-10-24] MEDS: DEXT 5%-NACL 0.9% 1000 ML INJ 1,000 ML IV SCH ×2 (04:26→18:51)
[2017-10-24] MEDS: ENOXAPARIN SODIUM 120 MG/0.8 ML SYRINGE SQ SCH ×2 (06:14→17:32)
[2017-10-24] MEDS: DOXYCYCLINE INJ 100 MG in SODIUM CHLORIDE 0.9% INJ 100 ML IV SCH ×2 (06:14→17:32)
[2017-10-24] MEDS: ONDANSETRON HCL 4 MG/2 ML VIAL IVP PRN ×3 (06:16→21:16)
[2017-10-24 07:04] LABS: ALBUMIN 2.1 GM/DL (3.4-5.0); AST (GOT) 41 U/L (15-37); BICARBONATE 26.2 MEQ/L (21.0-32.0); BLOOD UREA NITROGEN 7 MG/DL (7-18); CALCIUM 7.7 MG/DL (8.5-10.1); CHLORIDE 108 MEQ/L (98-107); CREATININE 0.43 MG/DL (0.50-1.00); GLOMERULAR FILTRATION RATE 157 ML/MIN (>89); GLUCOSE,RANDOM 118 MG/DL (74-106); SODIUM (NA) 141 MEQ/L (136-145)
[2017-10-24 07:09] LABS: ALKALINE PHOSPHATASE 60 U/L (45-117); ALT (GPT) 97 U/L (10-53); TOTAL BILIRUBIN ADULT 0.2 MG/DL (0.2-1.0); TOTAL PROTEIN 5.6 GM/DL (6.4-8.2)
[2017-10-24] MEDS: RESP: ALBUTEROL 2.5 MG/IPRATROPIUM 0.5 MG NEB (SCH) NEB ×3 (08:19→20:25)
[2017-10-24] MEDS: BISACODYL EC 5 MG TABEC PO SCH (09:00)
[2017-10-24] MEDS: POLYETHYLENE GLYCOL 17 GM PKG PO SCH ×2 (09:00→21:16)
[2017-10-24] MEDS: SODIUM CHLORIDE 0.9% FLUSH 10 ML FLUSH IV FLUSH SCH ×2 (09:21→21:17)
[2017-10-24] MEDS: KETOCONAZOLE 2% CREAM 15 GM TOPICAL SCH ×2 (09:21→21:00)
[2017-10-24] MEDS: NYSTATIN 100,000 U/GM PWD 15 GM BTL TOPICAL SCH ×2 (09:21→21:00)
[2017-10-24] MEDS ORDERED: CALCIUM CARBONATE 1.25 GM (CA 500 MG) TAB PEG SCH (12:45)
--- NOTE | 2017-10-24 12:50 | HHI.PR ---
Subjective Remarks Patient seen in follow-up for abdominal pain. Tolerating tube feeds at 25 mL an hour Case discussed with nursing team Objective Vitals Vital Signs Date Time Temp Pulse Resp B/P (MAP) Pulse Ox O2 Delivery O2 Flow Rate FiO2 10/24/17 12:00 97.9 80 19 116/62 (80) 100 10/24/17 08:45 Nasal Cannula 2.00 10/24/17 08:20 99 Nasal Cannula 3.00 10/24/17 08:00 97.1 82 20 99/50 (66) 97 10/24/17 00:00 97.4 88 17 104/64 (77) 98 10/23/17 21:55 98 Nasal Cannula 2.00 Humidified 10/23/17 20:00 99.0 89 18 105/56 (72) 98 10/23/17 19:19 97 Nasal Cannula 3.00 10/23/17 16:00 98.6 87 21 112/52 (72) 96 I/O 10/23/17 10/23/17 10/23/17 10/24/17 10/24/17 10/24/17 07:00 15:00 23:00 07:00 15:00 23:00 Intake Total 1393 ml 883 ml Output Total 300 ml 450 ml 450 ml Balance -300 ml 943 ml 433 ml Intake Oral 0 ml IV Total 1000 ml 626 ml Tube Feeding 143 ml 257 ml Other 250 ml Output Urine Total 300 ml 450 ml 450 ml # Bowel Movements 0 Result Diagram: 10/22/17 0700 10/24/17 0615 Objective Remarks GENERAL: This is a well-nourished, obese, poorly motivated well-developed patient, in no apparent distress. CARDIOVASCULAR: Regular rate and rhythm without murmurs, gallops, or rubs. RESPIRATORY: Clear to auscultation. Breath sounds equal bilaterally. No wheezes , rales, or rhonchi. GASTROINTESTINAL: Abdomen soft, non-tender, nondistended. Normal active bowel sounds MUSCULOSKELETAL: Extremities without clubbing, cyanosis, or edema. NEURO: Alert & Oriented x4 to person, place, time, situation. A/P Assessment and Plan 1. Abdominal pain, Status post gastric bypass/G-tube placement/ G- tube malfunction/ Abdominal pain/ Constipation, Feeding tube replaced (10/14/17), currently tolerating 25 ml/hr feeding, continue antiemetics, positive bowel movements 2. Anemia, currently stable 3. COPD, chronic and stable. Duo nebs as needed, incentive spirometry, encourage movement 4. UTI positive Enterobacter cloaca, continue doxycycline through tomorrow, fevers resolved 5. Generalized weakness, neurology consult appreciated. Patient was diagnosed with MS but not on treatment and refused evaluation at this time. Will need follow-up as an outpatient with Dr. Jacobo Continue plans for OT/PT at [facility] 6. History of venous sample embolic event, continue therapeutic Lovenox with IVC filter 7. Neurogenic bladder, continue Reeves placed 8. History of a stroke without any residual defect, continue with Lovenox for now 9. Electrolyte imbalance: Replace potassium and calcium Discharge Planning Likely discharge to [facility] in Lupe Nascimento MD Oct 24, 2017 12:49
[2017-10-24] MEDS: POTASSIUM CHLORIDE 20 MEQ PWD PACKET PEG SCH ×2 (13:35→21:16)
[2017-10-24] MEDS ORDERED: CALCIUM GLUCONATE 500 MG TAB PEG SCH (13:45)
[2017-10-24] MEDS ORDERED: CALCIUM CARBONATE 500 MG CHEWABLE TAB PEG ONE (15:00)
[2017-10-24] MEDS: PANTOPRAZOLE SODIUM 40 MG VIAL IV PUSH SCH (17:32)
[2017-10-25] VITALS (7 sets, daily range): BP systolic 112–124; BP diastolic 52–75; PULSE 80–101; RESP 18–20; TEMP 97.5–98.6; O2SAT 96–99
[2017-10-25] MEDS: DEXT 5%-NACL 0.9% 1000 ML INJ 1,000 ML IV SCH (02:26)
[2017-10-25] MEDS: METOCLOPRAMIDE HCL 10 MG/2 ML VIAL IV PUSH PRN (02:27)
[2017-10-25] MEDS: diphenhydrAMINE HCL 50 MG/ML VIAL IV PUSH PRN ×2 (02:28→10:22)
[2017-10-25] MEDS: ONDANSETRON HCL 4 MG/2 ML VIAL IVP PRN ×4 (03:32→23:54)
[2017-10-25] MEDS: MORPHINE SULFATE 2 MG/ML INJ IV PUSH PRN ×5 (03:33→21:31)
[2017-10-25] MEDS: DOXYCYCLINE INJ 100 MG in SODIUM CHLORIDE 0.9% INJ 100 ML IV SCH (03:33)
[2017-10-25] MEDS: ENOXAPARIN SODIUM 120 MG/0.8 ML SYRINGE SQ SCH ×2 (06:20→17:23)
[2017-10-25] MEDS: RESP: ALBUTEROL 2.5 MG/IPRATROPIUM 0.5 MG NEB (SCH) NEB ×2 (07:33→13:36)
[2017-10-25] MEDS: SODIUM CHLORIDE 0.9% FLUSH 10 ML FLUSH IV FLUSH SCH ×2 (08:52→21:32)
[2017-10-25] MEDS: BISACODYL EC 5 MG TABEC PO SCH (09:00)
[2017-10-25] MEDS: POTASSIUM CHLORIDE 20 MEQ PWD PACKET PEG SCH ×2 (09:00→21:33)
[2017-10-25] MEDS: CALCIUM CARBONATE 500 MG CHEWABLE TAB PEG SCH (10:21)
[2017-10-25] MEDS: POLYETHYLENE GLYCOL 17 GM PKG PO SCH ×2 (10:21→21:00)
[2017-10-25] MEDS: NYSTATIN 100,000 U/GM PWD 15 GM BTL TOPICAL SCH ×2 (10:22→21:00)
[2017-10-25] MEDS: KETOCONAZOLE 2% CREAM 15 GM TOPICAL SCH ×2 (10:22→21:00)
[2017-10-25] MEDS ORDERED: oxyCODONE HCL ORAL CONC 5 MG/0.25 ML SYRINGE PO PRN (12:00)
[2017-10-25] MEDS ORDERED: SOD PHOSPHATE/SOD BIPHOSPHATE (ADULT) ENEMA 133ML RECTAL ONE (12:00)
[2017-10-25] MEDS: LACTULOSE SYRUP 20 GM/30 ML CUP PO SCH (12:00)
--- NOTE | 2017-10-25 12:05 | HHI.PR ---
Subjective Remarks Patient seen in follow-up for abdominal pain. Patient refuses speech therapy for swallowing assessments (preferring only to use feeding tube) and has been discharged from their service She complains of constipation but refuses to take laxatives. She also refuses decrease her narcotics. She requests a neurological reassessment for her previous diagnosis of MS. She has refused workup per neurology Objective Vitals Vital Signs Date Time Temp Pulse Resp B/P (MAP) Pulse Ox O2 Delivery O2 Flow Rate FiO2 10/25/17 11:39 98.1 93 18 124/75 (91) 97 10/25/17 07:35 99 Nasal Cannula 3.00 10/25/17 07:24 98.6 85 18 112/52 (72) 96 10/25/17 00:00 97.5 80 20 124/57 (79) 96 10/24/17 21:15 Nasal Cannula 2.00 10/24/17 20:27 99 Nasal Cannula 3.00 10/24/17 20:00 98.1 81 20 113/61 (78) 100 10/24/17 16:00 97.9 82 17 96/52 (67) 97 10/24/17 12:00 97.9 80 19 116/62 (80) 100 I/O 10/24/17 10/24/17 10/24/17 10/25/17 10/25/17 10/25/17 07:00 15:00 23:00 07:00 15:00 23:00 Intake Total 883 ml 1086 ml 1000 ml 548 ml Output Total 450 ml 950 ml 450 ml Balance 433 ml 136 ml 550 ml 548 ml Intake Oral 0 ml 0 ml IV Total 626 ml 763 ml 1000 ml Tube Feeding 257 ml 323 ml 398 ml Other 150 ml Output Urine Total 450 ml 950 ml 450 ml # Bowel Movements 0 Result Diagram: 10/22/17 0700 10/24/17 0615 Objective Remarks GENERAL: This is a well-nourished, obese, poorly motivated well-developed patient, in no apparent distress. CARDIOVASCULAR: Regular rate and rhythm without murmurs, gallops, or rubs. RESPIRATORY: Clear to auscultation. Breath sounds equal bilaterally. No wheezes , rales, or rhonchi. GASTROINTESTINAL: Abdomen soft, non-tender, nondistended. Normal active bowel sounds MUSCULOSKELETAL: Extremities without clubbing, cyanosis, or edema. NEURO: Alert & Oriented x4 to person, place, time, situation. A/P Assessment and Plan 1. Abdominal pain, Status post gastric bypass/G-tube placement/ G- tube malfunction/ Abdominal pain/ Constipation, Feeding tube replaced (10/14/17), currently tolerating 25 ml/hr feeding, continue antiemetics, patient planning constipation, bowel movements documented Will add bowel regimen, increase tube feeds at 35 mL an hour, continue using feeding tube (patient has refused any oral initiation of medications) 2. Anemia, currently stable 3. COPD, chronic and stable. Duo nebs as needed, incentive spirometry, encourage movement 4. UTI positive Enterobacter cloaca, completed doxy, fevers resolved 5. Generalized weakness, neurology consult appreciated. Patient was diagnosed with MS but not on treatment(? patient rosa was on treatment prior to her surgery in August) but refused evaluation at this time. Will need follow-up as patient requests Reeval by dr smith Continue plans for OT/PT at [facility] 6. History of venous thrombotic event, continue therapeutic Lovenox with IVC filter 7. Neurogenic bladder, continue Reeves 8. History of a stroke without any residual defect, continue with Lovenox for now 9. Electrolyte imbalance: Replace potassium and calcium Discharge Planning Likely discharge to [facility] when stable Lupe Mclain MD Oct 25, 2017 12:05
[2017-10-25] MEDS ORDERED: MORPHINE SULFATE 2 MG/ML INJ IV PUSH PRN (12:30)
--- NOTE | 2017-10-25 13:05 | HHI.GIFU ---
Subjective Remarks Pt resting in bed, in no apparent distress. Complaining of irritation around G- tube site. Dressing is dry and intact, per RN she is tolerating TF with no excess residuals. Pt reports still no BM, however, she is refusing laxatives. She states this is because she does not want to irritate her bowel. (Lizbeth Dent) Objective Vitals I&O Vital Signs Date Time Temp Pulse Resp B/P (MAP) Pulse Ox O2 Delivery O2 Flow Rate FiO2 10/25/17 11:39 98.1 93 18 124/75 (91) 97 10/25/17 07:35 99 Nasal Cannula 3.00 10/25/17 07:24 98.6 85 18 112/52 (72) 96 10/25/17 00:00 97.5 80 20 124/57 (79) 96 10/24/17 21:15 Nasal Cannula 2.00 10/24/17 20:27 99 Nasal Cannula 3.00 10/24/17 20:00 98.1 81 20 113/61 (78) 100 10/24/17 16:00 97.9 82 17 96/52 (67) 97 I/O 10/24/17 10/24/17 10/24/17 10/25/17 10/25/17 10/25/17 07:00 15:00 23:00 07:00 15:00 23:00 Intake Total 883 ml 1086 ml 1000 ml 548 ml Output Total 450 ml 950 ml 450 ml Balance 433 ml 136 ml 550 ml 548 ml Intake Oral 0 ml 0 ml IV Total 626 ml 763 ml 1000 ml Tube Feeding 257 ml 323 ml 398 ml Other 150 ml Output Urine Total 450 ml 950 ml 450 ml # Bowel Movements 0 Laboratory Date/Time Source Procedure Growth Status 10/01/17 17:49 Blood Peripheral Aerobic Blood Culture - Final NO GROWTH IN 5 DAYS Complete 10/01/17 17:49 Blood Peripheral Anaerobic Blood Culture - Final NO GROWTH IN 5 DAYS Complete 10/22/17 10:40 Urine Catheterized Urine Urine Culture - Final NO GROWTH IN 48 HOURS. Complete Imaging Last Impressions Abdomen X-Ray 10/22/17 0000 Signed Impressions: Service Date/Time: Sunday, October 22, 2017 14:38 - CONCLUSION: Negative. Vena cava filter good position. Vivek Guajardo MD FACR Chest X-Ray 10/16/17 0000 Signed Impressions: Service Date/Time: Monday, October 16, 2017 12:44 - CONCLUSION: Normal examination. Left subclavian Tnmnir-v-Ygfx catheter in good position Gagan Rose MD Abdomen CT 10/15/17 0000 Signed Impressions: Service Date/Time: Sunday, October 15, 2017 22:54 - CONCLUSION: Pigtail gastrostomy catheter replaced in the interim with a PEG tube which has its tip in the bypassed portion of the body of the stomach. There is mild perigastric edema but no organized or drainable fluid. August Luna MD ADDENDUM: The patient's new gastrostomy tube is in good position with entry site approximately 4 cm below the prior G-tube site. The new position is well below the costal margin. There is no evidence of disruption of the previous operative sites. There has been interval decrease in lung base fluid and atelectasis. August Darden MD Gastrostomy Tube Placement 10/14/17 0000 Signed Impressions: Service Date/Time: Saturday, October 14, 2017 09:07 - CONCLUSION: Uncomplicated gastrostomy tube placement as above. August Darden MD Physical Exam HEENT:Normocephalic; atraumatic CHEST: Even/unlabored CARDIAC: RRR ABDOMEN: Soft, morbidly obese, TTP, G-tube with dressing dry and intact TF running. SKIN: Normal; no rash; no jaundice. CLOTH NEUTRALIZER: No focal deficits; alert and oriented times three. (Lizbeth Dent) Assessment and Plan Plan ASSESSMENT - Abdominal pain/N/V/constipation- Reports of no BM in weeks. Bowel sounds remain active. Pt has refused multiple laxatives stating she does not want to irritate her bowel. KUB (10/22) --> Negative. Vena cava filter in good position. Of note, she is on narcotic pain medication. She is agreeable to try Relistor. Repeat KUB in AM. - Dysphagia- only uses G-tube. TF Vital 1.5 at 35 mL's an hour. Refused speech therapy evaluation. PLAN - Continue TF (Vital 1.5 at 35 mL/hr) - Relistor today, once - MiraLAX - Repeat KUB in AM - No EGD unless emergent - Recommend f/u with [facility] after d/c - Supportive care This patient has been seen and examined by myself and Dr. Parada and this note is written on his behalf (Lizbeth Dent) Physician Comments Agree with above assessment and plan. Nothing to add at this point, refusing speech eval and different regimens for constipation. Will sign off please notify us if needed. (Estrada Parada MD) Lizbeth Dent Oct 25, 2017 13:05 Estrada Parada MD Oct 25, 2017 14:46
[2017-10-25] MEDS ORDERED: METHYLNALTREXONE BROMIDE 12 MG/0.6 ML VIAL SQ ONE (14:00)
[2017-10-25] MEDS ORDERED: ALTEPLASE RECOMBINANT 2 MG VIAL IV ONE (17:45)
[2017-10-25] MEDS: RESP: ALBUTEROL 2.5 MG/IPRATROPIUM 0.5 MG NEB (PRN) NEB (19:39)
[2017-10-25] MEDS: diphenhydrAMINE HCL 25 MG CAP PO PRN (21:38)
[2017-10-25 22:11] LABS: BICARBONATE 27.3 MEQ/L (21.0-32.0); CREATININE 0.49 MG/DL (0.50-1.00)
[2017-10-26] VITALS (8 sets, daily range): BP systolic 112–140; BP diastolic 55–90; PULSE 78–93; RESP 16–20; TEMP 97.1–98.5; O2SAT 95–100
[2017-10-26] MEDS: MORPHINE SULFATE 2 MG/ML INJ IV PUSH PRN ×5 (01:36→21:28)
[2017-10-26] MEDS: diphenhydrAMINE HCL 25 MG CAP PO PRN (06:01)
[2017-10-26] MEDS: ENOXAPARIN SODIUM 120 MG/0.8 ML SYRINGE SQ SCH ×2 (06:01→16:54)
[2017-10-26] MEDS: ONDANSETRON HCL 4 MG/2 ML VIAL IVP PRN ×3 (06:01→18:42)
[2017-10-26 06:24] LABS: HEMATOCRIT 27.1 % (35.0-46.0); HEMOGLOBIN 8.6 GM/DL (11.6-15.3); MEAN CELL VOLUME 80.2 FL (80.0-100.0); MEAN CORPUSCULAR HEMOGLOBIN 25.4 PG (27.0-34.0); MEAN CORPUSCULAR HGB CONC 31.7 % (32.0-36.0); MEAN PLATELET VOLUME 8.1 FL (7.0-11.0); PLATELET COUNT 288 TH/MM3 (150-450); RED BLOOD COUNT 3.38 MIL/MM3 (4.00-5.30); RED CELL DISTRIBUTION WIDTH 16.9 % (11.6-17.2); WHITE BLOOD COUNT 7.4 TH/MM3 (4.0-11.0)
--- NOTE | 2017-10-26 06:45 | RADRPT ---
EXAM DATE/TIME: 10/26/2017 05:49 [facility] COMPARISON: ABDOMEN KUB ONLY, October 22, 2017, 14:38. INDICATIONS : Distention. MEDICAL HISTORY : Cardiovascular disease. Carcinoma, colon. Hypertension. COPD SURGICAL HISTORY : Cholecystectomy. Colon resection. Gastric bypass. IVC filter placement ENCOUNTER: Subsequent ACUITY: 2 weeks PAIN SCORE: Non-responsive. LOCATION: abdomen, all quadrants. FINDINGS: The bowel gas is nonspecific. There are no signs of obstruction or free air for technique. No defini te calcified stones are identified for technique. CONCLUSION: Nonspecific abdomen. Jennifer Araiza MD on October 26, 2017 at 6:43 Board Certified Radiologist. This report was verified electronically.
[2017-10-26 06:46] LABS: BICARBONATE 29.4 MEQ/L (21.0-32.0); CALCIUM 8.3 MG/DL (8.5-10.1); CREATININE 0.44 MG/DL (0.50-1.00)
[2017-10-26] MEDS: RESP: ALBUTEROL 2.5 MG/IPRATROPIUM 0.5 MG NEB (PRN) NEB ×4 (07:34→19:09)
[2017-10-26] MEDS: POTASSIUM CHLORIDE 20 MEQ PWD PACKET PEG SCH ×2 (09:00→21:00)
[2017-10-26] MEDS: SODIUM CHLORIDE 0.9% FLUSH 10 ML FLUSH IV FLUSH SCH ×2 (09:00→21:26)
[2017-10-26] MEDS: BISACODYL EC 5 MG TABEC PO SCH (09:00)
[2017-10-26] MEDS: POLYETHYLENE GLYCOL 17 GM PKG PO SCH ×2 (09:00→21:00)
[2017-10-26] MEDS: NYSTATIN 100,000 U/GM PWD 15 GM BTL TOPICAL SCH ×2 (09:00→21:27)
[2017-10-26] MEDS: KETOCONAZOLE 2% CREAM 15 GM TOPICAL SCH ×2 (09:00→21:27)
[2017-10-26] MEDS: LACTULOSE SYRUP 20 GM/30 ML CUP PO SCH (10:23)
[2017-10-26] MEDS: CALCIUM CARBONATE 500 MG CHEWABLE TAB PEG SCH (10:23)
--- NOTE | 2017-10-26 11:48 | HHI.GIFU ---
Subjective Remarks resting in bed, states her legs wont work, Hx of MS States uncontrolled epigastric pain when taking Relistor for constipation No BM X 4 days (Julita Verde) Objective Vitals I&O Vital Signs Date Time Temp Pulse Resp B/P (MAP) Pulse Ox O2 Delivery O2 Flow Rate FiO2 10/26/17 08:00 97.1 78 16 112/55 (74) 100 10/26/17 07:37 99 Nasal Cannula 3.00 10/26/17 00:00 98.2 88 20 117/90 (99) 95 10/25/17 21:30 Nasal Cannula 2.00 10/25/17 20:00 98.2 101 20 123/58 (79) 10/25/17 19:39 99 Nasal Cannula 3.00 10/25/17 16:01 98.5 95 18 116/69 (85) 98 I/O 10/25/17 10/25/17 10/25/17 10/26/17 10/26/17 10/26/17 07:00 15:00 23:00 07:00 15:00 23:00 Intake Total 1000 ml 548 ml 1000 ml 443 ml Output Total 450 ml 1100 ml 2370.0 ml Balance 550 ml -552 ml 1000 ml -1927.0 ml Intake Oral 0 ml 0 ml 0 ml IV Total 1000 ml 1000 ml Tube Feeding 398 ml 323 ml Other 150 ml 120 ml Output Urine Total 450 ml 1100 ml 2250 ml Tube Feeding Residual Discard 120.0 ml # Voids 0 # Bowel Movements 0 Laboratory Laboratory Tests Test 10/25/17 21:10 10/26/17 05:00 Blood Urea Nitrogen 6 6 Creatinine 0.49 0.44 Random Glucose 105 107 Calcium Level 8.0 8.3 Sodium Level 138 138 Potassium Level 3.7 3.9 Chloride Level 104 104 Carbon Dioxide Level 27.3 29.4 Anion Gap 7 5 Estimat Glomerular Filtration Rate 135 153 White Blood Count 7.4 Red Blood Count 3.38 Hemoglobin 8.6 Hematocrit 27.1 Mean Corpuscular Volume 80.2 Mean Corpuscular Hemoglobin 25.4 Mean Corpuscular Hemoglobin Concent 31.7 Red Cell Distribution Width 16.9 Platelet Count 288 Mean Platelet Volume 8.1 Date/Time Source Procedure Growth Status 10/01/17 17:49 Blood Peripheral Aerobic Blood Culture - Final NO GROWTH IN 5 DAYS Complete 10/01/17 17:49 Blood Peripheral Anaerobic Blood Culture - Final NO GROWTH IN 5 DAYS Complete 10/22/17 10:40 Urine Catheterized Urine Urine Culture - Final NO GROWTH IN 48 HOURS. Complete Imaging Last Impressions Abdomen X-Ray 10/26/17 0600 Signed Impressions: Service Date/Time: Thursday, October 26, 2017 05:49 - CONCLUSION: Nonspecific abdomen. K. Matthew Araiza MD Chest X-Ray 10/16/17 0000 Signed Impressions: Service Date/Time: Monday, October 16, 2017 12:44 - CONCLUSION: Normal examination. Left subclavian Vxqyai-f-Estr catheter in good position Gagan Rose MD Abdomen CT 10/15/17 0000 Signed Impressions: Service Date/Time: Sunday, October 15, 2017 22:54 - CONCLUSION: Pigtail gastrostomy catheter replaced in the interim with a PEG tube which has its tip in the bypassed portion of the body of the stomach. There is mild perigastric edema but no organized or drainable fluid. August Luna MD ADDENDUM: The patient's new gastrostomy tube is in good position with entry site approximately 4 cm below the prior G-tube site. The new position is well below the costal margin. There is no evidence of disruption of the previous operative sites. There has been interval decrease in lung base fluid and atelectasis. August Darden MD Gastrostomy Tube Placement 10/14/17 0000 Signed Impressions: Service Date/Time: Saturday, October 14, 2017 09:07 - CONCLUSION: Uncomplicated gastrostomy tube placement as above. August Darden MD Physical Exam HEENT:Normocephalic; atraumatic morbidly obese CHEST: Even/unlabored CARDIAC: RRR ABDOMEN: Soft, morbidly obese, TTP, G-tube with dressing dry and intact TF running. SKIN: Normal; no rash; no jaundice. METALLURGICAL INSPECTOR: No leg strength , alert and oriented times three. (Julita Verde) Assessment and Plan Plan ASSESSMENT - Abdominal pain/N/V/constipation- Reports of no BM 1 month, then had 1 small hard ball 4 days ago. States Relistor gave her severe epigastric cramping. Bowel sounds soft Pt has refused multiple laxatives stating she does not want to irritate her bowel. KUB (10/22) --> Negative. Vena cava filter in good position. And 10 use with chronic pain medication and is currently refusing laxatives ordered for her daily - Dysphagia- only uses G-tube. TF Vital 1.5 at 35 mL's an hour. Refused speech therapy evaluation. KUB shows large amt. of stool throughout colon, camera picture PLAN - Continue TF (Vital 1.5 at 35 mL/hr) - MiraLAX, she refusing - Mag Citrate ordered, daily enema X 3 days. Discussed options for her bowels to move - No EGD unless emergent - Recommend f/u with [facility] after d/c - Supportive care This patient has been seen and examined by myself and Dr. Parada and this note is written on his behalf (Julita Verde) Physician Comments Agree with above assessment and plan. (Estrada Parada MD) Julita Verde Oct 26, 2017 11:48 Estrada Parada MD Oct 26, 2017 14:16
[2017-10-26] MEDS ORDERED: MAGNESIUM CITRATE SOLN 300 ML BTL PO ONE (13:00)
[2017-10-26] MEDS: MINERAL OIL ENEMA 118 ML BTL RECTAL SCH (13:00)
[2017-10-26] MEDS ORDERED: diphenhydrAMINE HCL 2%/ZINC ACETATE 0.1% CREAM 30 APPLIC/30 GM TUBE TOPICAL PRN (14:00)
--- NOTE | 2017-10-26 14:02 | HHI.PR ---
Subjective Remarks This patient is seen and evaluated in follow-up for abdominal pain which is vague and unrelieved by any measures. The patient has also refused multiple measures and treatment for constipation which she complains of daily. Follow- up imaging is unremarkable. The lecture lites are stable and hemoglobin is stable. Objective Vitals Vital Signs Date Time Temp Pulse Resp B/P (MAP) Pulse Ox O2 Delivery O2 Flow Rate FiO2 10/26/17 12:00 Nasal Cannula 3.00 21 10/26/17 12:00 98.5 93 16 140/63 (88) 97 10/26/17 08:00 97.1 78 16 112/55 (74) 100 10/26/17 07:37 99 Nasal Cannula 3.00 10/26/17 00:00 98.2 88 20 117/90 (99) 95 10/25/17 21:30 Nasal Cannula 2.00 10/25/17 20:00 98.2 101 20 123/58 (79) 10/25/17 19:39 99 Nasal Cannula 3.00 10/25/17 16:01 98.5 95 18 116/69 (85) 98 I/O 10/25/17 10/25/17 10/25/17 10/26/17 10/26/17 10/26/17 06:59 14:59 22:59 06:59 14:59 22:59 Intake Total 1000 ml 548 ml 1000 ml 443 ml Output Total 450 ml 1100 ml 2370.0 ml Balance 550 ml -552 ml 1000 ml -1927.0 ml Intake Oral 0 ml 0 ml 0 ml IV Total 1000 ml 1000 ml Tube Feeding 398 ml 323 ml Other 150 ml 120 ml Output Urine Total 450 ml 1100 ml 2250 ml Tube Feeding Residual Discard 120.0 ml # Voids 0 2 # Bowel Movements 0 Result Diagram: 10/26/17 0500 10/26/17 0500 Objective Remarks GENERAL: This is a well-nourished, obese, poorly motivated well-developed patient, in no apparent distress. CARDIOVASCULAR: Regular rate and rhythm without murmurs, gallops, or rubs. RESPIRATORY: Clear to auscultation. Breath sounds equal bilaterally. No wheezes , rales, or rhonchi. GASTROINTESTINAL: Abdomen soft, non-tender, nondistended. Normal active bowel sounds MUSCULOSKELETAL: Extremities without clubbing, cyanosis, or edema. NEURO: Alert & Oriented x4 to person, place, time, situation. A/P Problem List: (1) PEG tube malfunction ICD Code: K94.23 - Gastrostomy malfunction (2) History of recurrent deep vein thrombosis (DVT) ICD Code: Z86.718 - Personal history of other venous thrombosis and embolism Status: Chronic (3) Impaired mobility and activities of daily living ICD Code: Z74.09 - Other reduced mobility Status: Acute (4) History of CVA (cerebrovascular accident) ICD Code: Z86.73 - Personal history of transient ischemic attack (TIA), and cerebral infarction without residual deficits Status: Chronic (5) History of pulmonary embolism ICD Code: Z86.711 - Personal history of pulmonary embolism Status: Chronic (6) Postoperative anemia due to acute blood loss ICD Code: D62 - Acute posthemorrhagic anemia Status: Acute (7) Diastolic heart failure ICD Code: I50.30 - Unspecified diastolic (congestive) heart failure Status: Chronic (8) MANI (obstructive sleep apnea) ICD Code: G47.33 - Obstructive sleep apnea (adult) (pediatric) Status: Chronic (9) S/P gastric bypass ICD Code: Z98.84 - Bariatric surgery status Status: Acute Assessment and Plan 1. Abdominal pain, Status post gastric bypass/G-tube placement/ G- tube malfunction/ Abdominal pain/ Constipation, Feeding tube replaced (10/14/17), currently tolerating 25 ml/hr feeding, continue antiemetics, patient planning constipation, bowel movements documented Will add bowel regimen, increase tube feeds at 35 mL an hour, continue using feeding tube (patient has refused any oral initiation of medications) 2. Anemia, currently stable 3. COPD, chronic and stable. Duo nebs as needed, incentive spirometry, encourage movement 4. UTI positive Enterobacter cloaca, completed doxy, fevers resolved 5. Generalized weakness, neurology consult appreciated. Patient was diagnosed with MS but not on treatment(? patient rosa was on treatment prior to her surgery in August) but refused evaluation at this time. Will need follow-up as patient requests Reeval by dr smith Continue plans for OT/PT at [facility] 6. History of venous thrombotic event, continue therapeutic Lovenox with IVC filter 7. Neurogenic bladder, continue Reeves 8. History of a stroke without any residual defect, continue with Lovenox for now 9. Electrolyte imbalance resolved Discharge Planning Patient will benefit from continued OT and PT and inpatient rehabilitation Discussed with case management Likely discharge in a.Lupe Sanders MD Oct 26, 2017 14:02
[2017-10-27] VITALS (8 sets, daily range): BP systolic 118–129; BP diastolic 54–69; PULSE 82–109; RESP 16–20; TEMP 97.1–99.8; O2SAT 94–100
[2017-10-27] MEDS: ONDANSETRON HCL 4 MG/2 ML VIAL IVP PRN ×3 (01:30→18:29)
[2017-10-27] MEDS: MORPHINE SULFATE 2 MG/ML INJ IV PUSH PRN ×2 (01:30→06:02)
[2017-10-27] MEDS: ENOXAPARIN SODIUM 120 MG/0.8 ML SYRINGE SQ SCH ×2 (06:02→18:28)
[2017-10-27] MEDS: BISACODYL EC 5 MG TABEC PO SCH (08:29)
[2017-10-27] MEDS: POLYETHYLENE GLYCOL 17 GM PKG PO SCH ×2 (08:47→21:00)
[2017-10-27] MEDS: MINERAL OIL ENEMA 118 ML BTL RECTAL SCH (08:47)
[2017-10-27] MEDS: LACTULOSE SYRUP 20 GM/30 ML CUP PO SCH (08:47)
[2017-10-27] MEDS: CALCIUM CARBONATE 500 MG CHEWABLE TAB PEG SCH (08:47)
[2017-10-27] MEDS: SODIUM CHLORIDE 0.9% FLUSH 10 ML FLUSH IV FLUSH SCH ×2 (08:48→21:00)
[2017-10-27] MEDS: POTASSIUM CHLORIDE 20 MEQ PWD PACKET PEG SCH ×2 (08:48→21:00)
[2017-10-27] MEDS: NYSTATIN 100,000 U/GM PWD 15 GM BTL TOPICAL SCH ×2 (08:49→21:00)
[2017-10-27] MEDS: KETOCONAZOLE 2% CREAM 15 GM TOPICAL SCH ×2 (08:50→21:00)
--- NOTE | 2017-10-27 12:35 | HHI.PR ---
Subjective Remarks Patient seen and evaluated in follow-up for discharge planning. Patient will need to be off morphine. Previous psychiatric evaluation shows patient competent to make decisions. Discharge plans discussed with multidisciplinary and subspecialty team members including general surgery, rehabilitation medicine , case management, physical therapy and [facility] nursing team Objective Vitals Vital Signs Date Time Temp Pulse Resp B/P (MAP) Pulse Ox O2 Delivery O2 Flow Rate FiO2 10/27/17 08:00 97.1 82 16 125/57 (79) 97 10/27/17 00:00 97.8 83 18 119/54 (75) 98 10/26/17 20:00 98.0 79 18 120/58 (78) 99 10/26/17 20:00 99 Nasal Cannula 2.00 10/26/17 16:59 18 10/26/17 16:00 97.5 78 16 132/63 (86) 99 10/26/17 15:27 99 Nasal Cannula 3.00 I/O 10/26/17 10/26/17 10/26/17 10/27/17 10/27/17 10/27/17 07:00 15:00 23:00 07:00 15:00 23:00 Intake Total 443 ml 0 ml 0 ml Output Total 2370.0 ml 900 ml 2250 ml Balance -1927.0 ml -900 ml -2250 ml Intake Oral 0 ml 0 ml 0 ml Tube Feeding 323 ml Other 120 ml Output Urine Total 2250 ml 900 ml 2250 ml Tube Feeding Residual Discard 120.0 ml # Voids 2 # Bowel Movements 0 1 Result Diagram: 10/26/17 0500 10/26/17 0500 Objective Remarks GENERAL: This is a well-nourished, obese, poorly motivated well-developed patient, in no apparent distress. CARDIOVASCULAR: Regular rate and rhythm without murmurs, gallops, or rubs. RESPIRATORY: Clear to auscultation. Breath sounds equal bilaterally. No wheezes , rales, or rhonchi. GASTROINTESTINAL: Abdomen soft, non-tender, nondistended. Normal active bowel sounds MUSCULOSKELETAL: Extremities without clubbing, cyanosis, or edema. NEURO: Alert & Oriented x4 to person, place, time, situation. A/P Problem List: (1) PEG tube malfunction ICD Code: K94.23 - Gastrostomy malfunction (2) History of recurrent deep vein thrombosis (DVT) ICD Code: Z86.718 - Personal history of other venous thrombosis and embolism Status: Chronic (3) Impaired mobility and activities of daily living ICD Code: Z74.09 - Other reduced mobility Status: Acute (4) History of CVA (cerebrovascular accident) ICD Code: Z86.73 - Personal history of transient ischemic attack (TIA), and cerebral infarction without residual deficits Status: Chronic (5) History of pulmonary embolism ICD Code: Z86.711 - Personal history of pulmonary embolism Status: Chronic (6) Postoperative anemia due to acute blood loss ICD Code: D62 - Acute posthemorrhagic anemia Status: Acute (7) Diastolic heart failure ICD Code: I50.30 - Unspecified diastolic (congestive) heart failure Status: Chronic (8) MANI (obstructive sleep apnea) ICD Code: G47.33 - Obstructive sleep apnea (adult) (pediatric) Status: Chronic (9) S/P gastric bypass ICD Code: Z98.84 - Bariatric surgery status Status: Acute Assessment and Plan 35 minutes spent in patient care including physician/nursing multi disciplinary team meeting (rehabilitation medicine, nursing) bedside meeting to explain current transient plan of treatment and goal setting. Patient agrees to resume her tube feeds but "only for 10 hours at night ". She also requests IVIG for her "MS" which has been diagnosed for 25 years (although she cannot remember the name of the neurologist she has been seen for 25 years nor the name of the group where in the neurologist practices in [facility]). She did turn in a list of medications from home prior to her surgery in [place]. The medication list includes 1 epinephrine 0.3 mg as needed (EpiPen), 2 lidocaine patch 5%, 3 multivitamin patch daily, 4. Valacyclovir, 5. Tylenol liquid, albuterol puff, vitamin C, D, B-12, B-6 patches, 6. Ciclopirox twice daily,7. Dexilant 60 mg 4 times a day, 8. Lovenox 120 mg twice daily, 9. Iron patch or iron tab daily, 10. Hydrochlorothiazide tablets twice daily, 11.Levsin sublingual every 4 hours, 12. ketoconazole cream twice a day for right foot, 13. Xopenex 3 times a day, 14. Lidocaine topical cream before accessing the port, 15. Lisinopril oral daily, 16. Mag-Ox 500 mg tablet daily, 17. Mupirocin for left scar on the neck twice a day, 18 Cortisporin eardrops 4 times a day, 19. Zofran 18 mg tablet 3 times a day, potassium chloride extended release daily tablet, 21. Zantac 150 mg tablet twice daily, 22. Reglan dose unknown, 23 theophylline tablet twice daily, 24. Vital 1.5 feeding formula for 10 hours daily. 1. Abdominal pain, Status post gastric bypass/G-tube placement/ G- tube malfunction/ Abdominal pain/ Constipation, Feeding tube replaced (10/14/17), currently tolerating 35 ml/hr feeding (will only take at night), continue antiemetics, patient planning constipation, bowel movements documented Will add bowel regimen, increase tube feeds at 35 mL an hour, continue using feeding tube (patient has refused any oral initiation of medications) REFUSES SWALLOW EVAL 2. Anemia, currently stable 3. COPD, chronic and stable. Duo nebs as needed, incentive spirometry, encourage movement 4. UTI positive Enterobacter cloaca, completed doxy, fevers resolved 5. Generalized weakness and unexplained ability to ambulate, neurology consult appreciated. Patient was diagnosed with MS but not on treatment(? patient said she was on treatment prior to her surgery in August but cannot provide further info) but refused evaluation at this time. Will need follow-up as patient requests Reeval by dr smith (previous evaluation includes MRI brain and spine which shows no acute abnormality and is not consistent with MS flare) Continue plans for OT/PT at [facility] 6. History of venous thrombotic event, continue therapeutic Lovenox with IVC filter 7. Neurogenic bladder, continue Reeves 8. History of a stroke without any residual defect, continue with Lovenox for now 9. Electrolyte imbalance resolved Discharge Planning Patient will benefit from continued OT and PT and inpatient rehabilitation Discussed with case management Likely discharge in a.m.to Lupe Lou MD Oct 27, 2017 12:35
--- NOTE | 2017-10-27 14:56 | HHI.GIFU ---
Subjective Remarks Pt resting in bed, in no apparent distress. She reports having BM last night, states it was painful. Current TF rate at 35 mL/hr for 12 hours. She states the rate is too high and that when she was at [facility] they only had her doing 20 mLs an hour. (Lizbeth Dent) Objective Vitals I&O Vital Signs Date Time Temp Pulse Resp B/P (MAP) Pulse Ox O2 Delivery O2 Flow Rate FiO2 10/27/17 12:00 99.8 109 16 129/64 (85) 99 10/27/17 08:00 97.1 82 16 125/57 (79) 97 10/27/17 00:00 97.8 83 18 119/54 (75) 98 10/26/17 20:00 98.0 79 18 120/58 (78) 99 10/26/17 20:00 99 Nasal Cannula 2.00 10/26/17 16:59 18 10/26/17 16:00 97.5 78 16 132/63 (86) 99 10/26/17 15:27 99 Nasal Cannula 3.00 I/O 10/26/17 10/26/17 10/26/17 10/27/17 10/27/17 10/27/17 06:59 14:59 22:59 06:59 14:59 22:59 Intake Total 443 ml 0 ml 0 ml Output Total 2370.0 ml 900 ml 2250 ml Balance -1927.0 ml -900 ml -2250 ml Intake Oral 0 ml 0 ml 0 ml Tube Feeding 323 ml Other 120 ml Output Urine Total 2250 ml 900 ml 2250 ml Tube Feeding Residual Discard 120.0 ml # Voids 2 # Bowel Movements 0 1 Laboratory Date/Time Source Procedure Growth Status 10/01/17 17:49 Blood Peripheral Aerobic Blood Culture - Final NO GROWTH IN 5 DAYS Complete 10/01/17 17:49 Blood Peripheral Anaerobic Blood Culture - Final NO GROWTH IN 5 DAYS Complete 10/22/17 10:40 Urine Catheterized Urine Urine Culture - Final NO GROWTH IN 48 HOURS. Complete Imaging Last Impressions Abdomen X-Ray 10/26/17 0600 Signed Impressions: Service Date/Time: Thursday, October 26, 2017 05:49 - CONCLUSION: Nonspecific abdomen. K. Matthew Araiza MD Chest X-Ray 10/16/17 0000 Signed Impressions: Service Date/Time: Monday, October 16, 2017 12:44 - CONCLUSION: Normal examination. Left subclavian Kkurev-o-Vxfo catheter in good position Gagan Rose MD Abdomen CT 10/15/17 0000 Signed Impressions: Service Date/Time: Sunday, October 15, 2017 22:54 - CONCLUSION: Pigtail gastrostomy catheter replaced in the interim with a PEG tube which has its tip in the bypassed portion of the body of the stomach. There is mild perigastric edema but no organized or drainable fluid. August Luna MD ADDENDUM: The patient's new gastrostomy tube is in good position with entry site approximately 4 cm below the prior G-tube site. The new position is well below the costal margin. There is no evidence of disruption of the previous operative sites. There has been interval decrease in lung base fluid and atelectasis. August Darden MD Gastrostomy Tube Placement 10/14/17 0000 Signed Impressions: Service Date/Time: Saturday, October 14, 2017 09:07 - CONCLUSION: Uncomplicated gastrostomy tube placement as above. August Darden MD Physical Exam HEENT: Normocephalic; atraumatic CHEST: Even/unlabored CARDIAC: RRR ABDOMEN: Soft, morbidly obese, TTP, G-tube with dressing dry and intact, G- tube clamped. SKIN: Normal; no rash; no jaundice. OPERATIVE SUPERVISOR: No leg strength , alert and oriented times three. (Lizbeth Dent) Assessment and Plan Plan ASSESSMENT - Abdominal pain/N/V/constipation- Reports BM last night, states BM was painful. KUB (10/26) --> The bowel gas is nonspecific. There are no signs of obstruction or free air for technique. No definite calcified stones are identified for technique. She continues to remove most stool softeners. States her TF rate is too high because at [facility] they had her on 20 mL/hr for 12 hours at night- currently on vital 1.5 at 35 mL/hr for 12 hours. - Dysphagia- only uses G-tube. TF Vital 1.5 at 35 mL's an hour. Refused speech therapy evaluation. PLAN - Continue TF (Vital 1.5 at 35 mL/hr) - MiraLAX, continues to refuse most doses - Lactulose, refused - Continue daily enema, refused - No EGD unless emergent - Recommend f/u with [facility] after d/c - Supportive care This patient has been seen and examined by myself and Dr. Parada and this note is written on his behalf (Lizbeth Dent) Physician Comments Stable from GI point of view, will sign off for now, please notify us if needed. (Estrada Parada MD) Lizbeth Dent Oct 27, 2017 14:56 Estrada Parada MD Oct 27, 2017 15:09
[2017-10-27] MEDS: MORPHINE SULFATE ORAL SOLN 10 MG/0.5 ML SYRINGE PEG PRN ×2 (15:40→23:03)
[2017-10-27] MEDS: RESP: ALBUTEROL 2.5 MG/IPRATROPIUM 0.5 MG NEB (PRN) NEB (15:47)
[2017-10-28] MEDS: MORPHINE SULFATE ORAL SOLN 10 MG/0.5 ML SYRINGE PEG PRN ×2 (04:48→09:49)
[2017-10-28] MEDS: ONDANSETRON HCL 4 MG/2 ML VIAL IVP PRN ×3 (04:53→22:11)
[2017-10-28] MEDS: SODIUM CHLORIDE 0.9% FLUSH 10 ML FLUSH IV FLUSH PRN (04:53)
[2017-10-28] MEDS: ENOXAPARIN SODIUM 120 MG/0.8 ML SYRINGE SQ SCH ×2 (06:24→18:27)
[2017-10-28 08:00] VITALS: BP 112/53; PULSE 73; RESP 17; TEMP 97; O2SAT 97
[2017-10-28] MEDS: RESP: ALBUTEROL 2.5 MG/IPRATROPIUM 0.5 MG NEB (PRN) NEB (08:53)
[2017-10-28 08:56] VITALS: O2SAT 100
[2017-10-28] MEDS: POTASSIUM CHLORIDE 20 MEQ PWD PACKET PEG SCH ×2 (09:00→19:45)
[2017-10-28] MEDS: MINERAL OIL ENEMA 118 ML BTL RECTAL SCH (09:00)
[2017-10-28] MEDS: BISACODYL EC 5 MG TABEC PO SCH (09:47)
[2017-10-28] MEDS: LACTULOSE SYRUP 20 GM/30 ML CUP PO SCH (09:47)
[2017-10-28] MEDS: CALCIUM CARBONATE 500 MG CHEWABLE TAB PEG SCH (09:47)
[2017-10-28] MEDS: POLYETHYLENE GLYCOL 17 GM PKG PO SCH ×2 (09:49→19:44)
[2017-10-28] MEDS: KETOCONAZOLE 2% CREAM 15 GM TOPICAL SCH ×2 (09:50→19:50)
[2017-10-28] MEDS: NYSTATIN 100,000 U/GM PWD 15 GM BTL TOPICAL SCH ×2 (09:51→19:49)
[2017-10-28] MEDS ORDERED: MORPHINE SULFATE 2 MG/ML INJ IV PUSH ONE (10:15)
--- NOTE | 2017-10-28 10:57 | HHI.PR ---
Subjective Remarks Follow-up for multiple medical reason was assessment plan and noncompliance Per patient's nurse she is refusing the port to be change and laxatives Per patient she did not refuse any laxatives or stool softener. She stated that she just had a concern because she thought she was taken too many medication for her constipation despite not having bowel movements for many days. she stated that she had a large bowel movement yesterday. Nurse also stated that patient has 60 cc post residuals and unable to administer medication through her G-tube. Patient stated that per [facility] she is always post to get 20 cc of tube feeds. Patient also stated that she wants to be treated for her MS. She is also asking about a wound care consult that she stated she was told that was supposed be placed last week. Discussed case with rest were therapist who stated that patient wants to be on DuoNeb nebs every 4 hours. Patient remains afebrile. No complaints. Patient stated that she felt like she is getting better since she last saw me about 4 weeks ago. She stated that she sitting on the edge of her bed and she is able to move her hands more. She stated that she is getting a lot stronger. Patient also stated that if she's not treated for MS that she will leave and go home. Objective Vitals Vital Signs Date Time Temp Pulse Resp B/P (MAP) Pulse Ox O2 Delivery O2 Flow Rate FiO2 10/28/17 08:56 100 Nasal Cannula 3.00 10/28/17 08:00 97.0 73 17 112/53 (72) 97 10/27/17 23:51 98.3 84 20 118/56 (76) 98 10/27/17 21:38 95 Nasal Cannula 3.00 10/27/17 20:00 98.8 91 20 121/58 (79) 100 10/27/17 19:00 95 Nasal Cannula 3.00 10/27/17 16:00 98.7 84 16 127/69 (88) 94 10/27/17 15:48 99 Nasal Cannula 3.00 10/27/17 12:00 99.8 109 16 129/64 (85) 99 10/27/17 12:00 Nasal Cannula 2.00 I/O 10/27/17 10/27/17 10/27/17 10/28/17 10/28/17 10/28/17 07:00 15:00 23:00 07:00 15:00 23:00 Intake Total 0 ml 0 ml 1084 ml Output Total 2250 ml 900 ml 1000 ml Balance -2250 ml -900 ml 84 ml Intake Oral 0 ml 0 ml 0 ml Tube Feeding 1084 ml Output Urine Total 2250 ml 900 ml 1000 ml # Bowel Movements 1 0 0 Result Diagram: 10/26/17 0500 10/26/17 0500 Objective Remarks GENERAL: in NAD CARDIOVASCULAR: Regular rate and rhythm without murmurs, gallops, or rubs. RESPIRATORY: Breath sounds equal bilaterally. No accessory muscle use. GASTROINTESTINAL: Abdomen soft, non-tender, nondistended. G tube in place. MUSCULOSKELETAL: No cyanosis, or edema. BACK: Nontender without obvious deformity. No CVA tenderness. Medications and IVs Current Medications Morphine Sulfate (Morphine Inj) 2 mg STK-MED ONCE IV PUSH ; Start 09/30/17 at 16 :46; Stop 09/30/17 at 16:55; Status DC Sodium Chloride 1,000 ml @ 125 mls/hr Q8H IV Last administered on 10/03/17 17 :34; Start 09/30/17 at 18:00; Stop 10/04/17 at 14:16; Status DC Sodium Chloride (NS Flush) 2 ml UNSCH PRN IV FLUSH FLUSH AFTER USING IV ACCESS Last administered on 10/28/17 04:53; Start 09/30/17 at 17:45 Sodium Chloride (NS Flush) 2 ml BID IV FLUSH Last administered on 10/27/17 21 :00; Start 09/30/17 at 21:00 Ondansetron HCl (Zofran Inj) 4 mg Q6H PRN IVP NAUSEA OR VOMITING Last administered on 10/28/17 04:53; Start 09/30/17 at 17:45 Naloxone HCl (Narcan Inj) 0.4 mg UNSCH PRN IV PUSH SEE LABEL COMMENTS; Start 09/30/17 at 17:45 Morphine Sulfate (Morphine Inj) 4 mg Q3H PRN IV PUSH pain 6-10 Last administered on 10/12/17 04:44; Start 09/30/17 at 17:45; Stop 10/12/17 at 08: 58; Status DC Enoxaparin Sodium (Lovenox Inj) 120 mg Q12H SQ Last administered on 10/28/17 06:24; Start 09/30/17 at 18:00; Status Future hold Albuterol/ Ipratropium (Duoneb Neb) 1 ampule Q4HR NEB PRN NEB SOB/Wheezing Last administered on 10/28/17 08:53; Start 09/30/17 at 17:45 Enalaprilat (Vasotec Inj) 2.5 mg Q6H PRN IV PUSH SBP>160, DBP>100; Start at 17:45 Ketorolac Tromethamine (Toradol Inj) 30 mg Q6H PRN IM Breakthrough pain; Start 09/30/17 at 18:00; Stop 10/03/17 at 18:00; Status UNV Pantoprazole Sodium (Protonix Inj) 40 mg Q24H IV PUSH Last administered on 17:32; Start 09/30/17 at 19:00; Stop 10/25/17 at 11:55; Status DC Morphine Sulfate (Morphine Inj) 2 mg ONCE ONCE IV PUSH ; Start 09/30/17 at 17: 00; Stop 09/30/17 at 19:36; Status DC Cefazolin Sodium/ Dextrose 50 ml @ 100 mls/hr ONCE ONCE IV Last administered on 09/30/17 23:18; Start 09/30/17 at 17:00; Stop 09/30/17 at 19:36; Status DC Cefazolin Sodium 1000 mg/Sodium Chloride 100 ml @ 200 mls/hr Q8H IV Last administered on 10/10/17 09:29; Start 10/01/17 at 01:00; Stop 10/10/17 at 11: 48; Status DC Albuterol/ Ipratropium (Duoneb Neb) 1 ampule Q6HR WHILE AWAKE NEB NEB Last administered on 10/05/17 14:58; Start 10/01/17 at 20:00; Stop 10/05/17 at 19:59 ; Status DC Acetaminophen 50 ml @ 400 mls/hr Q6H PRN IV fever >101 Last administered on 16:14; Start 10/01/17 at 16:00; Stop 10/02/17 at 16:34; Status DC Acetaminophen 50 ml @ 400 mls/hr Q6H PRN IV HEADACHE/fever >101 Last administered on 10/20/17 17:48; Start 10/02/17 at 16:45; Stop 10/25/17 at 11: 55; Status DC Dextrose/Sodium Chloride 1,000 ml @ 100 mls/hr Q10H IV Last administered on 13:39; Start 10/02/17 at 21:00; Stop 10/04/17 at 14:16; Status DC Lactated Ringer's 1,000 ml @ 999 mls/hr BOLUS ONCE IV Last administered on 21:13; Start 10/02/17 at 21:00; Stop 10/02/17 at 22:00; Status DC Dextrose (D50w (Vial) Inj) 50 ml UNSCH PRN IV PUSH HYPOGLYCEMIA-SEE COMMENTS; Start 10/02/17 at 21:00 Glucagon (Glucagon Inj) 1 mg UNSCH PRN OTHER HYPOGLYCEMIA-SEE COMMENTS; Start 10/02/17 at 21:00 Multivitamins 10 ml/Folic Acid 1 mg/Amino Acids/ Electrolytes/ Dextrose 2,010.2 ml @ 83 mls/hr Q24H IV-CENTRAL Last administered on 10/10/17 20:45; Start 10/03/17 at 20:00; Stop 10/11/17 at 13:23; Status DC Fat Emulsion Intravenous 250 ml @ 31.25 mls/ hr Q24H IV-CENTRAL Last administered on 10/15/17 20:38; Start 10/03/17 at 20:00; Stop 10/25/17 at 11: 55; Status DC Insulin Aspart (NovoLOG SUPPLEMENTAL SCALE) 1 ACHS SLIDING SCALE SQ Last administered on 10/14/17 12:21; Start 10/03/17 at 17:00; Stop 10/17/17 at 15: 34; Status DC Potassium Chloride 100 ml @ 50 mls/hr Q2H IV Last administered on 10/04/17 22 :37; Start 10/04/17 at 14:45; Stop 10/04/17 at 18:44; Status DC Metoclopramide HCl (Reglan Inj) 10 mg Q8H PRN IV PUSH nausea Last administered on 10/25/17 02:27; Start 10/05/17 at 04:15; Stop 10/25/17 at 11:57; Status DC Potassium Chloride 100 ml @ 50 mls/hr BOLUS ONCE IV Last administered on 10/06 12:54; Start 10/06/17 at 09:00; Stop 10/06/17 at 10:59; Status DC Albuterol/ Ipratropium (Duoneb Neb) 1 ampule Q4HR WHILE AWAKE NEB NEB Last administered on 10/10/17 11:03; Start 10/06/17 at 16:00; Stop 10/10/17 at 11: 48; Status DC Albuterol/ Ipratropium (Duoneb Neb) 1 ampule Q4HR WHILE AWAKE NEB NEB Last administered on 10/14/17 09:00; Start 10/10/17 at 12:00; Stop 10/14/17 at 11 :59; Status DC Diphenhydramine HCl (Benadryl Inj) 25 mg Q8H PRN IV PUSH itching Last administered on 10/25/17 10:22; Start 10/11/17 at 10:30; Stop 10/25/17 at 11 :55; Status DC Multivitamins 5 ml/Folic Acid 0.5 mg/Amino Acids/ Electrolytes/ Dextrose 1, 005.1 ml @ 83 mls/hr Q12H7M IV Last administered on 10/16/17 09:03; Start 10/11/17 at 20:00; Stop 10/25/17 at 11:55; Status DC Iohexol (Omnipaque 350 Inj) 50 ml STK-MED ONCE G-TUBE Last administered on 10:58; Start 10/12/17 at 08:00; Stop 10/12/17 at 08:23; Status DC Morphine Sulfate (Morphine Inj) 4 mg Q3H PRN IV PUSH PAIN SCALE 6 TO 10 Last administered on 10/19/17 15:54; Start 10/12/17 at 09:00; Stop 10/19/17 at 18 :45; Status DC Sodium Chloride 250 ml @ 15 mls/hr ONCE ONCE IV ; Start 10/13/17 at 05:45; Stop 10/13/17 at 22:24; Status DC Acetaminophen (Tylenol) 650 mg Q4H PRN PO SEE LABEL COMMENTS; Start 10/13/17 at 05:45 Diphenhydramine HCl (Benadryl) 25 mg Q4H PRN PO SEE LABEL COMMENTS; Start at 05:45; Stop 10/26/17 at 14:03; Status DC Heparin Sodium (Porcine) (Heparin Central Flush) 500 units UNSCH IV FLUSH Last administered on 10/25/17 16:32; Start 10/13/17 at 06:30 Sodium Chloride (NS Flush) 5 ml UNSCH PRN IVF SEE PROTOCOL; Start 10/13/17 at 06:30 Heparin Sodium (Porcine) (Heparin Central Flush) 250 units UNSCH PRN IV FLUSH SEE PROTOCOL Last administered on 10/27/17 18:30; Start 10/13/17 at 06:30 Alteplase, Recombinant (Cathflo Activase Inj) 2 mg ONCE ONCE INTRACATH Last administered on 10/13/17 13:00; Start 10/13/17 at 13:00; Stop 10/13/17 at 13 :05; Status DC Cefazolin Sodium/ Dextrose 50 ml @ As Directed STK-MED ONCE .ROUTE Last administered on 10/14/17 09:31; Start 10/14/17 at 09:31; Stop 10/14/17 at 09 :32; Status DC Glucagon (Glucagon Inj) 1 mg STK-MED ONCE .ROUTE Last administered on 09:44; Start 10/14/17 at 09:44; Stop 10/14/17 at 09:45; Status DC Glucagon (Glucagon Inj) 1 mg STK-MED ONCE .ROUTE Last administered on 09:56; Start 10/14/17 at 09:56; Stop 10/14/17 at 09:57; Status DC Iohexol (Omnipaque 350 Inj) 65 ml STK-MED ONCE G-TUBE ; Start 10/14/17 at 11:33 ; Stop 10/14/17 at 11:34; Status DC Ondansetron HCl (*ZOFRAN INJ PERIprocedural ONLY) 4 mg STK-MED ONCE .ROUTE Last administered on 10/14/17 12:06; Start 10/14/17 at 12:06; Stop 10/14/17 at 12:07; Status DC Promethazine HCl (*PHENERGAN INJ PERIprocedural ONLY) 25 mg STK-MED ONCE .ROUTE Last administered on 10/14/17 12:13; Start 10/14/17 at 12:13; Stop at 12:14; Status DC Morphine Sulfate (*morphine INJ PERIprocedure ONLY) 8 mg STK-MED ONCE .ROUTE Last administered on 10/14/17 12:29; Start 10/14/17 at 12:29; Stop 10/14/17 at 12:30; Status DC Miscellaneous Information ALL NURSING DEPARTME... UNSCH PRN .XX SEE LABEL COMMENTS; Start 10/14/17 at 11:29; Stop 10/15/17 at 11:28; Status DC Albuterol/ Ipratropium (Duoneb Neb) 1 ampule Q6HR WHILE AWAKE NEB NEB Last administered on 10/21/17 07:42; Start 10/17/17 at 14:00; Stop 10/21/17 at 10 :49; Status DC Sodium Chloride 500 ml @ 500 mls/hr BOLUS ONCE IV Last administered on 11:15; Start 10/17/17 at 11:15; Stop 10/17/17 at 12:14; Status DC Ceftriaxone Sodium 1000 mg/ Sodium Chloride 100 ml @ 200 mls/hr Q24H IV Last administered on 10/19/17 15:07; Start 10/17/17 at 15:00; Stop 10/20/17 at 14 :19; Status DC Sodium Chloride 1,000 ml @ 50 mls/hr Q20H IV Last administered on 10/18/17 16:41; Start 10/18/17 at 14:30; Stop 10/19/17 at 10:29; Status DC Bisacodyl (Dulcolax Supp) 10 mg ONCE ONCE RECTAL ; Start 10/18/17 at 14:30; Stop 10/18/17 at 14:33; Status DC Mineral Oil (Fleet Mineral Oil Enema) 118 ml ONCE ONCE RECTAL Last administered on 10/19/17 15:07; Start 10/19/17 at 12:30; Stop 10/19/17 at 12 :31; Status DC Morphine Sulfate (Morphine Inj) 4 mg Q3H PRN IV PUSH PAIN SCALE 6 TO 10 Last administered on 10/21/17 09:36; Start 10/19/17 at 19:00; Stop 10/21/17 at 12 :27; Status DC Doxycycline Hyclate (Vibratab) 100 mg Q12HR PO ; Start 10/20/17 at 16:00; Stop 10/20/17 at 16:00; Status DC Doxycycline Hyclate 100 mg/ Sodium Chloride 100 ml @ 100 mls/hr Q12H IV Last administered on 10/25/17 03:33; Start 10/20/17 at 17:00; Stop 10/25/17 at 11 :58; Status DC Mineral Oil (Fleet Mineral Oil Enema) 118 ml ONCE ONCE RECTAL Last administered on 10/21/17 10:30; Start 10/21/17 at 10:30; Stop 10/21/17 at 10 :31; Status DC Polyethylene Glycol (Miralax) 17 gm DAILY PO Last administered on 10/22/17 09 :00; Start 10/21/17 at 10:30; Stop 10/22/17 at 15:44; Status DC Magnesium Citrate (Citroma Liq) 300 ml ONCE PO ; Start 10/21/17 at 10:45; Stop 10/21/17 at 11:12; Status DC Albuterol/ Ipratropium (Duoneb Neb) 1 ampule Q6HR WHILE AWAKE NEB NEB Last administered on 10/25/17 13:36; Start 10/21/17 at 14:00; Stop 10/25/17 at 13 :59; Status DC Dextrose/Sodium Chloride 1,000 ml @ 100 mls/hr Q10H IV Last administered on 02:26; Start 10/21/17 at 11:00; Stop 10/25/17 at 11:55; Status DC Polyethylene Glycol/ Electrolytes (Colyte Liq) 4,000 ml ONCE ONCE PO ; Start 10/21/17 at 12:00; Stop 10/21/17 at 12:01; Status DC Morphine Sulfate (Morphine Inj) 4 mg Q4H PRN IV PUSH PAIN SCALE 6 TO 10 Last administered on 10/25/17 07:42; Start 10/21/17 at 12:30; Stop 10/25/17 at 11 :55; Status DC Phenazopyridine HCl (Pyridium) 100 mg Q8H PRN PO Discomfort Last administered on 10/22/17 14:03; Start 10/22/17 at 10:30 Nystatin (Mycostatin Powder) 1 applic Q12HR TOPICAL Last administered on 09:51; Start 10/22/17 at 10:30 Potassium Chloride 100 ml @ 50 mls/hr ONCE ONCE IV Last administered on 10/22 14:03; Start 10/22/17 at 12:00; Stop 10/22/17 at 13:59; Status DC Polyethylene Glycol (Miralax) 17 gm BID PO Last administered on 10/28/17 09: 49; Start 10/22/17 at 21:00 Bisacodyl (Dulcolax Ec) 10 mg DAILY PO Last administered on 10/28/17 09:47; Start 10/23/17 at 09:00 Ketoconazole (Nizoral 2% Cream) 1 applic BID TOPICAL Last administered on 10/28 09:50; Start 10/22/17 at 21:00 Calcium Carbonate (Oscal) 500 mg Q12HR PEG ; Start 10/24/17 at 12:45; Stop at 13:32; Status DC Potassium Chloride (KCl Powder) 20 meq Q12HR PEG Last administered on 09:00; Start 10/24/17 at 12:45 Calcium Gluconate (Calcium Gluconate) 500 mg DAILY PEG ; Start 10/24/17 at 13: 45; Status Cancel Calcium Carbonate (Tums Chew) 500 mg DAILY PEG Last administered on 10/28/17 09:47; Start 10/25/17 at 09:00 Calcium Carbonate (Tums Chew) 500 mg ONCE ONCE PEG Last administered on 17:32; Start 10/24/17 at 15:00; Stop 10/24/17 at 15:01; Status DC Morphine Sulfate (Morphine Inj) 3 mg Q4H PRN IV PUSH PAIN SCALE 6 TO 10; Start 10/25/17 at 12:30; Stop 10/25/17 at 12:30; Status DC Lactulose (Lactulose Liq) 30 ml DAILY PO Last administered on 10/28/17 09:47 ; Start 10/25/17 at 12:00 Sodium Biphosphate/ Sodium Phosphate (Fleets Enema (Adult)) 133 ml ONCE ONCE RECTAL ; Start 10/25/17 at 12:00; Stop 10/25/17 at 12:14; Status DC Morphine Sulfate (Morphine Inj) 3 mg Q4H PRN IV PUSH PAIN SCALE 8 TO 10 Last administered on 10/27/17 06:02; Start 10/25/17 at 12:30; Stop 10/27/17 at 12 :36; Status DC Oxycodone HCl (Roxicodone Intensol Liq) 5 mg Q4H PRN PO pain 4-7; Start at 12:00; Stop 10/27/17 at 14:06; Status DC Methylnaltrexone [place] (Relistor Inj) 12 mg ONCE ONCE SQ Last administered on 10/25/17 15:45; Start 10/25/17 at 14:00; Stop 10/25/17 at 14:01; Status DC Alteplase, Recombinant (Cathflo Activase Inj) 2 mg NOW ONCE IV Last administered on 10/25/17 18:11; Start 10/25/17 at 17:45; Stop 10/25/17 at 17 :46; Status DC Diphenhydramine HCl (Benadryl) 25 mg Q8HR PRN PO pruritis Last administered on 10/26/17 06:01; Start 10/25/17 at 19:30; Stop 10/26/17 at 06:11; Status DC Magnesium Citrate (Citroma Liq) 300 ml ONCE ONCE PO ; Start 10/26/17 at 13:00 ; Stop 10/26/17 at 13:01; Status DC Mineral Oil (Fleet Mineral Oil Enema) 118 ml DAILY RECTAL ; Start 10/26/17 at 13:00; Stop 10/28/17 at 09:01; Status DC Diphenhydramine HCl (Benadryl 2% Cream) 1 applic TID PRN TOPICAL ITCHING; Start 10/26/17 at 14:00 Morphine Sulfate (Roxanol Liq) 5 mg Q4H PRN PEG pain 1-10 Last administered on 10/28/17 09:49; Start 10/27/17 at 12:15 Albuterol/ Ipratropium (Duoneb Neb) 1 ampule Q4HR NEB NEB ; Start 10/28/17 at 12:00 Morphine Sulfate (Morphine Inj) 1 mg ONCE ONCE IV PUSH ; Start 10/28/17 at 10: 15; Stop 10/28/17 at 10:51; Status DC Sodium Chloride 1,000 ml @ 60 mls/hr [id number] IV ; Start 10/28/17 at 11:00 A/P Problem List: (1) PEG tube malfunction ICD Code: K94.23 - Gastrostomy malfunction (2) History of recurrent deep vein thrombosis (DVT) ICD Code: Z86.718 - Personal history of other venous thrombosis and embolism Status: Chronic (3) Impaired mobility and activities of daily living ICD Code: Z74.09 - Other reduced mobility Status: Acute (4) History of CVA (cerebrovascular accident) ICD Code: Z86.73 - Personal history of transient ischemic attack (TIA), and cerebral infarction without residual deficits Status: Chronic (5) History of pulmonary embolism ICD Code: Z86.711 - Personal history of pulmonary embolism Status: Chronic (6) Postoperative anemia due to acute blood loss ICD Code: D62 - Acute posthemorrhagic anemia Status: Acute (7) Diastolic heart failure ICD Code: I50.30 - Unspecified diastolic (congestive) heart failure Status: Chronic (8) MANI (obstructive sleep apnea) ICD Code: G47.33 - Obstructive sleep apnea (adult) (pediatric) Status: Chronic (9) S/P gastric bypass ICD Code: Z98.84 - Bariatric surgery status Status: Acute Assessment and Plan This is a 47-year-old female gastric bypass surgery status post G-tube placement 1. Abdominal pain, Status post gastric bypass/G-tube placement/ G- tube malfunction/ Abdominal pain/ Constipation, Feeding tube replaced (10/14/17), at the moment not tolerating tube feeds. Discussed case with GI who stated there was see patient. Patient refuses swallow eval. Education given about constipation and medication given. Patient stated that she understood. Consult wound care per patient. Will start on IV fluids since unable to use G- tube at the moment. Patient has extensive G tube complication and has been noncompliance possible transfer to [facility] who initially did the procedure. 2. Anemia, currently stable 3. COPD, chronic and stable. Duo nebs as needed, incentive spirometry, encourage movement 4. UTI positive Enterobacter cloaca, completed doxy, fevers resolved 5. Generalized weakness and unexplained ability to ambulate, neurology consult appreciated. Patient was diagnosed with MS but not on treatment(? patient said she was on treatment prior to her surgery in August but cannot provide further info) but refused evaluation at this time. Patient asking to be treated for her MS her that she will leave the hospital. Just received her medical records from her previous neurologist. Will put a reconsult for in regards to this. Continue plans for OT/PT at [facility] 6. History of venous thrombotic event, continue therapeutic Lovenox with IVC filter 7. Neurogenic bladder, continue [place] 8. History of a stroke without any residual defect, continue with Lovenox for now 9. Electrolyte imbalance resolved Lisa Rivera MD Oct 28, 2017 10:57
[2017-10-28 12:00] VITALS: BP 110/57; PULSE 75; RESP 17; TEMP 98.2; O2SAT 99
--- NOTE | 2017-10-28 12:03 | HHI.GIFU ---
Subjective Remarks Pt resting in bed in NAD. at bedside. Per RN high residuals from G tube, TF running at night @ 35ml/hr. Per RN pt had large BM last night; per pt this was 2 nights ago and was large and soft. Per EMR and staff she is refusing most of her bowel regimen, pt says she is taking everything. C/o continued n/v, abd pain. She is upset that nobody is taking care of her MS. (Veena Castro) Objective Vitals I&O Vital Signs Date Time Temp Pulse Resp B/P (MAP) Pulse Ox O2 Delivery O2 Flow Rate FiO2 10/28/17 08:56 100 Nasal Cannula 3.00 10/28/17 08:00 97.0 73 17 112/53 (72) 97 10/27/17 23:51 98.3 84 20 118/56 (76) 98 10/27/17 21:38 95 Nasal Cannula 3.00 10/27/17 20:00 98.8 91 20 121/58 (79) 100 10/27/17 19:00 95 Nasal Cannula 3.00 10/27/17 16:00 98.7 84 16 127/69 (88) 94 10/27/17 15:48 99 Nasal Cannula 3.00 10/27/17 12:00 99.8 109 16 129/64 (85) 99 10/27/17 12:00 Nasal Cannula 2.00 I/O 10/27/17 10/27/17 10/27/17 10/28/17 10/28/17 10/28/17 07:00 15:00 23:00 07:00 15:00 23:00 Intake Total 0 ml 0 ml 1084 ml Output Total 2250 ml 900 ml 1000 ml Balance -2250 ml -900 ml 84 ml Intake Oral 0 ml 0 ml 0 ml Tube Feeding 1084 ml Output Urine Total 2250 ml 900 ml 1000 ml # Bowel Movements 1 0 0 Laboratory Date/Time Source Procedure Growth Status 10/01/17 17:49 Blood Peripheral Aerobic Blood Culture - Final NO GROWTH IN 5 DAYS Complete 10/01/17 17:49 Blood Peripheral Anaerobic Blood Culture - Final NO GROWTH IN 5 DAYS Complete 10/22/17 10:40 Urine Catheterized Urine Urine Culture - Final NO GROWTH IN 48 HOURS. Complete Imaging Last Impressions Abdomen X-Ray 10/26/17 0600 Signed Impressions: Service Date/Time: Thursday, October 26, 2017 05:49 - CONCLUSION: Nonspecific abdomen. K. Matthew Araiza MD Chest X-Ray 10/16/17 0000 Signed Impressions: Service Date/Time: Monday, October 16, 2017 12:44 - CONCLUSION: Normal examination. Left subclavian Axgeup-g-Szkh catheter in good position Gagan Rose MD Abdomen CT 10/15/17 0000 Signed Impressions: Service Date/Time: Sunday, October 15, 2017 22:54 - CONCLUSION: Pigtail gastrostomy catheter replaced in the interim with a PEG tube which has its tip in the bypassed portion of the body of the stomach. There is mild perigastric edema but no organized or drainable fluid. August Luna MD ADDENDUM: The patient's new gastrostomy tube is in good position with entry site approximately 4 cm below the prior G-tube site. The new position is well below the costal margin. There is no evidence of disruption of the previous operative sites. There has been interval decrease in lung base fluid and atelectasis. August Darden MD Gastrostomy Tube Placement 10/14/17 0000 Signed Impressions: Service Date/Time: Saturday, October 14, 2017 09:07 - CONCLUSION: Uncomplicated gastrostomy tube placement as above. August Darden MD Physical Exam HEENT: Normocephalic; atraumatic CHEST: Even/unlabored CARDIAC: RRR ABDOMEN: Soft, morbidly obese, TTP, G-tube with dressing dry and intact, G- tube clamped. SKIN: Normal; no rash; no jaundice. 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 KUB (10/26) --> nonspecific, no sign obstruction or free air. pt had been refusing bowel regimen but it appears she did accept admin today of those medications. will need to continue bowel regimen, suspect this could be contributing to some of her sx. If she continues to be constipated would recommend GoLytely through G tube. Could consider conversion to GJ- pt says she cannot have this b/c of her surgery, so we also recommend transfer back to [facility]. d/w primary, case mgmt - Dysphagia- only uses G-tube. TF Vital 1.5 at 35 mL's an hour. Refused speech therapy evaluation. PLAN - Continue TF as tolerated, try 20ml/hr - if refuses bowel regimen or still constipated, GoLytely through G tube - recommend transfer to [facility] - consider psych consult - Supportive care - not much more to add, GI will sign off. This patient has been seen and examined by myself and Dr. Parada and this note is written on his behalf (Veena Castro) Physician Comments Agree with above assessment and plan, symptoms likely related to constipation/ impaction. Will give Golytely for now, if that fails to consider GJ tube placement . Please notify us if needed again. (Estrada Parada MD) Veena Castro Oct 28, 2017 12:03 Estrada Parada MD Oct 28, 2017 14:15
[2017-10-28] MEDS: RESP: ALBUTEROL 2.5 MG/IPRATROPIUM 0.5 MG NEB (SCH) NEB ×3 (12:19→19:24)
[2017-10-28] MEDS: SODIUM CHLOR 0.9% 1000 ML INJ 1,000 ML IV SCH (12:32)
[2017-10-28] MEDS: SODIUM CHLORIDE 0.9% FLUSH 10 ML FLUSH IV FLUSH SCH ×2 (12:43→19:48)
[2017-10-28 13:21] LABS: HEMATOCRIT 28.4 % (35.0-46.0); HEMOGLOBIN 9.2 GM/DL (11.6-15.3); MEAN CORPUSCULAR HGB CONC 32.5 % (32.0-36.0); MEAN PLATELET VOLUME 8.8 FL (7.0-11.0); PLATELET COUNT 307 TH/MM3 (150-450); RED BLOOD COUNT 3.55 MIL/MM3 (4.00-5.30); RED CELL DISTRIBUTION WIDTH 16.8 % (11.6-17.2); WHITE BLOOD COUNT 6.8 TH/MM3 (4.0-11.0)
[2017-10-28 14:04] LABS: ALBUMIN 2.7 GM/DL (3.4-5.0); BICARBONATE 29.7 MEQ/L (21.0-32.0); CALCIUM 8.5 MG/DL (8.5-10.1); CREATININE 0.5 MG/DL (0.50-1.00); DIRECT BILIRUBIN ADULT 0.1 MG/DL (0.0-0.2)
[2017-10-28 14:07] LABS: INDIRECT BILIRUBIN 0.1 MG/DL (0.0-0.8); TOTAL BILIRUBIN ADULT 0.2 MG/DL (0.2-1.0); TOTAL PROTEIN 6.7 GM/DL (6.4-8.2)
[2017-10-28] MEDS: MORPHINE SULFATE 2 MG/ML INJ IV PRN ×3 (14:54→22:14)
[2017-10-28 16:00] VITALS: BP 116/57; PULSE 82; RESP 17; TEMP 98; O2SAT 98
[2017-10-28 16:22] VITALS: O2SAT 99
[2017-10-28 20:00] VITALS: BP 112/58; PULSE 84; RESP 20; TEMP 97.6; O2SAT 99
[2017-10-29] VITALS (7 sets, daily range): BP systolic 109–127; BP diastolic 52–61; PULSE 71–88; RESP 18–20; TEMP 96.9–99; O2SAT 95–99
[2017-10-29] MEDS: RESP: ALBUTEROL 2.5 MG/IPRATROPIUM 0.5 MG NEB (SCH) NEB ×6 (00:48→20:42)
[2017-10-29] MEDS: SODIUM CHLOR 0.9% 1000 ML INJ 1,000 ML IV SCH ×2 (04:26→20:47)
[2017-10-29] MEDS: MORPHINE SULFATE 2 MG/ML INJ IV PRN ×5 (04:28→21:32)
[2017-10-29] MEDS: ONDANSETRON HCL 4 MG/2 ML VIAL IVP PRN ×2 (04:28→10:37)
[2017-10-29] MEDS ORDERED: ACETAMINOPHEN 325 MG TAB PO PRN (05:45)
[2017-10-29] MEDS: ENOXAPARIN SODIUM 120 MG/0.8 ML SYRINGE SQ SCH ×2 (06:02→18:04)
[2017-10-29] MEDS: CALCIUM CARBONATE 500 MG CHEWABLE TAB PEG SCH (08:53)
[2017-10-29] MEDS: POTASSIUM CHLORIDE 20 MEQ PWD PACKET PEG SCH ×2 (08:53→20:46)
[2017-10-29] MEDS: LACTULOSE SYRUP 20 GM/30 ML CUP PO SCH (08:54)
[2017-10-29] MEDS: POLYETHYLENE GLYCOL 17 GM PKG PO SCH ×2 (08:54→20:46)
[2017-10-29] MEDS: BISACODYL EC 5 MG TABEC PO SCH (08:54)
[2017-10-29] MEDS: SODIUM CHLORIDE 0.9% FLUSH 10 ML FLUSH IV FLUSH SCH ×2 (08:55→20:46)
[2017-10-29] MEDS: KETOCONAZOLE 2% CREAM 15 GM TOPICAL SCH ×2 (09:00→20:47)
[2017-10-29] MEDS: NYSTATIN 100,000 U/GM PWD 15 GM BTL TOPICAL SCH ×2 (09:00→20:47)
[2017-10-29] MEDS ORDERED: ACETAMINOPHEN 650 MG/20.3 ML UDC PO PRN (09:30)
[2017-10-29] MEDS: SODIUM CHLORIDE 0.9% FLUSH 10 ML FLUSH IV FLUSH PRN ×2 (10:37→13:15)
--- NOTE | 2017-10-29 12:56 | HHI.PR ---
Subjective Remarks Follow-up for G-tube and constipation Patient has not had a bowel movement for 2 days. She continues to have her chronic pain at the G-tube site. Residual 44 today. Able to push medication. She is at a rate of cc per hour. I ordered an enema patient declined. Patient requesting to restart her Reglan since she feels nauseous. Denied any emesis. Discussed case with nurse, August. Objective Vitals Vital Signs Date Time Temp Pulse Resp B/P (MAP) Pulse Ox O2 Delivery O2 Flow Rate FiO2 10/29/17 11:33 18 10/29/17 08:59 17 10/29/17 08:40 100 Nasal Cannula 2.00 10/29/17 08:00 97.3 88 20 109/55 (73) 95 10/29/17 07:37 99 Nasal Cannula 2.00 10/29/17 00:00 97.2 82 20 120/56 (77) 98 10/28/17 20:00 97.6 84 20 112/58 (76) 99 10/28/17 19:34 Nasal Cannula 2.00 10/28/17 16:22 99 Nasal Cannula 3.00 10/28/17 16:00 98.0 82 17 116/57 (76) 98 I/O 10/28/17 10/28/17 10/28/17 10/29/17 10/29/17 10/29/17 07:00 15:00 23:00 07:00 15:00 23:00 Intake Total 1084 ml 0 ml 0 ml Output Total 1000 ml 610.0 ml 350 ml 45.0 ml Balance 84 ml -610.0 ml -350 ml -45.0 ml Intake Oral 0 ml 0 ml 0 ml Tube Feeding 1084 ml Output Urine Total 1000 ml 600 ml 350 ml Tube Feeding Residual Discard 10.0 ml 45.0 ml # Bowel Movements 0 0 Result Diagram: 10/28/17 1240 10/28/17 1240 Objective Remarks GENERAL: in NAD CARDIOVASCULAR: Regular rate and rhythm without murmurs, gallops, or rubs. RESPIRATORY: Breath sounds equal bilaterally. No accessory muscle use. GASTROINTESTINAL: Abdomen soft, non-tender, nondistended. G tube in place. MUSCULOSKELETAL: No cyanosis, or edema. BACK: Nontender without obvious deformity. No CVA tenderness. Medications and IVs Current Medications Morphine Sulfate (Morphine Inj) 2 mg STK-MED ONCE IV PUSH ; Start 09/30/17 at 16 :46; Stop 09/30/17 at 16:55; Status DC Sodium Chloride 1,000 ml @ 125 mls/hr Q8H IV Last administered on 10/03/17 17 :34; Start 09/30/17 at 18:00; Stop 10/04/17 at 14:16; Status DC Sodium Chloride (NS Flush) 2 ml UNSCH PRN IV FLUSH FLUSH AFTER USING IV ACCESS Last administered on 10/29/17 13:15; Start 09/30/17 at 17:45 Sodium Chloride (NS Flush) 2 ml BID IV FLUSH Last administered on 10/29/17 08 :55; Start 09/30/17 at 21:00 Ondansetron HCl (Zofran Inj) 4 mg Q6H PRN IVP NAUSEA OR VOMITING Last administered on 10/29/17 10:37; Start 09/30/17 at 17:45 Naloxone HCl (Narcan Inj) 0.4 mg UNSCH PRN IV PUSH SEE LABEL COMMENTS; Start 09/30/17 at 17:45 Morphine Sulfate (Morphine Inj) 4 mg Q3H PRN IV PUSH pain 6-10 Last administered on 10/12/17 04:44; Start 09/30/17 at 17:45; Stop 10/12/17 at 08: 58; Status DC Enoxaparin Sodium (Lovenox Inj) 120 mg Q12H SQ Last administered on 10/29/17 06:02; Start 09/30/17 at 18:00; Status Future hold Albuterol/ Ipratropium (Duoneb Neb) 1 ampule Q4HR NEB PRN NEB SOB/Wheezing Last administered on 10/28/17 08:53; Start 09/30/17 at 17:45 Enalaprilat (Vasotec Inj) 2.5 mg Q6H PRN IV PUSH SBP>160, DBP>100; Start at 17:45 Ketorolac Tromethamine (Toradol Inj) 30 mg Q6H PRN IM Breakthrough pain; Start 09/30/17 at 18:00; Stop 10/03/17 at 18:00; Status UNV Pantoprazole Sodium (Protonix Inj) 40 mg Q24H IV PUSH Last administered on 17:32; Start 09/30/17 at 19:00; Stop 10/25/17 at 11:55; Status DC Morphine Sulfate (Morphine Inj) 2 mg ONCE ONCE IV PUSH ; Start 09/30/17 at 17: 00; Stop 09/30/17 at 19:36; Status DC Cefazolin Sodium/ Dextrose 50 ml @ 100 mls/hr ONCE ONCE IV Last administered on 09/30/17 23:18; Start 09/30/17 at 17:00; Stop 09/30/17 at 19:36; Status DC Cefazolin Sodium 1000 mg/Sodium Chloride 100 ml @ 200 mls/hr Q8H IV Last administered on 10/10/17 09:29; Start 10/01/17 at 01:00; Stop 10/10/17 at 11: 48; Status DC Albuterol/ Ipratropium (Duoneb Neb) 1 ampule Q6HR WHILE AWAKE NEB NEB Last administered on 10/05/17 14:58; Start 10/01/17 at 20:00; Stop 10/05/17 at 19:59 ; Status DC Acetaminophen 50 ml @ 400 mls/hr Q6H PRN IV fever >101 Last administered on 16:14; Start 10/01/17 at 16:00; Stop 10/02/17 at 16:34; Status DC Acetaminophen 50 ml @ 400 mls/hr Q6H PRN IV HEADACHE/fever >101 Last administered on 10/20/17 17:48; Start 10/02/17 at 16:45; Stop 10/25/17 at 11: 55; Status DC Dextrose/Sodium Chloride 1,000 ml @ 100 mls/hr Q10H IV Last administered on 13:39; Start 10/02/17 at 21:00; Stop 10/04/17 at 14:16; Status DC Lactated Ringer's 1,000 ml @ 999 mls/hr BOLUS ONCE IV Last administered on 21:13; Start 10/02/17 at 21:00; Stop 10/02/17 at 22:00; Status DC Dextrose (D50w (Vial) Inj) 50 ml UNSCH PRN IV PUSH HYPOGLYCEMIA-SEE COMMENTS; Start 10/02/17 at 21:00 Glucagon (Glucagon Inj) 1 mg UNSCH PRN OTHER HYPOGLYCEMIA-SEE COMMENTS; Start 10/02/17 at 21:00 Multivitamins 10 ml/Folic Acid 1 mg/Amino Acids/ Electrolytes/ Dextrose 2,010.2 ml @ 83 mls/hr Q24H IV-CENTRAL Last administered on 10/10/17 20:45; Start 10/03/17 at 20:00; Stop 10/11/17 at 13:23; Status DC Fat Emulsion Intravenous 250 ml @ 31.25 mls/ hr Q24H IV-CENTRAL Last administered on 10/15/17 20:38; Start 10/03/17 at 20:00; Stop 10/25/17 at 11: 55; Status DC Insulin Aspart (NovoLOG SUPPLEMENTAL SCALE) 1 ACHS SLIDING SCALE SQ Last administered on 10/14/17 12:21; Start 10/03/17 at 17:00; Stop 10/17/17 at 15: 34; Status DC Potassium Chloride 100 ml @ 50 mls/hr Q2H IV Last administered on 10/04/17 22 :37; Start 10/04/17 at 14:45; Stop 10/04/17 at 18:44; Status DC Metoclopramide HCl (Reglan Inj) 10 mg Q8H PRN IV PUSH nausea Last administered on 10/25/17 02:27; Start 10/05/17 at 04:15; Stop 10/25/17 at 11:57; Status DC Potassium Chloride 100 ml @ 50 mls/hr BOLUS ONCE IV Last administered on 10/06 12:54; Start 10/06/17 at 09:00; Stop 10/06/17 at 10:59; Status DC Albuterol/ Ipratropium (Duoneb Neb) 1 ampule Q4HR WHILE AWAKE NEB NEB Last administered on 10/10/17 11:03; Start 10/06/17 at 16:00; Stop 10/10/17 at 11: 48; Status DC Albuterol/ Ipratropium (Duoneb Neb) 1 ampule Q4HR WHILE AWAKE NEB NEB Last administered on 10/14/17 09:00; Start 10/10/17 at 12:00; Stop 10/14/17 at 11 :59; Status DC Diphenhydramine HCl (Benadryl Inj) 25 mg Q8H PRN IV PUSH itching Last administered on 10/25/17 10:22; Start 10/11/17 at 10:30; Stop 10/25/17 at 11 :55; Status DC Multivitamins 5 ml/Folic Acid 0.5 mg/Amino Acids/ Electrolytes/ Dextrose 1, 005.1 ml @ 83 mls/hr Q12H7M IV Last administered on 10/16/17 09:03; Start 10/11/17 at 20:00; Stop 10/25/17 at 11:55; Status DC Iohexol (Omnipaque 350 Inj) 50 ml STK-MED ONCE G-TUBE Last administered on 10:58; Start 10/12/17 at 08:00; Stop 10/12/17 at 08:23; Status DC Morphine Sulfate (Morphine Inj) 4 mg Q3H PRN IV PUSH PAIN SCALE 6 TO 10 Last administered on 10/19/17 15:54; Start 10/12/17 at 09:00; Stop 10/19/17 at 18 :45; Status DC Sodium Chloride 250 ml @ 15 mls/hr ONCE ONCE IV ; Start 10/13/17 at 05:45; Stop 10/13/17 at 22:24; Status DC Acetaminophen (Tylenol) 650 mg Q4H PRN PO SEE LABEL COMMENTS; Start 10/13/17 at 05:45 Diphenhydramine HCl (Benadryl) 25 mg Q4H PRN PO SEE LABEL COMMENTS; Start at 05:45; Stop 10/26/17 at 14:03; Status DC Heparin Sodium (Porcine) (Heparin Central Flush) 500 units UNSCH IV FLUSH Last administered on 10/25/17 16:32; Start 10/13/17 at 06:30 Sodium Chloride (NS Flush) 5 ml UNSCH PRN IVF SEE PROTOCOL; Start 10/13/17 at 06:30 Heparin Sodium (Porcine) (Heparin Central Flush) 250 units UNSCH PRN IV FLUSH SEE PROTOCOL Last administered on 10/27/17 18:30; Start 10/13/17 at 06:30 Alteplase, Recombinant (Cathflo Activase Inj) 2 mg ONCE ONCE INTRACATH Last administered on 10/13/17 13:00; Start 10/13/17 at 13:00; Stop 10/13/17 at 13 :05; Status DC Cefazolin Sodium/ Dextrose 50 ml @ As Directed STK-MED ONCE .ROUTE Last administered on 10/14/17 09:31; Start 10/14/17 at 09:31; Stop 10/14/17 at 09 :32; Status DC Glucagon (Glucagon Inj) 1 mg STK-MED ONCE .ROUTE Last administered on 09:44; Start 10/14/17 at 09:44; Stop 10/14/17 at 09:45; Status DC Glucagon (Glucagon Inj) 1 mg STK-MED ONCE .ROUTE Last administered on 09:56; Start 10/14/17 at 09:56; Stop 10/14/17 at 09:57; Status DC Iohexol (Omnipaque 350 Inj) 65 ml STK-MED ONCE G-TUBE ; Start 10/14/17 at 11:33 ; Stop 10/14/17 at 11:34; Status DC Ondansetron HCl (*ZOFRAN INJ PERIprocedural ONLY) 4 mg STK-MED ONCE .ROUTE Last administered on 10/14/17 12:06; Start 10/14/17 at 12:06; Stop 10/14/17 at 12:07; Status DC Promethazine HCl (*PHENERGAN INJ PERIprocedural ONLY) 25 mg STK-MED ONCE .ROUTE Last administered on 10/14/17 12:13; Start 10/14/17 at 12:13; Stop at 12:14; Status DC Morphine Sulfate (*morphine INJ PERIprocedure ONLY) 8 mg STK-MED ONCE .ROUTE Last administered on 10/14/17 12:29; Start 10/14/17 at 12:29; Stop 10/14/17 at 12:30; Status DC Miscellaneous Information ALL NURSING DEPARTME... UNSCH PRN .XX SEE LABEL COMMENTS; Start 10/14/17 at 11:29; Stop 10/15/17 at 11:28; Status DC Albuterol/ Ipratropium (Duoneb Neb) 1 ampule Q6HR WHILE AWAKE NEB NEB Last administered on 10/21/17 07:42; Start 10/17/17 at 14:00; Stop 10/21/17 at 10 :49; Status DC Sodium Chloride 500 ml @ 500 mls/hr BOLUS ONCE IV Last administered on 11:15; Start 10/17/17 at 11:15; Stop 10/17/17 at 12:14; Status DC Ceftriaxone Sodium 1000 mg/ Sodium Chloride 100 ml @ 200 mls/hr Q24H IV Last administered on 10/19/17 15:07; Start 10/17/17 at 15:00; Stop 10/20/17 at 14 :19; Status DC Sodium Chloride 1,000 ml @ 50 mls/hr Q20H IV Last administered on 10/18/17 16:41; Start 10/18/17 at 14:30; Stop 10/19/17 at 10:29; Status DC Bisacodyl (Dulcolax Supp) 10 mg ONCE ONCE RECTAL ; Start 10/18/17 at 14:30; Stop 10/18/17 at 14:33; Status DC Mineral Oil (Fleet Mineral Oil Enema) 118 ml ONCE ONCE RECTAL Last administered on 10/19/17 15:07; Start 10/19/17 at 12:30; Stop 10/19/17 at 12 :31; Status DC Morphine Sulfate (Morphine Inj) 4 mg Q3H PRN IV PUSH PAIN SCALE 6 TO 10 Last administered on 10/21/17 09:36; Start 10/19/17 at 19:00; Stop 10/21/17 at 12 :27; Status DC Doxycycline Hyclate (Vibratab) 100 mg Q12HR PO ; Start 10/20/17 at 16:00; Stop 10/20/17 at 16:00; Status DC Doxycycline Hyclate 100 mg/ Sodium Chloride 100 ml @ 100 mls/hr Q12H IV Last administered on 10/25/17 03:33; Start 10/20/17 at 17:00; Stop 10/25/17 at 11 :58; Status DC Mineral Oil (Fleet Mineral Oil Enema) 118 ml ONCE ONCE RECTAL Last administered on 10/21/17 10:30; Start 10/21/17 at 10:30; Stop 10/21/17 at 10 :31; Status DC Polyethylene Glycol (Miralax) 17 gm DAILY PO Last administered on 10/22/17 09 :00; Start 10/21/17 at 10:30; Stop 10/22/17 at 15:44; Status DC Magnesium Citrate (Citroma Liq) 300 ml ONCE PO ; Start 10/21/17 at 10:45; Stop 10/21/17 at 11:12; Status DC Albuterol/ Ipratropium (Duoneb Neb) 1 ampule Q6HR WHILE AWAKE NEB NEB Last administered on 10/25/17 13:36; Start 10/21/17 at 14:00; Stop 10/25/17 at 13 :59; Status DC Dextrose/Sodium Chloride 1,000 ml @ 100 mls/hr Q10H IV Last administered on 02:26; Start 10/21/17 at 11:00; Stop 10/25/17 at 11:55; Status DC Polyethylene Glycol/ Electrolytes (Colyte Liq) 4,000 ml ONCE ONCE PO ; Start 10/21/17 at 12:00; Stop 10/21/17 at 12:01; Status DC Morphine Sulfate (Morphine Inj) 4 mg Q4H PRN IV PUSH PAIN SCALE 6 TO 10 Last administered on 10/25/17 07:42; Start 10/21/17 at 12:30; Stop 10/25/17 at 11 :55; Status DC Phenazopyridine HCl (Pyridium) 100 mg Q8H PRN PO Discomfort Last administered on 10/22/17 14:03; Start 10/22/17 at 10:30 Nystatin (Mycostatin Powder) 1 applic Q12HR TOPICAL Last administered on 09:00; Start 10/22/17 at 10:30 Potassium Chloride 100 ml @ 50 mls/hr ONCE ONCE IV Last administered on 10/22 14:03; Start 10/22/17 at 12:00; Stop 10/22/17 at 13:59; Status DC Polyethylene Glycol (Miralax) 17 gm BID PO Last administered on 10/29/17 08: 54; Start 10/22/17 at 21:00 Bisacodyl (Dulcolax Ec) 10 mg DAILY PO Last administered on 10/29/17 08:54; Start 10/23/17 at 09:00 Ketoconazole (Nizoral 2% Cream) 1 applic BID TOPICAL Last administered on 10/29 09:00; Start 10/22/17 at 21:00 Calcium Carbonate (Oscal) 500 mg Q12HR PEG ; Start 10/24/17 at 12:45; Stop at 13:32; Status DC Potassium Chloride (KCl Powder) 20 meq Q12HR PEG Last administered on 08:53; Start 10/24/17 at 12:45 Calcium Gluconate (Calcium Gluconate) 500 mg DAILY PEG ; Start 10/24/17 at 13: 45; Status Cancel Calcium Carbonate (Tums Chew) 500 mg DAILY PEG Last administered on 10/29/17 08:53; Start 10/25/17 at 09:00 Calcium Carbonate (Tums Chew) 500 mg ONCE ONCE PEG Last administered on 17:32; Start 10/24/17 at 15:00; Stop 10/24/17 at 15:01; Status DC Morphine Sulfate (Morphine Inj) 3 mg Q4H PRN IV PUSH PAIN SCALE 6 TO 10; Start 10/25/17 at 12:30; Stop 10/25/17 at 12:30; Status DC Lactulose (Lactulose Liq) 30 ml DAILY PO Last administered on 10/29/17 08:54 ; Start 10/25/17 at 12:00 Sodium Biphosphate/ Sodium Phosphate (Fleets Enema (Adult)) 133 ml ONCE ONCE RECTAL ; Start 10/25/17 at 12:00; Stop 10/25/17 at 12:14; Status DC Morphine Sulfate (Morphine Inj) 3 mg Q4H PRN IV PUSH PAIN SCALE 8 TO 10 Last administered on 10/27/17 06:02; Start 10/25/17 at 12:30; Stop 10/27/17 at 12 :36; Status DC Oxycodone HCl (Roxicodone Intensol Liq) 5 mg Q4H PRN PO pain 4-7; Start at 12:00; Stop 10/27/17 at 14:06; Status DC Methylnaltrexone [place] (Relistor Inj) 12 mg ONCE ONCE SQ Last administered on 10/25/17 15:45; Start 10/25/17 at 14:00; Stop 10/25/17 at 14:01; Status DC Alteplase, Recombinant (Cathflo Activase Inj) 2 mg NOW ONCE IV Last administered on 10/25/17 18:11; Start 10/25/17 at 17:45; Stop 10/25/17 at 17 :46; Status DC Diphenhydramine HCl (Benadryl) 25 mg Q8HR PRN PO pruritis Last administered on 10/26/17 06:01; Start 10/25/17 at 19:30; Stop 10/26/17 at 06:11; Status DC Magnesium Citrate (Citroma Liq) 300 ml ONCE ONCE PO ; Start 10/26/17 at 13:00 ; Stop 10/26/17 at 13:01; Status DC Mineral Oil (Fleet Mineral Oil Enema) 118 ml DAILY RECTAL ; Start 10/26/17 at 13:00; Stop 10/28/17 at 09:01; Status DC Diphenhydramine HCl (Benadryl 2% Cream) 1 applic TID PRN TOPICAL ITCHING Last administered on 10/28/17 16:14; Start 10/26/17 at 14:00 Morphine Sulfate (Roxanol Liq) 5 mg Q4H PRN PEG pain 1-10 Last administered on 10/28/17 09:49; Start 10/27/17 at 12:15; Stop 10/29/17 at 09:57; Status DC Albuterol/ Ipratropium (Duoneb Neb) 1 ampule Q4HR NEB NEB Last administered on 10/29/17 11:22; Start 10/28/17 at 12:00 Morphine Sulfate (Morphine Inj) 1 mg ONCE ONCE IV PUSH ; Start 10/28/17 at 10: 15; Stop 10/28/17 at 10:51; Status DC Sodium Chloride 1,000 ml @ 60 mls/hr [id number] IV Last administered on 04:26; Start 10/28/17 at 11:00 Morphine Sulfate (Morphine Inj) 2 mg Q4H PRN IV PAIN SCALE 3-10 Last administered on 10/29/17 13:13; Start 10/28/17 at 14:15 Acetaminophen (Tylenol) 650 mg Q4H PRN PO HEADACHE; Start 10/29/17 at 05:45 Acetaminophen (Tylenol 650 Mg/ 20 ml Liq) 650 mg Q6H PRN PO pain 1-10 Last administered on 10/29/17 10:33; Start 10/29/17 at 09:30 Ergocalciferol (Calciferol Liq) 8,000 units DAILY G-TUBE ; Start 10/29/17 at 12 :45 Sodium Biphosphate/ Sodium Phosphate (Fleets Enema (Adult)) 133 ml ONCE ONCE RECTAL ; Start 10/29/17 at 13:00; Stop 10/29/17 at 13:01; Status DC Metoclopramide HCl (Reglan Inj) 5 mg Q8H PRN IV PUSH nausea; Start 10/29/17 at 13:30; Status UNV A/P Problem List: (1) PEG tube malfunction ICD Code: K94.23 - Gastrostomy malfunction (2) History of recurrent deep vein thrombosis (DVT) ICD Code: Z86.718 - Personal history of other venous thrombosis and embolism Status: Chronic (3) Impaired mobility and activities of daily living ICD Code: Z74.09 - Other reduced mobility Status: Acute (4) History of CVA (cerebrovascular accident) ICD Code: Z86.73 - Personal history of transient ischemic attack (TIA), and cerebral infarction without residual deficits Status: Chronic (5) History of pulmonary embolism ICD Code: Z86.711 - Personal history of pulmonary embolism Status: Chronic (6) Postoperative anemia due to acute blood loss ICD Code: D62 - Acute posthemorrhagic anemia Status: Acute (7) Diastolic heart failure ICD Code: I50.30 - Unspecified diastolic (congestive) heart failure Status: Chronic (8) MANI (obstructive sleep apnea) ICD Code: G47.33 - Obstructive sleep apnea (adult) (pediatric) Status: Chronic (9) S/P gastric bypass ICD Code: Z98.84 - Bariatric surgery status Status: Acute Assessment and Plan This is a 47-year-old female gastric bypass surgery status post G-tube placement 1. Abdominal pain, Status post gastric bypass/G-tube placement/ G- tube malfunction/ Abdominal pain/ Constipation, Feeding tube replaced (10/14/17), at the moment not tolerating tube feeds. GI signed off again and stated high residual most likely secondary to fecal impaction. Patient on multiple laxatives and refused enema despite specific. Spoke with general surgeon Brigette KHOURY and requires high residual pending recommendations. Call [place] yesterday and stated spoke to project officer and she stated that patient surgeon is out of town and I asked for covering physician which was Dr. Guthrie to call me in regards to patient and possible transfer since procedure was done by [facility] and patient asking to be transferred back. I have still yet to receive any call back. 2. Anemia, currently stable 3. COPD, chronic and stable. Duo nebs as needed, incentive spirometry, encourage movement 4. UTI positive Enterobacter cloaca, completed doxy, fevers resolved 5. Generalized weakness and unexplained ability to ambulate, neurology consult appreciated. Patient was diagnosed with MS but not on treatment(? patient said she was on treatment prior to her surgery in August but cannot provide further info) but refused evaluation at this time. Neurologist Dr. Jacobo reconsulted and stated information is too old and need recent medical records in regards to MS or needs to be work up. Patient unable to provide recent medical records and refused workup. 6. History of venous thrombotic event, continue therapeutic Lovenox with IVC filter 7. Neurogenic bladder, continue Reeves 8. History of a stroke without any residual defect, continue with Lovenox for now 9. Electrolyte imbalance resolved Lisa Rivera MD Oct 29, 2017 12:56
[2017-10-29] MEDS ORDERED: SOD PHOSPHATE/SOD BIPHOSPHATE (ADULT) ENEMA 133ML RECTAL ONE (13:00)
[2017-10-29] MEDS ORDERED: METOCLOPRAMIDE HCL 10 MG/2 ML VIAL IV PUSH PRN (13:30)
[2017-10-29] MEDS: ERGOCALCIFEROL (VIT D2) 8,000 UNITS/ML 60 ML BTL G-TUBE SCH (13:36)
[2017-10-29] MEDS: ONDANSETRON HCL 4 MG/2 ML VIAL IV PUSH PRN (20:46)
[2017-10-30] VITALS: BP 113/58; PULSE 89; RESP 18; TEMP 98.2; O2SAT 99
[2017-10-30] MEDS: MORPHINE SULFATE 2 MG/ML INJ IV PRN ×6 (02:46→22:23)
[2017-10-30] MEDS: ONDANSETRON HCL 4 MG/2 ML VIAL IV PUSH PRN ×4 (02:47→22:23)
[2017-10-30] MEDS: RESP: ALBUTEROL 2.5 MG/IPRATROPIUM 0.5 MG NEB (SCH) NEB ×6 (04:46→19:27)
[2017-10-30] MEDS: ENOXAPARIN SODIUM 120 MG/0.8 ML SYRINGE SQ SCH ×2 (06:47→17:53)
[2017-10-30] MEDS: METOCLOPRAMIDE HCL 10 MG/2 ML VIAL IV PUSH PRN (06:48)
--- NOTE | 2017-10-30 07:00 | HHI.PR ---
Subjective Remarks Patient seen and examined this morning. Her vitals are stable and she is afebrile. I & Os noted. She endorses abdominal pain. Wants to know when she can be transferred to [place]. Objective Vital Signs Date Time Temp Pulse Resp B/P (MAP) Pulse Ox O2 Delivery O2 Flow Rate FiO2 10/30/17 00:00 98.2 89 18 113/58 (76) 99 10/29/17 21:03 Nasal Cannula 2.00 10/29/17 20:44 99 Nasal Cannula 2.00 10/29/17 20:00 99.0 85 18 121/61 (81) 99 10/29/17 17:32 18 10/29/17 16:00 96.9 71 20 127/60 (82) 99 10/29/17 12:00 98.8 74 19 112/52 (72) 96 10/29/17 11:33 18 10/29/17 08:40 100 Nasal Cannula 2.00 10/29/17 08:00 97.3 88 20 109/55 (73) 95 10/29/17 07:37 99 Nasal Cannula 2.00 I/O 10/29/17 10/29/17 10/29/17 10/30/17 10/30/17 10/30/17 07:00 15:00 23:00 07:00 15:00 23:00 Intake Total 0 ml 1000 ml 378 ml Output Total 350 ml 45.0 ml 700 ml 1600 ml Balance -350 ml -45.0 ml 300 ml -1222 ml Intake Oral 0 ml 0 ml IV Total 1000 ml Tube Feeding 228 ml Other 150 ml Output Urine Total 350 ml 700 ml 1600 ml Tube Feeding Residual Discard 45.0 ml # Bowel Movements 1 Result Diagram: 10/28/17 1240 10/28/17 1240 Imaging Last Impressions Abdomen X-Ray 10/26/17 0600 Signed Impressions: Service Date/Time: Thursday, October 26, 2017 05:49 - CONCLUSION: Nonspecific abdomen. KChanelle Araiza MD Chest X-Ray 10/16/17 0000 Signed Impressions: Service Date/Time: Monday, October 16, 2017 12:44 - CONCLUSION: Normal examination. Left subclavian [id number] catheter in good position Gagan Rose MD Abdomen CT 10/15/17 0000 Signed Impressions: Service Date/Time: Sunday, October 15, 2017 22:54 - CONCLUSION: Pigtail gastrostomy catheter replaced in the interim with a PEG tube which has its tip in the bypassed portion of the body of the stomach. There is mild perigastric edema but no organized or drainable fluid. August Luna MD ADDENDUM: The patient's new gastrostomy tube is in good position with entry site approximately 4 cm below the prior G-tube site. The new position is well below the costal margin. There is no evidence of disruption of the previous operative sites. There has been interval decrease in lung base fluid and atelectasis. August Darden MD Gastrostomy Tube Placement 10/14/17 0000 Signed Impressions: Service Date/Time: Saturday, October 14, 2017 09:07 - CONCLUSION: Uncomplicated gastrostomy tube placement as above. August Darden MD Objective Remarks GENERAL: resting comfortably SKIN: Warm and dry. HEAD: Normocephalic. EYES: No scleral icterus. No injection or drainage. NECK: Supple, trachea midline. No JVD or lymphadenopathy. CARDIOVASCULAR: Regular rate and rhythm without murmurs, gallops, or rubs. RESPIRATORY: Breath sounds equal bilaterally. No accessory muscle use. GASTROINTESTINAL: Abdomen soft & nondistended. G tube in place. MUSCULOSKELETAL: No cyanosis, or edema. A/P Problem List: (1) PEG tube malfunction ICD Code: K94.23 - Gastrostomy malfunction (2) History of recurrent deep vein thrombosis (DVT) ICD Code: Z86.718 - Personal history of other venous thrombosis and embolism Status: Chronic (3) Impaired mobility and activities of daily living ICD Code: Z74.09 - Other reduced mobility Status: Acute (4) Postoperative anemia due to acute blood loss ICD Code: D62 - Acute posthemorrhagic anemia Status: Acute (5) History of pulmonary embolism ICD Code: Z86.711 - Personal history of pulmonary embolism Status: Chronic (6) Diastolic heart failure ICD Code: I50.30 - Unspecified diastolic (congestive) heart failure Status: Chronic (7) MANI (obstructive sleep apnea) ICD Code: G47.33 - Obstructive sleep apnea (adult) (pediatric) Status: Chronic (8) S/P gastric bypass ICD Code: Z98.84 - Bariatric surgery status Status: Acute Assessment and Plan This is a 47-year-old female gastric bypass surgery status post G-tube placement Abdominal pain, - Status post gastric bypass/G-tube placement/ G- tube malfunction/ Abdominal pain/ Constipation - Feeding tube replaced (10/14/17), at the moment not tolerating tube feeds. - GI signed off again and stated high residual most likely secondary to fecal impaction. Patient on multiple laxatives and refused enema despite specific. - Dr. Rivera spoke with general surgeon Brigette KHOURY and requires high residual pending recommendations. Dr. Rivera Call [facility] 10/28 and "stated spoke to chief sustainability officer and she stated that patient surgeon is out of town and I asked for covering physician which was Dr. Guthrie to call me in regards to patient and possible transfer since procedure was done by [facility] and patient asking to be transferred back. I have still yet to receive any call back." Anemia, currently stable COPD, chronic and stable. Duo nebs as needed, incentive spirometry, encourage movement UTI positive Enterobacter cloaca, completed doxy, fevers resolved Generalized weakness and unexplained ability to ambulate, neurology consult appreciated. Patient was diagnosed with MS but not on treatment(? patient said she was on treatment prior to her surgery in August but cannot provide further info) but refused evaluation at this time. Neurologist Dr. Jacobo reconsulted and stated information is too old and need recent medical records in regards to MS or needs to be work up. Patient unable to provide recent medical records and refused workup. History of venous thrombotic event, continue therapeutic Lovenox with IVC filter Neurogenic bladder, continue Reeves History of a stroke without any residual defect, continue with Lovenox for now Electrolyte imbalance resolved Discharge Planning No current discharge plan in place. Prior physician has made efforts to contract surgeon at [facility] for possible transfer. I will follow up on this. Family does not wish to go to SNF. Valeria Medellin MD Oct 30, 2017 07:00
[2017-10-30 08:00] VITALS: BP 95/54; PULSE 78; RESP 18; TEMP 97; O2SAT 97; O2SAT 98
[2017-10-30] MEDS: SODIUM CHLORIDE 0.9% FLUSH 10 ML FLUSH IV FLUSH SCH ×2 (09:00→22:23)
[2017-10-30] MEDS: KETOCONAZOLE 2% CREAM 15 GM TOPICAL SCH ×2 (09:00→22:24)
[2017-10-30] MEDS: POTASSIUM CHLORIDE 20 MEQ PWD PACKET PEG SCH ×2 (09:00→22:24)
[2017-10-30] MEDS: NYSTATIN 100,000 U/GM PWD 15 GM BTL TOPICAL SCH ×2 (09:00→22:24)
[2017-10-30] MEDS: ERGOCALCIFEROL (VIT D2) 8,000 UNITS/ML 60 ML BTL G-TUBE SCH (09:00)
[2017-10-30] MEDS: CALCIUM CARBONATE 500 MG CHEWABLE TAB PEG SCH (09:06)
[2017-10-30] MEDS: LACTULOSE SYRUP 20 GM/30 ML CUP PO SCH (09:06)
[2017-10-30] MEDS: BISACODYL EC 5 MG TABEC PO SCH (09:07)
[2017-10-30] MEDS: POLYETHYLENE GLYCOL 17 GM PKG PO SCH ×2 (09:07→22:23)
[2017-10-30] MEDS: SODIUM CHLORIDE 0.9% FLUSH 10 ML FLUSH IV FLUSH PRN ×2 (10:52→15:01)
[2017-10-30 12:00] VITALS: BP 113/56; PULSE 107; RESP 18; TEMP 97.9; O2SAT 97
[2017-10-30] MEDS: SODIUM CHLOR 0.9% 1000 ML INJ 1,000 ML IV SCH (12:02)
[2017-10-30 16:00] VITALS: BP 119/69; PULSE 85; RESP 18; TEMP 98.5; O2SAT 99
[2017-10-30 16:06] VITALS: O2SAT 99
[2017-10-30 20:00] VITALS: BP 104/66; PULSE 86; RESP 18; TEMP 98.2; O2SAT 99
[2017-10-31] VITALS (7 sets, daily range): BP systolic 106–121; BP diastolic 55–63; PULSE 79–91; RESP 17–20; TEMP 97.5–99; O2SAT 98–100
[2017-10-31] MEDS: RESP: ALBUTEROL 2.5 MG/IPRATROPIUM 0.5 MG NEB (SCH) NEB ×7 (03:46→23:23)
[2017-10-31] MEDS: SODIUM CHLOR 0.9% 1000 ML INJ 1,000 ML IV SCH ×2 (04:59→20:27)
[2017-10-31] MEDS: ONDANSETRON HCL 4 MG/2 ML VIAL IV PUSH PRN (05:00)
[2017-10-31] MEDS: MORPHINE SULFATE 2 MG/ML INJ IV PRN ×5 (05:00→23:14)
--- NOTE | 2017-10-31 07:16 | HHI.PR ---
Subjective Remarks Patient seen and examined this morning. Her vitals are stable and she is afebrile. I & Os noted. Discussed case with employment case manager yesterday, they are aware that the patient would like to be transferred to [facility]. Attempts have been made to contact them with no success. [facility] where the patient is she was previously seen and treated there. Further attempts will be made to reach out to [facility] on Tuesday after the holiday. She reports two large liquid stools. She reports did not get rest last night because of the interruptions. She wants to be transferred to [facility] and doesn't understand why its taking so long, she was under the understanding they would take her back at any time. She does not want to be transported by EMS, wants her to drive her, he has to go to [place] soon so wants transfer to happen soon. Objective Vital Signs Date Time Temp Pulse Resp B/P (MAP) Pulse Ox O2 Delivery O2 Flow Rate FiO2 10/31/17 00:39 98.5 80 18 106/55 (72) 99 10/30/17 22:25 Nasal Cannula 2.00 10/30/17 20:00 98.2 86 18 104/66 (79) 99 10/30/17 18:45 17 10/30/17 16:06 99 Nasal Cannula 2.00 10/30/17 16:00 98.5 85 18 119/69 (86) 99 10/30/17 12:00 97.9 107 18 113/56 (75) 97 10/30/17 08:50 97 Nasal Cannula 2.00 Humidified 10/30/17 08:00 97.0 78 18 95/54 (68) 97 10/30/17 08:00 98 Nasal Cannula 2.00 I/O 10/30/17 10/30/17 10/30/17 10/31/17 10/31/17 10/31/17 07:00 15:00 23:00 07:00 15:00 23:00 Intake Total 378 ml 600 ml 0 ml Output Total 1600 ml 0 ml 900 ml 1000 ml Balance -1222 ml 600 ml -900 ml -1000 ml Intake Oral 0 ml Tube Feeding 228 ml Other 150 ml 600 ml Output Urine Total 1600 ml 900 ml 1000 ml Tube Feeding Residual Discard 0 ml # Bowel Movements 1 Result Diagram: 10/28/17 1240 10/28/17 1240 Imaging Last Impressions Abdomen X-Ray 10/26/17 0600 Signed Impressions: Service Date/Time: Thursday, October 26, 2017 05:49 - CONCLUSION: Nonspecific abdomen. K. Matthew Araiza MD Chest X-Ray 10/16/17 0000 Signed Impressions: Service Date/Time: Monday, October 16, 2017 12:44 - CONCLUSION: Normal examination. Left subclavian [id number]-c-Rnfy catheter in good position Gagan Rose MD Abdomen CT 10/15/17 0000 Signed Impressions: Service Date/Time: Sunday, October 15, 2017 22:54 - CONCLUSION: Pigtail gastrostomy catheter replaced in the interim with a PEG tube which has its tip in the bypassed portion of the body of the stomach. There is mild perigastric edema but no organized or drainable fluid. August Luna MD ADDENDUM: The patient's new gastrostomy tube is in good position with entry site approximately 4 cm below the prior G-tube site. The new position is well below the costal margin. There is no evidence of disruption of the previous operative sites. There has been interval decrease in lung base fluid and atelectasis. August Darden MD Gastrostomy Tube Placement 10/14/17 0000 Signed Impressions: Service Date/Time: Saturday, October 14, 2017 09:07 - CONCLUSION: Uncomplicated gastrostomy tube placement as above. August Darden MD Objective Remarks GENERAL: resting comfortably SKIN: Warm and dry. HEAD: Normocephalic. EYES: No scleral icterus. No injection or drainage. NECK: Supple, trachea midline. No JVD or lymphadenopathy. CARDIOVASCULAR: Regular rate and rhythm without murmurs, gallops, or rubs. RESPIRATORY: Breath sounds equal bilaterally. No accessory muscle use. GASTROINTESTINAL: Abdomen soft & nondistended. G tube in place. MUSCULOSKELETAL: No cyanosis, or edema. A/P Problem List: (1) PEG tube malfunction ICD Code: K94.23 - Gastrostomy malfunction (2) History of recurrent deep vein thrombosis (DVT) ICD Code: Z86.718 - Personal history of other venous thrombosis and embolism Status: Chronic (3) Impaired mobility and activities of daily living ICD Code: Z74.09 - Other reduced mobility Status: Acute (4) Postoperative anemia due to acute blood loss ICD Code: D62 - Acute posthemorrhagic anemia Status: Acute (5) History of pulmonary embolism ICD Code: Z86.711 - Personal history of pulmonary embolism Status: Chronic (6) Diastolic heart failure ICD Code: I50.30 - Unspecified diastolic (congestive) heart failure Status: Chronic (7) MANI (obstructive sleep apnea) ICD Code: G47.33 - Obstructive sleep apnea (adult) (pediatric) Status: Chronic (8) S/P gastric bypass ICD Code: Z98.84 - Bariatric surgery status Status: Acute Assessment and Plan This is a 47-year-old female gastric bypass surgery status post G-tube placement Abdominal pain, - Status post gastric bypass/G-tube placement/ G- tube malfunction/ Abdominal pain/ Constipation - Feeding tube replaced (10/14/17), at the moment not tolerating tube feeds. - GI signed off again and stated high residual most likely secondary to fecal impaction. Patient on multiple laxatives and refused enema despite specific. - Dr. Rivera spoke with general surgeon PENG, Brigette Stratton and requires high residual pending recommendations. Dr. Rivera Call [facility] 10/28 and "stated spoke to parking control officer and she stated that patient surgeon is out of town and I asked for covering physician which was Dr. Guthrie to call me in regards to patient and possible transfer since procedure was done by [facility] and patient asking to be transferred back. I have still yet to receive any call back." Anemia, currently stable COPD, chronic and stable. Duo nebs as needed, incentive spirometry, encourage movement UTI positive Enterobacter cloaca, completed doxy, fevers resolved Generalized weakness and unexplained ability to ambulate, neurology consult appreciated. Patient was diagnosed with MS but not on treatment(? patient said she was on treatment prior to her surgery in August but cannot provide further info) but refused evaluation at this time. Neurologist Dr. Jacobo reconsulted and stated information is too old and need recent medical records in regards to MS or needs to be work up. Patient unable to provide recent medical records and refused workup. History of venous thrombotic event, continue therapeutic Lovenox with IVC filter Neurogenic bladder, continue Reeves History of a stroke without any residual defect, continue with Lovenox for now Electrolyte imbalance resolved Discharge Planning No current discharge plan in place. Prior physician has made efforts to contract surgeon at [facility] for possible transfer. Discussed this with case management, physician will need to recheck to [facility] again on Tuesday. Family does not wish to go to SNF. PT recommends SNIF and OT. Valeria Medellin MD Oct 31, 2017 07:16
[2017-10-31] MEDS: ENOXAPARIN SODIUM 120 MG/0.8 ML SYRINGE SQ SCH ×2 (07:26→17:31)
[2017-10-31] MEDS: CALCIUM CARBONATE 500 MG CHEWABLE TAB PEG SCH (08:49)
[2017-10-31] MEDS: LACTULOSE SYRUP 20 GM/30 ML CUP PO SCH (08:50)
[2017-10-31] MEDS: BISACODYL EC 5 MG TABEC PO SCH (08:51)
[2017-10-31] MEDS: POLYETHYLENE GLYCOL 17 GM PKG PO SCH ×2 (08:51→20:29)
[2017-10-31] MEDS: POTASSIUM CHLORIDE 20 MEQ PWD PACKET PEG SCH ×2 (08:51→20:28)
[2017-10-31] MEDS: ERGOCALCIFEROL (VIT D2) 8,000 UNITS/ML 60 ML BTL G-TUBE SCH (08:51)
[2017-10-31] MEDS: KETOCONAZOLE 2% CREAM 15 GM TOPICAL SCH ×2 (08:52→20:30)
[2017-10-31] MEDS: SODIUM CHLORIDE 0.9% FLUSH 10 ML FLUSH IV FLUSH SCH ×2 (08:52→20:29)
[2017-10-31] MEDS: NYSTATIN 100,000 U/GM PWD 15 GM BTL TOPICAL SCH ×2 (08:52→20:30)
[2017-10-31] MEDS: METOCLOPRAMIDE HCL 10 MG/2 ML VIAL IV PUSH PRN ×2 (09:27→18:32)
[2017-11-01] VITALS (7 sets, daily range): BP systolic 109–131; BP diastolic 55–67; PULSE 78–89; RESP 17–18; TEMP 97.7–99.5; O2SAT 97–99
[2017-11-01] MEDS: RESP: ALBUTEROL 2.5 MG/IPRATROPIUM 0.5 MG NEB (SCH) NEB ×3 (03:35→11:02)
[2017-11-01] MEDS: MORPHINE SULFATE 2 MG/ML INJ IV PRN ×5 (03:56→22:32)
[2017-11-01] MEDS: METOCLOPRAMIDE HCL 10 MG/2 ML VIAL IV PUSH PRN ×2 (04:05→17:35)
[2017-11-01] MEDS: ENOXAPARIN SODIUM 120 MG/0.8 ML SYRINGE SQ SCH ×2 (05:53→18:13)
[2017-11-01] MEDS: POTASSIUM CHLORIDE 20 MEQ PWD PACKET PEG SCH ×2 (09:00→20:02)
[2017-11-01] MEDS: BISACODYL EC 5 MG TABEC PO SCH (09:49)
[2017-11-01] MEDS: CALCIUM CARBONATE 500 MG CHEWABLE TAB PEG SCH (09:49)
[2017-11-01] MEDS: POLYETHYLENE GLYCOL 17 GM PKG PO SCH ×2 (09:49→20:03)
[2017-11-01] MEDS: LACTULOSE SYRUP 20 GM/30 ML CUP PO SCH (09:49)
[2017-11-01] MEDS: ERGOCALCIFEROL (VIT D2) 8,000 UNITS/ML 60 ML BTL G-TUBE SCH (09:50)
[2017-11-01] MEDS: SODIUM CHLORIDE 0.9% FLUSH 10 ML FLUSH IV FLUSH SCH ×2 (09:50→20:03)
[2017-11-01] MEDS: KETOCONAZOLE 2% CREAM 15 GM TOPICAL SCH ×2 (09:50→20:10)
[2017-11-01] MEDS: NYSTATIN 100,000 U/GM PWD 15 GM BTL TOPICAL SCH ×2 (09:51→20:10)
[2017-11-01] MEDS ORDERED: LIDOCAINE HCL 1% PF 5 ML SYRINGE OTHER ONE (12:00)
[2017-11-01] MEDS ORDERED: SUCCINYLCHOLINE CHLORIDE 100 MG/5 ML SYRINGE IV PUSH ONE (12:00)
[2017-11-01] MEDS ORDERED: PROPOFOL 200 MG/20 ML AMP IV ONE (12:00)
[2017-11-01] MEDS ORDERED: ROCURONIUM INJ 50 MG/5 ML SYRINGE IV PUSH ONE (12:00)
[2017-11-01] MEDS ORDERED: ONDANSETRON HCL 4 MG/2 ML VIAL IV ONE (12:00)
[2017-11-01] MEDS: ONDANSETRON HCL 4 MG/2 ML VIAL IV PUSH PRN ×2 (12:28→21:21)
--- NOTE | 2017-11-01 14:07 | HHI.PR ---
Subjective Remarks Patient is upset that she thinks she needs to go to [facility] soon Complaint of abdominal pain 10 out of 10, nausea vomiting even though she was resting reasonably calm in bed She complained about her lower extremity weakness and edema Objective Vitals Vital Signs Date Time Temp Pulse Resp B/P (MAP) Pulse Ox O2 Delivery O2 Flow Rate FiO2 11/01/17 12:00 99.4 89 18 129/67 (87) 99 11/01/17 10:01 18 11/01/17 08:00 97.7 81 18 109/55 (73) 97 11/01/17 07:22 99 Nasal Cannula 2.00 11/01/17 00:00 98.5 78 17 109/55 (73) 98 10/31/17 21:00 98 Nasal Cannula 2.00 10/31/17 20:00 98.5 87 17 109/57 (74) 100 10/31/17 16:00 99.0 91 20 115/60 (78) 98 10/31/17 15:09 99 Nasal Cannula 2.00 I/O 10/31/17 10/31/17 10/31/17 11/01/17 11/01/17 11/01/17 07:00 15:00 23:00 07:00 15:00 23:00 Intake Total 491 ml 1000 ml 250 ml Output Total 1000 ml 900 ml 650 ml Balance -509 ml 100 ml -400 ml Intake Oral 0 ml IV Total 1000 ml Tube Feeding 341 ml 200 ml Tube Irrigant 50 ml Other 150 ml Output Urine Total 1000 ml 900 ml 650 ml Result Diagram: 10/28/17 1240 10/28/17 1240 Objective Remarks GENERAL: This is a morbidly obese patient, in no apparent distress. CARDIOVASCULAR: Regular rate and rhythm without murmurs, gallops, or rubs. RESPIRATORY: Distant Breath sounds . No wheezes, rales, or rhonchi. GASTROINTESTINAL: Abdomen soft, obese, mildly tender nondistended. Normal active bowel sounds MUSCULOSKELETAL: Extremities without clubbing, cyanosis, +3 edema. NEURO: Alert & Oriented x4 to person, place, time, situation. Moves all ext x4 A/P Problem List: (1) PEG tube malfunction ICD Code: K94.23 - Gastrostomy malfunction (2) History of recurrent deep vein thrombosis (DVT) ICD Code: Z86.718 - Personal history of other venous thrombosis and embolism Status: Chronic (3) Impaired mobility and activities of daily living ICD Code: Z74.09 - Other reduced mobility Status: Acute (4) History of CVA (cerebrovascular accident) ICD Code: Z86.73 - Personal history of transient ischemic attack (TIA), and cerebral infarction without residual deficits Status: Chronic (5) History of pulmonary embolism ICD Code: Z86.711 - Personal history of pulmonary embolism Status: Chronic (6) Postoperative anemia due to acute blood loss ICD Code: D62 - Acute posthemorrhagic anemia Status: Acute (7) Diastolic heart failure ICD Code: I50.30 - Unspecified diastolic (congestive) heart failure Status: Chronic (8) MANI (obstructive sleep apnea) ICD Code: G47.33 - Obstructive sleep apnea (adult) (pediatric) Status: Chronic (9) S/P gastric bypass ICD Code: Z98.84 - Bariatric surgery status Status: Acute Assessment and Plan 10/31/17: I discussed with the patient and the nurse and the piano case maker extensively, the patient wants to be transferred to [facility], I called the number she gave me and I discussed with Dr. Willis doubt ration surgeon who was she supposed to see on the of this month he graciouslyD/W the operating surgeon and call me back with accepting of the transfer, I handed the name of the hospice massage therapist and transfer center at the [facility] to the piano case maker to finish up the transfer process. This is a 47-year-old female gastric bypass surgery status post G-tube placement Abdominal pain, - Status post gastric bypass/G-tube placement/ G- tube malfunction/ Abdominal pain/ Constipation - Feeding tube replaced (10/14/17), at the moment not tolerating tube feeds. - GI signed off again and stated high residual most likely secondary to fecal impaction. Patient on multiple laxatives and refused enema despite specific. - Dr. Rivera spoke with general surgeon PENG, Brigette Stratton and requires high residual pending recommendations. Dr. Rivera Call [facility] 10/28 and "stated spoke to staff weapons officer and she stated that patient surgeon is out of town and I asked for covering physician which was Dr. Guthrie to call me in regards to patient and possible transfer since procedure was done by [facility] and patient asking to be transferred back. I have still yet to receive any call back." Anemia, currently stable COPD, chronic and stable. Duo nebs as needed, incentive spirometry, encourage movement UTI positive Enterobacter cloaca, completed doxy, fevers resolved Generalized weakness and unexplained ability to ambulate, neurology consult appreciated. Patient was diagnosed with MS but not on treatment(? patient said she was on treatment prior to her surgery in August but cannot provide further info) but refused evaluation at this time. Neurologist Dr. Jacobo reconsulted and stated information is too old and need recent medical records in regards to MS or needs to be work up. Patient unable to provide recent medical records and refused workup. History of venous thrombotic event, continue therapeutic Lovenox with IVC filter Neurogenic bladder, continue Reeves History of a stroke without any residual defect, continue with Lovenox for now Electrolyte imbalance resolved Jody Tran MD Nov 01, 2017 14:07
--- NOTE | 2017-11-01 14:20 | PD.WCN.NOT ---
Wound Consult Description: Wound consult ordered by for peg area Communicated with: Puja TERRAZAS [address] [place] [address], Recommendation: 1) Please cleanse buttock with soap and water and pat dry. Apply layer of protective barrier cream BID and PRN and leave open to air. 2) Please use ultra sorb pad under patient instead of thick cloth pad for moisture management. 3) Cleanse peg tube site with normal saline , Apply thin layer of triple antibiotic ointment if available 4) Cover with split drain dressing secure with single piece Mediplex tape only. Additional Information: Patient seen today on [address] [place] [address] by production underwriter for peg tube.Puja Mcgraw [place] present with production underwriter.Dressing removed from Peg tube site dated 10/24 old bloody drainage noted.Site cleansed with normal saline.Pat dry .Crusting noted from 3-6 O'clock no odor or drainage noted.Xeroform single layer applied to crusting for comfort.Split drain dressing applied secured with single piece of Mediplex tape at proximal point of dressing.Patient tolerate wound care well .No open / reddened areas noted on buttocks protective ointment applied. Neg Pressure Wound Therapy Wound Location Wound Location: Received consult from Nidia Landis for wound management of abdomen Rach [facility] Nov 01, 2017 14:20
[2017-11-01] MEDS: SODIUM CHLOR 0.9% 1000 ML INJ 1,000 ML IV SCH (15:00)
--- NOTE | 2017-11-01 16:54 | HHI.DS ---
Discharge Summary Admission Date Sep 30, 2017 at 17:50 Admitting Diagnosis (1) PEG tube malfunction ICD Code: K94.23 - Gastrostomy malfunction (2) History of recurrent deep vein thrombosis (DVT) ICD Code: Z86.718 - Personal history of other venous thrombosis and embolism Status: Chronic (3) Impaired mobility and activities of daily living ICD Code: Z74.09 - Other reduced mobility Status: Acute (4) History of CVA (cerebrovascular accident) ICD Code: Z86.73 - Personal history of transient ischemic attack (TIA), and cerebral infarction without residual deficits Status: Chronic (5) History of pulmonary embolism ICD Code: Z86.711 - Personal history of pulmonary embolism Status: Chronic (6) Postoperative anemia due to acute blood loss ICD Code: D62 - Acute posthemorrhagic anemia Status: Acute (7) Diastolic heart failure ICD Code: I50.30 - Unspecified diastolic (congestive) heart failure Status: Chronic (8) MANI (obstructive sleep apnea) ICD Code: G47.33 - Obstructive sleep apnea (adult) (pediatric) Status: Chronic (9) S/P gastric bypass ICD Code: Z98.84 - Bariatric surgery status Status: Acute Procedures G-tube replacement Brief History - From Admission 46-year-old female with an extensive past medical history including CVAs, recurrent DVTs, PE, MS, neurogenic bladder requiring self catheter, chronic pain , A. fib, diastolic CHF, MANI, GERD, Nunez's esophagus, COPD and obesity who is admitted to the [facility] for Bob-en-Y gastric bypass and G-tube placement on 09/19/17. Postoperatively, the patient complained of bilateral lower extremity paralysis and numbness. MRI lumbar spine was done showing stable bulging disks at L4-L5 and L5-S1 without any foraminal or spinal cord narrowing. The patient was admitted to [facility] for rehabilitation on . While at [facility], the patient's PEG tube became clogged. She has severe dysphagia and refuses to take anything by mouth including her medications. The patient went for a G-tube exchange with interventional radiology. During the procedure, the PEG was unable to be replaced in the same location and a new small caliber tube was placed. At this time the patient is to remain nothing by mouth and her PEG tube cannot be used. PEG to remain draining to gravity. The patient complains of severe abdominal pain from the procedure. CBC/BMP: 10/28/17 1240 10/28/17 1240 PE at Discharge GENERAL: This is a morbidly obese patient, in no apparent distress. CARDIOVASCULAR: Regular rate and rhythm without murmurs, gallops, or rubs. RESPIRATORY: Distant Breath sounds . No wheezes, rales, or rhonchi. GASTROINTESTINAL: Abdomen soft, obese, mildly tender nondistended. Normal active bowel sounds MUSCULOSKELETAL: Extremities without clubbing, cyanosis, +3 edema. NEURO: Alert & Oriented x4 to person, place, time, situation. Moves all ext x4 Hospital Course 47 years old female transferred from [facility] due to abdominal pain clogged up the G tube. Patient had Bob-en-Y surgery at [facility] and she was doing recovery at rehabilitation, she has a history of weakness supposedly due to MS however no enough record support diagnosis, neurology has been consulted, patient refused LP and other workup. General surgery and interventional radiology has been consulted G-tube has been replaced, patient has been given the option to convert to J-tube but she refused. Attempts to call [facility] has been done but wasn't successful due to the holiday downtime, eventually I was able to get a hold of Dr. Willis the surgeon at [facility] who graciously worked with me and admitted the patient to [facility] as a transfer. [id number] encounter performed with the patient on discharge day, as well as physical exam, summary of hospitalization course and postdischarge plan has been D/W the patient. D/W nurse D/W case hardener. Dr. Willis surgery from [facility] Discharge medications reviewed and printed and signed, post discharge follow up visit with PCP and other specialist as well as Brief hospital course and discharge summary has been placed. Pt Condition on Discharge: Stable Discharge Disposition: Disch to Another Hospital Discharge Time: > 30 minutes Discharge Instructions DIET: Follow Instructions for: On Tube Feeding Activities you can perform: See Additionl Instruction Other Activity Instructions: per PT Continued Medications: Calcium/Vitamin D (Oyster Shell 250 mg + Vit D Tb) 250 Mg Calcium (625 Mg)-125 Unit Tablet 250 MG PO Q12HR, #60 Enoxaparin Inj (Lovenox Inj) 120 Mg/0.8 Ml Syr 120 MG SQ Q12H, #30 INJECTION Famotidine (Famotidine) 20 Mg Tab 20 MG PO Q12HR, #30 TAB Hyoscyamine (Levsin) 0.125 Mg Tab 0.125 MG PO Q4H PRN for SECRETIONS, #10 TAB Multivitamin with Folic Acid (Thera Tablet) 400 Mcg Tablet 1 TAB PO DAILY, #30 Theophylline ER 12 HR (Theophylline ER 12 HR) 450 Mg Tab 450 MG PO Q12HR, #60 TAB Valacyclovir (Valtrex) 500 Mg Tab 500 MG PO Q12HR, #60 TAB Jody Tran MD Nov 01, 2017 16:54
[2017-11-02] VITALS: BP 102/53; PULSE 83; RESP 17; TEMP 96.7; O2SAT 98
[2017-11-02] MEDS: METOCLOPRAMIDE HCL 10 MG/2 ML VIAL IV PUSH PRN ×2 (01:36→09:43)
[2017-11-02] MEDS: RESP: ALBUTEROL 2.5 MG/IPRATROPIUM 0.5 MG NEB (PRN) NEB (01:51)
[2017-11-02] MEDS: MORPHINE SULFATE 2 MG/ML INJ IV PRN ×3 (03:00→13:00)
[2017-11-02] MEDS: ENOXAPARIN SODIUM 120 MG/0.8 ML SYRINGE SQ SCH (06:03)
[2017-11-02] MEDS: SODIUM CHLOR 0.9% 1000 ML INJ 1,000 ML IV SCH (06:11)
[2017-11-02] MEDS: ONDANSETRON HCL 4 MG/2 ML VIAL IV PUSH PRN ×2 (07:27→13:00)
[2017-11-02 08:00] VITALS: BP 117/56; PULSE 86; RESP 17; TEMP 98.5; O2SAT 97
[2017-11-02] MEDS: POLYETHYLENE GLYCOL 17 GM PKG PO SCH (09:00)
[2017-11-02] MEDS: SODIUM CHLORIDE 0.9% FLUSH 10 ML FLUSH IV FLUSH SCH (09:00)
[2017-11-02] MEDS: BISACODYL EC 5 MG TABEC PO SCH (09:00)
[2017-11-02] MEDS: LACTULOSE SYRUP 20 GM/30 ML CUP PO SCH (09:00)
[2017-11-02] MEDS: CALCIUM CARBONATE 500 MG CHEWABLE TAB PEG SCH (09:00)
[2017-11-02] MEDS: NYSTATIN 100,000 U/GM PWD 15 GM BTL TOPICAL SCH (09:17)
[2017-11-02] MEDS: KETOCONAZOLE 2% CREAM 15 GM TOPICAL SCH (09:17)
[2017-11-02] MEDS: ERGOCALCIFEROL (VIT D2) 8,000 UNITS/ML 60 ML BTL G-TUBE SCH (09:21)
[2017-11-02] MEDS: POTASSIUM CHLORIDE 20 MEQ PWD PACKET PEG SCH (09:22)
[2017-11-02 11:24] VITALS: O2SAT 98
[2017-11-02 12:00] VITALS: BP 126/60; PULSE 81; RESP 17; TEMP 98.4; O2SAT 100
--- NOTE | 2017-11-02 13:44 | HHI.PR ---
Objective Vitals Vital Signs Date Time Temp Pulse Resp B/P (MAP) Pulse Ox O2 Delivery O2 Flow Rate FiO2 11/02/17 12:00 98.4 81 17 126/60 (82) 100 11/02/17 11:24 98 Nasal Cannula 2.00 11/02/17 09:15 Nasal Cannula 2.00 11/02/17 08:00 98.5 86 17 117/56 (76) 97 11/02/17 00:00 96.7 83 17 102/53 (69) 98 11/01/17 21:08 98 Nasal Cannula 2.00 11/01/17 20:15 95 Nasal Cannula 2.00 Humidified 11/01/17 20:00 99.4 87 17 121/59 (79) 99 11/01/17 18:18 18 11/01/17 16:00 99.5 80 18 131/61 (84) 99 I/O 11/01/17 11/01/17 11/01/17 11/02/17 11/02/17 11/02/17 07:00 15:00 23:00 07:00 15:00 23:00 Intake Total 250 ml 1230 ml 996 ml Output Total 650 ml 1700 ml 200 ml Balance -400 ml -470 ml 796 ml Intake Oral 0 ml 0 ml IV Total 720 ml 700 ml Tube Feeding 200 ml 360 ml 196 ml Tube Irrigant 50 ml 100 ml Other 150 ml Output Urine Total 650 ml 1700 ml 200 ml # Bowel Movements 1 1 Objective Remarks GENERAL: This is a morbidly obese patient, in no apparent distress. CARDIOVASCULAR: Regular rate and rhythm without murmurs, gallops, or rubs. RESPIRATORY: Distant Breath sounds . No wheezes, rales, or rhonchi. GASTROINTESTINAL: Abdomen soft, obese, mildly tender nondistended. Normal active bowel sounds MUSCULOSKELETAL: Extremities without clubbing, cyanosis, +3 edema. NEURO: Alert & Oriented x4 to person, place, time, situation. Moves all ext x4 Procedures G-tube replacement A/P Problem List: (1) PEG tube malfunction ICD Code: K94.23 - Gastrostomy malfunction (2) History of recurrent deep vein thrombosis (DVT) ICD Code: Z86.718 - Personal history of other venous thrombosis and embolism Status: Chronic (3) Impaired mobility and activities of daily living ICD Code: Z74.09 - Other reduced mobility Status: Acute (4) History of CVA (cerebrovascular accident) ICD Code: Z86.73 - Personal history of transient ischemic attack (TIA), and cerebral infarction without residual deficits Status: Chronic (5) History of pulmonary embolism ICD Code: Z86.711 - Personal history of pulmonary embolism Status: Chronic (6) Postoperative anemia due to acute blood loss ICD Code: D62 - Acute posthemorrhagic anemia Status: Acute (7) Diastolic heart failure ICD Code: I50.30 - Unspecified diastolic (congestive) heart failure Status: Chronic (8) MANI (obstructive sleep apnea) ICD Code: G47.33 - Obstructive sleep apnea (adult) (pediatric) Status: Chronic (9) S/P gastric bypass ICD Code: Z98.84 - Bariatric surgery status Status: Acute Assessment and Plan 10/31/17: I discussed with the patient and the nurse and the casework manager extensively, the patient wants to be transferred to [facility], I called the number she gave me and I discussed with Dr. Willis doubt ration surgeon who was she supposed to see on the of this month he graciouslyD/W the operating surgeon and call me back with accepting of the transfer, I handed the name of the secretary office clerk and transfer center at the [facility] to the casework manager to finish up the transfer process. This is a 47-year-old female gastric bypass surgery status post G-tube placement Abdominal pain, - Status post gastric bypass/G-tube placement/ G- tube malfunction/ Abdominal pain/ Constipation - Feeding tube replaced (10/14/17), at the moment not tolerating tube feeds. - GI signed off again and stated high residual most likely secondary to fecal impaction. Patient on multiple laxatives and refused enema despite specific. - Dr. Rivera spoke with general surgeon PENG, Brigette Stratton and requires high residual pending recommendations. Dr. Rivera Call [place] 10/28 and "stated spoke to community resource officer and she stated that patient surgeon is out of town and I asked for covering physician which was Dr. Guthrie to call me in regards to patient and possible transfer since procedure was done by [facility] and patient asking to be transferred back. I have still yet to receive any call back." Anemia, currently stable COPD, chronic and stable. Duo nebs as needed, incentive spirometry, encourage movement UTI positive Enterobacter cloaca, completed doxy, fevers resolved Generalized weakness and unexplained ability to ambulate, neurology consult appreciated. Patient was diagnosed with MS but not on treatment(? patient said she was on treatment prior to her surgery in August but cannot provide further info) but refused evaluation at this time. Neurologist Dr. Jacobo reconsulted and stated information is too old and need recent medical records in regards to MS or needs to be work up. Patient unable to provide recent medical records and refused workup. History of venous thrombotic event, continue therapeutic Lovenox with IVC filter Neurogenic bladder, continue Reeves History of a stroke without any residual defect, continue with Lovenox for now Electrolyte imbalance resolved Jody Tran MD Nov 02, 2017 13:44
== END 2017-11-02 15:13 | disposition short-term general hospital (02) | DRG 394 ==
LOC: HROP 16:45 → N07A 17:50
PROVIDERS: ADMIT Hospitalist; ATTEND Hospitalist
PROC: 0DH63UZ Insertion of Feeding Device into Stomach, Percutaneous Approach (ICD-10-PCS; principal; 2017-10-14)
DX: K94.23 Gastrostomy malfunction (principal); I50.32 Chronic diastolic (congestive) heart failure; G82.20 Paraplegia, unspecified; I11.0 Hypertensive heart disease with heart failure; I95.9 Hypotension, unspecified; E46 Unspecified protein-calorie malnutrition; G35 Multiple sclerosis; D62 Acute posthemorrhagic anemia; Z68.41 Body mass index [BMI] 40.0-44.9, adult; N39.0 Urinary tract infection, site not specified; I48.91 Unspecified atrial fibrillation; M51.26 Other intervertebral disc displacement, lumbar region; Z91.19 Patient's noncompliance with other medical treatment and regimen; M51.27 Other intervertebral disc displacement, lumbosacral region; K22.70 Barrett's esophagus without dysplasia; N31.9 Neuromuscular dysfunction of bladder, unspecified; G89.29 Other chronic pain; G47.33 Obstructive sleep apnea (adult) (pediatric); K21.0 Gastro-esophageal reflux disease with esophagitis; J44.9 Chronic obstructive pulmonary disease, unspecified; L29.9 Pruritus, unspecified; E78.5 Hyperlipidemia, unspecified; E66.01 Morbid (severe) obesity due to excess calories; E11.9 Type 2 diabetes mellitus without complications; K56.41 Fecal impaction; M54.2 Cervicalgia; M54.9 Dorsalgia, unspecified; H91.90 Unspecified hearing loss, unspecified ear; Z82.49 Family history of ischemic heart disease and other diseases of the circulatory system; Z83.3 Family history of diabetes mellitus; Z86.711 Personal history of pulmonary embolism; Z98.84 Bariatric surgery status; Z90.49 Acquired absence of other specified parts of digestive tract; Z92.21 Personal history of antineoplastic chemotherapy; Z86.73 Personal history of transient ischemic attack (TIA), and cerebral infarction without residual deficits; Z85.038 Personal history of other malignant neoplasm of large intestine; Z86.718 Personal history of other venous thrombosis and embolism; Z92.3 Personal history of irradiation; F43.20 Adjustment disorder, unspecified
CPT/HCPCS: 49440; 71010; 71020; 74000; 74150; 76937; 80048; 80053; 80076; 81001; 82306; 82948; 83520; 83605; 83690; 83735; 84134; 84181; 85014; 85018; 85025; 85027; 85610; 85730; 86850; 86900; 86901; 86920; 87040; 87077; 87086; 87186; 94640; 94664; C1725; C1769; C1887; C1894; C9113; J0131; J0330; J0690; J0696; J1200; J1610; J1642; J1650; J1815; J2212; J2270; J2405; J2550; J2765; J2997; J3010; J3480; J7030; J7040; J7042; J7120; Q9967